=== PATIENT | male | born 1940 | race Caucasian/White ===

== ENCOUNTER → 2017-10-25 09:36 | Outpatient (CLI) | payer MEDICARE, OTHER, SELFPAY ==
[2017-10-25 11:04] LABS: Absolute Lymphocyte Count 0.93 X10^3/ul (0.83-4.51); Absolute Neutrophil Count 0.7 X10^3/uL (2.0-7.7); Basophil# 0.03 X10^3/uL; Basophil% 1.4 % (0-1); Eosinophil# 0.06 X10^3/uL; Eosinophils% 2.9 % (0-5); Hematocrit 35.5 % (40-54); Hemoglobin 11.2 g/dl (13.0-16.5); Lymphocyte # 0.93 X10^3/ul (4.0); Lymphocyte % 44.7 % (19-41); Mean Corp Hgb Conc 31.5 g/gl (32-36); Mean Corpuscular Hgb 24.4 pg (27.0-32.0); Mean Corpuscular Volume 77.3 fL (80-94); Monocyte# 0.32 X10^3/uL; Monocyte% 15.4 % (0-10); Neutrophil # 0.73 X10^3/uL (2.7-7.7); Neutrophil % 35.1 % (47-70); Platelet Count 175 K/mm3 (150-450); RBC Distribution Width CV 15.2 % (11.6-14.6); RBC Distribution Width SD 41.9 fl (35.1-43.9); Red Blood Count 4.59 M/mm3 (4.6-6.2); White Blood Count 2.1 K/mm3 (4.4-11.0)
[2017-10-25 11:05] LABS: Differential Indicated SCAN CRITERIA MET; POSITIVE COUNT NO; POSITIVE DIFFERENTIAL YES; POSITIVE MORPHOLOGY NO
[2017-10-25 11:21] LABS: ALB/GLOB Ratio 0.5 RATIO (0.9-2.4); AST(SGOT) 14 U/L (15-37); Alanine Aminotransfer ALT/SGPT 9 U/L (16-61); Albumin, Serum 2.5 g/dL (3.2-5.0); Alkaline Phosphatase 81 U/L (45-117); Anion Gap 8 (5-15); BUN 28 mg/dL (7-18); BUN/Creat Ratio 17.9 RATIO (10-20); Calcium,Total 8.6 mg/dL (8.5-10.1); Chloride 103 mmol/L (98-107); Cholesterol 111 mg/dL (200); Creatinine, Serum 1.56 mg/dL (0.70-1.30); EST Glomerular Filtration Rate 46 mL/min (>60); Est Glom Filt Rate - Afr Amer 56 mL/min (>60); Glucose 105 mg/dL (74-106); High Density Lipoprotein 25 mg/dL; Potassium 4.1 mmol/L (3.5-5.1); Protein, Total 7.5 g/dL (6.4-8.2); Sodium Level 138 mmol/L (136-145); Triglycerides 99 mg/dL; Very Low Density Lipoprotein 20 mg/dL (5-40)
== END ==
PROVIDERS: Family Provider Family Medicine; PCP Family Medicine; Visit Provider Family Medicine
DX: Z00.00 Encounter for general adult medical examination without abnormal findings (principal); D64.9 Anemia, unspecified
CPT/HCPCS: 36415; 80053; 80061; 85025

== ENCOUNTER → 2017-11-15 09:17 | Outpatient (CLI) | payer MEDICARE, OTHER, SELFPAY ==
[2017-11-15 09:42] LABS: Absolute Lymphocyte Count 1.02 X10^3/ul (0.83-4.51); Absolute Neutrophil Count 0.9 X10^3/uL (2.0-7.7); Basophil# 0.07 X10^3/uL; Basophil% 3.1 % (0-1); Eosinophil# 0.06 X10^3/uL; Eosinophils% 2.7 % (0-5); Hematocrit 36.7 % (40-54); Hemoglobin 11.3 g/dl (13.0-16.5); Lymphocyte # 1.02 X10^3/ul (4.0); Lymphocyte % 45.1 % (19-41); Mean Corp Hgb Conc 30.8 g/gl (32-36); Mean Corpuscular Hgb 23.3 pg (27.0-32.0); Mean Corpuscular Volume 75.8 fL (80-94); Mean Platelet Vol. 10.2 fl (6.2-12.0); Monocyte# 0.25 X10^3/uL; Monocyte% 11.1 % (0-10); Neutrophil # 0.86 X10^3/uL (2.7-7.7); Platelet Count 228 K/mm3 (150-450); RBC Distribution Width CV 16.5 % (11.6-14.6); RBC Distribution Width SD 44.1 fl (35.1-43.9); Red Blood Count 4.84 M/mm3 (4.6-6.2); White Blood Count 2.3 K/mm3 (4.4-11.0)
[2017-11-15 09:46] LABS: Prothrombin Time (Protime)PT. 45.3 SECONDS (11.7-14.9)
[2017-11-15 09:48] LABS: International Normalized Ratio 4.8
[2017-11-15 10:05] LABS: Differential Indicated SCAN CRITERIA MET; POSITIVE COUNT NO; POSITIVE DIFFERENTIAL YES; POSITIVE MORPHOLOGY NO
[2017-11-15 10:06] LABS: Platelet Estimate ADEQUATE (ADEQ)
[2017-11-15 10:07] LABS: Hypochromasia 1+; Microcytosis 1+; Ovalocyte RARE
[2017-11-15 10:12] LABS: BUN 29 mg/dL (7-18); Creatinine, Serum 1.71 mg/dL (0.70-1.30); Glucose 118 mg/dL (74-106)
[2017-11-15 10:13] LABS: ALB/GLOB Ratio 0.5 RATIO (0.9-2.4); AST(SGOT) 17 U/L (15-37); Alanine Aminotransfer ALT/SGPT 8 U/L (16-61); Albumin, Serum 2.5 g/dL (3.2-5.0); Alkaline Phosphatase 77 U/L (45-117); Anion Gap 9 (5-15); Calcium,Total 8.5 mg/dL (8.5-10.1); Chloride 106 mmol/L (98-107); EST Glomerular Filtration Rate 42 mL/min (>60); Est Glom Filt Rate - Afr Amer 50 mL/min (>60); Globulin 5.5 g/dL (2.2-4.2); Potassium 4.4 mmol/L (3.5-5.1); Sodium Level 138 mmol/L (136-145)
[2017-11-15 11:31] LABS: Anion Gap 7 (5-15); BUN 29 mg/dL (7-18); BUN/Creat Ratio 16.7 RATIO (10-20); Calcium,Total 8.7 mg/dL (8.5-10.1); Chloride 106 mmol/L (98-107); Creatinine, Serum 1.74 mg/dL (0.70-1.30); EST Glomerular Filtration Rate 41 mL/min (>60); Est Glom Filt Rate - Afr Amer 49 mL/min (>60); Glucose 122 mg/dL (74-106); Potassium 4.5 mmol/L (3.5-5.1); Sodium Level 138 mmol/L (136-145)
== END ==
PROVIDERS: Urology; Family Provider Family Medicine; PCP Family Medicine; Visit Provider Physician Assistant Medical
DX: I48.91 Unspecified atrial fibrillation (principal); I11.0 Hypertensive heart disease with heart failure; I50.9 Heart failure, unspecified; N20.0 Calculus of kidney; M06.00 Rheumatoid arthritis without rheumatoid factor, unspecified site; M17.0 Bilateral primary osteoarthritis of knee; E11.9 Type 2 diabetes mellitus without complications; R31.0 Gross hematuria; Z79.899 Other long term (current) drug therapy
CPT/HCPCS: 36415; 80048; 80053; 84153; 85025; 85610

== ENCOUNTER 2017-11-22 09:22 | Outpatient (RCR) | payer MEDICARE, OTHER, SELFPAY ==
[2017-11-22 10:03] LABS: International Normalized Ratio 2.5; Prothrombin Time (Protime)PT. 27.1 SECONDS (11.7-14.9)
== END 2017-11-22 10:00 | disposition home or self-care (01) ==
LOC: LAB 09:22
PROVIDERS: Family Provider Family Medicine; PCP Family Medicine; Visit Provider Internal Medicine Cardiovascular Disease
DX: I48.0 Paroxysmal atrial fibrillation (principal); Z79.899 Other long term (current) drug therapy; N18.3 Chronic kidney disease, stage 3 (moderate); E55.9 Vitamin D deficiency, unspecified
CPT/HCPCS: 36415; 85610

== ENCOUNTER 2017-11-22 23:41 | Emergency (ER) | payer MEDICARE, OTHER, SELFPAY ==
[2017-11-22 23:42] VITALS: BP 138/75; PULSE 75; RESP 18; TEMP 36.2; O2SAT 100; BMI 21.7
--- NOTE | 2017-11-22 23:58 | ED.VISSUMM ---
- ER Visit Summary Date of Service: 11/22/17 Chief Complaint: [] Bilateral knee pain History of Present Illness: The patient is a 77 M bilateral knee pain for years. He has rheumatoid arthritis and seems rheumatology with an appointment tomorrow. His knees gave out tonight when he was walking. He had a pretty good day today was able to walk around with pain. He has chronic pain every day. He is on meloxicam. No narcotics. Needed assistance getting out of bed and brought in. Physical Examination: Vital signs reviewed General: Well-nourished well-developed Head: Normocephalic atraumatic Eyes: Pupils equal round and reactive to light extraocular movements intact ENT: TMs clear no hemotympanum no trauma Neck: Nontender full range of motion Cardiovascular: Regular rate rhythm no murmurs normal S1-S2 Respiratory: No distress clear to auscultation bilaterally chest nontender Abdomen: Soft nontender nondistended normal bowel sounds no masses Back: Nontender no CVA tenderness Extremities: Significant tenderness to his knees. Moving them quite well. Bilateral arthritic changes. Normal color and pulses. Skin: Normal color no trauma Neuro alert oriented cranial nerves II through XII intact normal strength sensation reflexes Test Results: [] Emergency Department Course and Treatment: [] Given David wrap says needs for support as well as a shot of morphine. 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 I do not feel he needs acute steroids. There is no warmth or redness. I think this is just chronic pain. Treatment Plan: [] Disposition: [] Impression: [] Bilateral knee arthritis with chronic pain This note was generated with [employer] dictation software. It may contain incorrect words, spelling, and punctuation that were not noted in review of the chart prior to signing ED Disposition - Plan for ED Patient: Chief Complaint: Lower Extremity Injury Referrals: Dwayne Valente DO [Primary Care Provider] -
--- NOTE | 2017-11-23 | ED.DEP ---
ED Disposition - Plan for ED Patient: Disposition: Home or Assisted Living Chief Complaint: Lower Extremity Injury Instructions: ED Arthritis Rheumatoid Referrals: Dwayne Valente DO [Primary Care Provider] - Nelly Gomez MD [STAFF PHYSICIAN] -
[2017-11-23] MEDS: Morphine 4 MG/ML Syringe IM (00:07)
[2017-11-23 00:36] VITALS: PULSE 76; RESP 18; O2SAT 96
== END 2017-11-23 00:37 | disposition home or self-care (01) ==
LOC: ED 11-23 00:05
PROVIDERS: Emergency Provider Emergency Medicine; Family Provider Family Medicine; PCP Family Medicine
DX: M06.862 Other specified rheumatoid arthritis, left knee (principal); M06.861 Other specified rheumatoid arthritis, right knee; G89.29 Other chronic pain; I50.9 Heart failure, unspecified; E78.00 Pure hypercholesterolemia, unspecified; I48.0 Paroxysmal atrial fibrillation; Z79.01 Long term (current) use of anticoagulants; N18.3 Chronic kidney disease, stage 3 (moderate); E55.9 Vitamin D deficiency, unspecified; Z79.899 Other long term (current) drug therapy
CPT/HCPCS: 36415; 85610; 99283

== ENCOUNTER → 2017-11-23 12:09 | Outpatient (CLI) | payer MEDICARE, OTHER, SELFPAY ==
[2017-11-23 12:12] LABS: Pathologist Comment May follow
[2017-11-23 13:11] LABS: RBC /Synovial Fluid 0.018 10^6/uL (0); Synovial Fld Mononuclear WBC % 77.6 %; Synovial Fld Polynuclear WBC # 1.074 10^3/ul; Synovial Fld Polynuclear WBC % 22.4 %
[2017-11-23 13:15] LABS: AUTO B FLUID DILUENT BKGD CT WBC <0.1 RBC <0.01 (W<.1,R<.01); Source / Synovial Fluid L.KNEE
[2017-11-23 13:16] LABS: Appearance /Synovial Fluid Sl Cl (CLEAR); Color / Synovial Fluid Pink (Pale Yellow); Source- Body Fluid SYNOVIAL
[2017-11-23 13:54] LABS: Body Fluid QC Type(s) BF1Q,BF2Q; Lymph 22 %; Monocyte /Synovial Fluid 60 %; Neutrophil 18 % (0-25)
[2017-11-24 12:07] LABS: Pathologist Review Reviewed
== END ==
PROVIDERS: Family Provider Family Medicine; PCP Family Medicine; Visit Provider Internal Medicine Rheumatology
DX: M06.00 Rheumatoid arthritis without rheumatoid factor, unspecified site (principal); M17.0 Bilateral primary osteoarthritis of knee; E11.9 Type 2 diabetes mellitus without complications; N20.0 Calculus of kidney; I48.91 Unspecified atrial fibrillation; I11.0 Hypertensive heart disease with heart failure; I50.9 Heart failure, unspecified; Z79.899 Other long term (current) drug therapy
CPT/HCPCS: 87070; 87075; 87205; 89050; 89051; 89060

== ENCOUNTER 2017-12-09 23:55 | Emergency (ER) | payer MEDICARE, OTHER, SELFPAY ==
[2017-12-09 23:57] VITALS: BP 128/78; PULSE 80; RESP 18; TEMP 37.3; O2SAT 99; BMI 20.9
--- NOTE | 2017-12-10 00:53 | ED.VISSUMM ---
- ER Visit Summary Date of Service: 12/10/17 Chief Complaint: Rash History of Present Illness: The patient is a 77 M rest left-sided chest going to his back. Noticed today. No fevers. Denies pain. He is on low-dose prednisone daily for rheumatoid arthritis. Denies weakness or similar symptoms in the past. Did have chickenpox as a child. No history of any shingles. Patient warfarin history of atrial fibrillation. Physical Examination: General: Alert and oriented ?3, no acute distress HEENT: Normocephalic, atraumatic. Moist mucosa membranes Neck: supple, nontender. Cardiovascular: Regular rate and rhythm, no murmurs Respiratory: Normal breath sounds, symmetric, no distress Abdomen: Soft, nontender, nondistended Extremities: Nontender, no edema, pulses intact ?4 Neuro: no focal neurological deficits. Skin: Red vesicular rash T4 dermatome on the left chest wrapping around to the back. Nontender to palpation. No active drainage. Test Results: [] Emergency Department Course and Treatment: Patient exam notes shingles lesions. It is nontender. He is currently on a low-dose prednisone. Afebrile, nontoxic. He was given valacyclovir 1 g twice of it day for first occurrence for 7 days. None in the Pyxis for treatment this evening, therefore was given 1 dose of acyclovir with a prescription for valacyclovir. He will follow-up with PCP for reevaluation. Return if any worsening symptoms. Treatment Plan: [] Disposition: Discharge Impression: Herpes zoster left T4 dermatome This note was generated with [employer] dictation software. It may contain incorrect words, spelling, and punctuation that were not noted in review of the chart prior to signing ED Disposition - Plan for ED Patient: Disposition: Home or Assisted Living Chief Complaint: Rash Diagnosis: Herpes zoster Instructions: ED Shingles Prescriptions: Valacyclovir HCl [Valacyclovir] 1,000 mg PO BID #14 tablet Referrals: Dwayne Valente DO [Primary Care Provider] - 5-7 Days
[2017-12-10] MEDS: Acyclovir 800 MG Tablet PO (01:13)
[2017-12-10 01:28] VITALS: RESP 18
== END 2017-12-10 01:29 | disposition home or self-care (01) ==
LOC: ED 12-10 01:01
PROVIDERS: Emergency Provider Emergency Medicine; Family Provider Family Medicine; PCP Family Medicine
DX: B02.9 Zoster without complications (principal); M06.9 Rheumatoid arthritis, unspecified; I48.91 Unspecified atrial fibrillation; Z79.01 Long term (current) use of anticoagulants; I13.0 Hypertensive heart and chronic kidney disease with heart failure and stage 1 through stage 4 chronic kidney disease, or unspecified chronic kidney disease; N18.9 Chronic kidney disease, unspecified; I50.9 Heart failure, unspecified; E11.22 Type 2 diabetes mellitus with diabetic chronic kidney disease; N40.0 Benign prostatic hyperplasia without lower urinary tract symptoms; Z79.84 Long term (current) use of oral hypoglycemic drugs; Z79.899 Other long term (current) drug therapy
CPT/HCPCS: 99283

== ENCOUNTER 2017-12-24 14:26 | Emergency (ER) | payer MEDICARE, OTHER, SELFPAY ==
[2017-12-24 14:28] VITALS: BP 132/75; PULSE 70; RESP 16; TEMP 36.4; O2SAT 99; BMI 19.8
[2017-12-24 15:52] LABS: Absolute Lymphocyte Count 0.92 X10^3/ul (0.83-4.51); Absolute Neutrophil Count 1.8 X10^3/uL (2.0-7.7); Basophil# 0.06 X10^3/uL; Basophil% 1.9 % (0-1); Eosinophil# 0.07 X10^3/uL; Eosinophils% 2.2 % (0-5); Hematocrit 40.5 % (40-54); Hemoglobin 12.5 g/dl (13.0-16.5); Lymphocyte # 0.92 X10^3/ul (4.0); Lymphocyte % 28.9 % (19-41); Mean Corp Hgb Conc 30.9 g/gl (32-36); Mean Corpuscular Hgb 23.7 pg (27.0-32.0); Mean Corpuscular Volume 76.7 fL (80-94); Mean Platelet Vol. 10.7 fl (6.2-12.0); Monocyte# 0.31 X10^3/uL; Monocyte% 9.7 % (0-10); Neutrophil # 1.82 X10^3/uL (2.7-7.7); Neutrophil % 57.3 % (47-70); Platelet Count 165 K/mm3 (150-450); RBC Distribution Width CV 19.6 % (11.6-14.6); RBC Distribution Width SD 53.6 fl (35.1-43.9); Red Blood Count 5.28 M/mm3 (4.6-6.2); White Blood Count 3.2 K/mm3 (4.4-11.0)
[2017-12-24 15:56] LABS: POSITIVE COUNT NO; POSITIVE DIFFERENTIAL NO; POSITIVE MORPHOLOGY NO
[2017-12-24 16:00] LABS: Anion Gap 6 (5-15); BUN 22 mg/dL (7-18); BUN/Creat Ratio 15.1 RATIO (10-20); Chloride 103 mmol/L (98-107); Creatinine, Serum 1.46 mg/dL (0.70-1.30); EST Glomerular Filtration Rate 50 mL/min (>60); Est Glom Filt Rate - Afr Amer 61 mL/min (>60); Estimated Creatinine Clearance 41.06 ml/min; Glucose 152 mg/dL (74-106); Sodium Level 139 mmol/L (136-145)
[2017-12-24 16:29] LABS: International Normalized Ratio 2.2; Prothrombin Time (Protime)PT. 24.8 SECONDS (11.7-14.9)
[2017-12-24 16:42] VITALS: BP 129/76; PULSE 83; RESP 14; O2SAT 99
--- NOTE | 2017-12-24 16:55 | ED.VISSUMM ---
- ER Visit Summary Date of Service: 12/24/17 Chief Complaint: Right leg swelling History of Present Illness: The patient is a 77 M who presents with right leg redness and swelling. He states on November 20 over 1 month ago he fell and hit his right leg. He is on warfarin due to a history of atrial fibrillation. He has had some swelling over the anterior right lower leg ever since that time with some mild redness. He saw the partner for his primary care physician earlier this week was concern for cellulitis demarcated the area of this and started him on Keflex. They noticed that at the top edge where the redness was marked has expanded outside of the line however it is otherwise improving. He has no systemic symptoms such as fevers nausea or vomiting. He denies any pain. Physical Examination: Afebrile vitals are unremarkable Heart regular rate Lungs are clear There is a hematoma over the anterior right lower leg there is very minimal surrounding erythema extending above the line superiorly I do not appreciate lymphangitic streaking this area is warm to the touch the erythema inferiorly laterally and medially appears to be smaller than the line demarcates Test Results: Laboratory studies are notable for white blood cell count of 3.2 INR 2.2 creatinine of 1.46 which appears to be near baseline. Emergency Department Course and Treatment: Patient's cellulitis appears to extended very slightly superiorly how ever is otherwise improving. I do not appreciate lymphangitic streaking. He does not appear systemically ill. He does have some minimal fluctuance but is anticoagulated. He states that this is been like this for 1 month. Therefore I do not believe he needs emergently incised and drained and we will refer the patient to plastic surgery. We will have him discontinue Keflex and switch him to clindamycin. He does already have a scheduled follow-up on December 28 with the primary care physician. He was instructed on specific signs and symptoms to monitor for and conditions under which to return to the emergency department. Treatment Plan: [] Disposition: Discharge Impression: Cellulitis right leg Hematoma right leg This note was generated with [employer] dictation software. It may contain incorrect words, spelling, and punctuation that were not noted in review of the chart prior to signing ED Disposition - Plan for ED Patient: Chief Complaint: Cellulitis Referrals: Dwayne Valente DO [Primary Care Provider] -
--- NOTE | 2017-12-24 16:59 | ED.DEP ---
ED Disposition - Plan for ED Patient: Chief Complaint: Cellulitis Instructions: ED Infec Skin Cellulitis, ED Hematoma Prescriptions: Clindamycin HCl [Cleocin] 300 mg PO TID #30 cap Referrals: Dwayne Valente DO [Primary Care Provider] - Additional Instructions: STOP CEPHALEXIN.
--- NOTE | 2017-12-24 17:02 | ED.DEP ---
ED Disposition - Plan for ED Patient: Chief Complaint: Cellulitis Instructions: ED Infec Skin Cellulitis, ED Hematoma Prescriptions: Clindamycin HCl [Cleocin] 300 mg PO TID #30 cap Referrals: Dwayne Valente DO [Primary Care Provider] - Mor Bales MD [STAFF PHYSICIAN] - Additional Instructions: STOP CEPHALEXIN.
[2017-12-24 17:08] VITALS: BP 131/76; PULSE 83; RESP 14; O2SAT 99
== END 2017-12-24 17:09 | disposition home or self-care (01) ==
PROVIDERS: Emergency Provider Emergency Medicine; Family Provider Family Medicine; PCP Family Medicine
DX: L03.115 Cellulitis of right lower limb (principal); S80.11XA Contusion of right lower leg, initial encounter; W19.XXXA Unspecified fall, initial encounter; Y93.9 Activity, unspecified; Y92.9 Unspecified place or not applicable; I48.91 Unspecified atrial fibrillation; Z79.01 Long term (current) use of anticoagulants; E11.9 Type 2 diabetes mellitus without complications; Z87.891 Personal history of nicotine dependence
CPT/HCPCS: 80048; 85025; 85610; 99284; A4216

== ENCOUNTER 2017-12-27 10:24 | Outpatient (RCR) | payer MEDICARE, OTHER, SELFPAY ==
[2017-12-08 11:09] LABS: Absolute Lymphocyte Count 0.79 X10^3/ul (0.83-4.51); Absolute Neutrophil Count 2.2 X10^3/uL (2.0-7.7); Basophil# 0.01 X10^3/uL; Basophil% 0.3 % (0-1); Eosinophils% 2.9 % (0-5); Hematocrit 40.4 % (40-54); Hemoglobin 12.1 g/dl (13.0-16.5); Lymphocyte # 0.79 X10^3/ul (4.0); Lymphocyte % 22.6 % (19-41); Mean Corpuscular Hgb 23.1 pg (27.0-32.0); Mean Corpuscular Volume 77.2 fL (80-94); Monocyte# 0.36 X10^3/uL; Monocyte% 10.3 % (0-10); Neutrophil # 2.24 X10^3/uL (2.7-7.7); Neutrophil % 63.9 % (47-70); Platelet Count 139 K/mm3 (150-450); RBC Distribution Width CV 18.9 % (11.6-14.6); RBC Distribution Width SD 53.4 fl (35.1-43.9); Red Blood Count 5.23 M/mm3 (4.6-6.2); White Blood Count 3.5 K/mm3 (4.4-11.0)
[2017-12-08 11:10] LABS: Differential Indicated SCAN CRITERIA MET; International Normalized Ratio 2.4; POSITIVE COUNT NO; POSITIVE DIFFERENTIAL NO; POSITIVE MORPHOLOGY YES; Prothrombin Time (Protime)PT. 25.9 SECONDS (11.7-14.9)
[2017-12-08 11:30] LABS: Anisocytosis 1+; Hypochromasia 1+; Microcytosis 1+; Ovalocyte 1+; Platelet Estimate SLT DEC (ADEQ); Schistocytes RARE
[2017-12-08 11:32] LABS: ALB/GLOB Ratio 0.6 RATIO (0.9-2.4); AST(SGOT) 15 U/L (15-37); Alanine Aminotransfer ALT/SGPT 11 U/L (16-61); Alkaline Phosphatase 81 U/L (45-117); Anion Gap 6 (5-15); BUN 27 mg/dL (7-18); BUN/Creat Ratio 18.8 RATIO (10-20); Calcium,Total 9.1 mg/dL (8.5-10.1); Chloride 106 mmol/L (98-107); Creatinine, Serum 1.44 mg/dL (0.70-1.30); EST Glomerular Filtration Rate 51 mL/min (>60); Est Glom Filt Rate - Afr Amer 62 mL/min (>60); Globulin 4.8 g/dL (2.2-4.2); Glucose 131 mg/dL (74-106); Potassium 4.3 mmol/L (3.5-5.1); Protein, Total 7.8 g/dL (6.4-8.2); Sodium Level 140 mmol/L (136-145)
[2017-12-15 11:03] LABS: International Normalized Ratio 2.4; Prothrombin Time (Protime)PT. 26.5 SECONDS (11.7-14.9)
[2017-12-27 12:38] LABS: International Normalized Ratio 2.3; Prothrombin Time (Protime)PT. 25.5 SECONDS (11.7-14.9)
== END 2017-12-27 11:00 | disposition home or self-care (01) ==
LOC: LAB 10:24
PROVIDERS: Family Provider Family Medicine; PCP Family Medicine; Visit Provider Internal Medicine Cardiovascular Disease
DX: I48.0 Paroxysmal atrial fibrillation (principal); M06.00 Rheumatoid arthritis without rheumatoid factor, unspecified site; M17.0 Bilateral primary osteoarthritis of knee; E11.9 Type 2 diabetes mellitus without complications; N20.0 Calculus of kidney; I10 Essential (primary) hypertension; I48.91 Unspecified atrial fibrillation; I50.9 Heart failure, unspecified; Z79.899 Other long term (current) drug therapy
CPT/HCPCS: 36415; 80053; 85025; 85610

== ENCOUNTER → 2018-01-18 07:37 | Outpatient (CLI) | payer MEDICARE, OTHER, SELFPAY ==
[2017-12-17 10:25] VITALS: BP 107/58; PULSE 81; RESP 15; TEMP 36.8; BMI 20.8
== END ==
PROVIDERS: Family Provider Family Medicine; PCP Family Medicine; Visit Provider Urology
DX: Z01.818 Encounter for other preprocedural examination (principal)

== ENCOUNTER 2018-02-04 10:12 | Outpatient (RCR) | payer MEDICARE, OTHER, SELFPAY ==
--- NOTE | 2018-02-04 10:12 | DT_ITS ---
This patient was seen during an EMR downtime January 31, 2018 - February 07, 2018. This patient may have a combination of paper and electronic documentation or all paper documentation. All documentation is viewable within the e-chart portion of [facility] for each patient visit.
[2018-02-04 12:09] LABS: International Normalized Ratio 1.6; Prothrombin Time (Protime)PT. 18.9 SECONDS (11.7-14.9)
[2018-02-04 14:31] LABS: BUN 24 mg/dL (7-18); BUN/Creat Ratio 16.7 RATIO (10-20); Calcium,Total 8.8 mg/dL (8.5-10.1); Creatinine, Serum 1.44 mg/dL (0.70-1.30); EST Glomerular Filtration Rate 51 mL/min (>60); Est Glom Filt Rate - Afr Amer 62 mL/min (>60); Glucose 161 mg/dL (74-106)
[2018-02-04 14:32] LABS: Chloride 106 mmol/L (98-107); Phosphorus 3.4 mg/dL (2.5-4.9); Sodium Level 140 mmol/L (136-145)
[2018-02-04 14:45] LABS: PTHIN 73.2 pg/mL (18.4-80.1)
[2018-02-04 15:03] LABS: Protein, Urine (Random) 11.7 mg/dL (<11.9); Protein:Creat Ratio 450 mg/g CRE (0-200)
[2018-02-04 16:38] LABS: Hemoglobin A1c 7.4 % (4.2-6.3)
== END 2018-02-04 11:00 | disposition home or self-care (01) ==
LOC: LAB 10:12
PROVIDERS: Family Provider Family Medicine; PCP Family Medicine; Visit Provider Internal Medicine Cardiovascular Disease
DX: I48.0 Paroxysmal atrial fibrillation (principal); M06.00 Rheumatoid arthritis without rheumatoid factor, unspecified site; M17.0 Bilateral primary osteoarthritis of knee; N20.0 Calculus of kidney; I13.0 Hypertensive heart and chronic kidney disease with heart failure and stage 1 through stage 4 chronic kidney disease, or unspecified chronic kidney disease; E11.22 Type 2 diabetes mellitus with diabetic chronic kidney disease; N18.3 Chronic kidney disease, stage 3 (moderate); I50.9 Heart failure, unspecified; E55.9 Vitamin D deficiency, unspecified; Z79.899 Other long term (current) drug therapy
CPT/HCPCS: 36415; 80069; 82306; 82570; 83036; 83970; 84156; 85610

== ENCOUNTER 2018-03-28 09:06 | Outpatient (RCR) | payer MEDICARE, OTHER, SELFPAY ==
[2018-03-28 10:25] LABS: Absolute Lymphocyte Count 1.15 X10^3/ul (0.83-4.51); Absolute Neutrophil Count 1.4 X10^3/uL (2.0-7.7); Basophil# 0.05 X10^3/uL; Basophil% 1.7 % (0-1); Eosinophil# 0.12 X10^3/uL; Hematocrit 38.8 % (40-54); Hemoglobin 12.2 g/dl (13.0-16.5); Lymphocyte # 1.15 X10^3/ul (4.0); Lymphocyte % 38.1 % (19-41); Mean Corp Hgb Conc 31.4 g/gl (32-36); Mean Corpuscular Hgb 24.6 pg (27.0-32.0); Mean Corpuscular Volume 78.4 fL (80-94); Mean Platelet Vol. 10.6 fl (6.2-12.0); Monocyte# 0.32 X10^3/uL; Monocyte% 10.6 % (0-10); Neutrophil # 1.37 X10^3/uL (2.7-7.7); Neutrophil % 45.3 % (47-70); Platelet Count 159 K/mm3 (150-450); RBC Distribution Width CV 15.9 % (11.6-14.6); RBC Distribution Width SD 44.9 fl (35.1-43.9); Red Blood Count 4.95 M/mm3 (4.6-6.2)
[2018-03-28 10:29] LABS: International Normalized Ratio 1.6; Prothrombin Time (Protime)PT. 19.1 SECONDS (11.7-14.9)
[2018-03-28 10:30] LABS: POSITIVE COUNT NO; POSITIVE DIFFERENTIAL NO; POSITIVE MORPHOLOGY NO
[2018-03-28 10:50] LABS: ALB/GLOB Ratio 0.6 RATIO (0.9-2.4); AST(SGOT) 13 U/L (15-37); Alanine Aminotransfer ALT/SGPT 9 U/L (16-61); Albumin, Serum 2.8 g/dL (3.2-5.0); Alkaline Phosphatase 71 U/L (45-117); Anion Gap 8 (5-15); BUN 25 mg/dL (7-18); BUN/Creat Ratio 15.9 RATIO (10-20); Calcium,Total 8.8 mg/dL (8.5-10.1); Chloride 103 mmol/L (98-107); Creatinine, Serum 1.57 mg/dL (0.70-1.30); EST Glomerular Filtration Rate 46 mL/min (>60); Est Glom Filt Rate - Afr Amer 56 mL/min (>60); Globulin 4.6 g/dL (2.2-4.2); Glucose 138 mg/dL (74-106); Potassium 4.3 mmol/L (3.5-5.1); Protein, Total 7.4 g/dL (6.4-8.2); Sodium Level 140 mmol/L (136-145)
== END 2018-03-28 10:00 | disposition home or self-care (01) ==
LOC: LAB 09:06
PROVIDERS: Family Provider Family Medicine; PCP Family Medicine; Visit Provider Internal Medicine Cardiovascular Disease
DX: I48.91 Unspecified atrial fibrillation (principal); M06.00 Rheumatoid arthritis without rheumatoid factor, unspecified site; M25.562 Pain in left knee; M17.0 Bilateral primary osteoarthritis of knee; E11.9 Type 2 diabetes mellitus without complications; N20.0 Calculus of kidney; I11.0 Hypertensive heart disease with heart failure; I50.9 Heart failure, unspecified; Z79.01 Long term (current) use of anticoagulants; Z79.899 Other long term (current) drug therapy
CPT/HCPCS: 36415; 80053; 85025; 85610

== ENCOUNTER 2018-04-29 09:45 | Outpatient (RCR) | payer MEDICARE, OTHER, SELFPAY ==
[2018-04-29 11:29] LABS: International Normalized Ratio 2.7; Prothrombin Time (Protime)PT. 28.8 SECONDS (11.7-14.9)
== END 2018-04-29 11:00 | disposition home or self-care (01) ==
LOC: LAB 09:45
PROVIDERS: Family Provider Family Medicine; PCP Family Medicine; Visit Provider Internal Medicine Cardiovascular Disease
DX: I48.91 Unspecified atrial fibrillation (principal); M06.00 Rheumatoid arthritis without rheumatoid factor, unspecified site; M25.562 Pain in left knee; M17.0 Bilateral primary osteoarthritis of knee; E11.9 Type 2 diabetes mellitus without complications; N20.0 Calculus of kidney; I11.0 Hypertensive heart disease with heart failure; I50.9 Heart failure, unspecified; Z79.01 Long term (current) use of anticoagulants; Z79.899 Other long term (current) drug therapy
CPT/HCPCS: 36415; 85610

== ENCOUNTER 2018-05-24 10:12 | Outpatient (RCR) | payer MEDICARE, OTHER, SELFPAY ==
[2018-05-24 11:07] LABS: International Normalized Ratio 2.5; Prothrombin Time (Protime)PT. 26.9 SECONDS (11.7-14.9)
== END 2018-05-24 11:00 | disposition home or self-care (01) ==
LOC: LAB 10:12
PROVIDERS: Family Provider Family Medicine; PCP Family Medicine; Visit Provider Internal Medicine Cardiovascular Disease
DX: I48.91 Unspecified atrial fibrillation (principal); Z79.01 Long term (current) use of anticoagulants
CPT/HCPCS: 36415; 85610

== ENCOUNTER 2018-06-27 09:49 | Outpatient (RCR) | payer MEDICARE, OTHER, SELFPAY ==
[2018-06-27 10:29] LABS: International Normalized Ratio 2.7
== END 2018-06-27 11:00 | disposition home or self-care (01) ==
LOC: LAB 09:49
PROVIDERS: Family Provider Family Medicine; PCP Family Medicine; Referring Provider Internal Medicine Cardiovascular Disease; Visit Provider Internal Medicine Cardiovascular Disease
DX: I48.91 Unspecified atrial fibrillation (principal); Z79.01 Long term (current) use of anticoagulants
CPT/HCPCS: 36415; 85610

== ENCOUNTER 2018-07-25 10:14 | Outpatient (RCR) | payer MEDICARE, OTHER, SELFPAY ==
[2018-07-25 11:26] LABS: Absolute Lymphocyte Count 1.35 X10^3/ul (0.83-4.51); Absolute Neutrophil Count 1.9 X10^3/uL (2.0-7.7); Basophil# 0.03 X10^3/uL; Basophil% 0.8 % (0-1); Eosinophils% 2.6 % (0-5); Hematocrit 45.8 % (40-54); Hemoglobin 14.3 g/dl (13.0-16.5); Lymphocyte # 1.35 X10^3/ul (4.0); Lymphocyte % 35.5 % (19-41); Mean Corp Hgb Conc 31.2 g/gl (32-36); Mean Corpuscular Hgb 24.3 pg (27.0-32.0); Mean Corpuscular Volume 77.8 fL (80-94); Monocyte# 0.41 X10^3/uL; Monocyte% 10.8 % (0-10); Neutrophil # 1.91 X10^3/uL (2.7-7.7); Neutrophil % 50.3 % (47-70); Platelet Count 133 K/mm3 (150-450); Protein, Urine (Random) 63.6 mg/dL (<11.9); Protein:Creat Ratio 513 mg/g CRE (0-200); RBC Distribution Width SD 48.3 fl (35.1-43.9); Red Blood Count 5.89 M/mm3 (4.6-6.2); White Blood Count 3.8 K/mm3 (4.4-11.0)
[2018-07-25 11:27] LABS: International Normalized Ratio 2.7; Prothrombin Time (Protime)PT. 28.5 SECONDS (11.7-14.9)
[2018-07-25 11:32] LABS: POSITIVE COUNT NO; POSITIVE DIFFERENTIAL NO; POSITIVE MORPHOLOGY NO
[2018-07-25 11:46] LABS: PTHIN 91.7 pg/mL (18.4-80.1)
[2018-07-25 11:51] LABS: ALB/GLOB Ratio 0.7 RATIO (0.9-2.4); AST(SGOT) 15 U/L (15-37); Alanine Aminotransfer ALT/SGPT 14 U/L (16-61); Alkaline Phosphatase 96 U/L (45-117); Anion Gap 13 (5-15); BUN 21 mg/dL (7-18); BUN/Creat Ratio 13.6 RATIO (10-20); Bilirubin, Direct 0.24 mg/dL (0.00-0.30); Calcium,Total 8.9 mg/dL (8.5-10.1); Chloride 103 mmol/L (98-107); Creatinine, Serum 1.54 mg/dL (0.70-1.30); EST Glomerular Filtration Rate 47 mL/min (>60); Est Glom Filt Rate - Afr Amer 57 mL/min (>60); Globulin 4.6 g/dL (2.2-4.2); Glucose 182 mg/dL (74-106); Potassium 4.1 mmol/L (3.5-5.1); Protein, Total 7.6 g/dL (6.4-8.2); Sodium Level 138 mmol/L (136-145)
== END 2018-07-29 10:58 | disposition home or self-care (01) ==
LOC: LAB 10:14
PROVIDERS: Family Provider Family Medicine; PCP Family Medicine; Referring Provider Internal Medicine Cardiovascular Disease; Visit Provider Internal Medicine Cardiovascular Disease
DX: I48.91 Unspecified atrial fibrillation (principal); Z79.01 Long term (current) use of anticoagulants; M06.00 Rheumatoid arthritis without rheumatoid factor, unspecified site; M25.562 Pain in left knee; M17.0 Bilateral primary osteoarthritis of knee; E11.9 Type 2 diabetes mellitus without complications; N20.0 Calculus of kidney; I11.0 Hypertensive heart disease with heart failure; I50.9 Heart failure, unspecified; Z79.899 Other long term (current) drug therapy
CPT/HCPCS: 36415; 80053; 82248; 82570; 83970; 84156; 85025; 85610

== ENCOUNTER → 2018-08-15 08:55 | Outpatient (CLI) | payer MEDICARE, OTHER, SELFPAY ==
[2018-08-10 08:43] VITALS: BMI 22.1
[2018-08-15 09:48] LABS: Hemoglobin A1c 9.1 % (4.2-6.3)
--- OUTSIDE RECORDS SUMMARY | 2018-11-16 20:18 | XMS RPT_ITS ---
:1940 Author Organization [place] Support Name Relationship Address Phone TRISTIAN KIM Unavailable [address] [place] [address] BANUELOS, DAWSON Unavailable [address] [place] [address] R Unavailable Unavailable Unavailable TRISTIAN KIM Unavailable [address] [place] [address] BANUELOS, DAWSON Unavailable [address] [place] [address] R Unavailable Unavailable Unavailable TRISTIAN KIM Unavailable [address] [place] [address] BANUELOS, DAWSON Unavailable [address] [place] [address] R Unavailable Unavailable Unavailable TRISTIAN KIM Unavailable [address] [place] [address] BANUELOS, DAWSON Unavailable [address] [place] [address] R Unavailable Unavailable Unavailable TRISTIAN KIM Unavailable [address] [place] [address] BANUELOS, DAWSON Unavailable [address] [place] [address] R Unavailable Unavailable Unavailable TRISTIAN KIM Unavailable [address] [place] [address] BANUELOS, DAWSON Unavailable [address] [place] [address] R Unavailable Unavailable Unavailable TRISTIAN KIM Unavailable [address] [place] [address] BANUELOS, DAWSON Unavailable [address] [place] [address] R Unavailable Unavailable Unavailable GOVWalt, TRISTIAN Unavailable [address] [place] [address] BANUELOS, DAWSON Unavailable [address] [place] [address] R Unavailable Unavailable Unavailable GOVWalt, TRISTIAN Unavailable [address] [place] [address] BANUELOS, DAWSON Unavailable [address] [place] [address] R Unavailable Unavailable Unavailable GOVWalt, TRISTIAN Unavailable [address] [place] [address] BANUELOS, DAWSON Unavailable [address] [place] [address] R Unavailable Unavailable Unavailable JULIO, TRISTIAN Unavailable [address] [place] [address] BANUELOS, DAWSON Unavailable [address] [place] [address] R Unavailable Unavailable Unavailable JULIO, TRISTIAN Unavailable [address] [place] [address] BANUELOS, DAWSON Unavailable [address] [place] [address] R Unavailable Unavailable Unavailable JULIO, TRISTIAN Unavailable [address] [place] [address] BANUELOS, DAWSON Unavailable [address] [place] [address] R Unavailable Unavailable Unavailable GOVWalt, TRISTIAN Unavailable [address] [place] [address] BANUELOS, DAWSON Unavailable [address] [place] [address] R Unavailable Unavailable Unavailable GOVE, TRISTIAN Unavailable [address] [place] [address] BANUELOS, DAWSON Unavailable [address] [place] [address] R Unavailable Unavailable Unavailable GOVE, TRISTIAN Unavailable [address] [place] [address] BANUELOS, DAWSON Unavailable [address] [place] [address] R Unavailable Unavailable Unavailable GOVE, TRISTIAN Unavailable [address] [place] [address] BANUELOS, DAWSON Unavailable [address] [place] [address] R Unavailable Unavailable Unavailable GOVE, TRISTIAN Unavailable [address] [place] [address] BANUELOS, DAWSON Unavailable [address] [place] [address] R Unavailable Unavailable Unavailable GOVE, TRISTIAN Unavailable [address] [place] [address] BANUELOS, DAWSON Unavailable [address] [place] [address] R Unavailable Unavailable Unavailable GOVE, TRISTIAN Unavailable [address] [place] [address] BANUELOS, DAWSON Unavailable [address] [place] [address] R Unavailable Unavailable Unavailable GOVE, TRISTIAN Unavailable [address] [place] [address] BANUELOS, DAWSON Unavailable [address] [place] [address] R Unavailable Unavailable Unavailable GOVE, TRISTIAN Unavailable [address] [place] [address] BANUELOS, DAWSON Unavailable [address] [place] [address] R Unavailable Unavailable Unavailable GOVE, TRISTIAN Unavailable [address] [place] [address] BANUELOS, DAWSON Unavailable [address] [place] [address] R Unavailable Unavailable Unavailable GOVE, TRISTIAN Unavailable . + [place] [address] BANUELOS, DAWSON Unavailable [address] [place] [address] R Unavailable Unavailable Unavailable GOVE, TRISTIAN Unavailable Unavailable + [place] [address] BANUELOS, DAWSON Unavailable [address] [place] [address] R Unavailable Unavailable Unavailable GOVE, TRISTIAN Unavailable Unavailable + [place] [address] BANUELOS, DAWSON Unavailable [address] [place] [address] R Unavailable Unavailable Unavailable GOVE, TRISTIAN Unavailable Unavailable + BANUELOS, DAWSON Unavailable [address] [place] [address] R Unavailable Unavailable Unavailable GOVE, TRISTIAN Unavailable Unavailable + BANUELOS, DAWSON Unavailable [address] [place] [address] R Unavailable Unavailable Unavailable GOVE, TRISTIAN Unavailable Unavailable + BANUELOS, DAWSON Unavailable [address] [place] [address] R Unavailable Unavailable Unavailable GOVE, TRISTIAN Unavailable NA + [place], [place] BANUELOS, DAWSON Unavailable [address] [place] [address] R Unavailable Unavailable Unavailable GOVE, TRISTIAN Unavailable NA + [place], [place] BANUELOS, DAWSON Unavailable [address] [place] [address] R Unavailable Unavailable Unavailable GOVE, TRISTIAN Unavailable NA + NA, [place] BANUELOS, DAWSON Unavailable [address] [place] [address] R Unavailable Unavailable Unavailable Care Team Providers Name Role Phone Brown, Dwayne Attending Unavailable Brown, Dwayne Referring Unavailable Brown, Dwayne Attending Unavailable Brown, Dwayne Referring Unavailable Brown, Dwayne Primary Care Unavailable Antonio, Chris Attending Unavailable Brown, Dwayne Primary Care Unavailable Ronen, Margot Consulting Unavailable Antonio, Chris Referring Unavailable Brina Romero Attending Unavailable Brown, Dwayne Referring Unavailable Brown, Dwayne Primary Care Unavailable Brown, Dwayne Attending Unavailable Brown, Dwayne Referring Unavailable Brown, Dwayne Primary Care Unavailable Antonio, [place] Consulting Unavailable Brina Romero Attending Unavailable Brown, Dwayne Referring Unavailable Shelbi Abdalla Attending Unavailable Brown, Dwayne Referring Unavailable Brown, Dwayne Primary Care Unavailable Shelbi Abdalla Attending Unavailable Shelbi Abdalla Referring Unavailable Brown, Dwayne Primary Care Unavailable Vellanki, Nelly Consulting Unavailable Bethany, Pablo Consulting Unavailable Brown, Dwayne Primary Care Unavailable Jesus Cardoza Attending Unavailable Vellanki, Nelly Attending Unavailable Brown, Dwayne Primary Care Unavailable Vellanki, Enlly Referring Unavailable Antonio, [place] Attending Unavailable Antonio, Chris Referring Unavailable Brown, Dwayne Primary Care Unavailable Vellanki, Nelly Consulting Unavailable Bethany, Pablo Attending Unavailable Bethany, Pablo Referring Unavailable Brown, Dwayne Primary Care Unavailable Brown, Dwayne Primary Care Unavailable De Ravi Attending Unavailable Leon Davis INDUSTRIAL RELATIONS COUNSELOR-C Attending Unavailable Brown, Dwayne Referring Unavailable Brown, Dwayne Primary Care Unavailable Brown, Dwayne Primary Care Unavailable Obey Fonseca Attending Unavailable Leon Davis INDUSTRIAL RELATIONS COUNSELOR-C Attending Unavailable Brown, Dwayne Referring Unavailable Brown, Dwayne Primary Care Unavailable Antonio, Chris Attending Unavailable Antonio, Chris Referring Unavailable Brown, Dwayne Primary Care Unavailable Brown, Dwayne Consulting Unavailable Ronen, Margot Consulting Unavailable Leon Davis INDUSTRIAL RELATIONS COUNSELOR-C Attending Unavailable Brown, Dwayne Referring Unavailable Brown, Dwayne Primary Care Unavailable Brina Romero Attending Unavailable Brown, Dwayne Referring Unavailable Brown, Dwayne Primary Care Unavailable Brown, Dwayne Attending Unavailable Brown, Dwayne Referring Unavailable Brown, Dwayne Primary Care Unavailable Margot Aguilar Attending Unavailable Vesna Pennington Attending Unavailable Antonio, Chris Attending Unavailable Antonio, [place] Referring Unavailable Brown, Dwayne Primary Care Unavailable Brown, Dwayne Consulting Unavailable Ronen, Margot Consulting Unavailable Vellanki, Nelly Consulting Unavailable Antonio, Chris Attending Unavailable Antonio, [place] Referring Unavailable Brown, Dwayne Primary Care Unavailable Brown, Dwayne Consulting Unavailable Ronen, Margot Consulting Unavailable Vellanki, Nelly Consulting Unavailable Antonio, Chris Attending Unavailable Antonio, [place] Referring Unavailable Brown, Dwayne Primary Care Unavailable Brown, Dwayne Consulting Unavailable Ronen, Margot Consulting Unavailable Vellanki, Nelly Consulting Unavailable Brina Romero Attending Unavailable Brown, Dwayne Referring Unavailable Brown, Dwayne Primary Care Unavailable Antonio, Chris Attending Unavailable Antonio, [place] Referring Unavailable Brown, Dwayne Primary Care Unavailable Brown, Dwayne Consulting Unavailable Ronen, Margot Consulting Unavailable Vellanki, Nelly Consulting Unavailable Brina Romero Attending Unavailable Brown, Dwayne Referring Unavailable Antonio, Chris Attending Unavailable Brown, Dwayne Referring Unavailable Brown, Dwayne Attending Unavailable Brown, Dwayne Referring Unavailable Antonio, [place] Attending Unavailable Antonio, Chris Referring Unavailable Brown, Dwayne Primary Care Unavailable Brown, Dwayne Consulting Unavailable Ronen, Margot Consulting Unavailable Vellanki, Nelly Consulting Unavailable Antonio, [place] Attending Unavailable Antonio, Chris Referring Unavailable Brown, Dwayne Primary Care Unavailable Brown, Dwayne Consulting Unavailable Ronen, Margot Consulting Unavailable Vellanki, Nelly Consulting Unavailable PROBLEMS PROBLEMS DATE TYPE CONDITION / CODE ATTENDING STATUS SOURCE 08/15/2018 Unknown Z79.899 - Other long Dwayne Valente Active [facility] term (current) drug Community therapy / Hospital Z79.899(ICD-10) Repository 08/01/2018 Unknown I48.91 - Unspecified Antonio, [place] Active [facility] atrial fibrillation Community / I48.91(ICD-10) Hospital Repository 08/01/2018 Unknown M06.00 - Rheumatoid Antonio, [place] Active [place] arthritis without Community rheumatoid factor, Hospital unspecified site / Repository M06.00(ICD-10) 08/01/2018 Unknown 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, [place] Active [facility] Polyosteoarthritis, Community unspecified / Hospital M15.9(ICD-10) Repository 08/01/2018 Unknown M17.0 - Bilateral Antonio, [place] Active [facility] primary Community osteoarthritis of Hospital knee / M17.0(ICD-10) Repository 08/01/2018 Unknown E11.9 - Type 2 Antonio, Chris Active [facility] diabetes mellitus Community without Hospital complications / Repository E11.9(ICD-10) 08/01/2018 Unknown N20.0 - Calculus of Antonio, Chris Active [facility] [place] kidney / Community N20.0(ICD-10) Hospital Repository 08/01/2018 Unknown I10 - Essential Antonio, [place] Active [facility] (primary) Community hypertension / Hospital I10(ICD-10) Repository 08/01/2018 Unknown I50.9 - Heart Antonio, Chris Active [facility] [place] failure, unspecified Community / I50.9(ICD-10) Hospital Repository 08/01/2018 Unknown E11.22 - Type 2 Antonio, Chris Active [facility] diabetes mellitus [facility] with diabetic Hospital chronic kidney Repository disease / E11.22(ICD-10) 08/01/2018 Unknown N18.3 - Chronic Antonio, [place] Active [facility] kidney disease, Community stage 3 (moderate) / Hospital N18.3(ICD-10) Repository 07/25/2018 Unknown 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, [place]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 [facility] anticoagulants / Hospital Z79.01(ICD-10) Repository 06/21/2018 Unknown C44.91 - Basal cell Brown, Dwayne Active [facility] carcinoma of skin, Community unspecified / Hospital C44.91(ICD-10) Repository 06/03/2018 Unknown I48.0 - Paroxysmal HeatherBrina magana Active [facility] atrial fibrillation [facility] / I48.0(ICD-10) Hospital Repository 06/15/2018 Unknown Z95.810 - Presence Brina Romero Active [facility] of automatic [facility] (implantable) Hospital cardiac Repository defibrillator / Z95.810(ICD-10) 06/15/2018 Unknown I42.0 - Dilated Heather, Brina Active [facility] cardiomyopathy / Community I42.0(ICD-10) Hospital Repository 06/15/2018 Unknown I50.22 - Chronic Heather, Brina Active [facility] systolic Community (congestive) heart Hospital failure / Repository I50.22(ICD-10) 06/15/2018 Unknown I25.5 - Ischemic Heather, Brina Active [facility] cardiomyopathy / Community I25.5(ICD-10) Hospital Repository 02/16/2018 Unknown E55.9 - Vitamin D Margot Aguilar Active [place] deficiency, Community unspecified / Hospital E55.9(ICD-10) Repository 12/28/2017 Unknown S80.11XA - Contusion Leon Davis Active [facility] of right lower leg, INDUSTRIAL RELATIONS COUNSELOR-C Community initial encounter / Hospital S80.11XA(ICD-10) Repository 12/28/2017 Unknown L03.115 - Cellulitis Leon Davis Active [facility] of right lower limb INDUSTRIAL RELATIONS COUNSELOR-C Community / L03.115(ICD-10) Hospital Repository 10/25/2017 Unknown D64.9 - Anemia, Dwayne Valente Active [facility] unspecified / Community D64.9(ICD-10) Hospital Repository PROCEDURES PROCEDURES No Procedure Records FoundRESULTS RESULTS PACEMAKER CHECK Observed: 09/13/2018 Status: F Source: [place] 10:08 AM [facility] REPOSIT[facility]. [address] [place] [address] Pacemaker Check Date of Service: 09/07/181805 MR#: [id number] Acct: [id number] Name: CHACORTA BANUELOS Rep #: [id number] : 1940 From: Brina Romero Age/Sex: 77/M [place] [facility] [place]: Signed Billing Codes ICD Device Billing: ICD Dev Interrogate (Rmt) 09/07/181807 <Electronically signed by Brina Romero > Date Brina Romero 09/13/18 1008<Electronically signed by Chris Alvarez MD> Sapnaignchino Signature: Date (if applicable) Chris Alvarez MD CC: HEMOGLOBIN A1C Collected: 08/15/2018 Status: F Source: [place] 9:00 AM [facility] REPOSITORY TYPE CODE TESTS RESULT OUT OF RANGE REFERENCE UNITS LAB L501.9985 4.2-6.3 % High HGB A1C 9.1 Performed By: #### L501.9985 #### [facility] [address] [place], [address] INTERNAL MEDICINE Observed: 08/10/2018 Status: F Source: [place] OFFICE VISIT 9:34 AM [facility] REPOSIT[facility] [address] [place] [address] OFFICE VISIT Date of Service: 08/10/18 MR#: [id number] Acct: [id number] Name: CHACORTA BANUELOS Rep #: [id number] : 1940 Provider: Dwayne Valente DO Age/Sex: 77/M Location: [facility] Status: Signed Intake Vital Signs08/10/18 Height 6 ft 08/10/18 Weight: 163 lb 08/10/18 Body Mass Index (BMI) 22.1 08/10/18 Blood Pressure 149/82 H 08/10/18 Blood Pressure Location Lt brachial Intake Visit Reasons: 6 mo fu Chief Complaint: follow-up Accompanied by: Is patient in pain?: No Allergies amoxicillin [Amoxicillin] Allergy (Verified 06/21/18 10:14) Rash ciprofloxacin [From Cipro] Allergy (Verified 06/21/18 10:14) Rash ciprofloxacin HCl [From Cipro] Allergy (Verified 06/21/18 10:14) Rash Sulfa (Sulfonamide Antibiotics) Allergy (Verified 06/21/18 10:14) Other Medications Finasteride [Proscar] 5 mg PO DAILY 01/22/16 [History Confirmed 08/10/18] lisinopril 2.5 mg tablet 2.5 mg PO DAILY #90 tab 11/08/17 [Rx Confirmed 08/10/18] Dutasteride [Avodart] 0.5 mg PO DAILY 12/17/17 [History Confirmed 08/10/18] Furosemide [Lasix] 40 mg PO QODAY 12/17/17 [History Confirmed 08/10/18] Prednisone 5 mg PO DAILY 12/17/17 [History Confirmed 08/10/18] Warfarin [Coumadin] 4 mg PO DAILY 12/17/17 [History Confirmed 08/10/18] Warfarin [Coumadin ([facility])] 1 mg PO DAILY 12/24/17 [History Confirmed 08/10/18] dofetilide 250 mcg capsule 250 mcg PO Q12 #180 cap 05/09/18 [Rx Confirmed 08/10/18] famciclovir 250 mg tablet 250 mg PO BID #14 tab 06/21/18 [Rx Confirmed 08/10/18] carvedilol 3.125 mg tablet 3.125 mg PO BID #180 tab 07/11/18 [Rx Confirmed 08/10/18] PFSH Medical History Hearing loss (Chronic) COPD (chronic obstructive pulmonary disease) (Chronic) Fistula (Acute) group home (current) use of anticoagulants (Chronic) Atrial fibrillation (Chronic) Other alf (current) drug therapy (Chronic) Dilated cardiomyopathy (Chronic) Congestive heart failure (CHF) (Chronic) Dyspnea (Chronic) Frequent PVCs (Chronic) Renal insufficiency (Chronic) Dizziness and giddiness (Chronic) Hyperlipidemia (Chronic) Ischemic cardiomyopathy (Chronic) Atrial fibrillation (Chronic) DM2 (diabetes mellitus, type 2) (Chronic) HTN (hypertension) (Chronic) Rheumatoid arthritis (Chronic) Arthritis (Acute) History of pneumonia (Acute) Surgical History 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 ROS Const Constitutional: No body ache, chills, headache(s), weakness or fever(s) Eyes Eyes: No blurry vision, change in vision, eye pain or discharge ENT ENT: No headache(s), abnormal hearing, ear pain, ear pressure, tinnitus, dizziness/vertigo or balance problems Resp Respiratory: No cough, shortness of breath or wheezing Cardio Cardiology: No chest pain at rest, shortness of breath, dyspnea on exertion or palpitations Gastro GI: No abdominal pain or bloating Musc Musculoskeletal: No muscle weakness Neuro Neurology: No headache(s), weakness or abnormal hearing Aller/Imm Allergy/Immunologic: No wheezing Exam Const General: cooperative, disheveled, no acute distress Nutritional Appearance: average body habitus Orientation: alert HENMT Head: normal to inspection Ears: hearing grossly normal bilaterally Chest Chest palpation AND inspection: rash (scarring from recent shingles), normal palpation of entire chest wall Breast inspection: normal inspection of the breasts Resp Effort AND Inspection: normal respiratory effort, symmetric chest movement Auscultation: Bilateral: Clear to Auscultation Cardio Palpation: normal PMI Rate: regular rate Rhythm: regular rhythm Musc Musculoskeletal: No muscle weakness Neuro General: normal sensation to monofilament Extrem General: no clubbing, cyanosis or edema Psych Affect: indifferent Speech and Movement: delayed speech Attitude: guarded Judgment: limited Assessment AND Plan Problems 1. COPD (chronic obstructive pulmonary disease) J44.9 2. Atrial fibrillation I48.0 3. Dilated cardiomyopathy I42.0 4. Renal insufficiency N28.9 5. Biventricular ICD (implantable cardioverter-defibrillator) in place Z95.810 ICD implant 12/26/09 6. Pure hypercholesterolemia E78.00 7. Type 2 diabetes mellitus E11.9 Plan This patient was seen for coordination of care between multiple physicians and myself. His physical examination was unchanged he is not acutely or chronically short of breath and voices no complaints. All of his necessary blood work is been done with the exception of a hemoglobin A1c. I think that is necessary because his last fasting blood sugar was 177 and he does have a history of type 2 diabetes. All his medications were up-to-date I did not change them I will notify him of the results of the A1c and if there is further issues that need to be addressed. Orders Orders: Plan Detail Follow Up 6 Months Coding Level of Care Code Off vis,est,level 3 Diagnoses COPD (chronic obstructive pulmonary disease) J44.9 Atrial fibrillation I48.0 Atrial fibrillation type: paroxysmal Dilated cardiomyopathy I42.0 Renal insufficiency N28.9 Biventricular ICD (implantable cardioverter-defibrillator) in place Z95.810 Pure hypercholesterolemia E78.00 Hyperlipidemia type: pure hypercholesterolemia Type 2 diabetes mellitus E11.9 Diabetes mellitus complication status: with unspecified complications 08/10/18 0934 <Electronically signed by Dwayne Valente DO> Date Dwayne Valente DO Cosigner Signature: Date (if applicable) CC: PROTEIN+CREATININE Collected: Status: F Source: [place] RATIO,URINE 07/25/2018 10:22 AM [facility] REPOSITORY Order Comment: DR. GOMEZ WANTS THE CBCD CMP WANTS THE BID CMP PTH CBC PROCRE DR. ALVAREZ WANTS THE PT TYPE CODE TESTS RESULT OUT OF RANGE REFERENCE UNITS LAB L501.1200 NO RANGE EST. mg/dL Normal UR CREAT 124.00 LAB L501.1930 <11.9 mg/dL High 63.6 PROTEIN,UR.R AN. LAB L501.1940 0-200 mg/g CRE High PROT:CRE 513 RATIO Performed By: #### L501.0900 #### [facility] [address] [place], [place], [address] PROTHROMBIN TIME W/INR Collected: 07/25/2018 Status: F Source: [place] 10:22 AM [facility] REPOSITORY Order Comment: DR. GOMEZ WANTS THE CBCD CMP WANTS THE BID CMP PTH CBC PROCRE DR. ALVAREZ WANTS THE PT TYPE CODE TESTS RESULT OUT OF RANGE REFERENCE UNITS LAB L300.4150 11.7-14.9 SECONDS High PROTIME 28.5 LAB L300.4200 Normal INR 2.7 Performed By: #### L300.3900 #### [facility] [address] [place], [place], [address] CBC W/DIFF, AUTOMATED Collected: 07/25/2018 Status: F Source: [place] 10:22 AM [facility] REPOSITORY Order Comment: DR. GOMEZ WANTS THE CBCD CMP WANTS THE BID CMP PTH CBC PROCRE DR. ALVAREZ WANTS THE PT TYPE CODE TESTS RESULT OUT OF RANGE REFERENCE UNITS LAB L100.1000 4.4-11.0 K/mm3 Low WBC 3.8 LAB L100.1200 4.6-6.2 M/mm3 Normal RBC 5.89 LAB L100.1300 13.0-16.5 g/dl Normal HGB 14.3 LAB L100.1400 40-54 % Normal HCT 45.8 LAB L100.1500 80-94 fL Low MCV 77.8 LAB L100.1600 27.0-32.0 pg Low MCH 24.3 LAB L100.1700 32-36 g/gl Low MCHC 31.2 LAB L100.1810 11.6-14.6 % High RDW CV 17.0 LAB L100.1820 35.1-43.9 fl High RDW SD 48.3 LAB L100.1900 150-450 K/mm3 Low PLT 133 LAB L100.2000 6.2-12.0 fl Normal MPV 10.0 LAB L100.2100 47-70 % Normal NEUT% 50.3 LAB L100.2200 19-41 % Normal LY% 35.5 LAB L100.2300 0-10 % High MONO% 10.8 LAB L100.2400 0-5 % Normal EO% 2.6 LAB L100.2500 0-1 % Normal BASO% 0.8 LAB L100.2550 0.0-0.9 % Normal IM GRAN % 0.000 Result Comment: IG% - Immature Granulocytes (promyelocytes, myelocytes and metamyelocytes) > 1% indicates that a LEFT SHIFT is Present. LAB L100.2620 2.0-7.7 X10 3/uL Low Absolute Neut 1.9 LAB L100.2720 0.83-4.51 X10 3/ul Normal Absolute Lymph 1.35 Performed By: #### L100.0100 #### [facility] [address] [place], [place], [address] PTHIN Collected: 07/25/2018 Status: F Source: [place] 10:22 AM [facility] REPOSITORY Order Comment: DR. GOMEZ WANTS THE CBCD CMP WANTS THE BID CMP PTH CBC PROCRE DR. ALVAREZ WANTS THE PT TYPE CODE TESTS RESULT OUT OF RANGE REFERENCE UNITS LAB L509.1000 18.4-80.1 pg/mL High PTHIN 91.7 Performed By: #### L509.1000 #### [facility] [address] [place], [address] COMPREHENSIVE METABOLIC Collected: 07/25/2018 Status: F Source: JOSE ALEJANDRO PROFIL 10:22 AM [facility] REPOSITORY Order Comment: DR. GOMEZ WANTS THE CBCD CMP WANTS THE BID CMP PTH CBC PROCRE DR. ALVAREZ WANTS THE PT TYPE CODE TESTS RESULT OUT OF RANGE REFERENCE UNITS LAB L501.0100 74-106 mg/dL High GLU 182 Result Comment: Fasting Glucose result greater than or equal to 126 mg/dL suggests DIABETES MELLITUS per A.D.A. criteria. Please note revised GLUCOSE reference range effective 2017. LAB L501.1000 7-18 mg/dL High BUN 21 LAB L501.1100 0.70-1.30 mg/dL High CREAT,SERUM 1.54 Result Comment: The validity of the calculated GFR AND GFRAA in patients over 70 years has not been determined. Clinical correlation is essential. LAB L501.1110 >60 mL/min Low EST GFR 47 Result Comment: Non- GFR Calc LAB L501.1115 >60 mL/min Low EST GFR - AA 57 Result Comment: GFR Calc LAB L501.1300 10-20 RATIO Normal BUN/CRE 13.6 LAB L501.1500 6.4-8.2 g/dL T Normal PROT 7.6 LAB L501.1800 3.2-5.0 g/dL Low ALB 3.0 LAB L501.1950 2.2-4.2 g/dL High GLOB 4.6 LAB L501.2000 0.9-2.4 RATIO Low A/G 0.7 LAB L501.2200 8.5-10.1 mg/dL CA Normal 8.9 LAB L501.4100 15-37 U/L Normal AST 15 LAB L501.4305 45-117 U/L Normal ALK P 96 LAB L501.4405 16-61 U/L Low ALT 14 LAB L501.4600 0.20-1.00 mg/dL T Normal BILI 1.00 LAB L501.5300 136-145 mmol/L NA Normal 138 LAB L501.5600 3.5-5.1 mmol/L K Normal 4.1 LAB L501.5900 98-107 mmol/L CL Normal 103 LAB L501.6100 21.0-32.0 mmol/L Normal CO2 22.0 LAB L501.6200 5-15 Normal GAP 13 Performed By: #### L500.4050, L501.4700 #### [facility] [address] [place], [address] BILIRUBIN, DIRECT Collected: 07/25/2018 Status: F Source: JOSE ALEJANDRO 10:22 AM [facility] REPOSITORY Order Comment: DR. GOMEZ WANTS THE CBCD CMP WANTS THE BID CMP PTH CBC PROCRE DR. ALVAREZ WANTS THE PT TYPE CODE TESTS RESULT OUT OF RANGE REFERENCE UNITS LAB L501.4700 0.00-0.30 mg/dL Normal D BILI 0.24 Performed By: #### L500.4050, L501.4700 #### [facility] [address] [place], [address] PROTHROMBIN TIME W/INR Collected: 06/27/2018 Status: F Source: JOSE ALEJANDRO 9:55 AM [facility] REPOSITORY TYPE CODE TESTS RESULT OUT OF RANGE REFERENCE UNITS LAB L300.4150 11.7-14.9 SECONDS High PROTIME 29.0 LAB L300.4200 Normal INR 2.7 Performed By: #### L300.3900 #### [facility] [address] [place], [address] INTERNAL MEDICINE Observed: 06/21/2018 Status: F Source: JOSE ALEJANDRO OFFICE VISIT 12:16 PM [facility] REPOSITORY [facility] [address] [place] [address] [place] [address] OFFICE VISIT Date of Service: 06/21/18 MR#: [id number] Acct: [id number] Name: CHACORTA BANUELOS Rep #: [id number] : 1940 Provider: Dwayne Valente DO Age/Sex: 77/M Location: [facility] Status: Signed with Addenda ADDENDUM by Earline Travis on 06/21/18 at 1216 OFFICE PROCEDURES Office Procedure Documentation entered by Earline Travis 06/21/18 12:16: Immunizations Fluad 2017- 65yr up(PF)45 mcg(15 mcgx3)/0.5 mL intramuscular syringe Performing Provider: Dwayne Valente DO Administered by: Earline Travis on 06/21/18 12:16 Dose Route Admin Location Lot Number Expiration Date NDC [employer] 45 mcg IM Right Deltoid [id number] 02/26/19 87984-967-13 SEQIRUS VIS Given Date VIS Publication Date 06/21/18 06/21/18 Eligibility Eligibility Date 06/21/18 1216 <Electronically signed by Earline Travis > Date Earline Travis cc: * Signed Intake Intake Visit Reasons: SIDE PAIN, RADIATES TO BACK Chief Complaint: Chest pain radiates to back Accompanied by: Daughter Is patient in pain?: Yes (Left side pain chest area AND radiates to back) Allergies amoxicillin [Amoxicillin] Allergy (Verified 06/21/18 10:14) Rash ciprofloxacin [From Cipro] Allergy (Verified 06/21/18 10:14) Rash ciprofloxacin HCl [From Cipro] Allergy (Verified 06/21/18 10:14) Rash Sulfa (Sulfonamide Antibiotics) Allergy (Verified 06/21/18 10:14) Other Medications Finasteride [Proscar] 5 mg PO DAILY 01/22/16 [History Confirmed 06/21/18] carvedilol 3.125 mg tablet 3.125 mg PO BID #180 tab 11/08/17 [Rx Confirmed 06/21/18] lisinopril 2.5 mg tablet 2.5 mg PO DAILY #90 tab 11/08/17 [Rx Confirmed 06/21/18] Dutasteride [Avodart] 0.5 mg PO DAILY 12/17/17 [History Confirmed 06/21/18] Furosemide [Lasix] 40 mg PO QODAY 12/17/17 [History Confirmed 06/21/18] Prednisone 5 mg PO DAILY 12/17/17 [History Confirmed 06/21/18] Warfarin [Coumadin] 4 mg PO DAILY 12/17/17 [History Confirmed 06/21/18] Warfarin [Coumadin (PBKC)] 1 mg PO DAILY 12/24/17 [History Confirmed 06/21/18] dofetilide 250 mcg capsule 250 mcg PO Q12 #180 cap 05/09/18 [Rx Confirmed 06/21/18] famciclovir 250 mg tablet 250 mg PO BID #14 tab 06/21/18 [Rx Confirmed 06/21/18] [facility] Medical History Hearing loss (Chronic) COPD (chronic obstructive pulmonary disease) (Chronic) Fistula (Acute) group home (current) use of anticoagulants (Chronic) Atrial fibrillation (Chronic) Other alf (current) drug therapy (Chronic) Dilated cardiomyopathy (Chronic) Congestive heart failure (CHF) (Chronic) Dyspnea (Chronic) Frequent PVCs (Chronic) Renal insufficiency (Chronic) Dizziness and giddiness (Chronic) Hyperlipidemia (Chronic) Ischemic cardiomyopathy (Chronic) Atrial fibrillation (Chronic) DM2 (diabetes mellitus, type 2) (Chronic) HTN (hypertension) (Chronic) Rheumatoid arthritis (Chronic) Arthritis (Acute) History of pneumonia (Acute) Surgical History 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) Hx of lithotripsy (Acute) Normal colonoscopy (Acute) Family History Father Sudden cardiac Brother Myocardial infarction CHF (congestive heart failure) Other Family history of coronary artery disease Social History Smoking Status: Former smoker how long ago did patient quit smokin alcohol intake: never substance use type: does not use caffeine: No what type of physical activity do you participate in: none seatbelt use: always do you feel safe at home: Yes HPI HPI Chief Complaint: Chest pain radiates to back Details: CHACORTA BANUELOS, is a 77 M who presents to the office today for left chest pain. He calls it sharp and burning gets below his left nipple and is intermittent unrelated to any activity or pressure. ROS Const Constitutional: No chills, fatigue, fever(s), frequent falls, malaise, weakness, sleep problems or change in appetite Eyes Eyes: No blurry vision, change in vision, double vision, discharge or visual disturbances ENT ENT: No abnormal hearing, ear pain, ear pressure, tinnitus or dizziness/vertigo Resp Respiratory: Positive for cough (Occassional) Cough: Yes non-productive and shortness of breath; no wheezing Cardio Cardiology: Positive for chest pain at rest (Left side radiates to back) and shortness of breath; no chest pain with exertion, dyspnea on exertion, generalized swelling, irregular heart rhythm, lightheadedness, orthopnea, fast heart rate or palpitations Gastro GI: No abdominal pain, change in bowel habits, constipation, diarrhea, nausea/dyspepsia or vomiting Genitourinary Male: No difficulty urinating, burning urination, painful urination, urinary incontinence, urinary frequency, urinary urgency, urinary hesitancy, urinary retention, blood in urine, Frequent nighttime urination/ nocturia, sexual problems, testicle lump or testicle pain Musc Musculoskeletal: No joint pain, back pain, joint swelling, limited range of motion, muscle weakness, numbness or tingling Skin Skin: Positive for lesions (Near left ear); no change in skin color, itching, rash or wounds Breast Breast: No breast lump or breast pain Neuro Neurology: No frequent falls, weakness, abnormal hearing, numbness, tingling, unsteady gait/balance, dizziness, loss of vision, memory loss or visual disturbances Psych Psychiatric: No memory loss, No anxiety, No change in appetite, No depression, No Thoughts of harming yourself/Others Endo Endocrine: No fatigue, heat intolerance, increased thirst/drinking, increased hunger or increased urination Aller/Imm Allergy/Immunologic: No wheezing, itchy eyes or seasonal allergy symptoms Terrence/Lymp Hematologic/Lymphatic: No easy bleeding, easy bruising or enlarged lymph nodes Exam Const General: cooperative, disheveled, no acute distress Nutritional Appearance: average body habitus Orientation: alert [facility] Head: normal to inspection Ears: hearing grossly normal bilaterally Chest Chest palpation AND inspection: rash (scarring from recent shingles), normal palpation of entire chest wall Breast inspection: normal inspection of the breasts Resp Effort AND Inspection: normal respiratory effort, symmetric chest movement Auscultation: Bilateral: Clear to Auscultation Cardio Palpation: normal PMI Rate: regular rate Rhythm: regular rhythm Musc Musculoskeletal: No muscle weakness Extrem General: no clubbing, cyanosis or edema Assessment AND Plan Problems 1. Post herpetic neuralgia B02.29 Plan This patient was seen with a complaint of chest pain. Pacifically it was a sharp stabbing intermittent pain unrelated to activity or exercise. Was also unrelated to positioning. Upon examination the pain directly overlying the old scars from his relatively recent herpes zoster infection. There was no suspicion of this being pulmonary or cardiac it seemed to be a simple postherpetic neuralgia although I was concerned that may be it was going to flareup again and therefore placed him on famciclovir to try and get that resolved. If the pain continued I would probably add Neurontin and he was to let me know if this did not control his discomfort. Orders Orders: Referrals: Medications New: Fluad 65yr up(PF)45 mcg(15 mcgx3)/0.5 mL intr45 mcg (0.5 mL) IM ONCE #1 0RF NS Z23 amuscular syringe (flu vac 2017 [id number](PF)) Coding Level of Care Code Off vis,est,level 3 Diagnoses Post herpetic neuralgia B02.29 06/21/18 1103 <Electronically signed by Dwayne Valente DO> Date Dwayne Valente DO Cosigner Signature: Date (if applicable) CC: PACEMAKER CHECK Observed: 06/14/2018 Status: F Source: JOSE ALEJANDRO 11:30 AM [facility] REPOSITORY [facility] [address] [place] [address]. [address] [place] [address] Pacemaker Check Date of Service: 06/14/18 0910 MR#: [id number] Acct: [id number] Name: CHACORTA BANUELOS Rep #: [id number] : 1940 From: Brina Romero Age/Sex: 77/M Location: [facility] Status: Signed Billing Codes ICD Device Billing: ICD Dev Interrogate (Rmt) 06/14/18 0916 <Electronically signed by Brina Romero > Date Brina Romero 06/14/18 1130<Electronically signed by Chris Alvarez MD> Cosignchino Signature: Date (if applicable) Chris Alvarez MD CC: PACEMAKER CHECK Observed: 06/02/2018 Status: F Source: MULGA 3:21 PM [facility] [address] [place] [address] Pacemaker Check Date of Service: 06/02/18 1201 MR#: [id number] Acct: [id number] Name: LAKISHAWHATLEY G Rep #: [id number] : 1940 From: Brina Romero Age/Sex: 77/M [place] [facility] [place] Signed Billing Codes ICD Device Billing: ICD Dev Prog Evammon, Multi 06/02/18 1203 <Electronically signed by Brina Romero > Date Brina Romero 06/02/18 1521<Electronically signed by Chris Alvarez MD> Cossnow Signature: Date (if applicable) Chris Alvarez MD CC: CARDIOLOGY VISIT Observed: 06/02/2018 Status: F Source: MULGA REPORT 11:26 AM [facility] REPOSITORY [facility] [address] [place] [address] OFFICE VISIT Date of Service: 06/02/18 MR#: [id number] Acct: [id number] Name: CHACORTA BANUELOS Rep #: [id number] : 1940 Provider: Chris Alvarez MD Age/Sex: 77/M [place] [facility] [place]: Signed HPI HPI Chief Complaint: Follow-up visit Details: CHACORTA BANUELOS, is a 77 M who presents to the office today for a follow-up visit. He is a gentleman with a history of ischemic cardia myopathy, atrial fibrillation, status post ICD placement with upgrade to a biventricular ICD in October 2013. He returns for routine follow-up visit. He denies any chest pain or shortness breath or paroxysmal nocturnal dyspnea or pedal edema he has had no neck arm or jaw discomfort to suggest angina and has not had any defibrillator discharges. His defibrillator was interrogated today. His physical exam today demonstrates clear lung perera regular rate and rhythm and no pedal edema. Intake Vital Signs06/02/18 Height 6 ft 06/02/18 Weight: 169 lb 06/02/18 Body Mass Index (BMI) 22.9 06/02/18 Blood Pressure 128/82 H 06/02/18 Blood Pressure Location Lt brachial Intake Visit Reasons: PACER @11/6 M FU Is patient in pain?: No Allergies amoxicillin [Amoxicillin] Allergy (Verified 06/02/18 11:06) Rash ciprofloxacin [From Cipro] Allergy (Verified 06/02/18 11:06) Rash ciprofloxacin HCl [From Cipro] Allergy (Verified 06/02/18 11:06) Rash Sulfa (Sulfonamide Antibiotics) Allergy (Verified 06/02/18 11:06) Other Medications Finasteride [Proscar] 5 mg PO DAILY 01/22/16 [History Confirmed 01/12/18] carvedilol 3.125 mg tablet 3.125 mg PO BID #180 tab 11/08/17 [Rx Confirmed 01/12/18] lisinopril 2.5 mg tablet 2.5 mg PO DAILY #90 tab 11/08/17 [Rx Confirmed 01/12/18] Dutasteride [Avodart] 0.5 mg PO DAILY 12/17/17 [History Confirmed 01/12/18] Furosemide [Lasix] 40 mg PO QODAY 12/17/17 [History Confirmed 01/12/18] Prednisone 5 mg PO DAILY 12/17/17 [History Confirmed 01/12/18] Warfarin [Coumadin] 4 mg PO DAILY 12/17/17 [History Confirmed 05/24/18] Clindamycin HCl [Cleocin] 300 mg PO TID #30 cap 12/24/17 [Rx Confirmed 01/12/18] Warfarin [Coumadin (PBKC)] 1 mg PO DAILY 12/24/17 [History Confirmed 05/24/18] dofetilide 250 mcg capsule 250 mcg PO Q12 #180 cap 05/09/18 [Rx] PFSH Medical History Hearing loss (Chronic) COPD (chronic obstructive pulmonary disease) (Chronic) Fistula (Acute) 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 (Chronic) Atrial fibrillation (Chronic) 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) Dilated cardiomyopathy (Chronic) Congestive heart failure (CHF) (Chronic) Dyspnea (Chronic) Frequent PVCs (Chronic) Renal insufficiency (Chronic) Dizziness and giddiness (Chronic) Hyperlipidemia (Chronic) Ischemic cardiomyopathy (Chronic) Atrial fibrillation (Chronic) DM2 (diabetes mellitus, type 2) (Chronic) HTN (hypertension) (Chronic) Rheumatoid arthritis (Chronic) Arthritis (Acute) History of pneumonia (Acute) Surgical History 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) Hx of lithotripsy (Acute) Normal colonoscopy (Acute) Family History Father Sudden cardiac Brother Myocardial infarction CHF (congestive heart failure) Other Family history of coronary artery disease Social History Smoking Status: Former smoker how long ago did patient quit smokin alcohol intake: never substance use type: does not use caffeine: No what type of physical activity do you participate in: none seatbelt use: always do you feel safe at home: Yes ROS Const Const: Negative for fatigue, weakness, night sweats, excessive sweating, frequent falls, headache(s) or daytime sleepiness Eyes Eyes: Negative for loss of peripheral vision, transient loss of vision, blind spots, double vision or blurry vision ENT ENT: Negative for headache(s), dizziness, balance problems, Nosebleed/epistaxis, tongue swelling or lip swelling Cardio Chest Pain: No Palpitations: No Edema: None Muscle aches with walking: None Resp Respiratory: Negative for SOB at rest, SOB orthopnea\SOB lying down, Cough, paroxysmal nocturnal dyspnea or SOB with activity GI GI: Negative nausea, vomiting, heartburn, black,tarry stools or bright, red blood in stools : Negative for hematuria Musc Musc: Negative for balance problems, muscle aches/ myalgia, muscle weakness or joint pain Skin Skin: Negative non-healing lesions, unusual bruising or rash Neuro Neuro: Negative for weakness, frequent falls, headache(s), double vision, dizziness, lightheadedness, orthostatic symptoms, blurry vision or lack of coordination Terrence Hematologic/Lymphatic: Negative for easy bruising or easy bleeding Endo Endo: Negative for fatigue, excessive sweating, cold intolerance, heat intolerance, increased thirst/drinking or hair loss Psych Psych: Negative for anxiety or depression Allergy Allergy/Immunology: Negative for throat swelling, Negative for tongue swelling, Negative for hives, Negative for rash, Negative for lip swelling Cardiology Exam Const Appearance: cooperative, healthy appearing, well developed, well groomed and no acute distress Nutritional Appearance: well nourished and average body habitus Orientation: alert, awake and oriented x3 Head Head: normal to inspection, normocephalic and atraumatic Ears: hearing grossly normal bilaterally and external ears normal Nose: external nose normal, nasal mucous membranes and turbinates normal, nares normal, septum normal, no nasal discharge Face and Sinus: face symmetric Mouth: oral mucosae normal, tongue normal, oropharynx normal and moist mucous membranes Teeth and gingiva: dentition normal Throat: posterior oropharynx normal, tonsils normal and uvula midline Eyes General: appearance normal, both eyes and all related structures Eyelids: eyelids normal Conjunctivae: conjunctivae normal Pupils: PERRL, normal by confrontation and accommodation normal EOM: EOM intact bilaterally Neck Neck: normal visual inspection, trachea midline and no JVD JVD: +5 Carotids: normal carotid upstroke and bounding pulses Chest Chest inspection: normal inspection of the chest, symmetric chest movement and normal respiratory effort Auscultation: Bilateral: Clear to Auscultation Cardio Palpation: normal PMI Rate: regular rate Rhythm: regular rhythm Heart sounds: S1 normal, S2 normal and normal, physiologic split S2; negative rub, gallop or murmur GI GI: normal to inspection, soft, no hepatosplenomegaly and bowel sounds present Neuro General: alert, awake, oriented x3, no focal sensory deficit, gait normal and moves all extremities Skin Skin: no rashes or lesions noted Extremities Pulses: Normal: Right Femoral Pulse, Left Femoral Pulse, Right Dorsalis Pedis Pulse, Left Dorsalis Pedis Pulse, Right Posterior Tibial Pulse, Left Posterior Tibial Pulse, Right Radial Pulse, Left Radial Pulse Lower Extremity Edema: None: Bilateral Musculoskel Musculoskeletal: No joint tenderness Psych Psychological: normal affect Assessment AND Plan 1. Dilated cardiomyopathy I42.0 Plan He does have a history of a dilated cardiomyopathy. He has not had any obvious heart failure symptoms the plan will be for him to continue the current medical therapy without making any changes. He will remain on the carvedilol as well as the lisinopril and the furosemide. 2. Congestive heart failure (CHF) I50.9 Plan He had has a history of congestive heart failure [place] [employer] class II-III. My recommendation is for him to remain on the same medications with no changes. 3. Atrial fibrillation I48.91 Plan He does have a history of chronic persistent atrial fibrillation for which she has been anticoagulated. He has had intermittent hematuria which has improved. He continues to see the urologist for the above. 4. HTN (hypertension) I10 Plan His blood pressure appears to be under good control on the current medical therapy and no changes will be recommended. 5. Biventricular ICD (implantable cardioverter-defibrillator) in place Z95.810 ICD implant 12/26/09 Plan He does have a history of biventricular ICD placement. It was interrogated today. He is a sensed and by V paced 96% of the time. The battery longevity is 3.2 years with a charge time of 9.4 seconds. Atrial lead and ventricular lead impedances appeared to be normal. He will continue with regular device follow-up. Plan Detail Follow Up 6 Months (mmm) Coding Level of Care Code Off vis,est,level 3 Diagnoses Dilated cardiomyopathy I42.0 Congestive heart failure (CHF) I50.9 Atrial fibrillation I48.91 HTN (hypertension) I10 Biventricular ICD (implantable cardioverter-defibrillator) in place Z95.810 Coding Level of Care Code Off vis,est,level 3 Diagnoses Dilated cardiomyopathy I42.0 Congestive heart failure (CHF) I50.9 Atrial fibrillation I48.91 HTN (hypertension) I10 Biventricular ICD (implantable cardioverter-defibrillator) in place Z95.810 06/02/18 1126 <Electronically signed by Chris Alvarez MD> Date Chris Alvarez MD Cosigner Signature: Date (if applicable) CC: Dwayne Valente DO PROTHROMBIN TIME W/INR Collected: 05/24/2018 Status: F Source: JOSE ALEJANDRO 10:37 AM [facility] REPOSITORY TYPE CODE TESTS RESULT OUT OF RANGE REFERENCE UNITS LAB L300.4150 11.7-14.9 SECONDS High PROTIME 26.9 LAB L300.4200 Normal INR 2.5 Performed By: #### L300.3900 #### [facility] [address] [facility] [place], [place], [id number] PROTHROMBIN TIME W/INR Collected: 04/29/2018 Status: F Source: JOSE ALEJANDRO 9:52 AM [facility] REPOSITORY Order Comment: Comments: Standing order Comments: Standing order TYPE CODE TESTS RESULT OUT OF RANGE REFERENCE UNITS LAB L300.4150 11.7-14.9 SECONDS High PROTIME 28.8 LAB L300.4200 Normal INR 2.7 Performed By: #### L300.3900 #### [facility] [address] [facility] [place], [place], [address] PROTHROMBIN TIME W/INR Collected: 03/28/2018 Status: F Source: JOSE ALEJANDRO 9:12 AM [facility] REPOSITORY Order Comment: DR. ALVAREZ WANTS THE PT DR. GOMEZ WANTS THE CBCD CMP TYPE CODE TESTS RESULT OUT OF RANGE REFERENCE UNITS LAB L300.4150 11.7-14.9 SECONDS High PROTIME 19.1 LAB L300.4200 Normal INR 1.6 Performed By: #### L300.3900 #### [facility] [place], [address] CBC W/DIFF, AUTOMATED Collected: 03/28/2018 Status: F Source: MULGA 9:12 AM [facility] REPOSITORY Order Comment: DR. ALVAREZ WANTS THE PT DR. GOMEZ WANTS THE CBCD CMP TYPE CODE TESTS RESULT OUT OF RANGE REFERENCE UNITS LAB L100.1000 4.4-11.0 K/mm3 Low WBC 3.0 LAB L100.1200 4.6-6.2 M/mm3 Normal RBC 4.95 LAB L100.1300 13.0-16.5 g/dl Low HGB 12.2 LAB L100.1400 40-54 % Low HCT 38.8 LAB L100.1500 80-94 fL Low MCV 78.4 LAB L100.1600 27.0-32.0 pg Low MCH 24.6 LAB L100.1700 32-36 g/gl Low MCHC 31.4 LAB L100.1810 11.6-14.6 % High RDW CV 15.9 LAB L100.1820 35.1-43.9 fl High RDW SD 44.9 LAB L100.1900 150-450 K/mm3 Normal PLT 159 LAB L100.2000 6.2-12.0 fl Normal MPV 10.6 LAB L100.2100 47-70 % Low NEUT% 45.3 LAB L100.2200 19-41 % Normal LY% 38.1 LAB L100.2300 0-10 % High MONO% 10.6 LAB L100.2400 0-5 % Normal EO% 4.0 LAB L100.2500 0-1 % High BASO% 1.7 LAB L100.2550 0.0-0.9 % Normal IM GRAN % 0.300 Result Comment: IG% - Immature Granulocytes (promyelocytes, myelocytes and metamyelocytes) > 1% indicates that a LEFT SHIFT is Present. LAB L100.2620 2.0-7.7 X10 3/uL Low Absolute Neut 1.4 LAB L100.2720 0.83-4.51 X10 3/ul Normal Absolute Lymph 1.15 Performed By: #### L100.0100 #### [facility] [address] [place], [address] COMPREHENSIVE METABOLIC Collected: 03/28/2018 Status: F Source: JOSE ALEJANDRO [facility] 9:12 AM [facility] REPOSIT[facility] Order Comment: DR. ALVAREZ WANTS THE PT DR. GOMEZ WANTS THE CBCD CMP TYPE CODE TESTS RESULT OUT OF RANGE REFERENCE UNITS LAB L501.0100 74-106 mg/dL High GLU 138 Result Comment: Fasting Glucose result greater than or equal to 126 mg/dL suggests DIABETES MELLITUS per A.D.A. criteria. Please note revised GLUCOSE reference range effective 2017. LAB L501.1000 7-18 mg/dL High BUN 25 LAB L501.1100 0.70-1.30 mg/dL High CREAT,SERUM 1.57 Result Comment: The validity of the calculated GFR AND GFRAA in patients over 70 years has not been determined. Clinical correlation is essential. LAB L501.1110 >60 mL/min Low EST GFR 46 Result Comment: Non- GFR Calc LAB L501.1115 >60 mL/min Low EST GFR - AA 56 Result Comment: GFR Calc LAB L501.1300 10-20 RATIO Normal BUN/CRE 15.9 LAB L501.1500 6.4-8.2 g/dL T Normal PROT 7.4 LAB L501.1800 3.2-5.0 g/dL Low ALB 2.8 LAB L501.1950 2.2-4.2 g/dL High GLOB 4.6 LAB L501.2000 0.9-2.4 RATIO Low A/G 0.6 LAB L501.2200 8.5-10.1 mg/dL CA Normal 8.8 LAB L501.4100 15-37 U/L Low AST 13 LAB L501.4305 45-117 U/L Normal ALK P 71 LAB L501.4405 16-61 U/L Low ALT 9 LAB L501.4600 0.20-1.00 mg/dL T Normal BILI 0.60 LAB L501.5300 136-145 mmol/L NA Normal 140 LAB L501.5600 3.5-5.1 mmol/L K Normal 4.3 LAB L501.5900 98-107 mmol/L CL Normal 103 LAB L501.6100 21.0-32.0 mmol/L Normal CO2 29.0 LAB L501.6200 5-15 Normal GAP 8 Performed By: #### L500.4050 #### [facility] [address] [place], [address] DOWNTIME REPORT Observed: 02/17/2018 Status: F Source: MULGA 12:28 PM [facility] RE[facility] Medical Records Department [address] [place] [address] Downtime Report MR#: [id number] Acct: [id number] Name: CHACORTA BANUELOS Rep #: [id number] : 1940 77 From: Fabricio Banuelos PCP: Dwayne Valente, Status: REG RCR This patient was seen during an EMR downtime January 31, 2018 - February 07, 2018. This patient may have a combination of paper and electronic documentation or all paper documentation. All documentation is viewable within the e-chart portion of [employer] for each patient visit. PACEMAKER CHECK Observed: 02/11/2018 Status: F Source: MULGA 1:05 PM [facility] REPOSIT[facility] [address] [place] [address] Pacemaker Check Date of Service: 02/09/181929 MR#: [id number] Acct: [id number] Name: CHACORTA BANUELOS Rep #: [id number] : 1940 From: Brina Romero Age/Sex: 77/M [place] [facility] [place] Signed Comments Summary Comments: Remote Bi-VICD Evaluation: See attached scanned remote Laurens report. Remote interrogation shows no VT/VF episodes and 3 MS episodes, <1% total time since 10/08/17. Stored e-grams for MS episodes show atrial tachycardia with appropriate MS. Presenting rhythm shows P synchronous Bi-V paced @ 84 ppm with occasional PVC's. Bi- Vpaced=87%. Battery longevity approx 3.5 yrs. Lead impedances and sensing remain stable. Normal remote Bi-VICD function. Pt notified remote transmission received and next f/u appt scheduled for in 3 mos. 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 Name: Anette Becker [employer] Model: 3365-40C Serial #: [id number] Implant Date: 12/20/13 Year(s): 4 Implant Physician: Dr. 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 Model Lead 2: 7121/60 Serial# Lead 2: [id number] Date Implanted Lead 2: 12/26/09 Position Lead 2: RV Lead #3 [employer] Store Manager Lead 3: [employer] Model Lead 3: 1458Q/75 Serial# Lead 3: [id number] Date Implanted Lead 3: 12/20/13 Position Lead 3: LV Diagnostics Pacing % RA Pacin.7 % RV Pacin % LV Pacin Mode Switching Total # Episodes: 3 % Mode switched: 1 Arrhythmias VF Episodes: 0 Fast VT Episodes: 0 Slow VT Episodes: 0 Non-Sust Episodes: 0 Tachy Settings Tachyarrhythmia Detection Ventricular Fibrillation Detect Rate: 214 bpm Faster VT Detect Rate: 176 bpm Tachyarrhythmia Therapies Ventricular Fibrillation Therapy: Shock therapy Initial shock: 25 Joules Final shock: 36 Joules. Fast Ventricular Tachycardia Therapies: Antitachycardia pacing and shock therapy Initial shock: 36 Joules Final shock: 36 Joules. Rogelio Settings Bradycardia Mode and Timing Settings Pacemaker Mode: DDDR Base Rate: 60 bpm Max Track Rate: 120 bpm Max Sensor Rate: 130 bpm Maximum AV Delay: 150 msec Bradycardia Output and Sensitivity Settings Right Atrium: 0.4 msec, 2.0 volts, 0.5 mV sensitivity. Right Ventricle: 0.4 msec, 2.0 volts, Automatic mV sensitivity. Left Ventricle: 0.4 msec, 2.0 volts. Billing Codes ICD Device Billing: ICD Dev Interrogate (Rmt) Assessment AND Plan Problems 1. Biventricular ICD (implantable cardioverter-defibrillator) in place Z95.810 ICD implant 12/26/09 2. Ischemic cardiomyopathy I25.5 EF 25% 3. Dizziness and giddiness R42 02/11/18 0846 <Electronically signed by Brina Romero > Date Brina Romero 02/11/18 1305<Electronically signed by Chris Alvarez MD> Cosigner Signature: Date (if applicable) Chris Alvarez MD CC: HEMOGLOBIN A1C Collected: 02/04/2018 Status: F Source: JOSE ALEJANDRO 10:18 AM [facility] REPOSITORY Order Comment: A1C FOR DR CHEMO [place]OR[place] FOR DR AGUILAR AND INR FOR [facility] 42 TYPE CODE TESTS RESULT OUT OF RANGE REFERENCE UNITS LAB L501.9985 4.2-6.3 % High HGB A1C 7.4 Performed By: #### L501.9985 #### [facility] [address] [place] [address]. [place], [address] RENAL PROFILE Collected: 02/04/2018 Status: F Source: JOSE ALE[place]O 10:18 AM [facility] REPOS[facility] Order Comment: A1C FOR DR CHEMO [place] FOR DR AGUILAR AND INR FOR [facility] 42 TYPE CODE TESTS RESULT OUT OF RANGE REFERENCE UNITS LAB L501.0100 74-106 mg/dL High GLU 161 Result Comment: Fasting Glucose result greater than or equal to 126 mg/dL suggests DIABETES MELLITUS per A.D.A. criteria. Please note revised GLUCOSE reference range effective 2017. LAB L501.1000 7-18 mg/dL High BUN 24 LAB L501.1100 0.70-1.30 mg/dL High CREAT,SERUM 1.44 Result Comment: The validity of the calculated GFR AND GFRAA in patients over 70 years has not been determined. Clinical correlation is essential. LAB L501.1110 >60 mL/min Low EST GFR 51 LAB L501.1115 >60 mL/min Normal EST GFR - AA 62 LAB L501.1300 10-20 RATIO Normal BUN/CRE 16.7 LAB L501.1800 3.2-5.0 g/dL Low ALB 3.0 LAB L501.2200 8.5-10.1 mg/dL Normal CA 8.8 LAB L501.2300 2.5-4.9 mg/dL Normal PHOS 3.4 LAB L501.5300 136-145 mmol/L Normal NA 140 LAB L501.5600 3.5-5.1 mmol/L Normal K 4.0 LAB L501.5900 98-107 mmol/L Normal CL 106 LAB L501.6100 21.0-32.0 mmol/L Normal CO2 27.0 Performed By: #### L500.3600 #### [facility] [address] [facility] [place], [address] PTHIN Collected: 02/04/2018 Status: F Source: [place]SE ALEJ[place]O 10:18 AM [facility] REPOSIT[facility] Order Comment: A1C FOR DR CHEMO HO[place] FOR DR AGUILAR AND INR FOR [facility] TYPE CODE TESTS RESULT OUT OF RANGE REFERENCE UNITS LAB L509.1000 18.4-80.1 pg/mL Normal PTHIN 73.2 Performed By: #### L509.1000 #### [facility] [address] [facility] [place], [address] PROTEIN+CREATININE Collected: Status: F Source: JOSE ALEJANDRO RATIO,URINE 02/04/2018 10:18 AM [facility] REPOS[facility] Order Comment: A1C FOR DR CHEMO AGUILAR AND INR FOR [place] 42 TYPE CODE TESTS RESULT OUT OF RANGE REFERENCE UNITS LAB L501.1200 NO RANGE EST. mg/dL Normal UR CREAT 25.60 LAB L501.1930 <11.9 mg/dL Normal 11.7 PROTEIN,UR.R AN. LAB L501.1940 0-200 mg/g CRE High PROT:CRE 450 RATIO Performed By: #### L501.0900 #### [facility] [address] [place], [address] PROTHROMBIN TIME W/INR Collected: 02/04/2018 Status: F Source: JOSE ALEJAN[place]O 10:18 AM [facility] Order Comment: A1C FOR DR VALENTE REST FOR DR AGUILAR AND INR FOR [place] TYPE CODE TESTS RESULT OUT OF RANGE REFERENCE UNITS LAB L300.4150 11.7-14.9 SECONDS High PROTIME 18.9 LAB L300.4200 Normal INR 1.6 Performed By: #### L300.3900 #### [facility] [address] [place], [address] INTERNAL MEDICINE Observed: 01/12/2018 Status: F Source: JOSE ALEJANDRO OFFICE VISIT 10:54 AM [facility]IT[facility] [address] [place] [address] [place] [address] OFFICE VISIT Date of Service: 01/12/18 MR#: [id number] Acct: [id number] Name: CHACORTA BANUELOS Rep #: [id number] : 1940 Provider: Leon Davis NP Age/Sex: 77/M Location: [facility] [place] Status: Signed Intake Vital Signs01/12/18 Height 6 ft 01/12/18 Weight: 155 lb 01/12/18 Body Mass Index (BMI) 20.9 01/12/18 Blood Pressure 153/84 Intake Visit Reasons: FU HEMATOMA Chief Complaint: f/u hematoma and [facility] ER Is patient in pain?: No Allergies amoxicillin [Amoxicillin] Allergy (Verified 01/12/18 08:52) Rash ciprofloxacin [From Cipro] Allergy (Verified 01/12/18 08:52) Rash ciprofloxacin HCl [From Cipro] Allergy (Verified 01/12/18 08:52) Rash Sulfa (Sulfonamide Antibiotics) Allergy (Verified 01/12/18 08:52) Other Medications Finasteride [Proscar] 5 mg PO DAILY 01/22/16 [History Confirmed 01/12/18] carvedilol 3.125 mg tablet 3.125 mg PO BID #180 tab 11/08/17 [Rx Confirmed 01/12/18] lisinopril 2.5 mg tablet 2.5 mg PO DAILY #90 tab 11/08/17 [Rx Confirmed 01/12/18] Dofetilide [Tikosyn] 250 mcg PO Q12 12/17/17 [History Confirmed 01/12/18] Dutasteride [Avodart] 0.5 mg PO DAILY 12/17/17 [History Confirmed 01/12/18] Furosemide [Lasix] 40 mg PO QODAY 12/17/17 [History Confirmed 01/12/18] Prednisone 5 mg PO DAILY 12/17/17 [History Confirmed 01/12/18] Warfarin [Coumadin] 4 mg PO DAILY 12/17/17 [History Confirmed 01/12/18] Clindamycin HCl [Cleocin] 300 mg PO TID #30 cap 12/24/17 [Rx Confirmed 01/12/18] Warfarin [Coumadin ([facility])] 1 mg PO DAILY 12/24/17 [History Confirmed 01/12/18] PFSH Medical History Hearing loss (Chronic) COPD (chronic obstructive pulmonary disease) (Chronic) Fistula (Acute) Atrial fibrillation (Chronic) Congestive heart failure (CHF) (Chronic) Renal insufficiency (Chronic) Dizziness and giddiness (Chronic) Hyperlipidemia (Chronic) Ischemic cardiomyopathy (Chronic) Atrial fibrillation (Chronic) DM2 (diabetes mellitus, type 2) (Chronic) HTN (hypertension) (Chronic) Rheumatoid arthritis (Chronic) Arthritis (Acute) History of pneumonia (Acute) Surgical History 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) Hx of lithotripsy (Acute) Normal colonoscopy (Acute) Family History Father Sudden cardiac Brother Myocardial infarction CHF (congestive heart failure) Other Family history of coronary artery disease Social History Smoking Status: Former smoker how long ago did patient quit smokin alcohol intake: never substance use type: does not use caffeine: No what type of physical activity do you participate in: none seatbelt use: always do you feel safe at home: Yes HPI HPI Chief Complaint: f/u hematoma and [facility] Details: CHACORTA BANUELOS, is a 77 M who presents to the office today for a follow-up hematoma and cellulitis on his right lower extremity which, initially occurred on 11/22/2017. He has a past medical history as listed above and is anticoagulated on Coumadin therapy. The patient was previously seen in the office and treated for cellulitis and hematoma management with Keflex, clindamycin and compression. The cellulitis resolved and the hematoma has been improving. The patient denies any systemic signs of infection and patient and family states that the redness resolved. The patient however has not been using his David wrap for compression on the site. He denies any acute complaints at this time. The patient otherwise denies any fever, chills, nausea, vomiting, shortness of breath, chest pain or pressure, palpitations, orthopnea, lower extremity edema, syncope or presyncopal episodes. ROS Const Constitutional: No chills, fatigue, fever(s), frequent falls, malaise, weakness, sleep problems or change in appetite Eyes Eyes: No blurry vision, change in vision, double vision, discharge or visual disturbances ENT ENT: No abnormal hearing, ear pain, ear pressure, tinnitus or dizziness/vertigo Resp Respiratory: No cough, shortness of breath or wheezing Cardio Cardiology: No chest pain at rest, chest pain with exertion, shortness of breath, dyspnea on exertion, generalized swelling, irregular heart rhythm, lightheadedness, orthopnea, fast heart rate or palpitations Gastro GI: No abdominal pain, change in bowel habits, constipation, diarrhea, nausea/dyspepsia or vomiting Genitourinary Male: No difficulty urinating, burning urination, painful urination, urinary incontinence, urinary frequency, urinary urgency, urinary hesitancy, urinary retention, blood in urine, Frequent nighttime urination/ nocturia, sexual problems, testicle lump or testicle pain Musc Musculoskeletal: No joint pain, back pain, joint swelling, limited range of motion, muscle weakness, numbness or tingling Skin Skin: Positive for rash (Shingles doing better) and sores (Area on [address] Garcia is doing better); no change in skin color, itching or wounds Breast Breast: No breast lump or breast pain Neuro Neurology: No frequent falls, weakness, abnormal hearing, numbness, tingling, unsteady gait/balance, dizziness, loss of vision, memory loss or visual disturbances Psych Psychiatric: No memory loss, No anxiety, No change in appetite, No depression, No Thoughts of harming yourself/Others Endo Endocrine: No fatigue, heat intolerance, increased thirst/drinking, increased hunger or increased urination Aller/Imm Allergy/Immunologic: No wheezing, itchy eyes or seasonal allergy symptoms Terrence/Lymp Hematologic/Lymphatic: No easy bleeding, easy bruising or enlarged lymph nodes Exam Const General: cooperative, comfortable, no acute distress Nutritional Appearance: average body habitus, well nourished Orientation: alert, oriented x3 Limitations: mental status not altered Resp Effort AND Inspection: normal respiratory effort, able to speak in complete sentences, normal respiratory pattern, symmetric chest movement, no audible wheezes, no cough Auscultation: Bilateral: Clear to Auscultation Cardio Palpation: normal PMI Rate: other (Irregular) Rhythm: other (Irregular) Heart Sounds: S1 normal, S2 normal, normal S1 and S2, no click, no gallops, no murmurs, no rubs Musc Musculoskeletal: No muscle weakness Skin General: other (Resolving shingles rash left chest and left back) Extrem General: edema Laterality: right (Generalized) Other: Generalized edema right lower extremity, cellulitis resolved right lower extremity with hematoma approx 3cm x 2 cm on anterior right lower extremity beneath the knee. Compared to previous visit, the amount of fluctuance has improved. No lymphangitic streaking. No warmth or increased redness. Psych Appearance: grossly normal Mental Status: mental status grossly normal Affect: normal affect Attitude: cooperative Thought Process: normal Assessment AND Plan Problems 1. Hematoma of right lower extremity S80.11XA 2. Cellulitis of right lower extremity without foot L03.115 Plan The cellulitis has resolved of the right lower extremity. The hematoma has greatly improved as well. Patient will continue with compression and warm compresses. Educated on the importance of adhering to this regimen. Patient does admit to not utilizing the David wrap for compression much. Discussed red flag symptoms of worsening cellulitis of require urgent medical attention. Patient and family verbalized understanding. No indication for surgical debridement at this time. Patient to follow-up as previously scheduled or sooner if needed. Delroy disclaimer Coding Level of Care Code Off vis,est,level 3 Diagnoses Hematoma of right lower extremity S80.11XA Cellulitis of right lower extremity without foot L03.115 01/12/18 1054 <Electronically signed by Leon MIRELESC> Date Leon Bullock Signature: Date (if applicable) CC: INTERNAL MEDICINE Observed: 12/28/2017 Status: F Source: JOSE ALEJANDRO OFFICE VISIT 9:48 AM [facility] [address] [place] [address] OFFICE VISIT Date of Service: 12/28/17 MR#: [id number] Acct: [id number] Name: CHACORTA BANUELOS Rep #: [id number] : 1940 Provider: Leon Davis NP Age/Sex: 77/M Location: [facility] [place] Status: Signed Intake Vital Signs12/28/17 Height 6 ft 12/28/17 Weight: 151 lb 12/28/17 Body Mass Index (BMI) 20.5 12/28/17 Blood Pressure 118/73 Intake Visit Reasons: DR. VALENTE/F/U HOSP SHINGLES Chief Complaint: f/u hematoma and [facility] ER Is patient in pain?: No Allergies amoxicillin [Amoxicillin] Allergy (Verified 12/28/17 08:58) Rash ciprofloxacin [From Cipro] Allergy (Verified 12/28/17 08:58) Rash ciprofloxacin HCl [From Cipro] Allergy (Verified 12/28/17 08:58) Rash Sulfa (Sulfonamide Antibiotics) Allergy (Verified 12/28/17 08:58) Other Medications Finasteride [Proscar] 5 mg PO DAILY 01/22/16 [History Confirmed 12/28/17] carvedilol 3.125 mg tablet 3.125 mg PO BID #180 tab 11/08/17 [Rx Confirmed 12/28/17] lisinopril 2.5 mg tablet 2.5 mg PO DAILY #90 tab 11/08/17 [Rx Confirmed 12/28/17] Dofetilide [Tikosyn] 250 mcg PO Q12 12/17/17 [History Confirmed 12/28/17] Dutasteride [Avodart] 0.5 mg PO DAILY 12/17/17 [History Confirmed 12/28/17] Furosemide [Lasix] 40 mg PO QODAY 12/17/17 [History Confirmed 12/28/17] Prednisone 5 mg PO DAILY 12/17/17 [History Confirmed 12/28/17] Warfarin [Coumadin] 4 mg PO DAILY 12/17/17 [History Confirmed 12/28/17] Clindamycin HCl [Cleocin] 300 mg PO TID #30 cap 12/24/17 [Rx Confirmed 12/28/17] Warfarin [Coumadin ([facility])] 1 mg PO DAILY 12/24/17 [History Confirmed 12/28/17] cephalexin 500 mg capsule 500 mg PO TID #30 cap 12/28/17 [Rx Confirmed 12/28/17] PFSH Medical History Hearing loss (Chronic) COPD (chronic obstructive pulmonary disease) (Chronic) Fistula (Acute) Atrial fibrillation (Chronic) Congestive heart failure (CHF) (Chronic) Renal insufficiency (Chronic) Dizziness and giddiness (Chronic) Hyperlipidemia (Chronic) Ischemic cardiomyopathy (Chronic) Atrial fibrillation (Chronic) DM2 (diabetes mellitus, type 2) (Chronic) HTN (hypertension) (Chronic) Rheumatoid arthritis (Chronic) Arthritis (Acute) History of pneumonia (Acute) Surgical History 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) Hx of lithotripsy (Acute) Normal colonoscopy (Acute) Family History Father Sudden cardiac Brother Myocardial infarction CHF (congestive heart failure) Other Family history of coronary artery disease Social History Smoking Status: Former smoker how long ago did patient quit smokin alcohol intake: never substance use type: does not use caffeine: No what type of physical activity do you participate in: none seatbelt use: always do you feel safe at home: Yes HPI HPI Chief Complaint: f/u hematoma and [facility] Details: CHACORTA BANUELOS, is a 77 M who presents to the office today for a follow-up hematoma and cellulitis on his right lower extremity which, initially occurred on 11/22/2017. He has a past medical history as listed above and is anticoagulated on Coumadin therapy. The patient was previously seen in the office and treated for cellulitis and hematoma management with Keflex and compression. He bumped the hematoma on 12/24/2017 was seen at [facility] emergency department. The cellulitis has been improving, however the Keflex was switched to clindamycin and the patient was referred to plastic surgery. An appointment has not been made with plastic surgery at this time. The patient denies any systemic signs of infection and patient and family states that the redness is improving. The patient however has not been using his David wrap for compression on the site. He denies any acute complaints at this time. The patient otherwise denies any fever, chills, nausea, vomiting, shortness of breath, chest pain or pressure, palpitations, orthopnea, lower extremity edema, syncope or presyncopal episodes. ROS Const Constitutional: No chills, fatigue, fever(s), frequent falls, malaise, weakness, sleep problems or change in appetite Eyes Eyes: No blurry vision, change in vision, double vision, discharge or visual disturbances ENT ENT: No abnormal hearing, ear pain, ear pressure, tinnitus or dizziness/vertigo Resp Respiratory: No cough, shortness of breath or wheezing Cardio Cardiology: No chest pain at rest, chest pain with exertion, shortness of breath, dyspnea on exertion, generalized swelling, irregular heart rhythm, lightheadedness, orthopnea, fast heart rate or palpitations Gastro GI: No abdominal pain, change in bowel habits, constipation, diarrhea, nausea/dyspepsia or vomiting Genitourinary Male: No difficulty urinating, burning urination, painful urination, urinary incontinence, urinary frequency, urinary urgency, urinary hesitancy, urinary retention, blood in urine, Frequent nighttime urination/ nocturia, sexual problems, testicle lump or testicle pain Musc Musculoskeletal: No joint pain, back pain, joint swelling, limited range of motion, muscle weakness, numbness or tingling Skin Skin: Positive for sores (Rt garcia); no change in skin color, itching, rash or wounds Breast Breast: No breast lump or breast pain Neuro Neurology: No frequent falls, weakness, abnormal hearing, numbness, tingling, unsteady gait/balance, dizziness, loss of vision, memory loss or visual disturbances Psych Psychiatric: No memory loss, No anxiety, No change in appetite, No depression, No Thoughts of harming yourself/Others Endo Endocrine: No fatigue, heat intolerance, increased thirst/drinking, increased hunger or increased urination Aller/Imm Allergy/Immunologic: No wheezing, itchy eyes or seasonal allergy symptoms Terrence/Lymp Hematologic/Lymphatic: No easy bleeding, easy bruising or enlarged lymph nodes Exam Const General: cooperative, comfortable, no acute distress Nutritional Appearance: thin Orientation: alert, oriented x3 Limitations: mental status not altered Resp Effort AND Inspection: normal respiratory effort, able to speak in complete sentences, normal respiratory pattern, symmetric chest movement, no audible wheezes, no cough Auscultation: Bilateral: Clear to Auscultation Cardio Palpation: normal PMI Rate: regular rate Heart Sounds: S1 normal, S2 normal Musc Musculoskeletal: No muscle weakness Neuro General: alert, awake, oriented x3, CN's II-XI intact bilaterally Speech: speech normal Gait: normal gait Motor: muscle tone normal throughout Extrem Other: Generalized edema right lower extremity, resolving cellulitis noted right lower extremity with hematoma approx 5cm x 3 cm on anterior right lower extremity beneath the knee. Compared to previous visit, the amount of fluctuance has improved and the area of cellulitis is improving as well. No lymphangitic streaking. No warmth or increased redness. Psych Appearance: grossly normal Mental Status: mental status grossly normal Affect: normal affect Attitude: cooperative Thought Process: normal Assessment AND Plan 1. Hematoma of right lower extremity S80.11XA Plan Hematoma is improving, however patient is not consistent with his all of the garcia or compression for hematoma management. Stressed the importance of this. No indication for surgical drainage at this time, will continue the monitor closely and outpatient follow-up in 2 weeks. Discussed warning signs that require urgent medical attention. Patient verbalized understanding. A surgeon referral will be warranted if hematoma becomes complicated or worsens. Will follow in the future. Orders Referrals: 2. Cellulitis of right lower extremity without foot L03.115 Plan His cellulitis is improving, he was recently switched from Keflex to clindamycin and is tolerating this well. The redness and warmth have improved and a new area was outlined with black marker to demonstrate the demarcated edges. Stressed the importance of continuing with the antibiotic. Did state that after the cellulitis is resolved, he may use warm compresses on the hematoma. Patient and family verbalized understanding. Patient to follow-up in 2 weeks or sooner if needed. This note was generated with [employer] dictation software. It may contain incorrect words, spelling, and punctuation that were not noted in checking the note before signing. Plan Detail Other Medications Refilled: Follow Up 2 weeks or sooner if needed Coding Level of Care Code Off vis,est,level 3 Diagnoses Hematoma of right lower extremity S80.11XA Cellulitis of right lower extremity without foot L03.115 12/28/17 0948 <Electronically signed by Leon NGUYEN> Date Leon NGUYEN Cosigner Signature: Date (if applicable) CC: PROTHROMBIN TIME W/INR Collected: 12/27/2017 Status: F Source: MULGA 10:28 AM [facility] REPOSITORY TYPE CODE TESTS RESULT OUT OF RANGE REFERENCE UNITS LAB L300.4150 11.7-14.9 SECONDS High PROTIME 25.5 LAB L300.4200 Normal INR 2.3 Performed By: #### L300.3900 #### [facility] [address] [facility] [place], [address] DISCHARGE INSTRUCTION Observed: 12/24/2017 Status: F Source: MULGA 5:02 PM [facility] REPOSITORY [facility] Medical Records Department [address] [place] [address] Discharge Instruction 12/24/17 1702 MR#: [id number] Acct: [id number] Name: CHACORTA BANUELOS Rep #: [id number] : 1940 77 From: Obey Fonseca MD PCP: Dwayne Valente DO Status: REG ER ED Disposition - Plan for ED Patient: Chief Complaint: Cellulitis Instructions: ED Infec Skin Cellulitis, ED Hematoma Prescriptions: Clindamycin HCl [Cleocin] 300 mg PO TID #30 cap Referrals: Dwayne Valente DO [Primary Care Provider] - Mor Bales MD [STAFF PHYSICIAN] - Additional Instructions: STOP CEPHALEXIN. What to do if you have Problems For any increased pain, shortness of breath, bleeding, nausea or vomiting, chest pain, or any unexpected problems, contact your Primary Care Provider. Call [employer] Registry ([phone]) or report to the closest Emergency Room. Call 911 if necessary. 12/24/17 170 <Electronically signed by Obey Fonseca MD> Date Obey Fonseca MD Cosigner Signature (If Indicated): Date CC: Dwayne Valente DO DISCHARGE INSTRUCTION Observed: 12/24/2017 Status: F Source: MULGA 5:00 PM [facility] REPOSITORY [facility] Medical Records Department [address] [place] [address] Discharge Instruction 12/24/17 1659 MR#: [id number] Acct: [id number] Name: CHACORTA BANUELOS Rep #: [id number] : 1940 77 From: Obey Fonseca MD PCP: Dwayne Valente DO Status: REG ER ED Disposition - Plan for ED Patient: Chief Complaint: Cellulitis Instructions: ED Infec Skin Cellulitis, ED Hematoma Prescriptions: Clindamycin HCl [Cleocin] 300 mg PO TID #30 cap Referrals: Dwayne Valente DO [Primary Care Provider] - Additional Instructions: STOP CEPHALEXIN. What to do if you have Problems For any increased pain, shortness of breath, bleeding, nausea or vomiting, chest pain, or any unexpected problems, contact your Primary Care Provider. Call [employer] Registry ([phone]) or report to the closest Emergency Room. Call 911 if necessary. 12/24/17 1700 <Electronically signed by Obey Fonseca MD> Date Obey Fonseca MD Cosign Signature (If Indicated): Date CC: Dwayne Valente DO EMERGENCY DEPARTMENT Observed: 12/24/2017 Status: F Source: MULGA SUMMARY 4:59 PM [facility] REPOSITORY [facility] Medical Records Department [address] [place] [address] Emergency Department Summary 12/24/17 1655 MR#: [id number] Acct: [id number] Name: CHACORTA BANUELOS Rep #: [id number] : 1940 77 From: Obey Fonseca MD PCP: Dwayne Valente DO Status: REG ER - ER Visit Summary Date of Service: 12/24/17 Chief Complaint: Right leg swelling History of Present Illness: The patient is a 77 M who presents with right leg redness and swelling. He states on November 20 over 1 month ago he fell and hit his right leg. He is on warfarin due to a history of atrial fibrillation. He has had some swelling over the anterior right lower leg ever since that time with some mild redness. He saw the partner for his primary care physician earlier this week was concern for cellulitis demarcated the area of this and started him on Keflex. They noticed that at the top edge where the redness was marked has expanded outside of the line however it is otherwise improving. He has no systemic symptoms such as fevers nausea or vomiting. He denies any pain. Physical Examination: Afebrile vitals are unremarkable Heart regular rate Lungs are clear There is a hematoma over the anterior right lower leg there is very minimal surrounding erythema extending above the line superiorly I do not appreciate lymphangitic streaking this area is warm to the touch the erythema inferiorly laterally and medially appears to be smaller than the line demarcates Test Results: Laboratory studies are notable for white blood cell count of 3.2 INR 2.2 creatinine of 1.46 which appears to be near baseline. Emergency Department Course and Treatment: Patient's cellulitis appears to extended very slightly superiorly how ever is otherwise improving. I do not appreciate lymphangitic streaking. He does not appear systemically ill. He does have some minimal fluctuance but is anticoagulated. He states that this is been like this for 1 month. Therefore I do not believe he needs emergently incised and drained and we will refer the patient to plastic surgery. We will have him discontinue Keflex and switch him to clindamycin. He does already have a scheduled follow-up on December 28 with the primary care physician. He was instructed on specific signs and symptoms to monitor for and conditions under which to return to the emergency department. Treatment Plan: [] Disposition: Discharge Impression: Cellulitis right leg Hematoma right leg This note was generated with [employer] dictation software. It may contain incorrect words, spelling, and punctuation that were not noted in review of the chart prior to signing ED Disposition - Plan for ED Patient: Chief Complaint: Cellulitis Referrals: Dwayne Valente, DO [Primary Care Provider] - What to do if you have Problems For any increased pain, shortness of breath, bleeding, nausea or vomiting, chest pain, or any unexpected problems, contact your Primary Care Provider. Call [employer] Registry ([phone]) or report to the closest Emergency Room. Call 911 if necessary. 12/24/17 3523 <Electronically signed by Obey Fonseca MD> Date Obey Fonseca MD Cosigner Signature (If Indicated): Date CC: Dwayne Valente DO CBC W/DIFF, AUTOMATED Collected: 12/24/2017 Status: F Source: JOSE ALEJANDRO 3:30 PM [facility] REPOSITORY TYPE CODE TESTS RESULT OUT OF RANGE REFERENCE UNITS LAB L100.1000 4.4-11.0 K/mm3 Low WBC 3.2 LAB L100.1200 4.6-6.2 M/mm3 Normal RBC 5.28 LAB L100.1300 13.0-16.5 g/dl Low HGB 12.5 LAB L100.1400 40-54 % Normal HCT 40.5 LAB L100.1500 80-94 fL Low MCV 76.7 LAB L100.1600 27.0-32.0 pg Low MCH 23.7 LAB L100.1700 32-36 g/gl Low MCHC 30.9 LAB L100.1810 11.6-14.6 % High RDW CV 19.6 LAB L100.1820 35.1-43.9 fl High RDW SD 53.6 LAB L100.1900 150-450 K/mm3 Normal PLT 165 LAB L100.2000 6.2-12.0 fl Normal MPV 10.7 LAB L100.2100 47-70 % Normal NEUT% 57.3 LAB L100.2200 19-41 % Normal LY% 28.9 LAB L100.2300 0-10 % Normal MONO% 9.7 LAB L100.2400 0-5 % Normal EO% 2.2 LAB L100.2500 0-1 % High BASO% 1.9 LAB L100.2550 0.0-0.9 % Normal IM GRAN % 0.000 Result Comment: IG% - Immature Granulocytes (promyelocytes, myelocytes and metamyelocytes) > 1% indicates that a LEFT SHIFT is Present. LAB L100.2620 2.0-7.7 X10 3/uL Low Absolute Neut 1.8 LAB L100.2720 0.83-4.51 X10 3/ul Normal Absolute Lymph 0.92 Performed By: #### L100.0100 #### [facility] [address] [place] [address]. [place], [place], [id number] BASIC METABOLIC Collected: 12/24/2017 Status: F Source: MULGA PROFILE (BMP) 3:30 PM [facility] REPOSITORY TYPE CODE TESTS RESULT OUT OF RANGE REFERENCE UNITS LAB L501.0100 74-106 mg/dL High GLU 152 Result Comment: Fasting Glucose result greater than or equal to 126 mg/dL suggests DIABETES MELLITUS per A.D.A. criteria. Please note revised GLUCOSE reference range effective 2017. LAB L501.1000 7-18 mg/dL High BUN 22 LAB L501.1100 0.70-1.30 mg/dL High CREAT,SERUM 1.46 Result Comment: The validity of the calculated GFR AND GFRAA in patients over 70 years has not been determined. Clinical correlation is essential. LAB L501.1110 >60 mL/min Low EST GFR 50 Result Comment: Non- GFR Calc LAB L501.1115 >60 mL/min Normal EST GFR - AA 61 Result Comment: GFR Calc LAB L501.1255 ml/min Normal Estimated CRCL 41.06 LAB L501.1300 10-20 RATIO Normal BUN/CRE 15.1 LAB L501.2200 8.5-10 mg/dL Normal .1 CA 9.0 LAB L501.5300 136-14 mmol/L Normal 5 NA 139 LAB L501.5600 3.5-5. mmol/L Normal 1 K 4.0 LAB L501.5900 98-107 mmol/L Normal CL 103 LAB L501.6100 21.0-3 mmol/L Normal 2.0 CO2 30.0 LAB L501.6200 5-15 Normal GAP 6 Performed By: #### L500.2500 #### [facility] [address] [place], [address] PROTHROMBIN TIME W/INR Collected: 12/24/2017 Status: F Source: MULGA 3:30 PM [facility] REPOSITORY TYPE CODE TESTS RESULT OUT OF RANGE REFERENCE UNITS LAB L300.4150 11.7-14.9 SECONDS High PROTIME 24.8 LAB L300.4200 Normal INR 2.2 Performed By: #### L300.3900 #### [facility] [address] [facility] [place], [address] INTERNAL MEDICINE Observed: 12/21/2017 Status: F Source: MULGA OFFICE VISIT 10:35 AM [facility] REPOSITORY [facility] [address] [place] [address] [place] [address] OFFICE VISIT Date of Service: 12/21/17 MR#: [id number] Acct: [id number] Name: CHACORTA BANUELOS Rep #: [id number] : 1940 Provider: Leon Davis NP Age/Sex: 77/M Location: [facility] Status: Signed Intake Vital Signs12/21/17 Height 5 ft 11 in 12/21/17 Weight: 147 lb 12/21/17 Body Mass Index (BMI) 20.5 12/21/17 Blood Pressure 128/62 12/21/17 Blood Pressure Location Lt brachial Intake Visit Reasons: surgical clearance Chief Complaint: shingles Allergies amoxicillin [Amoxicillin] Allergy (Verified 12/17/17 10:09) Rash ciprofloxacin [From Cipro] Allergy (Verified 12/17/17 10:09) Rash ciprofloxacin HCl [From Cipro] Allergy (Verified 12/17/17 10:09) Rash Sulfa (Sulfonamide Antibiotics) Allergy (Verified 12/17/17 10:09) Other Medications Finasteride [Proscar] 5 mg PO DAILY 01/22/16 [History Confirmed 12/21/17] carvedilol 3.125 mg tablet 3.125 mg PO BID #180 tab 11/08/17 [Rx Confirmed 12/21/17] lisinopril 2.5 mg tablet 2.5 mg PO DAILY #90 tab 11/08/17 [Rx Confirmed 12/21/17] Dofetilide [Tikosyn] 250 mcg PO Q12 12/17/17 [History Confirmed 12/21/17] Dutasteride [Avodart] 0.5 mg PO DAILY 12/17/17 [History Confirmed 12/21/17] Furosemide [Lasix] 40 mg PO QODAY 12/17/17 [History Confirmed 12/21/17] Prednisone 5 mg PO DAILY 12/17/17 [History Confirmed 12/21/17] Warfarin [Coumadin] 4 mg PO DAILY 12/17/17 [History Confirmed 12/21/17] cephalexin 500 mg capsule 500 mg PO TID #30 cap 12/21/17 [Rx Confirmed 12/21/17] PFSH Medical History Hearing loss (Chronic) COPD (chronic obstructive pulmonary disease) (Chronic) Fistula (Acute) Atrial fibrillation (Chronic) Congestive heart failure (CHF) (Chronic) Renal insufficiency (Chronic) Dizziness and giddiness (Chronic) Hyperlipidemia (Chronic) Ischemic cardiomyopathy (Chronic) Atrial fibrillation (Chronic) DM2 (diabetes mellitus, type 2) (Chronic) HTN (hypertension) (Chronic) Rheumatoid arthritis (Chronic) Arthritis (Acute) History of pneumonia (Acute) Surgical History 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) Hx of lithotripsy (Acute) Normal colonoscopy (Acute) Family History Father Sudden cardiac Brother Myocardial infarction CHF (congestive heart failure) Other Family history of coronary artery disease Social History Smoking Status: Former smoker how long ago did patient quit smokin alcohol intake: never substance use type: does not use caffeine: No what type of physical activity do you participate in: none seatbelt use: always do you feel safe at home: Yes HPI HPI Chief Complaint: shingles Details: CHACORTA BANUELOS, is a 77 M who presents to the office today for an acute visit of shingles and swollen area of his right lower extremity. He is a past medical history which is significant for that of diabetes mellitus, hypertension, rheumatoid arthritis, CKD, atrial fibrillation on Coumadin therapy, and BPH. The patient is a poor historian and states that he was initially seen at the emergency department at [facility] with complaints of shingles on 12/09/2017 and was treated with a course of valacyclovir. The patient completed this course and states that the pain is minimal and that most of his lesions are crusted over and that he has not noted any new lesions. His main complaint is that his right anterior lower extremity is swollen and red. Patient is unsure how long this is been going on and this was found incidentally during his preanesthesia testing for his upcoming prostate surgery with Dr. Sims. When asked if he had trauma to that extremity, the patient does recall that on 11/22/2017, he was getting out of bed and stumbled and fell and hit his right lower extremity on the hard surface of the floor. He does state that it was more swollen and bruised at that time. He denies any treatment for this and specifically denies any systemic signs of infection such as fever, chills, nausea, vomiting, increase in redness or warmth. ROS Const Constitutional: Positive for weight change (rapid weight loss in recent months), fatigue and weakness; no body ache, chills, sleep problems, fever(s), change in appetite, snoring, frequent falls, headache(s) or excessive sweating Eyes Eyes: No change in vision, eye pain, light sensitivity or blurry vision ENT ENT: No headache(s), abnormal hearing, ear pain, tinnitus, nasal congestion, sore throat or neck pain Resp Respiratory: No snoring, cough, shortness of breath or wheezing Cardio Cardiology: Positive for palpitations; no excessive sweating, chest pain at rest, chest pain with exertion, shortness of breath, dyspnea on exertion, orthopnea or lightheadedness Gastro GI: No abdominal pain, change in bowel habits, constipation, diarrhea, vomiting, nausea/dyspepsia or cramping Genitourinary Male: No painful urination, urinary incontinence, urinary frequency, urinary urgency, blood in urine, testicle pain or other Musc Musculoskeletal: Positive for joint pain and back pain; no neck pain, abnormal walking, limited range of motion, numbness or tingling Skin Skin: Positive for redness (right leg, swelling and red spot), itching and rash (shingles); no dry skin, lesions or wounds Neuro Neurology: Positive for weakness; no frequent falls, headache(s), abnormal hearing, abnormal walking, numbness, tingling, abnormal speech, dizziness or memory loss Psych Psychiatric: No change in appetite, No memory loss, No anxiety, Positive for depression, No Thoughts of harming yourself/Others Endo Endocrine: Positive for fatigue; no excessive sweating, cold intolerance, increased thirst/drinking, heat intolerance, flushing or increased hunger Aller/Imm Allergy/Immunologic: Positive for itchy eyes; no wheezing, hives or seasonal allergy symptoms Terrence/Lymp Hematologic/Lymphatic: No easy bleeding, easy bruising or enlarged lymph nodes Exam Const General: cooperative, comfortable, no acute distress Nutritional Appearance: average body habitus, well nourished Orientation: alert, oriented x3 Limitations: mental status not altered Resp Effort AND Inspection: normal respiratory effort, able to speak in complete sentences, normal respiratory pattern, symmetric chest movement, no audible wheezes, no cough Auscultation: Bilateral: Clear to Auscultation Cardio Palpation: normal PMI Rate: regular rate Rhythm: abnormal rhythm (Consistent with controlled atrial fibrillation) irregularly irregular Skin Lesions: lesion noted (Vesicular crusted lesions noted on left back extending to left upper chest ) Other: With herpes zosterVesicular crusted lesions noted on left back extending to left upper chest consistent with herpes zoster Neuro General: alert, awake, oriented x3, CN's II-XI intact bilaterally Speech: speech normal Gait: normal gait Motor: muscle tone normal throughout Extrem General: full ROM Other: Right lower extremity anterior surface below the knee hematoma noted with fluctuance present, area surrounding hematoma is consistent with cellulitis as there is warmth and redness present. Area redness outlined with permanent black marker, dorsal pedis pulses 2+ bilaterally Psych Appearance: grossly normal Mental Status: mental status grossly normal Affect: normal affect Attitude: cooperative Thought Process: normal Assessment AND Plan 1. Cellulitis of right lower extremity without foot L03.115 Plan The patient does have a hematoma with surrounding cellulitis of the right lower extremity. This is status post trauma that occurred 11/22/2017. He has not tried any treatments for this and the pain is minimum. Given the cellulitis, will treat with Keflex 500 3 times daily for 10 days. Instructed on the use of taking [id number] probiotic with this. The patient does have an intolerance to amoxicillin which he states he developed a slight rash as a kid, however he has had amoxicillin afterwards and tolerated without problems. Given this not being a true allergy, Keflex was ordered. Discussed signs and symptoms that require urgent medical attention. Outlined the cellulitis with black permanent marker. For hematoma management light compression with David wraps as arterial status is unknown. Recent blood work demonstrated no elevated WBCs. 2. Hematoma of right lower extremity S80.11XA Plan Plan as above 3. Herpes zoster B02.9 Plan Patient's symptoms have improved with valacyclovir treatment that was given in the emergency department which he completed the entire course of. Discussed getting the shingles vaccine in 6 months. Discuss with him that if pain increases or worsens then may want to consider the use of gabapentin. Also discussed the use of capsaicin cream after the lesions have entirely healed. He states that he will follow-up with his urologist to reschedule his prostate resection after the shingles is completely resolved. 4. Atrial fibrillation I48.0 Plan Heart rate is controlled and he is anticoagulated on Coumadin therapy, deferred to cardiology. This note was generated with [employer] dictation software. It may contain incorrect words, spelling, and punctuation that were not noted in checking the note before signing. Plan Detail Other Medications New: Coding Level of Care Code Off vis,est,level 4 Diagnoses Cellulitis of right lower extremity without foot L03.115 Hematoma of right lower extremity S80.11XA Herpes zoster B02.9 Atrial fibrillation I48.0 Atrial fibrillation type: paroxysmal 12/21/17 1035 <Electronically signed by Leon MIRELESC> Date Leon Davis [employer] Cosigner Signature: Date (if applicable) CC: PROTHROMBIN TIME W/INR Collected: 12/15/2017 Status: F Source: MULGA 10:21 AM [facility] REPOSITORY TYPE CODE TESTS RESULT OUT OF RANGE REFERENCE UNITS LAB L300.4150 11.7-14.9 SECONDS High PROTIME 26.5 LAB L300.4200 Normal INR 2.4 Performed By: #### L300.3900 #### [facility] [address] [facility] [place], [address] EMERGENCY DEPARTMENT Observed: 12/10/2017 Status: F Source: MULGA SUMMARY 12:58 AM [facility] REPOSITORY [facility] Medical Records Department [address] [place] [address] Emergency Department Summary 12/10/17 0053 MR#: [id number] Acct: [id number] Name: CHACORTA BANUELOS Rep #: [id number] : 1940 77 From: De Mike PCP: Dwayne Valente DO Status: PRE ER - ER Visit Summary Date of Service: 12/10/17 Chief Complaint: Rash History of Present Illness: The patient is a 77 M rest left- sided chest going to his back. Noticed today. No fevers. Denies pain. He is on low-dose prednisone daily for rheumatoid arthritis. Denies weakness or similar symptoms in the past. Did have chickenpox as a child. No history of any shingles. Patient warfarin history of atrial fibrillation. Physical Examination: General: Alert and oriented 3, no acute distress HEENT: Normocephalic, atraumatic. Moist mucosa membranes Neck: supple, nontender. Cardiovascular: Regular rate and rhythm, no murmurs Respiratory: Normal breath sounds, symmetric, no distress Abdomen: Soft, nontender, nondistended Extremities: Nontender, no edema, pulses intact 4 Neuro: no focal neurological deficits. Skin: Red vesicular rash T4 dermatome on the left chest wrapping around to the back. Nontender to palpation. No active drainage. Test Results: [] Emergency Department Course and Treatment: Patient exam notes shingles lesions. It is nontender. He is currently on a low-dose prednisone. Afebrile, nontoxic. He was given valacyclovir 1 g twice of it day for first occurrence for 7 days. None in the Pyxis for treatment this evening, therefore was given 1 dose of acyclovir with a prescription for valacyclovir. He will follow-up with PCP for reevaluation. Return if any worsening symptoms. Treatment Plan: [] Disposition: Discharge Impression: Herpes zoster left T4 dermatome This note was generated with [employer] dictation software. It may contain incorrect words, spelling, and punctuation that were not noted in review of the chart prior to signing ED Disposition - Plan for ED Patient: Disposition: Home or Assisted Living Chief Complaint: Rash Diagnosis: Herpes zoster Instructions: ED Shingles Prescriptions: Valacyclovir HCl [Valacyclovir] 1,000 mg PO BID #14 tablet Referrals: Dwayne Valente DO [Primary Care Provider] - 5-7 Days What to do if you have Problems For any increased pain, shortness of breath, bleeding, nausea or vomiting, chest pain, or any unexpected problems, contact your Primary Care Provider. Call [facility] ([phone]) or report to the closest Emergency Room. Call 911 if necessary. 12/10/17 0058 <Electronically signed by De Mike> Date De Mike Cosigner Signature (If Indicated): Date CC: DO IFEOMA Balderas W/DIFF, AUTOMATED Collected: 12/08/2017 Status: F Source: JOSE ALEJANDRO 10:41 AM [facility] REPOSITORY Order Comment: CBCD,CMP FOR DR GOMEZ PT FOR DR ALVAREZ TYPE CODE TESTS RESULT OUT OF RANGE REFERENCE UNITS LAB L100.1000 4.4-11.0 K/mm3 Low WBC 3.5 LAB L100.1200 4.6-6.2 M/mm3 Normal RBC 5.23 LAB L100.1300 13.0-16.5 g/dl Low HGB 12.1 LAB L100.1400 40-54 % Normal HCT 40.4 LAB L100.1500 80-94 fL Low MCV 77.2 LAB L100.1600 27.0-32.0 pg Low MCH 23.1 LAB L100.1700 32-36 g/gl Low MCHC 30.0 LAB L100.1810 11.6-14.6 % High RDW CV 18.9 LAB L100.1820 35.1-43.9 fl High RDW SD 53.4 LAB L100.1900 150-450 K/mm3 Low PLT 139 LAB L100.2000 6.2-12.0 fl Normal MPV 10.0 LAB L100.2100 47-70 % Normal NEUT% 63.9 LAB L100.2200 19-41 % Normal LY% 22.6 LAB L100.2300 0-10 % High MONO% 10.3 LAB L100.2400 0-5 % Normal EO% 2.9 LAB L100.2500 0-1 % Normal BASO% 0.3 LAB L100.2550 0.0-0.9 % Normal IM GRAN % 0.000 Result Comment: IG% - Immature Granulocytes (promyelocytes, myelocytes and metamyelocytes) > 1% indicates that a LEFT SHIFT is Present. LAB L100.2620 2.0-7.7 X10 3/uL Absolute Neut Normal 2.2 LAB L100.2720 0.83-4.51 X10 3/ul Low Absolute Lymph 0.79 LAB L100.5500 ADEQ PLT EST Normal SLT DEC LAB L100.7300 ANISO Normal 1+ LAB L100.7600 HYPOCHROMASIA Normal 1+ LAB L100.7700 MICROCYTES Normal 1+ LAB L100.8200 OVALOCYTE Normal 1+ LAB L100.8400 SCHISTOCYTES Normal RARE Performed By: #### L100.0100 #### [facility] [place], [address] PROTHROMBIN TIME W/INR Collected: 12/08/2017 Status: F Source: MULGA 10:41 AM [facility] REPOSITORY Order Comment: CBCD,CMP FOR DR GOMEZ PT FOR DR ALVAREZ TYPE CODE TESTS RESULT OUT OF RANGE REFERENCE UNITS LAB L300.4150 11.7-14.9 SECONDS High PROTIME 25.9 LAB L300.4200 Normal INR 2.4 Performed By: #### L300.3900 #### [facility] [address] [place], [address] COMPREHENSIVE METABOLIC Collected: 12/08/2017 Status: F Source: JOSE ALEJANDRO PROFIL 10:41 AM [facility] RE[place] Order Comment: CBCD,CMP FOR DR GOMEZ PT FOR DR ALVAREZ TYPE CODE TESTS RESULT OUT OF RANGE REFERENCE UNITS LAB L501.0100 74-106 mg/dL High GLU 131 Result Comment: Fasting Glucose result greater than or equal to 126 mg/dL suggests DIABETES MELLITUS per A.D.A. criteria. Please note revised GLUCOSE reference range effective 2017. LAB L501.1000 7-18 mg/dL High BUN 27 LAB L501.1100 0.70-1.30 mg/dL High CREAT,SERUM 1.44 Result Comment: The validity of the calculated GFR AND GFRAA in patients over 70 years has not been determined. Clinical correlation is essential. LAB L501.1110 >60 mL/min Low EST GFR 51 Result Comment: Non- GFR Calc LAB L501.1115 >60 mL/min Normal EST GFR - AA 62 Result Comment: GFR Calc LAB L501.1300 10-20 RATIO Normal BUN/CRE 18.8 LAB L501.1500 6.4-8.2 g/dL T Normal PROT 7.8 LAB L501.1800 3.2-5.0 g/dL Low ALB 3.0 LAB L501.1950 2.2-4.2 g/dL High GLOB 4.8 LAB L501.2000 0.9-2.4 RATIO Low A/G 0.6 LAB L501.2200 8.5-10.1 mg/dL CA Normal 9.1 LAB L501.4100 15-37 U/L Normal AST 15 LAB L501.4305 45-117 U/L Normal ALK P 81 LAB L501.4405 16-61 U/L Low ALT 11 Result Comment: Please note revised ALT reference range effective 2017. LAB L501.4600 0.20-1.00 mg/dL Normal T BILI 0.80 LAB L501.5300 136-145 mmol/L Normal NA 140 LAB L501.5600 3.5-5.1 mmol/L Normal K 4.3 LAB L501.5900 98-107 mmol/L Normal CL 106 LAB L501.6100 21.0-32.0 mmol/L Normal CO2 28.0 LAB L501.6200 5-15 Normal GAP 6 Performed By: #### L500.4050 #### [facility] [address] [place], [place], [id number] SYNOVIAL FLUID RBC, Collected: 11/23/2017 Status: F Source: MULGA WBC AND DIFF 10:37 AM [facility] REPOS[facility] TYPE CODE TESTS RESULT OUT OF RANGE REFERENCE UNITS LAB L200.4600 Normal SYNOVIAL L.KNEE SOURCE LAB L200.5050 0.000-0.000 10 3 uL High SYN Tot Cell 4.8250 Ct Result Comment: This is the Total Number of Nucleated Cell Types in the Body Fluid. LAB L200.5100 0 10 6/uL High SYNOVIAL RBC 0.018 LAB L200.5200 0.000-0.002 10 3uL High SYNOVIAL WBC 4.7950 LAB L200.5260 % SYBF PMN Normal WBC% 22.4 LAB L200.5270 10 3/ul SYBF PMN Normal WBC# 1.074 LAB L200.5280 % SYBF MN Normal WBC% 77.6 LAB L200.5800 PATH Normal COM/SYFL May follow LAB L200.4900 Pale Yellow SYNOVIAL Normal COLOR [place] LAB L200.5000 CLEAR SYNOVIAL Normal JENNIFER. Sl Cl LAB L200.5300 0-25 % Normal NEUTROPHIL 18 LAB L200.5400 % LYMPH Normal 22 LAB L200.5500 % MONO Normal 60 Performed By: #### L200.0400, L200.4175 #### [facility] [address] [place], [place], [id number] CRYSTALS, BODY FLUID Collected: 11/23/2017 Status: C Source: JOSE ALEJANDRO 10:37 AM [facility] TYPE CODE TESTS RESULT OUT OF RANGE REFERENCE UNITS LAB L200.4200 Normal SEE PATH REV CRYSTALS/BF LAB L200.4225 Normal SYNOVIAL SOURCE/BF LAB L200.6020 Normal PATH Reviewed REV Result Comment: Negative for malignant cells. Nondiagnostic crystals identified. Taz Lund D.O. 11/24/17 AMENDED REPORT 11/24/17 1206 PATH REV previously reported as: Will follow Performed By: #### L200.0400, L200.4175 #### [facility] [address] [facility] [address] Observed: 11/23/2017 Status: F Source: MULGA CULTURE, BODY FLUID 10:37 AM [facility] REPOS[facility] List Antibiotics Last 48 Hours? . List Antibiotics to be Started? . Comments: SYNOVIAL FLUID LEFT KNEE Gram Stain Centrifuged Specimen? Culture performed on centrifuged specimen Gram Stain 2+ White Blood Cells No organisms seen Body Fluid Cult NO GROWTH IN 14 DAYS Cult, Anaerobic No growth in 5 days. Performed By: #### M100.1300 #### [facility] [address] [facility] [place], [address] EMERGENCY DEPARTMENT Observed: 11/23/2017 Status: F Source: MULGA SUMMARY 2:19 AM [facility] REPOSITORY [facility] Medical Records Department [address] [place] [id number] Emergency Department Summary 11/22/17 2358 MR#: [id number] Acct: [id number] Name: CHACORTA BANUELOS Rep #: [id number] : 1940 77 From: Jesus Cardoza MD PCP: Dwayne Valente DO Status: DEP ER - ER Visit Summary Date of Service: 11/22/17 Chief Complaint: [] Bilateral knee pain History of Present Illness: The patient is a 77 M bilateral knee pain for years. He has rheumatoid arthritis and seems rheumatology with an appointment tomorrow. His knees gave out tonight when he was walking. He had a pretty good day today was able to walk around with pain. He has chronic pain every day. He is on meloxicam. No narcotics. Needed assistance getting out of bed and brought in. Physical Examination: Vital signs reviewed General: Well-nourished well-developed Head: Normocephalic atraumatic Eyes: Pupils equal round and reactive to light extraocular movements intact ENT: TMs clear no hemotympanum no trauma Neck: Nontender full range of motion Cardiovascular: Regular rate rhythm no murmurs normal S1-S2 Respiratory: No distress clear to auscultation bilaterally chest nontender Abdomen: Soft nontender nondistended normal bowel sounds no masses Back: Nontender no CVA tenderness Extremities: Significant tenderness to his knees. Moving them quite well. Bilateral arthritic changes. Normal color and pulses. Skin: Normal color no trauma Neuro alert oriented cranial nerves II through XII intact normal strength sensation reflexes Test Results: [] Emergency Department Course and Treatment: [] Given David wrap says needs for support as well as a shot of morphine. 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 I do not feel he needs acute steroids. There is no warmth or redness. I think this is just chronic pain. Treatment Plan: [] Disposition: [] Impression: [] Bilateral knee arthritis with chronic pain This note was generated with [employer] dictation software. It may contain incorrect words, spelling, and punctuation that were not noted in review of the chart prior to signing ED Disposition - Plan for ED Patient: Chief Complaint: Lower Extremity Injury Referrals: Dwayne Valente, [Primary Care Provider] - What to do if you have Problems For any increased pain, shortness of breath, bleeding, nausea or vomiting, chest pain, or any unexpected problems, contact your Primary Care Provider. Call [facility] ([phone]) or report to the closest Emergency Room. Call 911 if necessary. 11/23/17 0219 <Electronically signed by Jesus Cardoza MD> Date Jesus Cardoza MD Cosigner Signature (If Indicated): Date CC: Dwayne Valente DO DISCHARGE INSTRUCTION Observed: 11/23/2017 Status: F Source: JOSE ALEJANDRO 2:19 AM [facility] REPOSIT[facility] Medical Records Department [address] [place] [address] Discharge Instruction 11/23/17 0000 MR#: [id number] Acct: [id number] Name: CHACORTA BANUELOS Rep #: [id number] : 1940 77 From: Jesus Cardoza MD PCP: Dwayne Valente DO Status: DEP ER ED Disposition - Plan for ED Patient: Disposition: Home or Assisted Living Chief Complaint: Lower Extremity Injury Instructions: ED Arthritis Rheumatoid Referrals: Dwayne Valente DO [Primary Care Provider] - Nelly Gomez MD [STAFF PHYSICIAN] - What to do if you have Problems For any increased pain, shortness of breath, bleeding, nausea or vomiting, chest pain, or any unexpected problems, contact your Primary Care Provider. Call [facility] ([phone]) or report to the closest Emergency Room. Call 911 if necessary. 11/23/17 0219 <Electronically signed by Jesus Cardoza MD> Date Jesus Cardoza MD Cosigner Signature (If Indicated): Date CC: Dwayne Valente DO PROTHROMBIN TIME W/INR Collected: 11/22/2017 Status: F Source: JOSE ALEJANDRO 9:27 AM [facility] TYPE CODE TESTS RESULT OUT OF RANGE REFERENCE UNITS LAB L300.4150 11.7-14.9 SECONDS High PROTIME 27.1 LAB L300.4200 Normal INR 2.5 Performed By: #### L300.3900 #### [facility] [place], [address] BASIC METABOLIC Collected: 11/15/2017 Status: F Source: JOSE ALEJANDRO PROFILE (BMP) 10:15 AM [facility]POS[facility] TYPE CODE TESTS RESULT OUT OF RANGE REFERENCE UNITS LAB L501.0100 74-106 mg/dL High GLU 122 Result Comment: Fasting Glucose result from 100 to 125 mg/dL suggests IMPAIRED HOMEOSTASIS per A.D.A. criteria. Please note revised GLUCOSE reference range effective 2017. LAB L501.1000 7-18 mg/dL High BUN 29 LAB L501.1100 0.70-1.30 mg/dL High CREAT,SERUM 1.74 Result Comment: The validity of the calculated GFR AND GFRAA in patients over 70 years has not been determined. Clinical correlation is essential. LAB L501.1110 >60 mL/min Low EST GFR 41 Result Comment: Non- GFR Calc LAB L501.1115 >60 mL/min Low EST GFR - AA 49 Result Comment: GFR Calc LAB L501.1300 10-20 RATIO Normal BUN/CRE 16.7 LAB L501.2200 8.5-10.1 mg/dL CA Normal 8.7 LAB L501.5300 136-145 mmol/L NA Normal 138 LAB L501.5600 3.5-5.1 mmol/L K Normal 4.5 LAB L501.5900 98-107 mmol/L CL Normal 106 LAB L501.6100 21.0-32.0 mmol/L Normal CO2 25.0 LAB L501.6200 5-15 Normal GAP 7 Performed By: #### L500.2500, L501.9940 #### [facility] [address] [facility] [place], [place], [address] PSA,TOTAL- DIAGNOSTIC Collected: 11/15/2017 Status: F Source: MULGA 10:15 AM [facility] TYPE CODE TESTS RESULT OUT OF RANGE REFERENCE UNITS LAB L501.9940 0.0-4.0 ng/mL PSA, Normal DIAGNOSTIC 2.20 Result Comment: This test was performed using the TPSA assay method for the [employer] chemistry system. Values obtained with different assay methods cannot be used interchangably. When changing PSA assays in the course of monitoring a patient, additional sequential testing should be carried out to confirm baseline values. Performed By: #### L500.2500, L501.9940 #### [facility] [address] [place], [place], [address] COMPREHENSIVE METABOLIC Collected: 11/15/2017 Status: F Source: JOSE ALEJANDRO DIAZ 9:24 AM [facility] Order Comment: DR. GOMEZ WANTS THE CBCD CMP NP. ABDALLA WANTS THE PT CBCD TYPE CODE TESTS RESULT OUT OF RANGE REFERENCE UNITS LAB L501.0100 74-106 mg/dL High GLU 118 Result Comment: Fasting Glucose result from 100 to 125 mg/dL suggests IMPAIRED HOMEOSTASIS per A.D.A. criteria. Please note revised GLUCOSE reference range effective 2017. LAB L501.1000 7-18 mg/dL High BUN 29 LAB L501.1100 0.70-1.30 mg/dL High CREAT,SERUM 1.71 Result Comment: The validity of the calculated GFR AND GFRAA in patients over 70 years has not been determined. Clinical correlation is essential. LAB L501.1110 >60 mL/min Low EST GFR 42 Result Comment: Non- GFR Calc LAB L501.1115 >60 mL/min Low EST GFR - AA 50 Result Comment: GFR Calc LAB L501.1300 10-20 RATIO Normal BUN/CRE 17.0 LAB L501.1500 6.4-8.2 g/dL T Normal PROT 8.0 LAB L501.1800 3.2-5.0 g/dL Low ALB 2.5 LAB L501.1950 2.2-4.2 g/dL High GLOB 5.5 LAB L501.2000 0.9-2.4 RATIO Low A/G 0.5 LAB L501.2200 8.5-10.1 mg/dL CA Normal 8.5 LAB L501.4100 15-37 U/L Normal AST 17 LAB L501.4305 45-117 U/L Normal ALK P 77 LAB L501.4405 16-61 U/L Low ALT 8 Result Comment: Please note revised ALT reference range effective 2017. LAB L501.4600 0.20-1.00 mg/dL Normal T BILI 0.80 LAB L501.5300 136-145 mmol/L Normal NA 138 LAB L501.5600 3.5-5.1 mmol/L Normal K 4.4 LAB L501.5900 98-107 mmol/L Normal CL 106 LAB L501.6100 21.0-32.0 mmol/L Normal CO2 23.0 LAB L501.6200 5-15 Normal GAP 9 Performed By: #### L500.4050 #### [facility] [address] [place], [address] PROTHROMBIN TIME W/INR Collected: 11/15/2017 Status: F Source: MULGA 9:23 AM [facility] Order Comment: Comments: Standing DR. GOMEZ WANTS THE CBCD CMP NP. ABDALLA WANTS THE PT CBCD Comments: Standing TYPE CODE TESTS RESULT OUT OF REFERENCE UNITS RANGE LAB L300.4150 11.7-14.9 SECONDS High PROTIME 45.3 LAB L300.4200 High alert INR 4.8 Result Comment: CRITICAL VALUE VERIFIED. CALLED TO [facility] AT 'S OFFICE. 11/15/17 0948 Can Cleaning. RESULTS READ BACK BY SAME. Performed By: #### L300.3900, L100.0100 #### [facility] [address] [facility] [place], [address] CBC W/DIFF, AUTOMATED Collected: 11/15/2017 Status: F Source: MULGA 9:23 AM [facility] REPOS[facility] Order Comment: DR. GOMEZ WANTS THE CBCD CMP INDUSTRIAL RELATIONS COUNSELOR. LIANNE WANTS THE PT CBCD TYPE CODE TESTS RESULT OUT OF RANGE REFERENCE UNITS LAB L100.1000 4.4-11.0 K/mm3 Low WBC 2.3 LAB L100.1200 4.6-6.2 M/mm3 Normal RBC 4.84 LAB L100.1300 13.0-16.5 g/dl Low HGB 11.3 LAB L100.1400 40-54 % Low HCT 36.7 LAB L100.1500 80-94 fL Low MCV 75.8 LAB L100.1600 27.0-32.0 pg Low MCH 23.3 LAB L100.1700 32-36 g/gl Low MCHC 30.8 LAB L100.1810 11.6-14.6 % High RDW CV 16.5 LAB L100.1820 35.1-43.9 fl High RDW SD 44.1 LAB L100.1900 150-450 K/mm3 Normal PLT 228 LAB L100.2000 6.2-12.0 fl Normal MPV 10.2 LAB L100.2100 47-70 % Low NEUT% 38.0 LAB L100.2200 19-41 % High LY% 45.1 LAB L100.2300 0-10 % High MONO% 11.1 LAB L100.2400 0-5 % Normal EO% 2.7 LAB L100.2500 0-1 % High BASO% 3.1 LAB L100.2550 0.0-0.9 % Normal IM GRAN % 0.000 Result Comment: IG% - Immature Granulocytes (promyelocytes, myelocytes and metamyelocytes) > 1% indicates that a LEFT SHIFT is Present. LAB L100.2620 2.0-7.7 X10 3/uL Low Absolute Neut 0.9 LAB L100.2720 0.83-4.51 X10 3/ul Absolute Lymph Normal 1.02 LAB L100.5500 ADEQ PLT EST Normal ADEQUATE LAB L100.7600 HYPOCHROMASIA Normal 1+ LAB L100.7700 MICROCYTES Normal 1+ LAB L100.8200 OVALOCYTE Normal RARE Performed By: #### L300.3900, L100.0100 #### [facility] [address] [place], [address] PACEMAKER CHECK Observed: 11/10/2017 Status: F Source: MULGA 2:17 PM [facility] RE[facility]IT[facility] [address] [place] [address] Pacemaker Check Date of Service: 10/08/17 1127 MR#: [id number] Acct: [id number] Name: CHACORTA BANUELOS Rep #: [id number] : 1940 From: Brina Romero Age/Sex: 76/M [place] [facility] [place] Signed Comments Summary Comments: Remote Bi-VICD Evaluation: Remote interrogation shows no VT/VF episodes, and 9 MS episodes, <1% total time since 07/06/17. Stored e-grams available for review show atrial tachycardia with appropriate MS. Pt on Coumadin. Presenting rhythm shows P synchronous Bi-Vpaced @ 76 ppm. Bi-Vpaced=89%. Suboptimal Bi-Vpacing. Battery longevity approx 3.7 yrs. Lead impedances and sensing remain stable. Normal remote Bi- VICD function. Pt notified remote transmission received. Next f/u appt scheduled for in 3 mos. 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 Name: Leoncioa Carolynura [employer]-D Model: 3365-40C Serial #: [id number] Implant Date: 12/20/13 Year(s): 3 Implant Physician: Dr. 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 Model Lead 1: Serial# Lead 1: [id number] Date Implanted Lead 1: 12/26/09 Position Lead 1: RA Lead #2 [employer] Store Manager Lead 2: [employer] Model Lead 2: 7121/60 Serial# Lead 2: [id number] Date Implanted Lead 2: 12/26/09 Position Lead 2: RV Lead #3 [employer] Store Manager Lead 3: [employer] Model Lead 3: 1458Q/75 Serial# Lead 3: [id number] Date Implanted Lead 3: 12/20/13 Position Lead 3: LV Diagnostics Pacing % RA Pacin.8 % RV Pacin % LV Pacin Mode Switching Total # Episodes: 9 % Mode switched: 1 Arrhythmias VF Episodes: 0 Fast VT Episodes: 0 Slow VT Episodes: 0 Non-Sust Episodes: 0 Measurements Battery Charge Time (Sec): 9.5 Battery %: 52 Predicted Remaining Longevity (months or years): 3.7 years RA Measurements Signal Amplitude (mV): 4.7 Impedance (Ohms): 300 RV Measurements Signal Amplitude (mV): 11.7 Impedance (Ohms): 390 Shock Impedance (Ohms): 42 LV Measurements Impedance (Ohms): 380 Tachy Settings Tachyarrhythmia Detection Ventricular Fibrillation Detect Rate: 214 bpm Faster VT Detect Rate: 176 bpm Tachyarrhythmia Therapies Ventricular Fibrillation Therapy: Shock therapy Initial shock: 25 Joules Final shock: 36 Joules. Fast Ventricular Tachycardia Therapies: Antitachycardia pacing and shock therapy Initial shock: 36 Joules Final shock: 36 Joules. Rogelio Settings Bradycardia Mode and Timing Settings Pacemaker Mode: DDDR Base Rate: 60 bpm Max Track Rate: 120 bpm Max Sensor Rate: 130 bpm Maximum AV Delay: 150 msec Bradycardia Output and Sensitivity Settings Right Atrium: 0.4 msec, 2.0 volts, 0.5 mV sensitivity. Right Ventricle: 0.4 msec, 2.0 volts, Automatic mV sensitivity. Left Ventricle: 0.4 msec, 2.0 volts. Billing Codes ICD Device Billing: ICD Dev Interrogate (Rmt) Assessment AND Plan Problems 1. Biventricular ICD (implantable cardioverter-defibrillator) in place Z95.810 ICD implant 12/26/09 2. Ischemic cardiomyopathy I25.5 EF 25% 3. Dizziness and giddiness R42 4. Frequent PVCs I49.3 5. Chronic systolic congestive heart failure I50.22 11/10/17 1005 <Electronically signed by Brina Romero > Date Brina Romero 11/10/17 1417<Electronically signed by Chris Alvarez MD> Cosign Signature: Date (if applicable) Chris Alvarez MD CC: CARDIOLOGY VISIT Observed: 11/09/2017 Status: F Source: MULGA REPORT 2:57 PM [facility] [address] [place] [address] OFFICE VISIT Date of Service: 11/08/17 MR#: [id number] Acct: [id number] Name: CHACORTA BANUELOS Rep #: [id number] : 1940 Provider: Shelbi Abdalla Age/Sex: 77/M [place] [facility] [place]: Signed HPI HPI Details: CHACORTA BANUELOS, is a 77 M who presents to the office today for a cardiovascular follow-up. He has a history of ischemic cardiomyopathy, atrial fibrillation, ICD placement, PVCs with PVC ablation with an upgrade to to a by V ICD in October 2013. He continues to loose weight. His PCP is aware of this. He did have some blood in his urine last week. He does see Dr. Sims for this. He has had it in the past, it did recurr, he has not had any this week. He does see Dr. Sims next month. He does not have any chest pain/heaviness. He does not have any worsening SOB. He does not have any orthopnea. He does not have any near syncope/syncope. He does use his CPAP. He does have some swelling in his ankles. Intake Vital Signs11/08/17 Height 6 ft 11/08/17 Weight: 163 lb 11/08/17 Body Mass Index (BMI) 22.1 11/08/17 Blood Pressure 134/64 11/08/17 Blood Pressure Location Lt brachial Intake Visit Reasons: 8 M Windows Architect Required: No Accompanied by: Is patient in pain?: No Allergies amoxicillin [Amoxicillin] Allergy (Verified 11/08/17 10:50) Rash ciprofloxacin [From Cipro] Allergy (Verified 11/08/17 10:50) Rash ciprofloxacin HCl [From Cipro] Allergy (Verified 11/08/17 10:50) Rash Sulfa (Sulfonamide Antibiotics) Allergy (Verified 11/08/17 10:50) Other Medications Cholecalciferol (Vitamin D3) [Vitamin D3] 5,000 unit PO BID 01/22/16 [History Confirmed 11/08/17] Finasteride [Proscar] 5 mg PO DAILY 01/22/16 [History Confirmed 11/08/17] Warfarin [Coumadin] 5 mg PO SUMOFRSA 01/22/16 [History Confirmed 11/08/17] dofetilide 250 mcg capsule 250 mcg PO Q12H 08/09/17 [History Confirmed 11/08/17] furosemide 40 mg tablet 40 mg PO .qod #90 tab 08/10/17 [Rx Confirmed 11/08/17] linagliptin 5 mg tablet 5 mg PO QDAY 11/04/17 [History Confirmed 11/08/17] carvedilol 3.125 mg tablet 3.125 mg PO BID #180 tab 11/08/17 [Rx Confirmed 11/08/17] lisinopril 2.5 mg tablet 2.5 mg PO DAILY #90 tab 11/08/17 [Rx Confirmed 11/08/17] meloxicam 15 mg tablet 15 mg PO QDAY 11/08/17 [History Confirmed 11/08/17] warfarin 1 mg tablet 1 mg PO QDAY #90 tab 11/08/17 [Rx Confirmed 11/08/17] warfarin 4 mg tablet 4 mg PO TUWETH #90 tab 11/08/17 [Rx Confirmed 11/08/17] Ejection fraction %: 25 to 29 PFSH Medical History Atrial fibrillation (Chronic) Congestive heart failure (CHF) (Chronic) Renal insufficiency (Chronic) Dizziness and giddiness (Chronic) Hyperlipidemia (Chronic) Ischemic cardiomyopathy (Chronic) Atrial fibrillation (Chronic) DM2 (diabetes mellitus, type 2) (Chronic) HTN (hypertension) (Chronic) Rheumatoid arthritis (Chronic) Surgical History 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) Family History Father Sudden cardiac Brother Myocardial infarction CHF (congestive heart failure) Other Family history of coronary artery disease Social History Smoking Status: Former smoker alcohol intake: never substance use type: does not use caffeine: No what type of physical activity do you participate in: none seatbelt use: always do you feel safe at home: Yes ROS Const Const: Positive for weight loss; negative for weakness, fatigue, fever(s) or headache(s) Eyes Eyes: Negative for blind spots, loss of peripheral vision or transient loss of vision ENT ENT: Negative for headache(s), dizziness, tinnitus or Nosebleed/epistaxis Cardio Chest Pain: No Palpitations: No Edema: None Muscle aches with walking: None Resp Respiratory: Negative for SOB with activity, SOB at rest, SOB orthopnea\SOB lying down or Cough GI GI: Negative nausea, vomiting, heartburn or vomiting blood/hematemesis : Negative for hematuria Musc Musc: Positive for muscle aches/ myalgia, muscle weakness and joint pain Neuro Neuro: Negative for weakness, headache(s), dizziness, near syncope, syncope, lightheadedness or orthostatic symptoms Terrence Hematologic/Lymphatic: Negative for easy bleeding Endo Endo: Negative for fatigue Cardiology Exam Const Appearance: cooperative, no acute distress and well developed Orientation: alert, awake and oriented x3 Head Head: normocephalic and atraumatic Mouth: moist mucous membranes Eyes General: appearance normal, both eyes and all related structures Conjunctivae: conjunctivae normal Pupils: PERRL EOM: EOM intact bilaterally Neck Neck: normal visual inspection, no lymphadenopathy and no JVD Carotids: Negative bruit Neck Mass: Negative Neck mass Chest Chest inspection: normal inspection of the chest, symmetric chest movement and Pacemaker/ICD Yes left pectoral incision Auscultation: Bilateral: Clear to Auscultation Cardio Palpation: normal PMI Rate: regular rate Rhythm: regular rhythm Heart sounds: S1 normal, S2 normal and murmur; negative rub or gallop Murmur: Grade 1/6, soft and mid systolic GI GI: normal to inspection, soft, no hepatosplenomegaly and bowel sounds present; negative tender Neuro General: alert, awake, oriented x3, CN's II-XI intact bilaterally and moves all extremities Extremities Pulses: Normal: Right Posterior Tibial Pulse, Left Posterior Tibial Pulse, Right Radial Pulse, Left Radial Pulse Lower Extremity Edema: +1: Bilateral Musculoskel Arthritic changes noted and wrists and ankles Psych Psychological: normal affect Supplemental Info Echocardiogram in 2016 demonstrates severely dilated left ventricle with an estimated ejection fraction of 25%. RVSP 39 mmHg. Pharmacologic nuclear stress test in 2016 demonstrated previous myocardial infarction/injury involving portions of the basal anteroseptal, basal inferoseptal, basal inferior segments extending through the mid inferior segments with post stress myocardial changes compatible with kamron-infarct related ischemia in the mid to distal inferior and inferior apical segments. Medical management was recommended based on previous heart caths. Assessment AND Plan 1. Atrial fibrillation I48.0 Plan - GENTRY Medina Patient's heart rate is controlled. He is anticoagulated with a therapeutic INR goal of 2-3. He is due to have his INR checked. He did note that he had hematuria. This is since stopped. Will check a CBC. He does follow with Dr. Milton. Encouraged him to discuss this with him. 2. Cardiomyopathy, ischemic I25.5 EF 25% Plan - GENTRY Medina Patient does not have any symptoms of congestive heart failure. We will continue with current medical management. 3. Pure hypercholesterolemia E78.00; E78.0 Plan - GENTRY Medina Recent lipid profile demonstrates total cholesterol 111, HDL 25, LDL 66. Will continue with current medical management. Will not make any adjustments. 4. HTN (hypertension) I10 Plan - GENTRY Medina Blood pressure is well controlled on current medications, we do not recommend any changes at this time. 5. Biventricular ICD (implantable cardioverter-defibrillator) in place Z95.810 ICD implant 12/26/09 Plan - GENTRY Medina ICD is functioning appropriately. We will continue to monitor with routine scheduled ICD interrogations. Patient has not had any discharges from their device. Plan Detail Other Orders Orders: Other Medications New: warfarin (Coumadin) current does is 4 mg 3 days a week, 5 mg 4 days a 1 mg PO QDAY weel Changed: Discontinued: Additional Comments - GENTRY Medina The above patient was discussed with Dr. Alvarez, he agrees with plan of care. Thank you for allowing us to participate in patient's plan of care, if you have any questions please do not hesitate to call. This note was generated using a voice recognition system and there may be incorrect words, spelling or punctuation errors that were not noted when reviewing the office note prior to saving. Follow Up 6 Months (CHIEF II DISPATCHER) Coding Level of Care Code Off vis,est,level 4 Diagnoses Atrial fibrillation I48.0 Atrial fibrillation type: paroxysmal Cardiomyopathy, ischemic I25.5 Pure hypercholesterolemia E78.00; E78.0 Hyperlipidemia type: pure hypercholesterolemia HTN (hypertension) I10 Hypertension type: essential hypertension Biventricular ICD (implantable cardioverter-defibrillator) in place Z95.810 Coding Level of Care Code Off vis,est,level 4 Diagnoses Atrial fibrillation I48.0 Atrial fibrillation type: paroxysmal Cardiomyopathy, ischemic I25.5 Pure hypercholesterolemia E78.00; E78.0 Hyperlipidemia type: pure hypercholesterolemia HTN (hypertension) I10 Hypertension type: essential hypertension Biventricular ICD (implantable cardioverter-defibrillator) in place Z95.810 11/08/17 1145 <Electronically signed by Shelbi RINALDI> Date Shelbi RINALDI 11/09/17 1457<Electronically signed by Chris Alvarez MD> Cosigner Signature: Date (if applicable) Chris Alvarez MD CC: Dwayne Valente, CBC W/DIFF, AUTOMATED Collected: 10/25/2017 Status: F Source: JOSE ALEJANDRO 9:41 AM [facility] REPOSITORY TYPE CODE TESTS RESULT OUT OF RANGE REFERENCE UNITS LAB L100.1000 4.4-11.0 K/mm3 Low WBC 2.1 LAB L100.1200 4.6-6.2 M/mm3 Low RBC 4.59 LAB L100.1300 13.0-16.5 g/dl Low HGB 11.2 LAB L100.1400 40-54 % Low HCT 35.5 LAB L100.1500 80-94 fL Low MCV 77.3 LAB L100.1600 27.0-32.0 pg Low MCH 24.4 LAB L100.1700 32-36 g/gl Low MCHC 31.5 LAB L100.1810 11.6-14.6 % High RDW CV 15.2 LAB L100.1820 35.1-43.9 fl Normal RDW SD 41.9 LAB L100.1900 150-450 K/mm3 Normal PLT 175 LAB L100.2000 6.2-12.0 fl Normal MPV 11.0 LAB L100.2100 47-70 % Low NEUT% 35.1 LAB L100.2200 19-41 % High LY% 44.7 LAB L100.2300 0-10 % High MONO% 15.4 LAB L100.2400 0-5 % Normal EO% 2.9 LAB L100.2500 0-1 % High BASO% 1.4 LAB L100.2550 0.0-0.9 % Normal IM GRAN % 0.500 Result Comment: IG% - Immature Granulocytes (promyelocytes, myelocytes and metamyelocytes) > 1% indicates that a LEFT SHIFT is Present. LAB L100.2620 2.0-7.7 X10 3/uL Low Absolute Neut 0.7 LAB L100.2720 0.83-4.51 X10 3/ul Normal Absolute Lymph 0.93 Performed By: #### L100.0100 #### [facility] [address] [place], [place], [address] COMPREHENSIVE METABOLIC Collected: 10/25/2017 Status: F Source: JOSE ALEJANDRO DIAZ 9:41 AM [facility] REPOSITORY TYPE CODE TESTS RESULT OUT OF RANGE REFERENCE UNITS LAB L501.0100 74-106 mg/dL Normal GLU 105 Result Comment: Fasting Glucose result from 100 to 125 mg/dL suggests IMPAIRED HOMEOSTASIS per A.D.A. criteria. Please note revised GLUCOSE reference range effective 2017. LAB L501.1000 7-18 mg/dL High BUN 28 LAB L501.1100 0.70-1.30 mg/dL High CREAT,SERUM 1.56 Result Comment: The validity of the calculated GFR AND GFRAA in patients over 70 years has not been determined. Clinical correlation is essential. LAB L501.1110 >60 mL/min Low EST GFR 46 Result Comment: Non- GFR Calc LAB L501.1115 >60 mL/min Low EST GFR - AA 56 Result Comment: GFR Calc LAB L501.1300 10-20 RATIO Normal BUN/CRE 17.9 LAB L501.1500 6.4-8.2 g/dL T Normal PROT 7.5 LAB L501.1800 3.2-5.0 g/dL Low ALB 2.5 LAB L501.1950 2.2-4.2 g/dL High GLOB 5.0 LAB L501.2000 0.9-2.4 RATIO Low A/G 0.5 LAB L501.2200 8.5-10.1 mg/dL CA Normal 8.6 LAB L501.4100 15-37 U/L Low AST 14 LAB L501.4305 45-117 U/L Normal ALK P 81 LAB L501.4405 16-61 U/L Low ALT 9 Result Comment: Please note revised ALT reference range effective 2017. LAB L501.4600 0.20-1.00 mg/dL Normal T BILI 0.60 LAB L501.5300 136-145 mmol/L Normal NA 138 LAB L501.5600 3.5-5.1 mmol/L Normal K 4.1 LAB L501.5900 98-107 mmol/L Normal CL 103 LAB L501.6100 21.0-32.0 mmol/L Normal CO2 27.0 LAB L501.6200 5-15 Normal GAP 8 Performed By: #### L500.4050, L500.4100 #### [facility] [address] [place], [address] LIPID PROFILE Collected: 10/25/2017 Status: F Source: JOSE ALEJANDRO 9:41 AM [facility] REPOSITORY TYPE CODE TESTS RESULT OUT OF RANGE REFERENCE UNITS LAB L501.4900 200 mg/dL Normal CHOL 111 Result Comment: <200 mg/dL Desirable 200-240 mg/dL Borderline >240 mg/dL High Risk LAB L501.5000 mg/dL Normal TRIG 99 Result Comment: The drugs N-Acetylcysteine and Metamizole may falsely depress this assay. Serum Triglycerides Reference Interval Normal <150 mg/dL Borderline high 150 - 199 mg/dL High 200 - 499 mg/dL Very High > or = 500 mg/dL LAB L501.6400 mg/dL Low HDL 25 Result Comment: The drugs N-Acetylcysteine and Metamizole may falsely depress this assay. Reference Range HDL <40 mg/dL Low HDL Cholesterol HDL >or= 60 mg/dL High HDL Cholesterol LAB L501.6500 0-130 mg/dL Normal LDL 66 LAB L501.6600 5-40 mg/dL Normal VLDL 20 Performed By: #### L500.4050, L500.4100 #### [facility] [address] [place], [address] ALLERGIES ALLERGIES DATE TYPE / CODE NAME / CODE REACTION SEVERITY SOURCE 06/21/2018 Drug ciprofloxacin Rash Unknown [place] Allergy/416 HCl/[id number](RXNO [facility] 015551([facility] ED [facility]) Repository 06/21/2018 Drug Sulfa (Sulfonamide Other Unknown [place] Allergy/416 Antibiotics)/B76783 Community 101228([place] [address]2621([facility] ED CT) Repository 06/21/2018 Drug ciprofloxacin/F0060 Rash Unknown [place] Allergy/416 12511(RXNORM) [facility] 868370([facility] ED CT) Repository 06/21/2018 Drug amoxicillin/Q988855 Rash Unknown Jose [place] Allergy/416 675(RXNORM) [facility] 377520([facility]) Repository ENCOUNTERS ENCOUNTERS ADMIT/DISCHARGE ACCOUNT ADMITTING ENCOUNTER LOCATION SOURCE NUMBER [facility] 09/07/2018/ [id number] Ambulatory BMSBuilding:B Jose Alejandro 9 4 [facility] Repository 08/15/2018 [id number] Ambulatory [place] 5 [facility] ing:LAB Repository 08/11/2018 [id number] Ambulatory Jose Alejandro [place] 0 [facility] ing:LAB Repository 08/10/2018/ [id number] Ambulatory BMSBuilding:B [facility] 2 [facility] 07/25/2018/ [id number] Ambulatory [place] 8 2 [facility] ing:LAB Repository 06/27/2018/ [id number] Ambulatory [place] 8 5 [facility] ing:LAB Repository 06/21/2018/ [id number] Ambulatory BMSBuilding:B [place] 8 0 [facility] 06/02/2018/ [id number] Ambulatory BMSBuilding:B [place] 8 1 [facility] Repository 06/02/2018/ [id number] Ambulatory BMSBuilding:B Jose Alejandro 8 6 [facility] Repository 05/24/2018/ [id number] Ambulatory [place] Jose Alejandro 8 5 [facility] ing:LAB Repository 05/16/2018/ [id number] Ambulatory BMSBuilding:B [place] 8 1 [facility] Repository 04/29/2018/ [id number] Ambulatory Jose Alejandro [place] 8 8 [facility] ing:LAB Repository 03/28/2018/ [id number] Ambulatory Jose Alejandro [place] 8 7 [facility] ing:LAB Repository 02/25/2018 [id number] Ambulatory BMSBuilding:B [place] 8 [facility] 02/16/2018 [id number] Ambulatory [place] 8 [facility] ing:LAB.FUTUR Repository E 02/04/2018/ [id number] Ambulatory [place] 8 5 [facility] Hospital ing:LAB Repository 02/01/2018/ [id number] Ambulatory BMSBuilding:B [place] 8 2 [facility] Repository 01/18/2018 [id number] Ambulatory Jose Alejandro [place] 3 [facility] Hospital ing:SDC Repository 01/13/2018/ [id number] Ambulatory BMSBuilding:B Jose Alejandro 8 0 [facility] Repository 01/12/2018/ [id number] Ambulatory BMSBuilding:B [facility] 8 7 [facility] 12/28/2017/ [id number] Ambulatory BMSBuilding:B [place] 8 6 [facility] 12/27/2017/ [id number] Ambulatory Jose Alejandro [place] 8 6 [facility] Hospital ing:LAB Repository 12/24/2017/ [id number] Emergency [place] 8 2 [facility] ing:ED Repository 12/21/2017/ [id number] Ambulatory BMSBuilding:B [place] [facility] 8 8 [facility] 12/09/2017/ [id number] Emergency [place] 8 2 [facility] ing:ED Repository 11/23/2017 [id number] Ambulatory Jose Alejandro Jose Ale[place]andro 6 [facility] Hospital ing:LABSPEC Repository 11/22/2017/ [id number] Emergency Jose Alejandro [place] 8 3 [facility] Hospital ing:ED Repository 11/22/2017/ [id number] Ambulatory Jose Alejandro [place] 8 3 [facility] Hospital ing:LAB Repository 11/15/2017 [id number] Ambulatory Jose Alejandro [place] 4 [facility] Hospital ing:LAB Repository 11/08/2017/ [id number] Ambulatory BMSBuilding:B [place] 8 2 [facility] Repository 10/25/2017 [id number] Ambulatory [place] Jose Alejandro 7 [facility] ing:LAB Repository 10/08/2017/ [id number] Ambulatory BMSBuilding:Michelle Blount 8 9 [facility] Repository PAYERS PAYERS ENCOUNTER GUARANTOR PAYER SUBSCRIBER SOURCE 09/07/2018 WHATLEY G Primary WHATLEY G [place] [id number] Insurance:MEDICARE MILLERDOB: [facility] [id number] Number: Repository [address]Nfg: 330 [id number] [phone] () Date:2018-05-23 09/07/2018 Secondary WHATLEY G [place] Insurance:BANKERS MILLERDOB: [facility] [id number] Hospital Number: Repository [id number] Date:2018-05-23[address], [place] [address]QI: 09/07/2018 Tertiary NOT GIVENUNK [place] Insurance:SELF PAY [facility] Number: Effective Repository Date:2018-09-07 08/15/2018 WHATLEY G Primary WHATLEY G [place] [id number] Insurance:MEDICARE MILLERDOB: [facility] [id number] Number: Repository [address]Hgs: 330 [id number] [phone] () Date:2018-08-15 08/15/2018 Secondary WHATLEY G [place] Insurance:BANKERS MILLERDOB: [facility] [id number] Hospital Number: Repository [id number] Date:2018-08-15[address], [place] [address]YK: 08/15/2018 Tertiary NOT GIVENUNK [place] Insurance:SELF PAY [facility] Number: Effective Repository Date:2018-08-15 08/11/2018 WHATLEY G Primary WHATLEY G Jose Alejandro [id number] Insurance:MEDICARE MILLERDOB: [facility] [id number] Number: Repository [address]Eyj: 330 [id number] [phone] (HP) Date:2017-07-10 08/11/2018 Secondary WHATLEY G [place] Insurance:BANKERS MILLERDOB: [facility] LIFE CASUALTYPolicy [id number] Hospital Number: Repository [id number] Date:2017-06-30[address], [place] [address]UR: 08/11/2018 Tertiary NOT GIVENUNK [place] Insurance:SELF PAY [facility] Number: Effective Repository Date:2018-08-01 08/10/2018 WHATLEY G Primary WHATLEY G [place] [id number] Insurance:MEDICARE MILLERDOB: [facility] [id number] Number: Repository [address]Xyo: 330 [id number] [phone] (HP) Date:2018-02-10 08/10/2018 Secondary WHATLEY G Jose Alejandro [facility] M[facility]: [facility] LIFE CASUALTYPolicy [id number] Hospital Number: Repository [id number] Date:2018-02-10[address], [place] [address]WM: 08/10/2018 Tertiary NOT GIVENUNK [place] Insurance:SELF PAY [facility] Number: Effective Repository Date:2018-08-10 07/25/2018 WHATLEY G Primary WHATLEY G [place] [id number] Insurance:MEDICARE MILLERDOB: [facility] [id number] Number: Repository [address]Okf: 330 [id number] [phone] (HP) Date:2017-07-10 07/25/2018 Secondary WHATLEY G [place] [facility] MILLERDOB: [facility] [id number] Hospital Number: Repository [id number] Date:2017-06-30[address], [place] [address]LE: 07/25/2018 Tertiary NOT GIVENUNK Jose [place] Insurance:SELF PAY [facility] Number: Effective Repository Date:2018-06-30 06/27/2018 WHATLEY G Primary WHATLEY G Jose Alejandro [id number] Insurance:MEDICARE MILLERDOB: [facility] [id number] Number: Repository [address]Zfn: 330 [id number] [phone] (HP) Date:2017-07-10 06/27/2018 Secondary WHATLEY G Jose Alejandro Insurance:BANKERS MILLERDOB: [facility] [id number] Hospital Number: Repository [id number] Date:2017-06-30[address] [address]DY: 06/27/2018 Tertiary NOT GIVENUNK [place] Insurance:SELF PAY [facility] Number: Effective Repository Date:2018-06-01 06/21/2018 WHATLEY G Primary WHATLEY G [place] [id number] Insurance:MEDICARE MILLERDOB: [facility] [id number] [place] Number: Repository [address]Zyd: 330 [id number] [phone] (HP) Date:2018-06-20 06/21/2018 Secondary WHATLEY G [place] Insurance:BANKERS MILLERDOB: [facility] [id number] Hospital Number: Repository [id number] Date:2018-06-20[address], [place] [address]EE: 06/21/2018 Tertiary NOT GIVENUNK Jose Alejandro Insurance:SELF PAY [facility] Number: Effective Repository Date:2018-06-21 06/02/2018 WHATLEY G Primary WHATLEY G [place] [id number] Insurance:MEDICARE MILLERDOB: [facility] [id number] Number: Repository [address]Dps: 330 [id number] [phone] (HP) Date:2017-11-08 06/02/2018 Secondary WHATLEY G [place] Insurance:BANKERS MILLERDOB: [facility] [id number] Hospital Number: Repository [id number] Date:2017-11-[address], [place] [address]KF: 06/02/2018 Tertiary NOT GIVENUNK Jose Alej[place] Insurance:SELF PAY [facility] Number: Effective Repository Date:2018-06-01 06/02/2018 WHATLEY G Primary WHATLEY G Jose Alejandro [id number] Insurance:MEDICARE MILLERDOB: [facility] [id number] [place] Number: Repository [address]Bkw: 330 [id number] [phone] (HP) Date:2017-11-10 06/02/2018 Secondary WHATLEY G [place] Insurance:BANKERS MILLERDOB: [facility] [id number] Hospital Number: Repository [id number] Date:2017-11-10[address], [place] [address]DM: 06/02/2018 Tertiary NOT GIVENUNK Jose Alej[place] Insurance:SELF PAY [facility] Number: Effective Repository Date:2018-06-02 05/24/2018 WHATLEY G Primary WHATLEY G Jose Alejandro [id number] Insurance:MEDICARE MILLERDOB: [facility] [id number] [place] Number: Repository [address]Ack: 330 [id number] [phone] (HP) Date:2017-07-10 05/24/2018 Secondary WHATLEY G Jose Alejandro Insurance:BANKERS MILLERDOB: [facility] [id number] Hospital Number: Repository [id number] Date:2017-06-30[address], [place] [address]PW: 05/24/2018 Tertiary NOT GIVENUNK [place] Insurance:SELF PAY [facility] Number: Effective Repository Date:2018-05-03 05/16/2018 WHATLEY G Primary WHATLEY G [place] [id number] Insurance:MEDICARE MILLERDOB: [facility] [id number] [place] [address] [place] Number: Repository [address]Kxm: 330 [id number] [phone] (HP) Date:2018-05-23 05/16/2018 Secondary WHATLEY G [place] Insurance:BANKERS MILLERDOB: [facility] [id number] Hospital Number: Repository [id number] Date:2018-05-23[address], [place] [address]OP: 05/16/2018 Tertiary NOT GIVENUNK [place] Insurance:SELF PAY [facility] Number: Effective Repository Date:2018-05-23 04/29/2018 WHATLEY G Primary WHATLEY G Jose Alejandro [id number] Insurance:MEDICARE MILLERDOB: [facility] [id number] [place] Number: Repository [address]Ktx: 330 [id number] [phone] () Date:2017-07-10 04/29/2018 Secondary WHATLEY G [place] Insurance:BANKERS MILLERDOB: [facility] [id number] Hospital Number: Repository [id number] Date:2017-06-[address], [place] [address]TR: 04/29/2018 Tertiary NOT GIVENUNK [place] Insurance:SELF PAY [facility] Number: Effective Repository Date:2018-03-31 03/28/2018 WHATLEY G Primary WHATLEY G Jose Alejandro [id number] Insurance:MEDICARE MILLERDOB: [facility] [id number] [place] Number: Repository [address]Lxf: 330 [id number] [phone] (HP) Date:2017-07-10 03/28/2018 Secondary WHATLEY G [place] Insurance:BANKERS MILLERDOB: [facility] [id number] Hospital Number: Repository [id number] Date:2017-06-30[address], [place] [address]GP: 03/28/2018 Tertiary NOT GIVENUNK Jose Alejandro Insurance:SELF PAY [facility] Number: Effective Repository Date:2018-02-25 02/25/2018 WHATLEY G Primary WHATLEY G [place] [id number] Insurance:MEDICARE MILLERDOB: [facility] [id number] Number: Repository [address]Amp: 330 [id number] [phone] (HP) Date:2018-02-25 02/25/2018 Secondary WHATLEY G Jose Alejandro Insurance:BANKERS MILLERDOB: [facility] LIFE CASUALTYPolicy [id number] Hospital Number: Repository [id number] Date:2018-02-25[address], [place] [address]YE: 02/25/2018 Tertiary NOT GIVENUNK Jose Alejandro Insurance:SELF PAY [facility] Number: Effective Repository Date:2018-02-25 02/16/2018 WHATLEY G Primary WHATLEY G [place] [id number] Insurance:MEDICARE MILLERDOB: [facility] [id number] [place] Number: Repository [address]Uvv: 330 [id number] [phone] () Date:2018-02-16 02/16/2018 Secondary WHATLEY G [place] Insurance:BANKERS MILLERDOB: [facility] [id number] Hospital Number: Repository [id number] Date:2018-02-16[address], [place] [address]MC: 02/16/2018 Tertiary NOT GIVENUNK Jose Alejandro Insurance:SELF PAY [facility] Number: Effective Repository Date:2018-02-16 02/04/2018 WHATLEY G Primary WHATLEY G [place] [id number] Insurance:MEDICARE MILLERDOB: [facility] [id number] [place] Number: Repository [address]Uof: 330 [id number] [phone] (HP) Date:2017-07-10 02/04/2018 Secondary WHATLEY G Jose Alejandro Insurance:BANKERS MILLERDOB: [facility] LIFE CASUALTYPolicy [id number] Hospital Number: Repository [id number] Date:2017-07-[address], [place] [address]QZ: 02/04/2018 Tertiary NOT GIVENUNK Jose Alejandro Insurance:SELF PAY [facility] Number: Effective Repository Date:2017-12-28 02/01/2018 WHATLEY G Primary WHATLEY G [place] [id number] Insurance:MEDICARE MILLERDOB: [facility] [id number] Number: Repository [address]Ceg: 330 [id number] [phone] () Date:2017-11-12 02/01/2018 Secondary WHATLEY G [place] Insurance:BANKERS MILLERDOB: [facility] CASUALTYPolicy [id number] Hospital Number: Repository [id number] Date:2017-11-12[address], [place] [address]RI: 02/01/2018 Tertiary NOT GIVENUNK Jose Alejandro Insurance:SELF PAY [facility] Number: Effective Repository Date:2018-02-10 01/18/2018 WHATLEY G Primary WHATLEY G Jose Alejandro [id number] Insurance:MEDICARE MILLERDOB: [facility] [id number] Number: Repository [address]Wpl: 330 [id number] [phone] () Date:2017-11-18 01/18/2018 Secondary WHATLEY G Jose Alejandro Insurance:BANKERS MILLERDOB: [facility] LIFE CASUALTYPolicy [id number] Hospital Number: Repository [id number] Date:2017-11-18[address], [place] [address]SJ: 01/18/2018 Tertiary NOT GIVENUNK [place] Insurance:SELF PAY [facility] Number: Effective Repository Date:2017-11-18 01/13/2018 WHATLEY G Primary WHATLEY G Jose Alejandro [id number] Insurance:MEDICARE MILLERDOB: [facility] [id number] [place] Number: Repository [address]Uwp: 330 [id number] [phone] (HP) Date:2017-10-08 01/13/2018 Secondary WHATLEY G [place] Insurance:BANKERS MILLERDOB: [facility] [id number] Hospital Number: Repository [id number] Date:2017-10-08[address], [place] [address]UI: 01/13/2018 Tertiary NOT GIVENUNK Jose Alejandro Insurance:SELF PAY [facility] Number: Effective Repository Date:2018-01-13 01/12/2018 WHATLEY G Primary WHATLEY G Jose Alejandro [id number] Insurance:MEDICARE MILLERDOB: [facility] [id number], [place] Number: Repository [address]Ord: 330 [id number] [phone] () Date:2017-12-28 01/12/2018 Secondary WHATLEY G [place] Insurance:BANKERS MILLERDOB: [facility] LIFE CASUALTYPolicy [id number] Hospital Number: Repository [id number] Date:2017-12-28[address], [place] [address]CJ: 01/12/2018 Tertiary NOT GIVENUNK [place] Insurance:SELF PAY [facility]: Effective Repository Date:2018-01-12 12/28/2017 WHATLEY G Primary WHATLEY G [place] [id number] Insurance:MEDICARE MILLERDOB: [facility] [id number], [place] Number: Repository [id number]: 330 [id number] [phone] (HP) Date:2017-12-10 12/28/2017 Secondary WHATLEY G [place] Insurance:BANKERS MILLERDOB: [facility] LIFE CASUALTYPolicy [id number] Hospital Number: Repository [id number] Date:2017-12-10[address], [place] [address]NN: 12/28/2017 Tertiary NOT GIVENUNK [place] Insurance:SELF PAY [facility] Number: Effective Repository Date:2017-12-27 12/27/2017 WHATLEY G Primary WHATLEY G [place] [id number] Insurance:MEDICARE MILLERDOB: [facility] [id number], [place] Number: Repository [id number]: 330 [id number] [phone] (HP) Date:2017-07-10 12/27/2017 Secondary WHATLEY G [place] Insurance:BANKERS MILLERDOB: [facility] [id number] Hospital Number: Repository [id number] Date:2017-07-10[address], [place] [address]ZC: 12/27/2017 Tertiary NOT GIVENUNK [place] Insurance:SELF PAY [facility] Number: Effective Repository Date:2017-11-29 12/24/2017 WHATLEY G Primary WHATLEY G [place] [id number] Insurance:MEDICARE MILLERDOB: [facility] [id number] [place] Number: Repository [id number]: 330 [id number] [phone] () Date:2017-12-24 12/24/2017 Secondary WHATLEY G [place] Insurance:BANKERS MILLERDOB: [facility] LIFE CASUALTYPolicy [id number] Hospital Number: Repository [id number] Date:2017-12-24[address], [place] [address]WI: 12/24/2017 Tertiary NOT GIVENUNK [place] Insurance:SELF PAY [facility] Number: Effective Repository Date:2017-12-24 12/21/2017 WHATLEY G Primary WHATLEY G [place] [id number] Insurance:MEDICARE MILLERDOB: [facility] [id number], [place] Number: Repository [id number]: 330 [id number] [phone] (HP) Date:2017-12-17 12/21/2017 Secondary WHATLEY G [place] Insurance:BANKERS MILLERDOB: [facility] LIFE CASUALTYPolicy [id number] Hospital Number: Repository [id number] Date:2017-12-[address], [place] [address]TD: 12/21/2017 Tertiary NOT GIVENUNK Jose Alejandro Insurance:SELF PAY [facility] Number: Effective Repository Date:2017-12-20 12/09/2017 WHATLEY G Primary WHATLEY G [place] [id number] Insurance:MEDICARE MILLERDOB: [facility] [id number] Number: Repository [id number]: 330 [id number] [phone] () Date:2017-12-09 12/09/2017 Secondary WHATLEY G Jose Alejandro Insurance:BANKERS MILLERDOB: [facility] LIFE CASUALTYPolicy [id number] Hospital Number: Repository [id number] Date:2017-12-[address], [place] [address]PO: 12/09/2017 Tertiary NOT GIVENUNK [place] Insurance:SELF PAY [facility] Number: Effective Repository Date:2017-12-09 11/23/2017 WHATLEY G Primary WHATLEY G Jose Alejandro [id number] Insurance:MEDICARE MILLERDOB: [facility] [id number] Number: Repository [id number]: 330 [id number] [phone] () Date:2017-11-23 11/23/2017 Secondary WHATLEY G [place] Insurance:BANKERS MILLERDOB: [facility] LIFE CASUALTYPolicy [id number] Hospital Number: Repository [id number] Date:2017-11-23[address], [place] [address]WA: 11/23/2017 Tertiary NOT GIVENUNK Jose Alejandro Insurance:SELF PAY [facility] Number: Effective Repository Date:2017-11-23 11/22/2017 WHATLEY G Primary WHATLEY G [place] [id number] Insurance:MEDICARE MILLERDOB: [facility] [id number] Number: Repository [id number]: 330 [id number] [phone] () Date:2017-11-22 11/22/2017 Secondary WHATLEY G [place] Insurance:BANKERS MILLERDOB: [facility] LIFE CASUALTYPolicy [id number] Hospital Number: Repository [id number] Date:2017-11-22[address] [address]SZ: 11/22/2017 Tertiary NOT GIVENUNK Jose Alejandro Insurance:SELF PAY [facility] Number: Effective Repository Date:2017-11-22 11/22/2017 WHATLEY G Primary WHATLEY G Jose Alejandro [id number] Insurance:MEDICARE MILLERDOB: [facility] [id number] Number: Repository [id number]: 330 [id number] [phone] () Date:2017-07-10 11/22/2017 Secondary WHATLEY G [place] Insurance:BANKERS MILLERDOB: [facility] LIFE CASUALTYPolicy [id number] Hospital Number: Repository [id number] Date:2017-07-10[address], [place] [address]LC: 11/22/2017 Tertiary NOT GIVENUNK Jose Alejandro Insurance:SELF PAY [facility] Number: Effective Repository Date:2017-08-30 11/15/2017 WHATLEY G Primary WHATLEY G [place] [id number] Insurance:MEDICARE MILLERDOB: [facility] [id number] Number: Repository [id number]: 330 [id number] [phone] () Date:2017-11-15 11/15/2017 Secondary WHATLEY G Jose Alej[place] Insurance:BANKERS MILLERDOB: [facility] LIFE CASUALTYPolicy [id number] Hospital Number: Repository [id number] Date:2017-11-15[address], [place] [address]TI: 11/15/2017 Tertiary NOT GIVENUNK [place] Alej[place] Insurance:SELF PAY [facility] Number: Effective Repository Date:2017-11-15 11/08/2017 WHATLEY G Primary WHATLEY G [place] [id number] Insurance:MEDICARE MILLERDOB: [facility] [id number] [place] Number: Repository [id number]: 330 [id number] [phone] (HP) Date:2017-08-09 11/08/2017 Secondary WHATLEY G [place] Insurance:BANKERS MILLERDOB: [facility] [id number] Hospital Number: Repository [id number] Date:2017-08-09[address], [place] [address]MM: 11/08/2017 Tertiary NOT GIVENUNK Jose Alejandro Insurance:SELF PAY [facility] Number: Effective Repository Date:2017-08-09 10/25/2017 WHATLEY G Primary WHATLEY G [place] [id number] Insurance:MEDICARE MILLERDOB: [facility] [id number] Number: Repository [id number]: 330 [id number] [phone] () Date:2017-10-25 10/25/2017 Secondary WHATLEY G [place] Alej[place] Insurance:BANKERS MILLERDOB: [facility] [id number] Hospital Number: Repository [id number] Date:2017-10-25[address], [place] [address]IJ: 10/25/2017 Tertiary NOT GIVENUNK Jose Alejandro Insurance:SELF PAY [facility] Number: Effective Repository Date:2017-10-25 10/08/2017 WHATLEY G Primary WHATLEY G [place] [id number] Insurance:MEDICARE MILLERDOB: [facility] [id number] Number: Repository [id number]: [phone] [id number] [phone] () Date:2017-08-07 10/08/2017 Secondary [place]AC[place]A [place] [facility] LIFE CASUALTYPolicy [id number] Hospital Number: Repository [id number] Date:2017-08-07[address], [place] [address]SN: 10/08/2017 Tertiary NOT GIVENUNK Jose Alejandro Insurance:[facility]Y [facility] Number: Effective Repository Date:2017-08-07
== END ==
PROVIDERS: Family Provider Family Medicine; PCP Family Medicine; Referring Provider Family Medicine; Visit Provider Family Medicine
DX: Z79.899 Other long term (current) drug therapy (principal)
CPT/HCPCS: 36415; 83036

== ENCOUNTER → 2018-10-18 15:07 | Outpatient (CLI) | payer MEDICARE, OTHER, SELFPAY ==
[2018-08-10 08:43] VITALS: BMI 22.1
[2018-10-18 15:55] LABS: Albumin, Serum 3.2 g/dL (3.2-5.0); BUN 26 mg/dL (7-18); Calcium,Total 8.9 mg/dL (8.5-10.1); Chloride 105 mmol/L (98-107); Creatinine, Serum 1.73 mg/dL (0.70-1.30); EST Glomerular Filtration Rate 41 mL/min (>60); Est Glom Filt Rate - Afr Amer 50 mL/min (>60); Glucose 166 mg/dL (74-106); Phosphorus 3.6 mg/dL (2.5-4.9); Potassium 4.5 mmol/L (3.5-5.1); Sodium Level 137 mmol/L (136-145)
[2018-10-18 16:00] LABS: PTHIN 172.3 pg/mL (18.4-80.1)
[2018-10-18 16:55] LABS: Hematocrit 50.2 % (40-54); Hemoglobin 14.9 g/dl (13.0-16.5); Mean Corp Hgb Conc 29.7 g/gl (32-36); Mean Corpuscular Hgb 23.8 pg (27.0-32.0); Mean Corpuscular Volume 80.2 fL (80-94); Platelet Count 115 K/mm3 (150-450); RBC Distribution Width CV 17.7 % (11.6-14.6); RBC Distribution Width SD 51.7 fl (35.1-43.9); Red Blood Count 6.26 M/mm3 (4.6-6.2); White Blood Count 3.6 K/mm3 (4.4-11.0)
[2018-10-18 16:56] LABS: Scan Indicated on CBC? Y/N YES- FLAGS NOTED
== END ==
PROVIDERS: Family Provider Family Medicine; PCP Family Medicine; Visit Provider Internal Medicine Nephrology
DX: E11.22 Type 2 diabetes mellitus with diabetic chronic kidney disease (principal); N18.3 Chronic kidney disease, stage 3 (moderate)
CPT/HCPCS: 36415; 80069; 82570; 83970; 84156; 85027

== ENCOUNTER 2018-11-22 09:53 | Outpatient (RCR) | payer MEDICARE, OTHER, SELFPAY ==
[2018-06-02 11:05] VITALS: BMI 22.9
[2018-11-22 09:07] VITALS: BMI 22.1
[2018-11-22 10:34] LABS: International Normalized Ratio 3.3; Prothrombin Time (Protime)PT. 33.5 SECONDS (11.7-14.9)
[2018-11-22 10:39] LABS: Absolute Lymphocyte Count 1.62 X10^3/ul (0.83-4.51); Absolute Neutrophil Count 1.7 X10^3/uL (2.0-7.7); Basophil# 0.04 X10^3/uL; Eosinophil# 0.14 X10^3/uL; Eosinophils% 3.7 % (0-5); Hematocrit 50.1 % (40-54); Hemoglobin 15.8 g/dl (13.0-16.5); Lymphocyte # 1.62 X10^3/ul (4.0); Lymphocyte % 42.5 % (19-41); Mean Corp Hgb Conc 31.5 g/gl (32-36); Mean Corpuscular Hgb 24.5 pg (27.0-32.0); Mean Corpuscular Volume 77.8 fL (80-94); Monocyte# 0.35 X10^3/uL; Monocyte% 9.2 % (0-10); Neutrophil # 1.66 X10^3/uL (2.7-7.7); Neutrophil % 43.6 % (47-70); Platelet Count 123 K/mm3 (150-450); RBC Distribution Width CV 17.5 % (11.6-14.6); RBC Distribution Width SD 49.2 fl (35.1-43.9); Red Blood Count 6.44 M/mm3 (4.6-6.2); White Blood Count 3.8 K/mm3 (4.4-11.0)
[2018-11-22 10:40] LABS: Differential Indicated SCAN CRITERIA MET; POSITIVE COUNT NO; POSITIVE DIFFERENTIAL NO; POSITIVE MORPHOLOGY YES
[2018-11-22 11:05] LABS: ALB/GLOB Ratio 0.8 RATIO (0.9-2.4); AST(SGOT) 16 U/L (15-37); Alanine Aminotransfer ALT/SGPT 12 U/L (16-61); Albumin, Serum 3.4 g/dL (3.2-5.0); Alkaline Phosphatase 92 U/L (45-117); Anion Gap 5 (5-15); BUN 28 mg/dL (7-18); BUN/Creat Ratio 16.5 RATIO (10-20); Chloride 108 mmol/L (98-107); EST Glomerular Filtration Rate 42 mL/min (>60); Est Glom Filt Rate - Afr Amer 51 mL/min (>60); Globulin 4.3 g/dL (2.2-4.2); Glucose 114 mg/dL (74-106); Potassium 4.2 mmol/L (3.5-5.1); Protein, Total 7.7 g/dL (6.4-8.2); Sodium Level 139 mmol/L (136-145)
== END 2018-11-22 10:00 | disposition home or self-care (01) ==
LOC: LAB 09:53
PROVIDERS: Family Provider Family Medicine; PCP Family Medicine; Referring Provider Internal Medicine Cardiovascular Disease; Visit Provider Internal Medicine Cardiovascular Disease
DX: I48.91 Unspecified atrial fibrillation (principal); Z79.01 Long term (current) use of anticoagulants
CPT/HCPCS: 36415; 80053; 85025; 85610

== ENCOUNTER 2019-01-25 09:39 | Outpatient (RCR) | payer MEDICARE, OTHER, SELFPAY ==
[2018-12-06 13:36] VITALS: BMI 21.5
[2019-01-25 10:50] LABS: International Normalized Ratio 2.8; Prothrombin Time (Protime)PT. 29.6 SECONDS (11.7-14.9)
== END 2019-01-25 11:00 | disposition home or self-care (01) ==
LOC: LAB 09:39
PROVIDERS: Family Provider Family Medicine; PCP Family Medicine; Referring Provider Internal Medicine Cardiovascular Disease; Visit Provider Internal Medicine Cardiovascular Disease
DX: I48.91 Unspecified atrial fibrillation (principal); Z79.01 Long term (current) use of anticoagulants
CPT/HCPCS: 36415; 85610

== ENCOUNTER 2019-02-16 11:38 | Emergency (ER) | payer MEDICARE, OTHER, SELFPAY ==
[2018-12-06 13:36] VITALS: BMI 21.5
[2019-02-16 11:39] VITALS: BP 138/81; PULSE 89; RESP 24; TEMP 36.6; O2SAT 93; BMI 20.3
[2019-02-16 12:11] VITALS: BP 142/99; PULSE 74; RESP 16; O2SAT 91
--- NOTE | 2019-02-16 12:12 | EKG12_ITS ---
Test Reason : CP Blood Pressure : / mmHG Vent. Rate : 076 BPM Atrial Rate : 076 BPM P-R Int : 000 ms QRS Dur : 154 ms QT Int : 496 ms P-R-T Axes : 018 -75 088 degrees QTc Int : 558 ms Ventricular-paced rhythm Biventricular pacemaker detected Abnormal ECG Confirmed by RAUL ESCOBEDO, IVAN ([id number]), videotape editor ROWDY NOLASCO ([id number]) on 02/20/2019 11:20:10 AM Referred By: REJI Confirmed By:DORIS CARTER MD
--- NOTE | 2019-02-16 12:12 | RAD_ITS ---
STUDY: X-RAY CHEST REASON FOR EXAM: Male, 78 years old. Intermittent chest pain and shortness of breath. TECHNIQUE: Single AP portable view of the chest. COMPARISON: Comparison is made with prior study dated July 19, 2017. FINDINGS: EKG electrodes are seen. Stable diffuse increased interstitial markings in both lungs worse in the right infrahilar region suggestive of chronic interstitial scarring and endstage lung. Blunting of the corresponding angles bilaterally. Normal size heart. A left-sided ICD is seen. Normal mediastinum and angel. Normal visualized pulmonary arteries. Normal visualized aortic arch and descending thoracic aorta. There are diffuse degenerative changes of the visualized thoracic spine. Normal visualized ribs, clavicles, and shoulders. There is no demonstrated abnormality of the visualized soft tissue structures of the upper abdomen. RAD/Chest 1 View (Portable) IMPRESSION: Diffuse increased interstitial markings suggestive of chronic interstitial lung disease. There has been essentially no change. Electronically Signed: Alexsander Gr, at 13:13 EDT , Service support ,
[2019-02-16 12:14] VITALS: O2SAT 98
[2019-02-16] MEDS: Aspirin 81 MG TAB.CHEW 324 MG PO (12:18)
[2019-02-16 12:40] LABS: D-Dimer Quantitative (DVT/PE) < 0.27 FEU/ug/m (0.27-0.49)
[2019-02-16 12:43] LABS: Anion Gap 8 (5-15); BUN 35 mg/dL (7-18); BUN/Creat Ratio 17.8 RATIO (10-20); Calcium,Total 8.8 mg/dL (8.5-10.1); Chloride 111 mmol/L (98-107); Creatinine, Serum 1.97 mg/dL (0.70-1.30); EST Glomerular Filtration Rate 35 mL/min (>60); Est Glom Filt Rate - Afr Amer 43 mL/min (>60); Glucose 173 mg/dL (74-106); Potassium 4.2 mmol/L (3.5-5.1); Sodium Level 140 mmol/L (136-145)
[2019-02-16 13:08] VITALS: BP 128/93; PULSE 72; RESP 26; O2SAT 98
[2019-02-16 13:08] LABS: Absolute Lymphocyte Count 0.99 X10^3/ul (0.83-4.51); Absolute Neutrophil Count 0.6 X10^3/uL (2.0-7.7); Basophil# 0.04 X10^3/uL; Eosinophil# 0.07 X10^3/uL; Eosinophils% 3.5 % (0-5); Hematocrit 44.9 % (40-54); Hemoglobin 14.2 g/dl (13.0-16.5); Lymphocyte # 0.99 X10^3/ul (4.0); Lymphocyte % 49.7 % (19-41); Mean Corp Hgb Conc 31.6 g/gl (32-36); Mean Corpuscular Hgb 24.1 pg (27.0-32.0); Mean Corpuscular Volume 76.2 fL (80-94); Monocyte# 0.28 X10^3/uL; Monocyte% 14.1 % (0-10); Neutrophil # 0.61 X10^3/uL (2.7-7.7); Neutrophil % 30.7 % (47-70); Platelet Count 87 K/mm3 (150-450); RBC Distribution Width CV 18.5 % (11.6-14.6); RBC Distribution Width SD 51.2 fl (35.1-43.9); Red Blood Count 5.89 M/mm3 (4.6-6.2)
--- NOTE | 2019-02-16 13:09 | ED.RN ---
FAMILY MEMBER TO BRING MED LIST
[2019-02-16 13:10] LABS: Differential Indicated SCAN CRITERIA MET; POSITIVE COUNT NO; POSITIVE DIFFERENTIAL YES; POSITIVE MORPHOLOGY YES
--- NOTE | 2019-02-16 13:59 | ED.DCSUM_ITS ---
- ER Visit Summary Date of Service: 02/16/19 Chief Complaint: Chest pain History of Present Illness: The patient is a 78 M who presents with chest pain. It started earlier today. Is intermittent and sharp in the left chest. Nothing makes it better or worse. He has some nausea and admits to some shortness of breath with it. He does not wear home oxygen. He does have a history of CHF and chronic kidney disease. Physical Examination: Vital signs reviewed. HEENT exam unremarkable. Heart is regular rate and rhythm without murmurs. Lungs are clear to auscultation. Abdomen is soft and nontender. Extremities reveal no edema. Peripheral pulses are equal. Skin exam normal. Neurologic exam normal. Test Results: EKG is paced with no ST changes. Chest x-ray reveals chronic changes with no evidence of CHF. White blood cell count 2, creatinine 1.97, g lucose 173. Troponin 0 0.021. D-dimer normal Emergency Department Course and Treatment: The patient was given aspirin. He feels much better. I feel this is likely musculoskeletal pain. His troponin is normal and d-dimer is also normal. I do not feel he needs to be admitted at this time. He will follow-up with his PCP. Treatment Plan: [] Disposition: Discharge Impression: Chest pain This note was generated with [employer] dictation software. It may contain incorrect words, spelling, and punctuation that were not noted in review of the chart prior to signing ED Disposition - Plan for ED Patient: Disposition: Home or Assisted Living Instructions: CHEST PAIN, NonCardiac Referrals: Dwayne Valente DO [Primary Care Provider] -
[2019-02-16 14:09] VITALS: BP 134/90; PULSE 70; RESP 21; O2SAT 97
== END 2019-02-16 14:10 | disposition home or self-care (01) ==
PROVIDERS: Emergency Provider Emergency Medicine; Family Provider Family Medicine; PCP Family Medicine
DX: R07.9 Chest pain, unspecified (principal); R11.0 Nausea; R06.00 Dyspnea, unspecified; I49.3 Ventricular premature depolarization; E11.22 Type 2 diabetes mellitus with diabetic chronic kidney disease; I13.0 Hypertensive heart and chronic kidney disease with heart failure and stage 1 through stage 4 chronic kidney disease, or unspecified chronic kidney disease; N18.9 Chronic kidney disease, unspecified; I50.9 Heart failure, unspecified; Z79.84 Long term (current) use of oral hypoglycemic drugs; Z79.01 Long term (current) use of anticoagulants; Z79.899 Other long term (current) drug therapy
CPT/HCPCS: 71045; 80048; 84484; 85025; 85379; 93005; 99284; A4216

== ENCOUNTER 2019-02-19 13:09 | Emergency (ER) | payer MEDICARE, OTHER, SELFPAY ==
[2019-02-19 13:10] VITALS: BP 125/90; PULSE 78; RESP 20; TEMP 36.8; O2SAT 95; BMI 20.3
--- NOTE | 2019-02-19 13:35 | ED.VIS.GEN ---
History of Present Illness Chief Complaint: Complaint Informant: Patient, Family Current Severity: Mild Narrative: The patient and family indicates that for some reason he has swelling at the foreskin of his penis they believe it started yesterday possibly the day before the patient complained more about it today, he also complained he could not void urine. There is been no trauma no injury he has history of prostate surgery in the past, he normally has no trouble voiding urine. He was in the emergency part recent for shortness of breath that is all stable he does see [facility] [place] [facility] Past Medical History - Allergies and Home Meds Allergies/Adverse Reactions: Allergies amoxicillin [Amoxicillin] Allergy (Verified 02/19/19 13:09) Rash ciprofloxacin [From Cipro] Allergy (Verified 02/19/19 13:09) Rash ciprofloxacin HCl [From Cipro] Allergy (Verified 02/19/19 13:09) Rash Sulfa (Sulfonamide Antibiotics) Allergy (Verified 02/19/19 13:09) Other Primary Care Physician: Dwayne Valente DO [Primary Care Provider] - Past Medical History: - - See above Surgical History: TURP, - - Colectomy w/ fistula s/p diverticulitis, L arm surgery. Smoking Status: Former smoker - Family History Maternal Family History: Family History (Last Reviewed 12/06/18 @ 13:39 by Humera Woodward) Father Sudden cardiac Brother Myocardial infarction CHF (congestive heart failure) Other Family history of coronary artery disease Family History: Reports: Heart Disease Paternal Family History: Family History (Last Reviewed 12/06/18 @ 13:39 by Humera Woodward) Father Sudden cardiac Brother Myocardial infarction CHF (congestive heart failure) Other Family history of coronary artery disease Family History: Reports: Heart Disease Review of Systems General: Denies: Chills, Fever, Sweats Eyes: Denies: Visual changes - bilaterally, Diplopia ENT: Denies: Rhinorrhea, Sore throat Cardiovascular: Denies: Chest pain, Palpitations Respiratory: Reports: - - He has chronic shortness of breath that is stable it is not an issue today per the family. Denies: Dyspnea, Cough, Dyspnea on exertion Gastrointestinal: Denies: Abdominal pain, Nausea, Vomiting, Diarrhea, Melena, Hematochezia Genitourinary: Denies: Dysuria, Hematuria, Frequency Musculoskeletal: Denies: Back pain, Extremity Pain Skin: Denies: Rash, Wounds Neurological: Denies: Headache, Weakness, Numbness Physical Exam Vital Signs/Narrative: Vital Signs Temp Pulse Resp BP Pulse Ox 02/19/19 13:10 98.3 F 78 20 H 125/90 H 95 General: Well nourished, Well developed, No Acute Distress Head: Normocephalic, Atraumatic Eyes: Perrl, EOMI ENT: Moist mucous membranes, No rhinorrhea Neck: Supple, Nontender Cardiovascular: Regular rate, Regular rhythm, No murmurs Respiratory: No distress, CTA bilaterally, Chest nontender, Decreased Air Movement Abdomen: Soft, Nontender, Nondistended, Normal bowel sounds : - - The shaft of the penis from the 8 to 11 o'clock position there is minimal swelling of the foreskin, there is no pain redness warmth drainage the penile meatus is easily visible, there is no signs of phimosis he has no pain here just irritation from the bulkiness of this area of swelling it is easily compressible and it looks like a big hive Back: Nontender, Normal Inspection Extremities: Nontender, No edema Skin: Normal color, No rash Neurological: Alert, Oriented x3, Cranial nerves II-XII grossly intact, Normal Strength, Normal Sensation Psychological: Normal affect, Normal Mood Diagnostic/Tx/Re-eval - Medical Decision Making The differential is rather extensive his abdomen is soft nontender his physical exam is unremarkable why he is unable to void through his penile meatus remains unclear there is no signs of obstruction from the swollen foreskin, there is no signs of phimosis or paraphimosis, as above given the above he is screening labs UA urine culture Gomez catheter Gomez leg bag he will follow-up with Dr. Martinez his urologist in the next few days and return for change in symptoms We did apply local wound care and skin care to the penile shaft and a bike ointment dressings screening labs showed values that are generally consistent with prior patient values see those reports his white count is 1.7 his creatinine is about 1.9 his UA shows nothing acute Home stable Final impression Swelling to the penile shaft urinary retention ED Disposition - Plan for ED Patient: Diagnosis: Balanitis, Urinary retention Instructions: URINARY RETENTION, Male Referrals: Dwayne Valente DO [Primary Care Provider] - Additional Instructions: Use Gomez bag and Gomez leg bag as instructed and as used in the past please follow-up with your urologist Wednesday or Wednesday
[2019-02-19 13:43] LABS: Absolute Lymphocyte Count 0.83 X10^3/ul (0.83-4.51); Absolute Neutrophil Count 0.6 X10^3/uL (2.0-7.7); Basophil# 0.04 X10^3/uL; Basophil% 2.2 % (0-1); Eosinophil# 0.06 X10^3/uL; Eosinophils% 3.3 % (0-5); Hematocrit 47.8 % (40-54); Lymphocyte # 0.83 X10^3/ul (4.0); Lymphocyte % 45.7 % (19-41); Mean Corp Hgb Conc 31.7 g/gl (32-36); Mean Corpuscular Hgb 24.3 pg (27.0-32.0); Mean Corpuscular Volume 76.5 fL (80-94); Monocyte# 0.28 X10^3/uL; Monocyte% 12.1 % (0-10); Neutrophil # 0.62 X10^3/uL (2.7-7.7); Neutrophil % 33.6 % (47-70); Platelet Count 110 K/mm3 (150-450); RBC Distribution Width CV 18.9 % (11.6-14.6); RBC Distribution Width SD 52.2 fl (35.1-43.9); Red Blood Count 6.12 M/mm3 (4.6-6.2); White Blood Count 1.7 K/mm3 (4.4-11.0)
[2019-02-19 13:46] LABS: Differential Indicated SCAN CRITERIA MET; POSITIVE COUNT NO; POSITIVE DIFFERENTIAL YES; POSITIVE MORPHOLOGY YES
[2019-02-19 13:54] LABS: Anion Gap 6 (5-15); BUN 30 mg/dL (7-18); BUN/Creat Ratio 15.2 RATIO (10-20); Calcium,Total 8.7 mg/dL (8.5-10.1); Chloride 110 mmol/L (98-107); Creatinine, Serum 1.98 mg/dL (0.70-1.30); EST Glomerular Filtration Rate 35 mL/min (>60); Est Glom Filt Rate - Afr Amer 42 mL/min (>60); Estimated Creatinine Clearance 30.55 ml/min; Glucose 188 mg/dL (74-106); Potassium 4.6 mmol/L (3.5-5.1); Sodium Level 138 mmol/L (136-145)
[2019-02-19 14:16] LABS: White Blood Cells 0 SEEN /hpf (0-5)
[2019-02-19 14:17] LABS: Color, Urine Yellow (Yellow); Glucose, Dipstick Normal (Normal); Ketone-Dipstick 5 mg/dl (Negative); Leukocyte Esterase-Dipstick Negative /ul (Negative); Nitrite-Dipstick Negative (Negative); Occult Blood-Urine 10 /ul (Negative); Protein-Dipstick 100 mg/dl (Negative); Urine Bilirubin Dipstick 1 mg/dL (Negative); Urine Clarity Sl. Cloudy (Clear); Urine Urobilinogen 8 mg/dl (Normal)
[2019-02-19 14:23] LABS: Bacteria 1+ /hpf (None Seen); Hyaline Cast 0-5 SEEN /lpf (0-5); Mucous, Urine 1+ /hpf (<or=2+); Red Blood Cells-Urine 0-5 SEEN /hpf (0-5); Squamous Epithelial Cells - UA 0-5 SEEN /hpf (0-5)
[2019-02-19 14:33] VITALS: BP 131/95; PULSE 76; RESP 11; O2SAT 97
== END 2019-02-19 14:41 | disposition home or self-care (01) ==
LOC: ED 13:50
PROVIDERS: Emergency Provider Emergency Medicine; Family Provider Family Medicine; PCP Family Medicine
DX: N48.1 Balanitis (principal); R33.9 Retention of urine, unspecified; Z79.01 Long term (current) use of anticoagulants; Z79.899 Other long term (current) drug therapy; Z87.891 Personal history of nicotine dependence
CPT/HCPCS: 51702; 80048; 81001; 85025; 87077; 87086; 87088; 99283; A4216

== ENCOUNTER → 2019-03-07 15:51 | Outpatient (CLI) | payer MEDICARE, OTHER, SELFPAY ==
[2019-03-01 13:40] VITALS: BMI 20.3
== END ==
PROVIDERS: Family Provider Family Medicine; PCP Family Medicine; Referring Provider Nurse Practitioner Adult Health; Visit Provider Nurse Practitioner Adult Health
DX: R82.998 Other abnormal findings in urine (principal)
CPT/HCPCS: 87086; 87088; 87186

== ENCOUNTER → 2019-03-23 09:39 | Outpatient (CLI) | payer MEDICARE, OTHER, SELFPAY ==
[2019-03-09 15:04] VITALS: BMI 23.0
[2019-03-23 10:55] LABS: Protein, Urine (Random) 78.3 mg/dL (<11.9); Protein:Creat Ratio 939 mg/g CRE (0-200)
== END ==
PROVIDERS: Family Provider Family Medicine; PCP Family Medicine; Visit Provider Internal Medicine Nephrology
DX: E11.22 Type 2 diabetes mellitus with diabetic chronic kidney disease (principal)
CPT/HCPCS: 82570; 84156

== ENCOUNTER → 2019-03-23 10:18 | Outpatient (CLI) | payer MEDICARE, OTHER, SELFPAY ==
[2019-03-09 15:04] VITALS: BMI 23.0
--- NOTE | 2019-03-23 10:21 | CT_ITS ---
STUDY: CT ABDOMEN AND PELVIS WITH AND WITHOUT CONTRAST REASON FOR EXAM: Male, 78 years old. Long-term hematuria RADIATION DOSAGE (If Supplied By Facility): CTDIvol = ( 29.11 ) mGy, DLP = ( 2176.14 ) mGycm TECHNIQUE: Transaxial images were obtained from the dome of the diaphragm to the symphysis pubis without oral contrast. 75 IV Isovue 300 was administered. Sagittal and coronal images were reconstructed. Individualized dose optimization techniques were used for this CT. COMPARISON: 2014 FINDINGS: Lung bases show chronic interstitial changes with free-flowing pleural effusions and atelectasis. Right effusion larger than left. Pacer leads seen along the base of the heart. There is decreased attenuation of the liver consistent with steatosis. There is a 5 cm cyst in the inferior right lobe. There is gallbladder wall thickening with pericholecystic fluid. No demonstrated gallstone or biliary dilatation, however cholecystitis cannot be excluded, recommend correlation with lab and physical findings. There are multiple benign calcified granulomata of the spleen. Normal pancreas. Normal bilateral adrenal glands. No obstructive uropathy, scattered simple cysts noted in both kidneys. Normal visualized stomach. Normal small intestine. Retained stool noted in the colon. There is non-visualization of the appendix. There is diffuse atherosclerotic calcification of the abdominal aorta, without a demonstrated aneurysm. Normal inferior vena cava. Normal retroperitoneum. Normal urinary bladder. Enlargement of the prostate noted which is impinging upon the inferior bladder. Diffuse induration of the subcutaneous fat suggests anasarca. There are diffuse degenerative changes of the visualized lumbar spine, and pelvis. Minimal ascites CT/CT Abd/Pelvis W/WO Contrast IMPRESSION: Gallbladder wall thickening with pericholecystic fluid. Cholecystitis cannot be excluded though there is no sonographic evidence of biliary dilatation or gallstones Fatty liver with stable 5 cm cyst Stable renal cysts Chronic interstitial changes in both lung bases with bilateral pleural effusions and dependent atelectasis, worse on the right than the left Retained stool Enlarged prostate impinging upon the bladder Diffuse induration of the subcutaneous fat suggests anasarca Electronically Signed: Umesh Fisher MD at 12:47 EDT , Service support ,
[2019-03-23] MEDS: 0.9% Normal Saline 1,000 ML 999 ML IV (11:10)
[2019-03-23 11:11] VITALS: BP 132/83; PULSE 76; RESP 16; O2SAT 98; BMI 21.7
[2019-03-23 12:15] VITALS: BP 150/98; PULSE 56; RESP 18; O2SAT 92
== END ==
PROVIDERS: Family Provider Family Medicine; PCP Family Medicine; Visit Provider Nurse Practitioner Adult Health
DX: R31.9 Hematuria, unspecified (principal); E11.22 Type 2 diabetes mellitus with diabetic chronic kidney disease
CPT/HCPCS: 74178; 82570; 84156; J7030; Q9967; A4216

== ENCOUNTER 2019-03-24 09:03 | Outpatient (RCR) | payer MEDICARE, OTHER, SELFPAY ==
[2018-12-06 13:36] VITALS: BMI 21.5
[2019-03-09 15:04] VITALS: BMI 23.0
[2019-03-20 09:19] LABS: Prothrombin Time (Protime)PT. 68.7 SECONDS (11.7-14.9)
[2019-03-20 09:35] LABS: Albumin, Serum 2.8 g/dL (3.2-5.0); BUN 27 mg/dL (7-18); Calcium,Total 8.5 mg/dL (8.5-10.1); Chloride 106 mmol/L (98-107); Creatinine, Serum 1.93 mg/dL (0.70-1.30); EST Glomerular Filtration Rate 36 mL/min (>60); Est Glom Filt Rate - Afr Amer 44 mL/min (>60); Glucose 121 mg/dL (74-106); Phosphorus 2.8 mg/dL (2.5-4.9); Potassium 4.5 mmol/L (3.5-5.1); Sodium Level 139 mmol/L (136-145)
[2019-03-20 09:46] LABS: Vitamin D,25 Hydroxy 26.5 ng/mL (29.95-100.01)
[2019-03-24 10:37] LABS: International Normalized Ratio 4.2; Prothrombin Time (Protime)PT. 40.8 SECONDS (11.7-14.9)
== END 2019-03-29 16:00 | disposition home or self-care (01) ==
LOC: LAB 09:03
PROVIDERS: Physician Assistant Medical; Family Provider Family Medicine; PCP Family Medicine; Referring Provider Internal Medicine Cardiovascular Disease; Visit Provider Internal Medicine Cardiovascular Disease
DX: E11.22 Type 2 diabetes mellitus with diabetic chronic kidney disease (principal); N18.3 Chronic kidney disease, stage 3 (moderate); E55.9 Vitamin D deficiency, unspecified
CPT/HCPCS: 36415; 80069; 82306; 85610

== ENCOUNTER → 2019-04-03 16:45 | Outpatient (CLI) | payer MEDICARE, OTHER, SELFPAY ==
[2019-03-29 13:43] VITALS: BMI 21.7
== END ==
PROVIDERS: Family Provider Family Medicine; PCP Family Medicine; Referring Provider Urology; Visit Provider Urology
DX: N39.0 Urinary tract infection, site not specified (principal)
CPT/HCPCS: 87086; 87088; 87186

== ENCOUNTER → 2019-04-06 08:21 | Outpatient (CLI) | payer MEDICARE, OTHER, SELFPAY ==
[2019-03-29 13:43] VITALS: BMI 21.7
[2019-04-06 09:27] LABS: Anion Gap 11 (5-15); BUN 26 mg/dL (7-18); BUN/Creat Ratio 14.4 RATIO (10-20); Calcium,Total 8.6 mg/dL (8.5-10.1); Chloride 104 mmol/L (98-107); Creatinine, Serum 1.81 mg/dL (0.70-1.30); EST Glomerular Filtration Rate 39 mL/min (>60); Est Glom Filt Rate - Afr Amer 47 mL/min (>60); Glucose 100 mg/dL (74-106); Potassium 3.6 mmol/L (3.5-5.1); Sodium Level 140 mmol/L (136-145)
== END ==
PROVIDERS: Family Provider Family Medicine; PCP Family Medicine; Referring Provider Nurse Practitioner Family; Visit Provider Nurse Practitioner Family
DX: I10 Essential (primary) hypertension (principal)
CPT/HCPCS: 36415; 80048

== ENCOUNTER 2019-04-09 23:29 | Emergency (ER) | payer MEDICARE, OTHER, SELFPAY ==
[2019-03-29 13:43] VITALS: BMI 21.7
[2019-04-09 23:30] VITALS: BP 116/74; PULSE 83; RESP 22; TEMP 36.3; O2SAT 97; BMI 20.7
--- NOTE | 2019-04-10 00:02 | RAD_ITS ---
HISTORY: Chest pain EXAMINATION/TECHNIQUE: XR Ribs Unilateral W/ PA Chest Min 3 Views: PA chest and 4 views of the left ribs COMPARISON: Chest x-ray from February 16, 2019 FINDINGS: LINES/DEVICES: Triple lead left subclavian cardiac pacer/defibrillator is unchanged in its table and positioned LUNGS: Pulmonary fibrosis. Pulmonary hyperexpansion No pneumothorax. MEDIASTINUM AND CARDIOVASCULAR STRUCTURES: Heart is borderline enlarged atherosclerotic plaque within the aortic arch with tortuosity to the thoracic aorta likely small bilateral pleural effusions are chronic RIBS AND OSSEOUS STRUCTURES: Unremarkable. No evidence of displaced rib fractures. RAD/Ribs Uni Min 3V w/PA Chest IMPRESSION: No rib fracture perceived. Pulmonary fibrosis. Possible small bilateral pleural effusions at 0041 Reported and signed by: Ambrose Pelaez MD Electronically Signed: Ambrose Pelaez MD at 0:40 EDT Tel , Service support ,
[2019-04-10] MEDS: HYDROcodone Bitartrate/Apap 5/325 Tablet PO (00:08)
--- NOTE | 2019-04-10 01:05 | ED.VISSUMM ---
- ER Visit Summary Date of Service: 04/10/19 Chief Complaint: Back pain History of Present Illness: The patient is a 78 M who presents with back pain. He complains of left posterior thoracic pain for about 2 months. He states this is his fourth time here for this. However review of records show only 1 prior emergency visit with a similar presentation. He describes his pain is stabbing. It is worse with certain movements or palpation. It is one very specific spot. He denies any shortness of breath fevers nausea vomiting. He states that on previous ER visit he underwent a negative cardiac work-up and was discharged. He has also seen his primary care physician. He did take Tylenol yesterday for the pain. He is anticoagulated so cannot take nonsteroidal anti-inflammatories. Physical Examination: Afebrile respiratory rate 22 vitals otherwise normal Heart regular rate and rhythm Lungs are clear without rales rhonchi wheezes Abdomen soft nontender Patient has point tenderness below the scapula on the left posterior thorax there is no rash Alert Test Results: Rib series shows possible small pleural effusions but no rib fracture, there is pulmonary fibrosis Emergency Department Course and Treatment: Since pain seems to be musculoskeletal nature. His presentation is not suggestive of cardiac pathology. He was given [place] here for pain in his pain is resolved on reevaluation. He was given a prescription for short course of the same. He was advised to follow-up with his primary care physician and does understand return for new or worsening symptoms. He was discharged. Treatment Plan: [] Disposition: Discharge Impression: Chest wall pain This note was generated with [employer] dictation software. It may contain incorrect words, spelling, and punctuation that were not noted in review of the chart prior to signing ED Disposition - Plan for ED Patient: Referrals: Dwayne Valente DO [Primary Care Provider] -
--- NOTE | 2019-04-10 01:08 | ED.DEP ---
ED Disposition - Plan for ED Patient: Instructions: Chest Wall Strain Prescriptions: Hydrocodone Bitart/Apap 5-325 [[place] 5MG-325MG] 1 tab PO Q6H PRN PRN 3 Days #10 tab PRN Reason: Pain Prescription Printed Referrals: Dwayne Valente DO [Primary Care Provider] -
[2019-04-10 01:15] VITALS: PULSE 75; RESP 18; O2SAT 97
--- NOTE | 2019-04-10 01:16 | EKG12_ITS ---
Test Reason : PAIN Blood Pressure : / mmHG Vent. Rate : 087 BPM Atrial Rate : 087 BPM P-R Int : 138 ms QRS Dur : 166 ms QT Int : 518 ms P-R-T Axes : 069 -63 104 degrees QTc Int : 623 ms Atrial-sensed ventricular-paced rhythm Biventricular pacemaker detected Abnormal ECG Confirmed by RAUL ESCOBEDO, IVAN ([id number]), international editorial producer ROWDY NOLASCO ([id number]) on 04/17/2019 1:28:58 PM Referred By: STEPHANIE Confirmed By:DORIS CARTER MD
== END 2019-04-10 01:15 | disposition home or self-care (01) ==
LOC: ED 04-10 00:06
PROVIDERS: Emergency Provider Emergency Medicine; Family Provider Family Medicine; PCP Family Medicine
DX: R07.89 Other chest pain (principal); J84.10 Pulmonary fibrosis, unspecified; I48.91 Unspecified atrial fibrillation; I10 Essential (primary) hypertension; E11.9 Type 2 diabetes mellitus without complications; Z95.0 Presence of cardiac pacemaker; Z79.84 Long term (current) use of oral hypoglycemic drugs; Z79.01 Long term (current) use of anticoagulants
CPT/HCPCS: 71101; 93005; 99283

== ENCOUNTER 2019-04-11 09:16 | Outpatient (RCR) | payer MEDICARE, OTHER, SELFPAY ==
[2019-03-29 13:43] VITALS: BMI 21.7
[2019-04-04 13:59] LABS: International Normalized Ratio 2.1; Prothrombin Time (Protime)PT. 23.6 SECONDS (11.7-14.9)
[2019-04-11 09:40] LABS: International Normalized Ratio 2.6; Prothrombin Time (Protime)PT. 27.5 SECONDS (11.7-14.9)
== END 2019-04-11 10:00 | disposition home or self-care (01) ==
LOC: LAB 09:16
PROVIDERS: Family Provider Family Medicine; PCP Family Medicine; Referring Provider Internal Medicine Cardiovascular Disease; Visit Provider Internal Medicine Cardiovascular Disease
DX: E11.22 Type 2 diabetes mellitus with diabetic chronic kidney disease (principal); N18.3 Chronic kidney disease, stage 3 (moderate); E55.9 Vitamin D deficiency, unspecified
CPT/HCPCS: 36415; 85610

== ENCOUNTER → 2019-05-10 10:20 | Outpatient (CLI) | payer MEDICARE, OTHER, SELFPAY ==
[2019-04-12 08:14] VITALS: BMI 21.1
[2019-05-10 12:50] LABS: Albumin, Serum 2.7 g/dL (3.2-5.0); BUN 28 mg/dL (7-18); BUN/Creat Ratio 15.9 RATIO (10-20); Calcium,Total 8.7 mg/dL (8.5-10.1); Chloride 104 mmol/L (98-107); Creatinine, Serum 1.76 mg/dL (0.70-1.30); EST Glomerular Filtration Rate 40 mL/min (>60); Est Glom Filt Rate - Afr Amer 49 mL/min (>60); Glucose 92 mg/dL (74-106); Phosphorus 3.1 mg/dL (2.5-4.9); Potassium 4.4 mmol/L (3.5-5.1); Sodium Level 136 mmol/L (136-145)
[2019-05-10 12:54] LABS: Protein, Urine (Random) 73.2 mg/dL (<11.9); Protein:Creat Ratio 842 mg/g CRE (0-200)
== END ==
PROVIDERS: Family Provider Family Medicine; PCP Family Medicine; Visit Provider Internal Medicine Nephrology
DX: N17.9 Acute kidney failure, unspecified (principal)
CPT/HCPCS: 36415; 80069; 82570; 84156

== ENCOUNTER 2019-06-27 10:41 | Outpatient (RCR) | payer MEDICARE, OTHER, SELFPAY ==
[2019-04-12 08:14] VITALS: BMI 21.1
[2019-05-30 11:38] LABS: Absolute Lymphocyte Count 0.87 X10^3/uL (0.83-4.51); Absolute Neutrophil Count 2.2 X10^3/uL (2.0-7.7); Basophil# 0.03 X10^3/uL; Basophil% 0.8 % (0-1); Eosinophil# 0.09 X10^3/uL; Eosinophils% 2.5 % (0-5); Hematocrit 42.4 % (40-54); Hemoglobin 12.9 g/dL (13.0-16.5); Lymphocyte # 0.87 X10^3/ul (4.0); Lymphocyte % 24.4 % (19-41); Mean Corp Hgb Conc 30.4 g/dL (32-36); Mean Corpuscular Volume 85.5 fL (80-94); Mean Platelet Vol. 10.3 fl (6.2-12.0); Monocyte# 0.38 X10^3/uL; Monocyte% 10.7 % (0-10); NRBC Flagged by Analyzer 0 % (0-5); Neutrophil # 2.17 X10^3/uL (2.7-7.7); Platelet Count 96 K/mm3 (150-450); RBC Distribution Width SD 55.4 fl (35.1-43.9); Red Blood Count 4.96 M/mm3 (4.6-6.2); White Blood Count 3.6 K/mm3 (4.4-11.0)
[2019-05-30 11:53] LABS: International Normalized Ratio 2.1; Prothrombin Time (Protime)PT. 23.4 SECONDS (11.7-14.9)
[2019-05-30 12:03] LABS: ALB/GLOB Ratio 0.7 RATIO (0.9-2.4); AST(SGOT) 17 U/L (15-37); Alanine Aminotransfer ALT/SGPT 14 U/L (16-61); Albumin, Serum 2.8 g/dL (3.2-5.0); Alkaline Phosphatase 132 U/L (45-117); Anion Gap 9 (5-15); BUN 30 mg/dL (7-18); BUN/Creat Ratio 21.1 RATIO (10-20); Calcium,Total 8.4 mg/dL (8.5-10.1); Chloride 103 mmol/L (98-107); Creatinine, Serum 1.42 mg/dL (0.70-1.30); EST Glomerular Filtration Rate 51 mL/min (>60); Est Glom Filt Rate - Afr Amer 62 mL/min (>60); Globulin 3.9 g/dL (2.2-4.2); Glucose 154 mg/dL (74-106); Protein, Total 6.7 g/dL (6.4-8.2); Sodium Level 140 mmol/L (136-145)
[2019-06-27 11:42] LABS: Prothrombin Time (Protime)PT. 22.4 SECONDS (11.7-14.9)
== END 2019-06-27 18:00 | disposition home or self-care (01) ==
LOC: LAB 10:41
PROVIDERS: Family Provider Family Medicine; PCP Family Medicine; Referring Provider Internal Medicine Cardiovascular Disease; Visit Provider Internal Medicine Cardiovascular Disease
DX: E11.22 Type 2 diabetes mellitus with diabetic chronic kidney disease (principal); N18.3 Chronic kidney disease, stage 3 (moderate); E55.9 Vitamin D deficiency, unspecified
CPT/HCPCS: 36415; 80048; 80053; 85025; 85610

== ENCOUNTER 2019-07-10 09:35 | Outpatient (RCR) | payer MEDICARE, OTHER, SELFPAY ==
[2019-06-27 09:53] VITALS: BMI 21.4
[2019-07-10 09:57] LABS: Absolute Lymphocyte Count 1.45 X10^3/uL (0.83-4.51); Absolute Neutrophil Count 2.8 X10^3/uL (2.0-7.7); Basophil# 0.12 X10^3/uL; Basophil% 2.4 % (0-1); Eosinophil# 0.09 X10^3/uL; Eosinophils% 1.8 % (0-5); Hematocrit 50.1 % (40-54); Hemoglobin 15.3 g/dL (13.0-16.5); Lymphocyte # 1.45 X10^3/ul (4.0); Mean Corp Hgb Conc 30.5 g/dL (32-36); Mean Corpuscular Hgb 27.2 pg (27.0-32.0); Mean Platelet Vol. 12.3 fl (6.2-12.0); Monocyte# 0.48 X10^3/uL; Monocyte% 9.6 % (0-10); NRBC Flagged by Analyzer 0 % (0-5); Neutrophil # 2.84 X10^3/uL (2.7-7.7); Neutrophil % 56.8 % (47-70); Platelet Count 116 K/mm3 (150-450); RBC Distribution Width SD 54.2 fl (35.1-43.9); Red Blood Count 5.63 M/mm3 (4.6-6.2)
[2019-07-10 10:21] LABS: International Normalized Ratio 2.4; Prothrombin Time (Protime)PT. 26.4 SECONDS (11.7-14.9)
[2019-07-10 10:28] LABS: ALB/GLOB Ratio 0.8 RATIO (0.9-2.4); AST(SGOT) 19 U/L (15-37); Alanine Aminotransfer ALT/SGPT 20 U/L (16-61); Albumin, Serum 3.3 g/dL (3.2-5.0); Alkaline Phosphatase 132 U/L (45-117); Anion Gap 9 (5-15); BUN 29 mg/dL (7-18); BUN/Creat Ratio 15.3 RATIO (10-20); Calcium,Total 9.2 mg/dL (8.5-10.1); Chloride 108 mmol/L (98-107); EST Glomerular Filtration Rate 37 mL/min (>60); Est Glom Filt Rate - Afr Amer 45 mL/min (>60); Glucose 155 mg/dL (74-106); Potassium 4.3 mmol/L (3.5-5.1); Protein, Total 7.3 g/dL (6.4-8.2); Sodium Level 138 mmol/L (136-145)
== END 2019-07-10 18:00 | disposition home or self-care (01) ==
LOC: LAB 09:35
PROVIDERS: Family Provider Family Medicine; PCP Family Medicine; Referring Provider Internal Medicine Cardiovascular Disease; Visit Provider Internal Medicine Cardiovascular Disease
DX: E11.22 Type 2 diabetes mellitus with diabetic chronic kidney disease (principal); N18.3 Chronic kidney disease, stage 3 (moderate); E55.9 Vitamin D deficiency, unspecified; Z79.01 Long term (current) use of anticoagulants
CPT/HCPCS: 36415; 80053; 85025; 85610

== ENCOUNTER 2019-07-10 14:11 | Inpatient (IN) | payer MEDICARE, OTHER, SELFPAY ==
[2019-06-27 09:53] VITALS: BMI 21.4
[2019-07-10] VITALS (11 sets, daily range): BP systolic 119–133; BP diastolic 81–87; PULSE 72–91; RESP 18–85; TEMP 36.4–36.9; O2SAT 80–100; BMI 22.5
--- NOTE | 2019-07-10 14:39 | EKG12_ITS ---
Test Reason : SOB Blood Pressure : / mmHG Vent. Rate : 072 BPM Atrial Rate : 072 BPM P-R Int : 000 ms QRS Dur : 164 ms QT Int : 538 ms P-R-T Axes : 043 -74 110 degrees QTc Int : 589 ms Ventricular-paced rhythm Biventricular pacemaker detected Abnormal ECG Confirmed by GREER ESCOBEDO, MILI ([id number]), publishing editor DEREK BANUELOS ([id number]) on 07/12/2019 9:34:44 AM Referred By: Vira Mao Confirmed By:MILI BUTTERFIELD MD
--- NOTE | 2019-07-10 14:40 | CT_ITS ---
STUDY: CTA CHEST REASON FOR EXAM: Male, 78 years old. Several month history of shortness of breath and chest pain. RADIATION DOSAGE (If Supplied By Facility): CTDIvol = ( 20.16 ) mGy, DLP = ( 517.77 ) mGycm TECHNIQUE: The examination was performed with the intravenous administration of IV Isovue 370 100. Post-processing of the angiographic images was performed, with multiplanar reformation and 3D reconstruction. Individualized dose optimization techniques were used for this CT. COMPARISON: None. FINDINGS: A pacemaker device is seen in the left side. Normal enhancement of the main pulmonary artery and right and left pulmonary arteries. Normal enhancement of the bilateral peripheral pulmonary arteries. There is no demonstrated pulmonary embolism. There is atherosclerotic calcification of the aortic arch with tortuosity. There is no demonstrated aortic dissection. There are calcifications of the coronary arteries. There are calcified mediastinal lymph nodes. There are calcified right hilar lymph nodes. Normal visualized trachea and bronchi. The lungs are well expanded. Bilateral pleural effusions right greater than left with bibasilar atelectasis and/or infiltration. This is superimposed on increased interstitial markings. This may represent CHF. Increased markings are also seen in the upper lobe suggestive of scarring. Normal pleura. Normal chest wall structures. There are degenerative changes of thoracic spine. Normal visualized upper abdomen. CT/CTA Chest W/WO Contrast IMPRESSION: Bilateral pleural effusions right greater than left with increased interstitial markings bilaterally. Findings may represent mild degree of CHF with bibasilar atelectasis. Electronically Signed: Alexsander Gr, at 15:49 EST , Service support ,
--- NOTE | 2019-07-10 14:53 | ED.VISSUMM ---
- ER Visit Summary Date of Service: 07/10/19 Chief Complaint: Chest pain History of Present Illness: The patient is a 78 M who complains of chest pain. He has had this pain for 6 months. He describes stabbing all across his chest. Nothing really makes it better or worse. He denies shortness of breath. No cough. He is not on home oxygen. He tried ibuprofen but it has not helped with his symptoms at home. He has been seen here previously for chest pain and had a negative work-up. However, at this visit he was 80% in triage. Supplement oxygen was administered and he is now 98% on 3 L. Physical Examination: Vital signs reviewed. His respiratory rate is 35 as I evaluate him. HEENT exam shows no acute on normalities. His heart is regular rate and rhythm without murmurs. Lungs are clear bilaterally. He has left lower chest tenderness to palpation. Abdomen soft and nontender. Extremities have no edema. Peripheral pulses are equal. His neurologic exam is normal. Test Results: EKG is paced with rate of 72. Couple of PVCs noted. He has some slight nonspecific ST and T wave changes. White blood count 3.9. His creatinine is 1.91 which is near his baseline. Troponin 0 0.016. BNP greater than 5000. Glucose 264. CT of the chest shows bilateral effusions with CHF. No PE or dissection Emergency Department Course and Treatment: I elected for CTA of the chest because of his fairly normal breath sounds and shortness of breath. Shows no PE but he does have pleural effusions with CHF. I did give him some small hydration prior to the CT but then gave some Lasix due to the CHF. Patient is to be admitted for further cardiac care. He likely needs a new echocardiogram because his last was 3 years ago and his EF was 25% at that time. Patient was discussed with hospitalist and he will be admitted to the hospital Treatment Plan: [] Disposition: Admit Impression: CHF exacerbation, hypoxia This note was generated with [employer] dictation software. It may contain incorrect words, spelling, and punctuation that were not noted in review of the chart prior to signing ED Disposition - Plan for ED Patient: Referrals: Dwayne Valente, [Primary Care Provider] -
[2019-07-10 14:55] LABS: Absolute Lymphocyte Count 0.77 X10^3/uL (0.83-4.51); Absolute Neutrophil Count 2.8 X10^3/uL (2.0-7.7); Basophil# 0.08 X10^3/uL; Eosinophil# 0.02 X10^3/uL; Eosinophils% 0.5 % (0-5); Hematocrit 47.7 % (40-54); Hemoglobin 14.8 g/dL (13.0-16.5); Lymphocyte # 0.77 X10^3/ul (4.0); Lymphocyte % 19.6 % (19-41); Mean Corpuscular Hgb 27.4 pg (27.0-32.0); Mean Corpuscular Volume 88.2 fL (80-94); Monocyte# 0.25 X10^3/uL; Monocyte% 6.4 % (0-10); NRBC Flagged by Analyzer 0 % (0-5); Neutrophil # 2.79 X10^3/uL (2.7-7.7); Platelet Count 106 K/mm3 (150-450); RBC Distribution Width CV 16.7 % (11.6-14.6); RBC Distribution Width SD 53.3 fl (35.1-43.9); Red Blood Count 5.41 M/mm3 (4.6-6.2); White Blood Count 3.9 K/mm3 (4.4-11.0)
[2019-07-10] MEDS: Albuterol 2.5 MG/3 ML VIAL.NEB. INHALATION (14:57)
[2019-07-10 15:06] LABS: Anion Gap 9 (5-15); BUN 32 mg/dL (7-18); BUN/Creat Ratio 16.8 RATIO (10-20); Calcium,Total 9.1 mg/dL (8.5-10.1); Chloride 107 mmol/L (98-107); Creatinine, Serum 1.91 mg/dL (0.70-1.30); EST Glomerular Filtration Rate 37 mL/min (>60); Est Glom Filt Rate - Afr Amer 44 mL/min (>60); Estimated Creatinine Clearance 35.04 ml/min; Glucose 264 mg/dL (74-106); Potassium 4.5 mmol/L (3.5-5.1); Sodium Level 138 mmol/L (136-145)
[2019-07-10 15:35] LABS: BNP,B-Type NATRIURETIC PEPTIDE > 5000.0 pg/mL (0-100)
[2019-07-10] MEDS: 0.9% Normal Saline 1,000 ML 999 ML IV (15:44)
--- NOTE | 2019-07-10 16:06 | HP.PCM_ITS ---
History of Present Illness Date of Admission: 07/10/19 Chief Complaint: Chest pain, shortness of breath The patient is a 78 year old M with past medical history of chronic atrial fibrillation, chronic systolic CHF/nonischemic cardiomyopathy, EF 25%(2016), status post biventricular ICD, hypertension, type II DM comes in with complaints of chest pain ongoing for 6 months and progressive shortness of breath. Patient is a poor historian. Describes his chest pain is left-sided, radiates to the right side of the chest. Seems to okay at rest. Moving around makes it worse, had no relieving factors. He denied any associated radiation of this chest pain or dizziness or diaphoresis or palpitation. He denied orthopnea (even though he says he sleeps on 3 pillows for which he is not sure why) nor PND or leg swelling. He denied any recent changes to his medications. He recently had a pacemaker check done in March that showed no evidence of VT or VF. Vitals in the ED was temperature of 97.5F, heart rate 85, blood [id number]/81, RR 19, SPO2 was 80% on room air. WBC count was 3.9, hemoglobin 14.8, platelet count 106, INR 2.6, sodium 138, potassium 4.5, chloride 107, bicarbonate 22, BUN 32, creatinine 1.91( this appears to be his baseline), Magnesium 2.3, troponin 0.016, BNPep more than 5000. 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) CKD (chronic kidney disease), stage III (Chronic) Diabetes type 2, controlled (Chronic) Medical History: Medical History (Last Reviewed 06/27/19 @ 10:15 by Chris Alvarez MD) Nonischemic cardiomyopathy (Chronic) I42.8 Chronic systolic (congestive) heart failure (Chronic) I50.22 Chronic atrial fibrillation (Chronic) I48.2 Paroxysmal atrial flutter (Chronic) I48.92 Essential (primary) hypertension (Chronic) I10 Hyperlipidemia (Chronic) E78.5 CKD (chronic kidney disease), stage III (Chronic) N18.3 Diabetes type 2, controlled (Chronic) E11.9 Arthritis M19.90 BPH (benign prostatic hyperplasia) COPD (chronic obstructive pulmonary disease) J44.9 DM2 (diabetes mellitus, type 2) E11.9 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 Hearing loss H91.90 Rheumatoid arthritis M06.9 History of pneumonia Z87.01 Dizziness and giddiness (Inactive) R42 Dyspnea (Inactive) R06.00 Allergies amoxicillin [Amoxicillin] Allergy (Verified 07/10/19 14:13) Rash ciprofloxacin [From Cipro] Allergy (Verified 07/10/19 14:13) Rash ciprofloxacin HCl [From Cipro] Allergy (Verified 07/10/19 14:13) Rash Sulfa (Sulfonamide Antibiotics) Allergy (Verified 07/10/19 14:13) Other Home Medications: Ambulatory Orders Medication Instructions Recorded Warfarin [Coumadin] 4 mg PO DAILY 04/09/19 dutasteride 0.5 mg capsule 0.5 mg PO DAILY cap 06/27/19 furosemide 40 mg tablet 20 mg PO DAILY tab 06/27/19 Carvedilol [Coreg] 3.125 mg PO BID 07/10/19 Dofetilide [Tikosyn] 250 mcg PO Q12H 07/10/19 Hydroxychloroquine [Plaquenil] 200 mg PO DAILY 07/10/19 Prednisone 5 mg PO DAILY 07/10/19 Surgical History: Surgical History (Last Reviewed 06/27/19 @ 10:15 by Chris Alvarez MD) 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) Z95.810 ICD implant 12/26/09 History of left heart catheterization Onset Date: 11/25/09 Z98.890 Hx of lithotripsy Z98.890 Normal colonoscopy Surgical History: TURP, - - Colectomy w/ fistula s/p diverticulitis, L arm surgery. Psychiatric History: Anxiety Lives: Spouse/ Significant Other, With Family Smoking Status: Former smoker Tobacco Use: Non-smoker Alcohol: None Drugs: None - *Family History Maternal Family History: Family History (Last Reviewed 06/27/19 @ 10:15 by Chris Alvarez MD) Father Sudden cardiac Brother Myocardial infarction CHF (congestive heart failure) Other Family history of coronary artery disease History Items: Heart Disease Paternal Family History: Family History (Last Reviewed 06/27/19 @ 10:15 by Chris Alvarez MD) Father Sudden cardiac Brother Myocardial infarction CHF (congestive heart failure) Other Family history of coronary artery disease History Items: Heart Disease Review of Systems Constitutional: Reports: Weakness, Fatigue. Denies: Anorexia, Chills, Fever, Night Sweats, Malaise, Weight Change Eyes: Denies: Blurred vision, Cataracts, Conjunctivae Inflammation, Pain, Redness, Vision Change HEENT: Denies: Difficulty Hearing, Difficulty Swallowing, Head Aches, Hearing Changes, Sinus Congestion, Sinus Drainage Cardiovascular: Reports: Chest Pain. Denies: Claudication, Light Headedness, Orthopnea, Palpitations, Syncope Respiratory: Denies: Cough, Hemoptysis, Shortness of breath at rest, Shortness of breath upon exertion, Sputum production Gastrointestinal: Denies: Abdominal Pain, Constipation, Hematemesis, Hematochezia, Nausea, Vomiting Genitourinary: Denies: Dysuria, Frequency, Incontinence Musculoskeletal: Denies: Joint Pain, Joint stiffness, Joint swelling, Joint Tenderness Skin: Denies: Rash, Wounds Neurological: Denies: Difficulty swallowing, Focal weakness, Numbness, Tingling Psychiatric: Denies: Anxiety, Depression, Homicidal Ideations, Suicidal Ideations Hematologic/ Lymphatic: Denies: Easy Bruising, Easy Bleeding VTE Information - Inpt Only VTE Present on Admission: No VTE Pharm Prophylaxis ordered?: Yes - Physical Exam Vitals/I&O's: Vital Signs Temp Pulse Resp BP Pulse Ox 97.5 F L 79 27 H 119/81 H 99 07/10/19 14:13 07/10/19 15:00 07/10/19 15:00 07/10/19 14:13 07/10/19 15:00 Oxygen Flow Rate (L/min) 2 Oxygen Delivery Method Nasal Cannula Weight: 75.3 kg Body Mass Index (BMI) 22.5 General: Alert, Oriented x3, Cooperative, No apparent distress, - - looks chroni olya unwell, not pale, n HEENT: Atraumatic, PERRLA, EOMI, Normocephalic Oral: Moist Mucosa Neck: Supple Lungs: Diminished - at the lung bases Cardiovascular: Regular rate, Regular Rhythm, Normal S1, Normal S2, No murmurs Abdomen: Bowel Sounds Present, Soft, Non Tender, Non-Distended Extremities: No edema Skin: No rashes Musculoskeletal: No Tenderness to Palpation of Joints or Extremities Lymphatic: No Cervical, Supraclavicular, or Inguinal Adenopathy Neurological: Cranial nerves II-XII grossly intact, Neuro grossly intact Psych/Mental Status: Normal Affect, Appropriate Laboratory Results 07/10/19 14:25: WBC 3.9 L, RBC 5.41, Hgb 14.8, Hct 47.7, MCV 88.2, MCH 27.4, MCHC 31.0 L, RDW Std Deviation 53.3 H, RDW Coeff of Cecilia 16.7 H, Plt Count 106 L, MPV 12.0, Immature Gran % (Auto) 0.500, Neut % (Auto) 71.0 H, Lymph % (Auto) 19.6, [place] % (Auto) 6.4, Eos % (Auto) 0.5, Baso % (Auto) 2.0 H, Absolute Neuts (auto) 2.8, Absolute Lymphs (auto) 0.77 L, Nucleated RBC % 0 07/10/19 14:25: Sodium 138, Potassium 4.5, Chloride 107, Carbon Dioxide 22.0, Anion Gap 9, BUN 32 H, Creatinine 1.91 H, Estim Creat Clear Calc 35.04, Est GFR (MDRD) Af Amer 44 L, Est GFR (MDRD) Non-Af 37 L, BUN/Creatinine Ratio 16.8, Glucose 264 H, Calcium 9.1, Troponin I 0.016 07/10/19 14:25: B-Natriuretic Peptide > 5000.0 H Current Medications Sodium Chloride () 1,000 mls @ 999 mls/hr IV .Q1H1M ONE Stop: 07/10/19 16:13 Last Admin: 07/10/19 15:44 Dose: 999 mls/hr Documented by: Assessment/Plan All Active Problems (Last Reviewed 06/27/19 @ 10:15 by Chris Alvarez MD) Chest pain (Acute) SOB (shortness of breath) (Acute) 78 year old M with past medical history of chronic atrial fibrillation, chronic systolic CHF/nonischemic cardiomyopathy, EF 25%(2016), status post biventricular ICD, hypertension, type II DM comes in with complaints of chest pain ongoing for 6 months and progressive shortness of breath. 1. Acute on chronic systolic CHF/nonischemic cardiomyopathy, EF 25%, status post biventricular ICD Admitting BNPep> 5000 Plan: Will admit, monitor on telemetry, obtain cardiac enzyme series, IV lasix 40mg q8h, Continue with I/Os, fluid restriction, 2d-echo 2. Chest pain, atypical, no acute ST-T changes, will continue to monitor 3. Hypertension, continue on carvedilol, continue to monitor vitals 4. Type II DM, not on medications, probably diet controlled, Will check HbA1c, blood glucose checks with insulin sliding scale 5. Chronic atrial fibrillation, controlled, continue on Tikosyn and Coumadin- INR is therapeutic 6. DVT prophylaxis - on coumadin; INR is therapeutic Code Visit Inpatient E&M: 55964 Init Hosp L3
[2019-07-10] MEDS: Furosemide 40 MG/4 ML Vial IV ×2 (16:10→22:13)
[2019-07-10 16:28] LABS: International Normalized Ratio 2.6; Prothrombin Time (Protime)PT. 27.8 SECONDS (11.7-14.9)
--- NOTE | 2019-07-10 16:44 | ECHOD_ITS ---
Reason For Study: SOB Procedure This was a 2D Doppler, Color Flow transthoracic echocardiogram. Exam performed portable in patient room. Left Ventricle Severely dilated left ventricle. The estimated ejection fraction is 10 %. Severe global left ventricular systolic dysfunction. Compared to previous study, the left ventricular systolic function has worsened.. There is severe global hypokinesis of the left ventricle. Right Ventricle Normal RV size. ICD or pacer leads identified within the right ventricle. Mild global right ventricular systolic dysfunction. Atria The left atrium is severely enlarged. The right atrium is moderately enlarged. Mitral Valve Normal mitral valve. Mild (1+) eccentric mitral valve insufficiency. Tricuspid Valve Normal tricuspid valve. Mild to moderate (1-2+) tricuspid valve insufficiency. Pulmonary artery systolic pressure is 42 mmHg. Pulmonic Valve Normal pulmonic valve. Great Vessels Normal aortic root. The pulmonary artery is normal size. No collapse of the inferior vena cava. Pericardium/Pleural No pericardial effusion. MMode/2D Measurements & Calculations LVIDd: 6.4 cm IVSd: 1.0 cm LVOT diam: 2.0 cm LVIDs: 6.0 cm LVPWd: 0.83 cm LVOT area: 3.2 cm2 RVDd: 4.1 cm FS: 6.1 % Ao root diam: 4.0 cm LAV(MOD-bp): 107.8 ml EDV(MOD-sp4): 194.5 ml LAV(MOD-bp) Indexed: 54.6 ml/m2 ESV(MOD-sp4): 169.5 ml LAV(MOD-sp2): 94.5 ml EF(MOD-sp4): 12.9 % LAV(MOD-sp4): 120.9 ml SV(MOD-sp4): 25.0 ml LA A4 area: 30.9 cm2 LA dimension(2D): 4.9 cm RA A4 area: 25.7 cm2 Doppler Measurements & Calculations MV E max tay: 76.1 cm/sec Ao V2 max: 93.7 cm/sec LV V1 max: 64.8 cm/sec Ao max P.5 mmHg LV V1 max P.7 mmHg Ao V2 mean: 66.7 cm/sec LV V1 mean P.65 mmHg Ao mean P.9 mmHg LV V1 mean: 36.8 cm/sec Ao V2 VTI: 15.8 cm LV V1 VTI: 8.4 cm PRISCILLA(I,D): 1.7 cm2 PRISCILLA(V,D): 2.2 cm2 SV(LVOT): 26.9 ml PA V2 max: 38.7 cm/sec TR max tay: 303.2 cm/sec TR max P.9 mmHg Interpretation Summary Severely dilated left ventricle. The estimated ejection fraction is 10 %. Severe global left ventricular systolic dysfunction. Compared to previous study, the left ventricular systolic function has worsened.. The left atrium is severely enlarged. Mild (1+) eccentric mitral valve insufficiency. Pulmonary artery systolic pressure is 42 mmHg. Ordering Physician: Vira Mao Referring Physician: Shaun Valente M.D. Performed By: Cherri Carson RDCS
[2019-07-10 17:08] LABS: Magnesium 2.3 mg/dL (1.6-2.6)
[2019-07-10 22:00] LABS: Hemoglobin A1c 7.5 % (4.2-6.3)
[2019-07-10] MEDS: Carvedilol 3.125 MG TABLET PO (22:13)
[2019-07-10] MEDS: Dofetilide 250 MCG Capsule PO (22:13)
--- NOTE | 2019-07-10 22:56 | EKG12_ITS ---
Test Reason : CP Blood Pressure : / mmHG Vent. Rate : 088 BPM Atrial Rate : 088 BPM P-R Int : 160 ms QRS Dur : 166 ms QT Int : 472 ms P-R-T Axes : 062 -63 111 degrees QTc Int : 571 ms Atrial-sensed ventricular-paced rhythm with occasional Premature ventricular complexes Biventricular pacemaker detected Abnormal ECG When compared with ECG of 10-JUL-2019 14:56, MANUAL COMPARISON REQUIRED, DATA IS UNCONFIRMED Confirmed by KARTHIK JI ([id number]), non linear editor ROWDY NOLASCO ([id number]) on 07/14/2019 11:35:20 AM Referred By: Vira Mao Confirmed By:KARTHIK JI
[2019-07-11] VITALS (13 sets, daily range): BP systolic 116–130; BP diastolic 79–88; PULSE 68–88; RESP 16–18; TEMP 36.4–37; O2SAT 86–99
[2019-07-11] MEDS: Furosemide 40 MG/4 ML Vial IV ×3 (05:04→22:06)
[2019-07-11 06:58] LABS: Absolute Lymphocyte Count 1.24 X10^3/uL (0.83-4.51); Absolute Neutrophil Count 2.6 X10^3/uL (2.0-7.7); Basophil# 0.08 X10^3/uL; Basophil% 1.8 % (0-1); Eosinophil# 0.04 X10^3/uL; Eosinophils% 0.9 % (0-5); Hematocrit 46.8 % (40-54); Hemoglobin 14.2 g/dL (13.0-16.5); Lymphocyte # 1.24 X10^3/ul (4.0); Lymphocyte % 28.4 % (19-41); Mean Corp Hgb Conc 30.3 g/dL (32-36); Mean Corpuscular Hgb 26.7 pg (27.0-32.0); Mean Platelet Vol. 11.6 fl (6.2-12.0); Monocyte# 0.41 X10^3/uL; Monocyte% 9.4 % (0-10); NRBC Flagged by Analyzer 0 % (0-5); Neutrophil # 2.56 X10^3/uL (2.7-7.7); Neutrophil % 58.8 % (47-70); Platelet Count 106 K/mm3 (150-450); RBC Distribution Width CV 16.6 % (11.6-14.6); RBC Distribution Width SD 53.2 fl (35.1-43.9); Red Blood Count 5.32 M/mm3 (4.6-6.2); White Blood Count 4.4 K/mm3 (4.4-11.0)
[2019-07-11 07:11] LABS: Bedside Glucose 197 mg/dL (70-110)
[2019-07-11 07:15] LABS: ALB/GLOB Ratio 0.8 RATIO (0.9-2.4); AST(SGOT) 15 U/L (15-37); Alanine Aminotransfer ALT/SGPT 18 U/L (16-61); Alkaline Phosphatase 120 U/L (45-117); Anion Gap 7 (5-15); BUN 34 mg/dL (7-18); BUN/Creat Ratio 17.9 RATIO (10-20); Calcium,Total 8.7 mg/dL (8.5-10.1); Chloride 107 mmol/L (98-107); Cholesterol 115 mg/dL (200); EST Glomerular Filtration Rate 37 mL/min (>60); Est Glom Filt Rate - Afr Amer 45 mL/min (>60); Estimated Creatinine Clearance 35.51 ml/min; Globulin 3.8 g/dL (2.2-4.2); Glucose 201 mg/dL (74-106); High Density Lipoprotein 28 mg/dL; Potassium 3.7 mmol/L (3.5-5.1); Protein, Total 6.8 g/dL (6.4-8.2); Sodium Level 138 mmol/L (136-145); Triglycerides 94 mg/dL; Very Low Density Lipoprotein 19 mg/dL (5-40)
[2019-07-11] MEDS: predniSONE 5 MG Tablet PO (07:59)
[2019-07-11] MEDS: Carvedilol 3.125 MG TABLET PO (10:37)
[2019-07-11] MEDS: Hydroxychloroquine 200 MG Tablet PO (10:38)
[2019-07-11] MEDS: Dofetilide 250 MCG Capsule PO ×2 (10:38→22:06)
[2019-07-11] MEDS: Finasteride 5 MG Tablet PO (10:38)
--- NOTE | 2019-07-11 10:53 | CASEMGMT ---
Social Work Palliative Care Screening Tool completed with pt score of 3. No referral at this time but will monitor and reconsider if pt condition declines. MERCED Mi
--- NOTE | 2019-07-11 13:00 | CASEMGMT ---
RN CM Assessment Presentation: CHF, Cardiomyopathy, EF 25% Intro role of CM and purpose of RN CM assessment to patient in room. Pt is awake, alert, able to participate in assessment. Answers slowly, some questions needed to be repeated.. Demographics, PCP and Pharmacy verified. Discussed possible need for oxygen on dc. List of DME providers given to pt and reviewed. Pt asked for CM to note the local [place] Providers. [facility] and [employer] marked. Pt would like to discuss with his . PCP: Dr. Dwayne Valente Specialists: Dr. Alvarez [facility] Insurance: [facility] Prescription Benefit: yes LNOK: Living Arrangements: One story home with 4 steps into home Transportation: pt states family drives, he does not. DME: cane- used for ambulation. Walker, Shower chair, Cpap HHC: none Patient DC goals: Home DC PLAN: Anticipate Home. PT/OT evals pending. Paul PATEL RN ACM
[2019-07-11] MEDS: 0.9% Saline Lock 10 ML Syringe IV ×2 (13:36→22:16)
[2019-07-11 14:36] LABS: International Normalized Ratio 2.5; Prothrombin Time (Protime)PT. 26.7 SECONDS (11.7-14.9)
--- NOTE | 2019-07-11 17:48 | PCM.PN.HOSP ---
Subjective: Patient was seen and examined. He feels much improved. Off oxygen. Denies any dizziness or palpitations or leg swelling Objective: Physical exam: General: Alert, Oriented x3, Cooperative, No apparent distress HEENT: Atraumatic, PERRLA, EOMI, Normocephalic Oral: Moist Mucosa Neck: Supple Lungs: Diminished Air entry at the lung bases. Cardiovascular: Normal S1, Normal S2, No murmurs, Irregular Rate, Tachycardic Abdomen: Bowel Sounds Present, Soft, Non Tender, Non-Distended, No Hepato-splenomegaly Extremities: No edema Skin: No rashes Musculoskeletal: No Tenderness to Palpation of Joints or Extremities Lymphatic: No Cervical, Supraclavicular, or Inguinal Adenopathy Neurological: Cranial nerves II-XII grossly intact, Neuro grossly intact Psych/Mental Status: Normal Affect, Appropriate Vitals/I&O's: Vital Signs Temp Pulse Resp BP Pulse Ox 97.6 F L 71 18 116/80 93 07/11/19 16:00 07/11/19 16:00 07/11/19 16:00 07/11/19 16:00 07/11/19 16:00 Oxygen Flow Rate (L/min) 2 Oxygen Delivery Method Room Air Weight: 75.9 kg Body Mass Index (BMI) 22.5 Intake and Output for Last 24 Hours 07/09/19 07/10/19 07/11/19 23:59 23:59 23:59 Intake Total 1240 / 1480 860 / 860 Output Total 500 / 1175 2625 / 2625 Balance 740 / 305 -1765 / -1765 Laboratory Results 07/10/19 17:52: Troponin I 0.017 07/10/19 20:55: Troponin I 0.021 07/10/19 20:55: Hemoglobin A1c 7.5 H 07/11/19 06:32: WBC 4.4, RBC 5.32, Hgb 14.2, Hct 46.8, MCV 88.0, MCH 26.7 L, MCHC 30.3 L, RDW Std Deviation 53.2 H, RDW Coeff of Cecilia 16.6 H, Plt Count 106 L, MPV 11.6, Immature Gran % (Auto) 0.700, Neut % (Auto) 58.8, Lymph % (Auto) 28.4, [place] % (Auto) 9.4, Eos % (Auto) 0.9, Baso % (Auto) 1.8 H, Absolute Neuts (auto) 2.6, Absolute Lymphs (auto) 1.24, Nucleated RBC % 0 07/11/19 06:32: PT 26.7 H, INR 2.5 07/11/19 06:32: Sodium 138, Potassium 3.7, Chloride 107, Carbon Dioxide 24.0, Anion Gap 7, BUN 34 H, Creatinine 1.90 H, Estim Creat Clear Calc 35.51, Est GFR (MDRD) Af Amer 45 L, Est GFR (MDRD) Non-Af 37 L, BUN/Creatinine Ratio 17.9, Glucose 201 H, Calcium 8.7, Total Bilirubin 2.50 H, AST 15, ALT 18, Alkaline Phosphatase 120 H, Total Protein 6.8, Albumin 3.0 L, Globulin 3.8, Albumin/Globulin Ratio 0.8 L, Triglycerides 94, Cholesterol 115, LDL Cholesterol 68, VLDL Cholesterol 19, HDL Cholesterol 28 L 07/11/19 06:50: POC Glucose 197 H Current Medications Acetaminophen (Tylenol) 650 mg PO Q6H PRN PRN PRN Reason: Pain Score 1-3/Temp > 100.7 F Hydrocodone Bitart/Acetaminophen ([place] 5mg-325mg) 1 tablet PO Q6H PRN PRN PRN Reason: Pain Score 1-10/10 Al Hydroxide/Mg Hydroxide (Mylanta Ii) 30 ml PO Q6H PRN PRN PRN Reason: Gastric Burning Albuterol Sulfate (Ventolin Aerosols) 2.5 mg INHALATION Q2H PRN PRN PRN Reason: SOB/Wheezing Carvedilol (Coreg) 6.25 mg PO BID [facility] Dofetilide (Tikosyn) 250 mcg PO Q12H [facility] Last Admin: 07/11/19 10:38 Dose: 250 mcg Documented by: Finasteride (Proscar) 5 mg PO DAILY [facility] Last Admin: 07/11/19 10:38 Dose: 5 mg Documented by: Furosemide (Lasix) 40 mg IV Q8 [facility] Last Admin: 07/11/19 13:36 Dose: 40 mg Documented by: Hydroxychloroquine Sulfate (Plaquenil) 200 mg PO DAILY [facility] Last Admin: 07/11/19 10:38 Dose: 200 mg Documented by: Sodium Chloride () 250 mls @ 15 mls/hr IV .[id number] PRN PRN Reason: Saline Flush Nutritional Formula (Lactose Free) (Ensure Enlive) 120 ml PO 4X/DAY [facility] Last Admin: 07/11/19 16:58 Dose: 120 ml Documented by: Ondansetron HCl (Zofran) 4 mg IV Q8H PRN PRN PRN Reason: NAUSEA/VOMITING Prednisone () 5 mg PO DAILY@0800 [facility] Last Admin: 07/11/19 07:59 Dose: 5 mg Documented by: Sacubitril/Valsartan (Entresto 24 Mg-26 Mg Tablet) 1 each PO BID [facility] Senna/Docusate Sodium (Senokot-S, Amparo-Colace) 2 tablet PO BID PRN PRN PRN Reason: Constipation Sodium Chloride () 10 - 40 ml IV UD PRN PRN Reason: SALINE FLUSH Last Admin: 07/11/19 13:36 Dose: 10 ml Documented by: Warfarin Sodium (Coumadin (Pbkc)) 4 mg PO DAILY@1700 [facility] Last Admin: 07/11/19 16:58 Dose: 4 mg Documented by: STROKE Vital Signs/Narrative: Vital Signs Temp Pulse Resp BP Pulse Ox 07/11/19 16:00 97.6 F L 71 18 116/80 93 07/11/19 15:23 70 07/11/19 14:00 18 93 Medical Necessity - Tobacco Use Smoking Status: Former smoker Tobacco Use: Non-smoker Assessment/Plan All Active Problems (Last Reviewed 06/27/19 @ 10:15 by Chris Alvarez MD) Chest pain (Acute) SOB (shortness of breath) (Acute) 78 year old M with past medical history of chronic atrial fibrillation, chronic systolic CHF/nonischemic cardiomyopathy, EF 25%(2016), status post biventricular ICD, hypertension, type II DM comes in with complaints of chest pain ongoing for 6 months and progressive shortness of breath. 1. Acute on chronic systolic CHF/nonischemic cardiomyopathy, Repeat EF 10%, status post biventricular ICD Admitting BNPep> 5000, proving, patient is diuresing We will continue on IV lasix 40mg q8h, strict I/Os, fluid restriction, repeat blood cultures Will consult cardiology because of drop in EF 2. Chest pain, atypical, no acute ST-T changes, troponins are negative. 3. Hypertension, continue on carvedilol, continue to monitor vitals 4. Type II DM, not on medications, probably diet controlled, HbA1c is 7.5, continue with blood glucose checks with insulin sliding scale 5. Chronic atrial fibrillation, controlled, continue on Tikosyn and Coumadin- INR is therapeutic 6. DVT prophylaxis - on coumadin; INR is therapeutic Code Visit Inpatient E&M: 77945 Subs Hosp L2
--- NOTE | 2019-07-11 20:26 | CON.PCM_ITS ---
Problem List (1) Nonischemic cardiomyopathy Status: Chronic (2) Chronic systolic (congestive) heart failure Status: Chronic (3) Biventricular ICD (implantable cardioverter-defibrillator) in place Status: Chronic Comment: ICD implant 12/26/09 (4) Chronic atrial fibrillation Status: Chronic (5) Hyperlipidemia Status: Chronic Qualifiers: Hyperlipidemia type: pure hypercholesterolemia Qualified Code(s): E78.00 - Pure hypercholesterolemia, unspecified; E78.0 - Pure hypercholesterolemia (6) Essential (primary) hypertension Status: Chronic (7) Diabetes type 2, controlled Status: Chronic Qualifiers: Diabetes mellitus fdc insulin use: without fdc use Diabetes mellitus complication status: with kidney complications (8) CKD (chronic kidney disease), stage III Status: Chronic Reason for Consult Date of Consultation: 07/11/19 History of Present Illness: The patient is a 78 year old white male with a past medical history of a non-CAD related cardiomyopathy, chronic systolic CHF, biventricular ICD, permanent atrial fibrillation, hyperlipidemia, hypertension, diabetes mellitus, chronic renal insufficiency who is referred for concerns of his non-CAD related cardiomyopathy. The patient states that his main concern was abdominal discomfort. He states that is what brought him to the hospital for further evaluation. He points to his epigastric area and lower abdominal area. He states his discomfort appears to be absent at this time. He denies any worsening shortness of breath or dyspnea, orthopnea/PND, or ongoing peripheral pitting edema. He denies any near syncope or syncope and states his ICD has not discharged. During his hospitalization he has had troponin I levels which have been negative. He had a BNP level reported at greater than 5000. He had an ECG performed which demonstrated the appearance of underlying biventricular paced rhythm with occasional PVCs. A chest CTA was performed which suggested findings compatible with CHF and bilateral pleural effusions. There was no report of great vessel disease. He subsequently underwent further evaluation with a transthoracic echocardiogram. This appeared to demonstrate a severely dilated left ventricle with severe global hypokinesis with an estimated LVEF of 10% with severe left atrial enlargement with mild MR and mild to moderate TR and an estimated RV systolic pressure 42 mmHg. Based upon the report there appeared to be a decline in his overall LV systolic function/LVEF. Thus cardiology was requested to evaluate the patient. [] Past Medical History Allergies/Adverse Reactions: Allergies amoxicillin [Amoxicillin] Allergy (Verified 07/10/19 14:13) Rash ciprofloxacin [From Cipro] Allergy (Verified 07/10/19 14:13) Rash ciprofloxacin HCl [From Cipro] Allergy (Verified 07/10/19 14:13) Rash Sulfa (Sulfonamide Antibiotics) Allergy (Verified 07/10/19 14:13) Other Home Medications: Ambulatory Orders Medication Instructions Recorded Warfarin [Coumadin] 4 mg PO DAILY 04/09/19 dutasteride 0.5 mg capsule 0.5 mg PO DAILY cap 06/27/19 furosemide 40 mg tablet 20 mg PO DAILY tab 06/27/19 Carvedilol [Coreg] 3.125 mg PO BID 07/10/19 Dofetilide [Tikosyn] 250 mcg PO Q12H 07/10/19 Hydroxychloroquine [Plaquenil] 200 mg PO DAILY 07/10/19 Prednisone 5 mg PO DAILY 07/10/19 Past Medical History (Chronic Problems): Chronic Problems (Last Reviewed 06/27/19 @ 10:15 by Chris Alvarez MD) 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) ICD implant 12/26/09 Nonischemic cardiomyopathy (Chronic) Chronic systolic (congestive) heart failure (Chronic) Chronic atrial fibrillation (Chronic) Paroxysmal atrial flutter (Chronic) Essential (primary) hypertension (Chronic) Hyperlipidemia (Chronic) 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 Psychiatric History: Anxiety - *Family History Maternal Family History: Family History (Last Reviewed 06/27/19 @ 10:15 by Chris Alvarez MD) Father Sudden cardiac Brother Myocardial infarction CHF (congestive heart failure) Other Family history of coronary artery disease History Items: Heart Disease Paternal Family History: Family History (Last Reviewed 06/27/19 @ 10:15 by Chris Alvarez MD) Father Sudden cardiac Brother Myocardial infarction CHF (congestive heart failure) Other Family history of coronary artery disease History Items: Heart Disease Lives: Spouse/ Significant Other, With Family Smoking Status: Former smoker Tobacco Use: Non-smoker Alcohol: None Drugs: None Review of Systems - Review of Systems General: Denies: Fever, Night Sweats, Fatigue Cardiovascular: Denies: Chest Discomfort, Shortness of Breath, Orthopnea, PND, Peripheral Edema, Palpitations, Lightheadedness, Dizziness, Near Syncope, Syncope Respiratory: Denies: Cough, Sputum Production, Hemoptysis Gastrointestinal: Reports: Abdominal Discomfort. Denies: Hematemesis, Hematochezia, Melena Genitourinary: Denies: Dysuria, Hematuria Skin: Denies: Rash Subjectve: This is a 78-year-old white male who appears to be resting comfortably in the supine position in no acute distress. Objective: Vital Signs Temp Pulse Resp BP Pulse Ox 97.6 F L 88 18 116/80 93 07/11/19 16:00 07/11/19 19:00 07/11/19 16:00 07/11/19 16:00 07/11/19 18:48 Oxygen Flow Rate (L/min) [ 2 AMBULATION with Oxygen] Oxygen Flow Rate (L/min) 2 Oxygen Delivery Method Room Air Weight: 167 lb 5.294 oz Body Mass Index (BMI) 22.5 Intake and Output for Last 24 Hours 07/09/19 07/10/19 07/11/19 23:59 23:59 23:59 Intake Total 1240 / 1480 1220 / 1220 Output Total 500 / 1175 3375 / 3375 Balance 740 / 305 -2155 / -2155 General: Awake, Alert, Oriented x 3, Cooperative, No Acute Distress HEENT: Atraumatic, Normocephalic, PERRL, EOMI, Sclera Non Icteric Oral: Moist Mucosa Neck: Supple, Good ROM, No JVD Lungs: Diminished Axel Bases Cardiovascular: Regular Rhythm, Normal S1, Normal S2 Vascular: No Carotid Bruits Abdomen: Bowel Sounds Present, Soft, Non Tender Extremities: No edema Neurological: No Focal Motor or Sensory Deficit Psych/Mental Status: Appropriate 07/10/19 20:55: Troponin I 0.021 07/10/19 20:55: Hemoglobin A1c 7.5 H 07/11/19 06:32: WBC 4.4, RBC 5.32, Hgb 14.2, Hct 46.8, MCV 88.0, MCH 26.7 L, MCHC 30.3 L, Plt Count 106 L, MPV 11.6, Immature Gran % (Auto) 0.700, Neut % (Auto) 58.8, Lymph % (Auto) 28.4, [place] % (Auto) 9.4, Eos % (Auto) 0.9, Baso % (Auto) 1.8 H, Absolute Neuts (auto) 2.6, Nucleated RBC % 0 07/11/19 06:32: PT 26.7 H, INR 2.5 07/11/19 06:32: Sodium 138, Potassium 3.7, Chloride 107, Carbon Dioxide 24.0, Anion Gap 7, BUN 34 H, Creatinine 1.90 H, Est GFR (MDRD) Af Amer 45 L, Est GFR (MDRD) Non-Af 37 L, BUN/Creatinine Ratio 17.9, Glucose 201 H, Calcium 8.7, Total Bilirubin 2.50 H, Triglycerides 94, Cholesterol 115, LDL Cholesterol 68, VLDL Cholesterol 19, HDL Cholesterol 28 L Rhythm: As noted above EKG: As noted above ECHO: As noted above Stress Test: DATE OF SERVICE: 01/23/2016 EXERCISE TOLERANCE TEST: The patient underwent pharmacologic (regadenoson) evaluation with a peak heart rate of 96 beats per minute (65% predicted maximum heart rate) and a peak blood pressure of 150/84 mmHg. The baseline ECG demonstrated an underlying electronic ventricular paced rhythm. The peak pharmacologic ECG was considered indeterminate secondary to underlying electronic ventricular paced rhythm. There was an occasional PVC pretest, during infusion, and recovery. There was no report of chest discomfort during pharmacologic infusion or recovery. The examination was discontinued secondary to completion of protocol. IMPRESSION: 1. Pharmacologic (regadenoson) evaluation. 2. Peak pharmacologic ECG considered indeterminate secondary to underlying electronic ventricular pacemaker. 3. Occasional premature ventricular contraction pretest, during infusion, and recovery. 4. Nuclear images pending. MYOCARDIAL PERFUSION IMAGING STUDY: TECHNIQUE: The patient was injected with 13.5 mCi of Tc99m Cardiolite and subsequently rest SPECT Cardiolite nuclear imaging was obtained in the horizontal long, vertical long and short axes views. The patient underwent pharmacologic (regadenoson) evaluation with a peak heart rate of 96 beats per minute (65% predicted maximum heart rate) and a peak blood pressure of 150/84 mmHg. The patient was injected with 41.8 mCi of Tc99m Cardiolite and subsequently stress SPECT Cardiolite nuclear imaging was obtained in the horizontal long, vertical long and short axes views. A gated Cardiolite study at peak stress was obtained. INTERPRETATION: Rest and stress SPECT Cardiolite nuclear imaging, status post realignment and normalization, demonstrate areas of extracardiac/hepatic and gastrointestinal tracer uptake near the inferior segments, which appears to be somewhat more prominent following stress as opposed to rest. There is notation of diminished to absence of tracer uptake in portions of the basal anteroseptal, basal inferoseptal, basal inferior segments extending through the mid inferior segments and status post rest appears to be more prominent in the [id number] inferior and inferior apical segments. There are similar type findings on the resting and stress polar map images. There is diminished end systolic thickening and brightening in the aforementioned areas. The gated Cardiolite study demonstrates diminished myocardial thickening and inward wall motion, especially in the aforementioned areas. The reported LVEF was 25%. The aforementioned findings appear compat ible with an area of previous myocardial injury/infarction with post-stress myocardial perfusion changes compatible with mild periinfarct-related myocardial ischemia. IMPRESSION: 1. Rest and stress SPECT Cardiolite nuclear imaging demonstrate myocardial perfusion changes appearing compatible with the effects of previous myocardial injury/infarction appearing to involve portions of the basal anteroseptal, basal inferoseptal, basal inferior segments extending through the mid inferior segments with post-stress myocardial perfusion changes appearing compatible with periinfarct-related myocardial ischemia involving portions of the [id number] inferior and inferoapical segments. 2. The gated Cardiolite study reports an LVEF of 25%. Cardiac Cath: Unavailable for review Chest CTA: As noted above Assessment/Plan 1. Non-CAD related cardiomyopathy The patient presents with concerns of a non-CAD related cardiomyopathy. Based upon his recent noninvasive studies there is concern that his overall LV systolic function/LVEF has decreased. At the present time he is being monitored. He is undergone laboratory follow-up which is demonstrated negative troponin I levels. His BNP level was greater than 5000. His ECG demonstrates a biventricular paced rhythm. His echocardiographic studies are as noted above. At the present time he will continue medical therapy. An attempt will be made to increase his beta-andrew therapy. He is receiving diuretic therapy. An attempt will be made to introduce afterload reducing agents such as Entresto. He will need future follow-up of his left ventricle with follow-up echocardiographic studies. 2. Chronic systolic mediated CHF The patient has chronic systolic mediated CHF. He does not describe any acute symptoms at this time. He will continue medical management. 3. Biventricular ICD He does have a biventricular ICD. He can be reassessed as deemed appropriate. 4. Permanent atrial fibrillation The patient remains in atrial fibrillation. He has been on rate control therapy and anticoagulant therapy. 5. Hyperlipidemia The patient will continue medical management as deemed appropriate. 6. Hypertension The patient's medications can be adjusted for his other cardiovascular condition as long as his blood pressure tolerates. 7. Diabetes mellitus The patient will continue under the care of internal medicine. 8. Chronic renal insufficiency The patient's renal function will need to be followed as his medications are adjusted. Comment: Of note, the patient states that his main concern was abdominal discomfort as described above. The H&P states the patient complained of chest discomfort. At the present time the patient does not complain of ongoing chest discomfort. He is also undergone noninvasive cardiac evaluation with negative troponin I levels. He has a history of a non-CAD related cardiomyopathy. He will continue evaluation and care from a cardiac standpoint as noted above with reassessment of his discomforts, including any abdominal discomfort, by internal medicine as deemed appropriate. This note was generated using a voice recognition system and there may be incorrect words, spelling or punctuation that were not noted when reviewing the office note prior to saving.
[2019-07-11] MEDS: SACUBITRIL/VALSARTAN 24/26 MG TABLET 1 EACH PO (22:06)
[2019-07-11] MEDS: Carvedilol 6.25 MG Tablet PO (22:06)
[2019-07-12] VITALS (7 sets, daily range): BP systolic 106–115; BP diastolic 57–71; PULSE 62–73; RESP 18; TEMP 36.4–36.6; O2SAT 84–100
[2019-07-12] MEDS: Furosemide 40 MG/4 ML Vial IV (05:14)
[2019-07-12] MEDS: 0.9% Saline Lock 10 ML Syringe IV (05:19)
[2019-07-12 06:37] LABS: International Normalized Ratio 1.5; Prothrombin Time (Protime)PT. 17.8 SECONDS (11.7-14.9)
[2019-07-12 06:48] LABS: ALB/GLOB Ratio 0.7 RATIO (0.9-2.4); AST(SGOT) 19 U/L (15-37); Alanine Aminotransfer ALT/SGPT 20 U/L (16-61); Albumin, Serum 2.7 g/dL (3.2-5.0); Alkaline Phosphatase 124 U/L (45-117); Anion Gap 11 (5-15); BUN 37 mg/dL (7-18); BUN/Creat Ratio 19.5 RATIO (10-20); Calcium,Total 8.3 mg/dL (8.5-10.1); Chloride 107 mmol/L (98-107); EST Glomerular Filtration Rate 37 mL/min (>60); Est Glom Filt Rate - Afr Amer 45 mL/min (>60); Estimated Creatinine Clearance 33.26 ml/min; Glucose 199 mg/dL (74-106); Potassium 3.5 mmol/L (3.5-5.1); Protein, Total 6.7 g/dL (6.4-8.2); Sodium Level 139 mmol/L (136-145)
--- NOTE | 2019-07-12 07:29 | PCM.PN.CARD ---
Subjectve: Patient seen and evaluated. Noted to be lying flat in bed on no oxygen Objective: Vital Signs Temp Pulse Resp BP Pulse Ox 97.9 F 64 18 115/71 100 07/12/19 03:50 07/12/19 03:50 07/12/19 03:50 07/12/19 03:50 07/12/19 03:50 Oxygen Flow Rate (L/min) [ 2 AMBULATION with Oxygen] Oxygen Flow Rate (L/min) 2 Oxygen Delivery Method Room Air Weight: 156 lb 11.979 oz Body Mass Index (BMI) 22.5 Intake and Output for Last 24 Hours 07/10/19 07/11/19 07/12/19 23:59 23:59 23:59 Intake Total 1240 / 1480 1460 / 1460 Output Total 500 / 1175 4675 / 4675 1450 / 1450 Balance 740 / 305 -3215 / -3215 -1450 / -1450 General: Awake, Alert, Oriented x 3 HEENT: PERRL, EOMI, Sclera Non Icteric Neck: Supple, Good ROM, No Lymph Node Enlargement Lungs: Clear to auscultation Cardiovascular: Regular Rhythm, Normal S1, Normal S2, No Murmurs, No Rubs, No Gallops Vascular: No Carotid Bruits, Normal Femoral Pulses, Normal Radial Pulses, Normal Dorsalis Pedal Pulse, Normal Posterior Tibial Pulses Abdomen: Bowel Sounds Present, Soft, Non Tender, No HSM, No Organomegaly Extremities: No Cyanosis, No Clubbing, No edema Musculoskeletal: No Erythema Skin: No Rashes Lymphatic: No Lymph Node Enlargement Neurological: No Focal Motor or Sensory Deficit Psych/Mental Status: Appropriate 07/11/19 06:32: PT 26.7 H, INR 2.5 07/12/19 06:00: Sodium 139, Potassium 3.5, Chloride 107, Carbon Dioxide 21.0, Anion Gap 11, BUN 37 H, Creatinine 1.90 H, Est GFR (MDRD) Af Amer 45 L, Est GFR (MDRD) Non-Af 37 L, BUN/Creatinine Ratio 19.5, Glucose 199 H, Calcium 8.3 L, Total Bilirubin 2.10 H 07/12/19 06:00: PT 17.8 H, INR 1.5 Rhythm: EKG: ECHO: Stress Test: Cardiac Cath: PCI: CT Surgery: Holter monitor: EPS: PPM: CXR: Chest CT Scan: Medical Necessity - Tobacco Use Smoking Status: Former smoker Tobacco Use: Non-smoker Assessment/Plan 1. The patient presents with a non-CAD related cardiomyopathy. Based upon his recent noninvasive studies there is concern that his overall LV systolic function/LVEF has decreased. His last estimated ejection fraction was noted to be approximately 10%. He does have a biventricular ICD placed. The plan would be to continue him on the Entresto and beta-andrew and diuretics. He remains on the Tikosyn due to previous ventricular tachyarrhythmia. 2. Chronic systolic mediated CHF The patient has chronic systolic mediated CHF. He does not describe any acute symptoms at this time. He will continue medical management. 3. Biventricular ICD He does have a biventricular ICD. He can be reassessed as deemed appropriate. He will remain on the Tikosyn due to previous ventricular tachyarrhythmia 4. Permanent atrial fibrillation The patient remains in atrial fibrillation. He has been on rate control therapy and anticoagulant therapy. 5. Hyperlipidemia The patient will continue medical management as deemed appropriate. 6. Hypertension The patient's medications can be adjusted for his other cardiovascular condition as long as his blood pressure tolerates. Thank you for allowing me to participate in the care of your patient. Please don't hesitate to call if any issues arise
[2019-07-12] MEDS: Carvedilol 6.25 MG Tablet PO (10:28)
[2019-07-12] MEDS: SACUBITRIL/VALSARTAN 24/26 MG TABLET 1 EACH PO (10:28)
[2019-07-12] MEDS: predniSONE 5 MG Tablet PO (10:28)
[2019-07-12] MEDS: Hydroxychloroquine 200 MG Tablet PO (10:28)
[2019-07-12] MEDS: Finasteride 5 MG Tablet PO (10:29)
[2019-07-12] MEDS: Dofetilide 250 MCG Capsule PO (10:29)
[2019-07-12] MEDS: Furosemide 40 MG Tablet PO (10:32)
--- NOTE | 2019-07-12 10:45 | DCINST_ITS ---
- Discharge Diagnoses Reason(s) for Visit for Discharge Instructions: Shortness of breath, chest pain You will use the following diet at home:: Cardiac Your food should be the consistency of: Regular Your liquids should be the consistency of: Regular/Thin Discharge Activity: Return to Normal Activity Additional Instructions: You are being discharged on oxygen. Be careful around open flames. Continue to wear your oxygen all the time especially when walking. You need repeat kidney function test to be done within 1 week of discharge. Follow-up with your doctors as scheduled. You have been referred to the lung doctors also with 2-4 weeks. Allergies/Adverse Reactions: Allergies amoxicillin [Amoxicillin] Allergy (Verified 07/10/19 14:13) Rash ciprofloxacin [From Cipro] Allergy (Verified 07/10/19 14:13) Rash ciprofloxacin HCl [From Cipro] Allergy (Verified 07/10/19 14:13) Rash Sulfa (Sulfonamide Antibiotics) Allergy (Verified 07/10/19 14:13) Other Medications to take at Discharge Warfarin [Coumadin] 4 mg PO DAILY 04/09/19 dutasteride 0.5 mg capsule 0.5 mg PO DAILY cap 06/27/19 Dofetilide [Tikosyn] 250 mcg PO Q12H 07/10/19 Hydroxychloroquine [Plaquenil] 200 mg PO DAILY 07/10/19 Prednisone 5 mg PO DAILY 07/10/19 Carvedilol [Coreg (Beta Shelley)] 6.25 mg PO BID #60 tab 07/12/19 Ensure Enlive 120 ml PO 4X/DAY #120 liquid 07/12/19 Furosemide [Lasix] 40 mg PO BID@1000,1800 #60 tab 07/12/19 Sacubitril/Valsartan 24/26 mg [Entresto 24 mg-26 mg Tablet] 1 ea PO BID #30 tab 07/12/19 The following prescriptions were given: Carvedilol [Coreg (Beta Shelley)] 6.25 mg PO BID #60 tab [facility] Ensure Enlive 120 ml PO 4X/DAY #120 liquid Transmission Status: [facility] Sacubitril/Valsartan 24/26 mg [Entresto 24 mg-26 mg Tablet] 1 ea PO BID #30 tab Transmission [facility]: [facility] Furosemide [Lasix] 40 mg PO BID@1000,1800 #60 tab Transmission Status: Pending to [facility] Primary Care Physician: Dwayne Valente DO [Primary Care Provider] - Please follow up with your Primary Care Physician in: within 1-2 weeks Test Results: Test results from this visit will be discussed in further detail at your follow- up appointment, if applicable. Please Follow Up With: Dwayne Valente DO Please Follow Up With: Chris Alvarez MD When: within 2-4 weeks Please Follow Up With: James Whitaker MD When: within 2-4 weeks Proposed Discharge Date: 07/12/19
--- NOTE | 2019-07-12 10:58 | DS.PCM_ITS ---
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) ICD implant 12/26/09 Nonischemic cardiomyopathy (Chronic) Chronic systolic (congestive) heart failure (Chronic) Chronic atrial fibrillation (Chronic) Paroxysmal atrial flutter (Chronic) Essential (primary) hypertension (Chronic) Hyperlipidemia (Chronic) long-term (current) use of anticoagulants (Chronic) CKD (chronic kidney disease), stage III (Chronic) Diabetes type 2, controlled (Chronic) Hospital Course and Treatment Imaging Results: Clinical Impression(s) from Imaging Studies Chest CTA 07/10/19 14:40 IMPRESSION: Bilateral pleural effusions right greater than left with increased interstitial markings bilaterally. Findings may represent mild degree of CHF with bibasilar atelectasis. Electronically Signed: Alexsander Gr, at 15:49 EST , Service support , Cardiology Operations: None Procedures: 2-D Echocardiogram Summary of Care Provided: The patient is a 78 year old M with past medical history of chronic atrial fibrillation, chronic systolic CHF, EF percent in 2016, nonischemic cardiomyopathy, status post biventricular ICD, hypertension, type II DM who c omes in with complaints of progressive shortness of breath and chest pain ongoing for 6 months. Patient was found to be in acute on chronic systolic CHF with his admitting BNP of more than 5000. He was admitted to the telemetry bed and started on IV Lasix. Cardiology was consulted. Changes were made to his medications including start of Entresto. Initially, he was on 2 L of oxygen. He was weaned off oxygen during his stay. He however, qualified for oxygen on ambulation with SPO2 of 86% on ambulation. Improved 3 L of oxygen. Patient was discharged home with home health care as well as a community care network. He was educated on CHF with emphasis on low- salt diet, daily weights, taking all his medications. He will follow-up with the manager med surg in 2 to 4 weeks. He will also follow-up with a meat stringer in 4 weeks. He would see his primary care doctor within a week for repeat blood work to check on his kidneys. Subjective: On the day of discharge, patient was seen and examined. He denied any new complaints. Objective: Physical exam: General: Alert, Oriented x3, Cooperative, No apparent distress HEENT: Atraumatic, PERRLA, EOMI, Normocephalic Oral: Moist Mucosa Neck: Supple Lungs: Diminished Air entry at the lung bases. Cardiovascular: Normal S1, Normal S2, No murmurs, Irregular Rate, Tachycardic Abdomen: Bowel Sounds Present, Soft, Non Tender, Non-Distended, No Hepato- splenomegaly Extremities: No edema Skin: No rashes Musculoskeletal: No Tenderness to Palpation of Joints or Extremities Lymphatic: No Cervical, Supraclavicular, or Inguinal Adenopathy Neurological: Cranial nerves II-XII grossly intact, Neuro grossly intact Psych/Mental Status: Normal Affect, Appropriate - Physical Exam Vitals/I&O's: Vital Signs Temp Pulse Resp BP Pulse Ox 97.5 F L 73 18 106/57 L 96 07/12/19 07:43 07/12/19 07:43 07/12/19 07:43 07/12/19 07:43 07/12/19 10:39 Oxygen Flow Rate (L/min) [ 3 AMBULATION with Oxygen] Oxygen Flow Rate (L/min) 2 Oxygen Delivery Method Room Air Weight: 71.1 kg Body Mass Index (BMI) 22.5 Intake and Output for Last 24 Hours 07/10/19 07/11/19 07/12/19 23:59 23:59 23:59 Intake Total 1240 / 1480 1460 / 1460 Output Total 500 / 1175 4675 / 4675 1450 / 1450 Balance 740 / 305 -3215 / -3215 -1450 / -1450 Laboratory Results 07/11/19 06:32: PT 26.7 H, INR 2.5 07/12/19 06:00: Sodium 139, Potassium 3.5, Chloride 107, Carbon Dioxide 21.0, Anion Gap 11, BUN 37 H, Creatinine 1.90 H, Estim Creat Clear Calc 33.26, Est GFR (MDRD) Af Amer 45 L, Est GFR (MDRD) Non-Af 37 L, BUN/Creatinine Ratio 19.5, Glucose 199 H, Calcium 8.3 L, Total Bilirubin 2.10 H, AST 19, ALT 20, Alkaline Phosphatase 124 H, Total Protein 6.7, Albumin 2.7 L, Globulin 4.0, Albumin/Globulin Ratio 0.7 L 07/12/19 06:00: PT 17.8 H, INR 1.5 Current Medications Acetaminophen (Tylenol) 650 mg PO Q6H PRN PRN PRN Reason: Pain Score 1-3/Temp > 100.7 F Hydrocodone Bitart/Acetaminophen (Melrose 5mg-325mg) 1 tablet PO Q6H PRN PRN PRN Reason: Pain Score 1-10/10 Al Hydroxide/Mg Hydroxide (Mylanta Ii) 30 ml PO Q6H PRN PRN PRN Reason: Gastric Burning Albuterol Sulfate (Ventolin Aerosols) 2.5 mg INHALATION Q2H PRN PRN PRN Reason: SOB/Wheezing Carvedilol (Coreg) 6.25 mg PO BID [facility] Last Admin: 07/12/19 10:28 Dose: 6.25 mg Documented by: Dofetilide (Tikosyn) 250 mcg PO Q12H [facility] Last Admin: 07/12/19 10:29 Dose: 250 mcg Documented by: Finasteride (Proscar) 5 mg PO DAILY [facility] Last Admin: 07/12/19 10:29 Dose: 5 mg Documented by: Furosemide (Lasix) 40 mg PO BID@1000,1800 [facility] Last Admin: 07/12/19 10:32 Dose: 40 mg Documented by: Hydroxychloroquine Sulfate (Plaquenil) 200 mg PO DAILY [facility] Last Admin: 07/12/19 10:28 Dose: 200 mg Documented by: Sodium Chloride () 250 mls @ 15 mls/hr IV .[id number] PRN PRN Reason: Saline Flush Nutritional Formula (Lactose Free) (Ensure Enlive) 120 ml PO 4X/DAY [facility] Last Admin: 07/12/19 10:28 Dose: 120 ml Documented by: Ondansetron HCl (Zofran) 4 mg IV Q8H PRN PRN PRN Reason: NAUSEA/VOMITING Prednisone () 5 mg PO DAILY@0800 [facility] Last Admin: 07/12/19 10:28 Dose: 5 mg Documented by: Sacubitril/Valsartan (Entresto 24 Mg-26 Mg Tablet) 1 each PO BID [facility] Last Admin: 07/12/19 10:28 Dose: 1 each Documented by: Senna/Docusate Sodium (Senokot-S, Amparo-Colace) 2 tablet PO BID PRN PRN PRN Reason: Constipation Sodium Chloride () 10 - 40 ml IV UD PRN PRN Reason: SALINE FLUSH Last Admin: 07/12/19 05:19 Dose: 10 ml Documented by: Warfarin Sodium (Coumadin (Pbkc)) 4 mg PO DAILY@1700 [facility] Last Admin: 07/11/19 16:58 Dose: 4 mg Documented by: Discharge Diet: Low fat/ Low Cholesterol, 6 Cup Fluid Restriction, 2000 mg Sodium Diet Discharge Activity: Return to Normal Activity Home Medications: Medications to take at Discharge Warfarin [Coumadin] 4 mg PO DAILY 04/09/19 dutasteride 0.5 mg capsule 0.5 mg PO DAILY cap 06/27/19 Dofetilide [Tikosyn] 250 mcg PO Q12H 07/10/19 Hydroxychloroquine [Plaquenil] 200 mg PO DAILY 07/10/19 Prednisone 5 mg PO DAILY 07/10/19 Carvedilol [Coreg (Beta Shelley)] 6.25 mg PO BID #60 tab 07/12/19 Ensure Enlive 120 ml PO 4X/DAY #120 liquid 07/12/19 Furosemide [Lasix] 40 mg PO BID@1000,1800 #60 tab 07/12/19 Sacubitril/Valsartan 24/26 mg [Entresto 24 mg-26 mg Tablet] 1 ea PO BID #30 tab 07/12/19 Following Prescrptions Were Given to Patient: Carvedilol [Coreg (Beta Shelley)] 6.25 mg PO BID #60 tab Transmission Status: Received by [id number] Ensure Enlive 120 ml PO 4X/DAY #120 liquid Transmission Status: Received by [id number] Sacubitril/Valsartan 24/26 mg [Entresto 24 mg-26 mg Tablet] 1 ea PO BID #30 tab Transmission Status: Received by [facility] Furosemide [Lasix] 40 mg PO BID@1000,1800 #60 tab Transmission Status: Received by [id number] Primary Care Physician: Dwayne Valente DO [Primary Care Provider] - Please follow up with your Primary Care Physician in: within 1-2 weeks Please Follow Up With: Dwayne Valente R, DO Please Follow Up With: Chris Alvarez MD When: within 2-4 weeks Please Follow Up With: James Whitaker MD When: within 2-4 weeks Disposition: Home with Home Health Minutes spent on discharge:: 45 Patient Condition:: Stable Medical Necessity - Tobacco Use Smoking Status: Former smoker Tobacco Use: Non-smoker Meaningful Use Info Meaningful Use Diagnoses (Choose all that apply): CHF - CHF MARIAMA/ARB ordered at discharge?: Yes Documented LVEF (%): 10 Code Visit Inpatient E&M: 44246 Disch Hosp
--- NOTE | 2019-07-12 11:21 | CASEMGMT ---
Per Martina RN, pt qualifies for home oxygen at this time. Pt/family were already provided with local DME list by Paul JOHNSON CM yesterday. This RN CM to room with therapy recommendation for HHC at this time. Pt/family is aware of need for oxygen and pick [employer] off the provided list at this time. Pt/family are agreeable to HHC and per daughter, pt has had [facility] in the past and would like to use them again. Pt/family educated on CCN and are agreeable to referral at this time and are aware that CCN would not come out until [facility] complete, voice understanding. Referral faxed to Jenn at this time and call to [facility] to notify of referral and Nadeem voices understanding. Call to Shelbi at [facility] and she states that they can accept pt for RN, PT/OT, aide, and SW at this time. Order for HHC placed at this time as well as order for CCN. Message left with Sea at [facility] in regards to referral at this time. Pt/family voice gratitude for all assistance and voice no further questions/concerns/needs at this time. Jm JOHNSON CM
--- NOTE | 2019-07-12 12:21 | PHA.DC.MC ---
Pharmacy Service has performed discharge medication reconciliation and counseling for this patient. 1. SACUBITRIL/VALSARTAN 24/26MG 1 TABLET PO BID The patient's discharge medication list was reviewed for discrepancies and discrepancies were resolved. Home Medications Warfarin [Coumadin] 4 mg PO DAILY 04/09/19 dutasteride 0.5 mg capsule 0.5 mg PO DAILY cap 06/27/19 Dofetilide [Tikosyn] 250 mcg PO Q12H 07/10/19 Hydroxychloroquine [Plaquenil] 200 mg PO DAILY 07/10/19 Prednisone 5 mg PO DAILY 07/10/19 Carvedilol [Coreg (Beta Shelley)] 6.25 mg PO BID #60 tab 07/12/19 Ensure Enlive 120 ml PO 4X/DAY #120 liquid 07/12/19 Furosemide [Lasix] 40 mg PO BID@1000,1800 #60 tab 07/12/19 Sacubitril/Valsartan 24/26 mg [Entresto 24 mg-26 mg Tablet] 1 ea PO BID #30 tab 07/12/19 The patient was counseled on the following discharge medications and changes in medications for homegoing were reviewed. The Reason for Use, instructions for use, and potential side effects were reviewed for all new medications. The patient's questions regarding all of their medications were answered. The patient demonstrated some understanding but would benefit from further education and reinforcement. .
--- NOTE | 2019-07-13 15:19 | CASEMGMT ---
ELIZABETH SINGH Discharge Follow-Up Phone Call. Charisma: Esperanza Strata: 4 Discharge Date: 07/12/19 Adm Dx: Acute CHF Call to pt to inquire about how he has been doing since being discharged from the hospital. Pt stated, I'm doing alright. He states they were able to belt picker all the new prescriptions and inquired about the Entresto ordered twice a day but only for 30 tabs. ELIZABETH SINGH advised him to discuss this at the follow-up appt with Leon Davis so refills can be ordered as needed. He voiced understanding. He denies having any other questions about the discharge instructions or medications. He states he has not made a follow-up appt with Dr Alvarez yet but plans to do so and states, I have his number in my phone. Pt states [facility] today and that the oxygen was delivered to his home. He denies concerns/needs. ELIZABETH SINGH thanked pt for choosing [facility]. Deanna PATEL RN, CM
--- NOTE | 2019-07-21 15:09 | CCN.REFER ---
Patient/Patient's agree to CCN.
== END 2019-07-12 13:24 | disposition home or self-care (01) | DRG 291 ==
LOC: ED 15:22 → PCU 16:08
PROVIDERS: Admitting Provider Internal Medicine; Emergency Provider Emergency Medicine; Family Provider Family Medicine; PCP Family Medicine; Referring Provider Internal Medicine; Visit Provider Internal Medicine
DX: I13.0 Hypertensive heart and chronic kidney disease with heart failure and stage 1 through stage 4 chronic kidney disease, or unspecified chronic kidney disease (principal); I50.23 Acute on chronic systolic (congestive) heart failure; I48.20 Chronic atrial fibrillation, unspecified; I48.92 Unspecified atrial flutter; E11.22 Type 2 diabetes mellitus with diabetic chronic kidney disease; N18.3 Chronic kidney disease, stage 3 (moderate); E78.5 Hyperlipidemia, unspecified; I42.8 Other cardiomyopathies; R06.89 Other abnormalities of breathing; R42 Dizziness and giddiness; Z79.01 Long term (current) use of anticoagulants; Z95.810 Presence of automatic (implantable) cardiac defibrillator; Z87.891 Personal history of nicotine dependence
CPT/HCPCS: 36415; 71275; 80048; 80053; 80061; 82962; 83036; 83735; 83880; 84484; 85025; 85610; 93005; 93306; 94640; 97161; 97166; 97802; 99251; 99285; J7030; Q9967; A4216; G0463; J1940

== ENCOUNTER → 2019-07-18 08:51 | Outpatient (CLI) | payer MEDICARE, OTHER, SELFPAY ==
[2019-07-18 08:09] VITALS: BMI 19.9
[2019-07-18 12:39] LABS: Anion Gap 6 (5-15); BUN 29 mg/dL (7-18); BUN/Creat Ratio 19.1 RATIO (10-20); Chloride 101 mmol/L (98-107); Creatinine, Serum 1.52 mg/dL (0.70-1.30); EST Glomerular Filtration Rate 48 mL/min (>60); Est Glom Filt Rate - Afr Amer 58 mL/min (>60); Glucose 266 mg/dL (74-106); Potassium 4.1 mmol/L (3.5-5.1); Sodium Level 136 mmol/L (136-145)
== END ==
PROVIDERS: Family Provider Family Medicine; PCP Family Medicine; Visit Provider Nurse Practitioner Family
DX: N18.3 Chronic kidney disease, stage 3 (moderate) (principal)
CPT/HCPCS: 36415; 80048

== ENCOUNTER 2019-07-26 15:41 | Outpatient (RCR) | payer MEDICARE, OTHER, SELFPAY ==
[2019-07-18 08:09] VITALS: BMI 19.9
[2019-07-26 17:09] LABS: Creatinine, Serum 1.51 mg/dL (0.70-1.30); EST Glomerular Filtration Rate 48 mL/min (>60); Est Glom Filt Rate - Afr Amer 58 mL/min (>60)
== END 2019-07-26 18:00 | disposition home or self-care (01) ==
LOC: HHLAB 15:41
PROVIDERS: Family Provider Family Medicine; PCP Family Medicine; Referring Provider Family Medicine; Visit Provider Family Medicine
DX: I13.0 Hypertensive heart and chronic kidney disease with heart failure and stage 1 through stage 4 chronic kidney disease, or unspecified chronic kidney disease (principal); I50.23 Acute on chronic systolic (congestive) heart failure; E11.22 Type 2 diabetes mellitus with diabetic chronic kidney disease
CPT/HCPCS: 82565

== ENCOUNTER 2019-08-16 11:27 | Outpatient (RCR) | payer MEDICARE, OTHER, SELFPAY ==
[2019-07-18 08:09] VITALS: BMI 19.9
[2019-08-16 10:29] VITALS: BMI 20.6
[2019-08-16 13:06] LABS: International Normalized Ratio 1.9
== END 2019-08-16 18:00 | disposition home or self-care (01) ==
LOC: LAB 11:27
PROVIDERS: Physician Assistant Medical; Family Provider Family Medicine; PCP Family Medicine; Referring Provider Internal Medicine Cardiovascular Disease; Visit Provider Internal Medicine Cardiovascular Disease
DX: Z79.01 Long term (current) use of anticoagulants (principal)
CPT/HCPCS: 36415; 85610

== ENCOUNTER 2019-09-01 09:08 | Outpatient (RCR) | payer MEDICARE, OTHER, SELFPAY ==
[2019-09-01 12:14] LABS: International Normalized Ratio 2.2; Prothrombin Time (Protime)PT. 24.4 SECONDS (11.7-14.9)
== END 2019-09-01 18:00 | disposition home or self-care (01) ==
LOC: LAB 09:08
PROVIDERS: Family Provider Family Medicine; PCP Family Medicine; Referring Provider Internal Medicine Cardiovascular Disease; Visit Provider Internal Medicine Cardiovascular Disease
DX: Z79.01 Long term (current) use of anticoagulants (principal)
CPT/HCPCS: 36415; 85610

== ENCOUNTER → 2019-09-05 07:40 | Outpatient (CLI) | payer MEDICARE, OTHER, SELFPAY ==
[2019-08-16 10:29] VITALS: BMI 20.6
--- NOTE | 2019-09-05 17:05 | PFTCOMP_ITS ---
COMPLETE PULMONARY FUNCTION TEST INTERPRETATION Brief HPI: Patient is a 78 year old male, currently under the care of Dr. Valente, who presents to [facility] for complete pulmonary function tests secondary to diagnosis of dyspnea. Respiratory therapist reports good effort, but had difficulty producing results. Interpretation: Forced expiration spirometry shows no large airways obstructive ventilatory defect with an FEV1 of 95% predicted. There is no significant bronchodilator response by strict ATS criteria. Spirograms are of poor quality and do not plateau secondary to poor exhalation time. The respiratory flow volume loop shows a normal pattern. Lung volumes by body plethysmography show a normal total lung capacity at 5.83 L, 88% predicted. All other lung volumes are within normal limits. Diffusion capacity by carbon monoxide is normal at 76% predicted. The airway resistance is normal. No previous pulmonary function tests were available for review. Impression: Grossly normal pulmonary function test, but patient did have difficulty with testing, so caution should be used with application.
== END ==
PROVIDERS: Family Provider Family Medicine; PCP Family Medicine; Referring Provider Nurse Practitioner Acute Care; Visit Provider Nurse Practitioner Acute Care
DX: R06.02 Shortness of breath (principal)
CPT/HCPCS: 94060; 94726; 94729

== ENCOUNTER → 2019-09-08 08:40 | Outpatient (CLI) | payer MEDICARE, OTHER, SELFPAY ==
[2019-08-16 10:29] VITALS: BMI 20.6
[2019-09-07 13:11] VITALS: BMI 20.2
[2019-09-08 09:17] VITALS: PULSE 72; PULSE 73; PULSE 80; PULSE 92; PULSE 93; PULSE 94; PULSE 96; PULSE 98; O2SAT 100; O2SAT 92; O2SAT 93; O2SAT 94; O2SAT 95; O2SAT 96; O2SAT 98
--- NOTE | 2019-09-08 16:43 | WT_ITS ---
PSN 6 Minute Walk Test - 6 Minute Walk Test 6 Minute Walk Test: 6 Minute Walk Test PSN:6-Minute Walk Test Start: 09/08/19 09:17 Freq: Status: Active Protocol: [id number].6MINW Document 09/08/19 09:17 [facility] (Rec: 09/08/19 09:26 [facility] [id number]) 6 Minute Walk Test Date Performed 09/08/19 Time Performed 09:00 Height 6 ft Weight: 67.585 kg Weight in Pounds 149.[address]: Lili Chaudhary Assistive device used: None Pre-test Oxygen Delivery Method Room Air Pulse Ox (%) 100 Pulse Rate (60-100 beats/min) 72 Dyspnea Michael Scale (0-10) 0 1st minute Oxygen Delivery Method Room Air Pulse Ox (%) 95 Pulse Rate (60-100 beats/min) 80 Dyspnea Michael Scale (0-10) 0 Number of Rests Taken 0 2nd minute Oxygen Delivery Method Room Air Pulse Ox (%) 96 Pulse Rate (60-100 beats/min) 93 Dyspnea Michael Scale (0-10) 0 Number of Rests Taken 0 3rd minute Oxygen Delivery Method Room Air Pulse Ox (%) 94 Pulse Rate (60-100 beats/min) 98 Dyspnea Michael Scale (0-10) 1 Number of Rests Taken 0 4th minute Oxygen Delivery Method Room Air Pulse Ox (%) 92 Pulse Rate (60-100 beats/min) 92 Dyspnea Michael Scale (0-10) 1 Number of Rests Taken 0 5th minute Oxygen Delivery Method Room Air Pulse Ox (%) 93 Pulse Rate (60-100 beats/min) 94 Dyspnea Michael Scale (0-10) 1 Number of Rests Taken 0 6th minute Oxygen Delivery Method Room Air Pulse Ox (%) 92 Pulse Rate (60-100 beats/min) 96 Dyspnea Michael Scale (0-10) 2 Number of Rests Taken 0 Post-test Oxygen Delivery Method Room Air Pulse Ox (%) 98 Pulse Rate (60-100 beats/min) 73 Dyspnea Michael Scale (0-10) 0 Full Laps Walked 11 Partial Lap, Number of Tiles Walked 49 Total Distance Walked (ft) 698 - Interpretation Interpretation: The patient was able to ambulate only 698 feet over the course of 6 minutes on room air with no assistive devices or breaks. The patient did experience significant desaturation from a baseline of 100% to as low as 92% during testing. No significant tachycardia was noted. These findings are consistent with a respiratory limitation exercise tolerance. - Recommendations Recommendations: No supplemental oxygen is indicated at this time. However, patient will need to be followed closely given level of desaturation.
== END ==
PROVIDERS: Family Provider Family Medicine; PCP Family Medicine; Referring Provider Nurse Practitioner Acute Care; Visit Provider Nurse Practitioner Acute Care
DX: J96.11 Chronic respiratory failure with hypoxia (principal)
CPT/HCPCS: 94618

== ENCOUNTER 2019-10-02 10:10 | Outpatient (RCR) | payer MEDICARE, OTHER, SELFPAY ==
[2019-09-27 08:06] VITALS: BMI 21.6
[2019-10-02 11:12] LABS: Absolute Lymphocyte Count 1.06 X10^3/uL (0.83-4.51); Basophil# 0.03 X10^3/uL; Basophil% 0.9 % (0-1); Eosinophil# 0.07 X10^3/uL; Hematocrit 41.2 % (40-54); Hemoglobin 13.2 g/dL (13.0-16.5); Lymphocyte # 1.06 X10^3/ul (4.0); Lymphocyte % 30.7 % (19-41); Mean Corpuscular Hgb 27.7 pg (27.0-32.0); Mean Corpuscular Volume 86.6 fL (80-94); Mean Platelet Vol. 9.6 fl (6.2-12.0); Monocyte# 0.33 X10^3/uL; Monocyte% 9.6 % (0-10); NRBC Flagged by Analyzer 0 % (0-5); Neutrophil # 1.95 X10^3/uL (2.7-7.7); Neutrophil % 56.5 % (47-70); Platelet Count 116 K/mm3 (150-450); RBC Distribution Width CV 14.9 % (11.6-14.6); RBC Distribution Width SD 47.6 fl (35.1-43.9); Red Blood Count 4.76 M/mm3 (4.6-6.2); White Blood Count 3.5 K/mm3 (4.4-11.0)
[2019-10-02 11:19] LABS: Prothrombin Time (Protime)PT. 22.9 SECONDS (11.7-14.9)
[2019-10-02 11:44] LABS: ALB/GLOB Ratio 0.7 RATIO (0.9-2.4); AST(SGOT) 13 U/L (15-37); Alanine Aminotransfer ALT/SGPT 12 U/L (16-61); Alkaline Phosphatase 120 U/L (45-117); Anion Gap 6 (5-15); BUN 33 mg/dL (7-18); BUN/Creat Ratio 20.2 RATIO (10-20); Calcium,Total 8.9 mg/dL (8.5-10.1); Chloride 106 mmol/L (98-107); Creatinine, Serum 1.63 mg/dL (0.70-1.30); EST Glomerular Filtration Rate 44 mL/min (>60); Est Glom Filt Rate - Afr Amer 53 mL/min (>60); Globulin 4.3 g/dL (2.2-4.2); Glucose 195 mg/dL (74-106); Potassium 3.9 mmol/L (3.5-5.1); Protein, Total 7.3 g/dL (6.4-8.2); Sodium Level 137 mmol/L (136-145)
== END 2019-10-02 18:00 | disposition home or self-care (01) ==
LOC: LAB 10:10
PROVIDERS: Family Provider Family Medicine; PCP Family Medicine; Referring Provider Internal Medicine Cardiovascular Disease; Visit Provider Internal Medicine Cardiovascular Disease
DX: M06.00 Rheumatoid arthritis without rheumatoid factor, unspecified site (principal); M17.0 Bilateral primary osteoarthritis of knee; E11.9 Type 2 diabetes mellitus without complications; N20.0 Calculus of kidney; I11.0 Hypertensive heart disease with heart failure; I50.9 Heart failure, unspecified; I48.91 Unspecified atrial fibrillation; Z79.899 Other long term (current) drug therapy; Z79.01 Long term (current) use of anticoagulants
CPT/HCPCS: 36415; 80053; 84100; 85025; 85610

== ENCOUNTER → 2019-10-04 10:59 | Outpatient (CLI) | payer MEDICARE, OTHER, SELFPAY ==
[2019-09-27 08:06] VITALS: BMI 21.6
== END ==
LOC: SL 10:59
PROVIDERS: PCP Family Medicine; Referring Provider Nurse Practitioner Acute Care; Visit Provider Nurse Practitioner Acute Care
DX: R09.02 Hypoxemia (principal)
CPT/HCPCS: 94762

== ENCOUNTER 2019-11-16 01:41 | Observation (INO) | payer MEDICARE, OTHER, SELFPAY ==
[2019-09-27 08:06] VITALS: BMI 21.6
[2019-11-16] VITALS (9 sets, daily range): BP systolic 96–124; BP diastolic 48–73; PULSE 65–78; RESP 11–18; TEMP 36.4–36.8; O2SAT 94–100; BMI 22.3; BMI 21.2
--- NOTE | 2019-11-16 01:48 | RAD_ITS ---
STUDY: X-RAY CHEST REASON FOR EXAM: Male, 79 years old. midsternal chest pain x 2 hrs. TECHNIQUE: Single AP portable view of the chest. Patient is an kyphotic posture and slightly rotated to the left. COMPARISON: 04/10/2019. FINDINGS: The lungs are mildly underexpanded. There is diffuse chronic interstitial lung disease. There is no visualized acute pulmonary infiltrate. There is no demonstrated pleural abnormality. Heart size is indeterminate due to shallow depth of inspiration and leftward patient rotation.. There is an atrial-bilateral ventricular pacemaker. Normal mediastinum and angel. Normal visualized pulmonary arteries. Normal visualized aortic arch and descending thoracic aorta. There are no visualized acute osseous abnormalities. There is no demonstrated abnormality of the visualized soft tissue structures of the upper abdomen. RAD/Chest 1 View (Portable) IMPRESSION: Chronic interstitial lung disease. Pacemaker. No evidence for acute cardiopulmonary pathology. Electronically Signed: Trent Sesay MD at 2:24 EDT , Service support ,
--- NOTE | 2019-11-16 01:48 | EKG12_ITS ---
Test Reason : CP FOLLOW UP Blood Pressure : / mmHG Vent. Rate : 069 BPM Atrial Rate : 069 BPM P-R Int : 154 ms QRS Dur : 172 ms QT Int : 556 ms P-R-T Axes : 061 -71 108 degrees QTc Int : 595 ms Atrial-sensed ventricular-paced rhythm with frequent Premature ventricular complexes Biventricular pacemaker detected Abnormal ECG Confirmed by RAUL ESCOBEDO, IVAN ([id number]), primer expeditor and drier ROWDY NOLASCO ([id number]) on 11/20/2019 11:27:03 AM Referred By: BERTO Confirmed By:DORIS CARTER MD
--- NOTE | 2019-11-16 01:56 | ED.VIS.GEN ---
History of Present Illness Chief Complaint: Chest Pain Informant: Patient Onset: Hours Current Severity: - - Resolved Maximum Severity: Moderate Narrative: Patient presents via EMS secondary to chest pressure. He states he woke 2 hours ago to go the bathroom. He had some mild chest pressure. After using the restroom and lying back down in bed pain seemed to worsen. It was slightly better when he was sitting up on the side of the bed. He did report some mild shortness of breath. In route with EMS chest pain subsided and breathing is improved. He was not given aspirin or nitro. Patient does have a history of an ICD. He denies history of prior FL or cardiac stents. 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 (9) Nonischemic cardiomyopathy Status: Chronic (10) JESSICA (obstructive sleep apnea) Status: Chronic (11) Paroxysmal atrial flutter Status: Chronic (12) Stage 4 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 Alvarez Prior records reviewed: Yes Surgical History: TURP, - - Colectomy w/ fistula s/p diverticulitis, L arm surgery. Smoking Status: Former smoker - Family History Maternal Family History: Family History (Last Reviewed 09/27/19 @ 08:16 by ALINE SmithC) Father Sudden cardiac Brother Myocardial infarction CHF (congestive heart failure) Other Family history of coronary artery disease Family History: Reports: Heart Disease Paternal Family History: Family History (Last Reviewed 09/27/19 @ 08:16 by PATRICK Smith) Father Sudden cardiac Brother Myocardial infarction CHF (congestive heart failure) Other Family history of coronary artery disease Family History: Reports: Heart Disease Review of Systems General: Denies: Chills, Fever Eyes: Denies: Visual changes - bilaterally ENT: Denies: Bilateral ear pain Cardiovascular: Reports: Chest pain. Denies: Palpitations, Heart racing Respiratory: Reports: Dyspnea. Denies: Cough Gastrointestinal: Denies: Abdominal pain, Nausea, Vomiting, Diarrhea Genitourinary: Denies: Dysuria Musculoskeletal: Denies: Extremity Pain Skin: Denies: Rash Neurological: Denies: Headache Allergy: Denies: Uticaria Physical Exam Vital Signs/Narrative: Vital Signs Temp Pulse Resp BP Pulse Ox 11/16/19 01:45 124/73 H 11/16/19 01:42 98 F 78 11 L 100 Inital Vital Signs reviewed: Yes General: Well nourished, Well developed Head: Normocephalic ENT: Moist mucous membranes Neck: Supple Cardiovascular: Regular rate, Regular rhythm Respiratory: No distress, CTA bilaterally Abdomen: Soft, Nontender, Nondistended Back: Nontender Extremities: Nontender Skin: Normal color, No rash Neurological: Alert, Oriented x3 Psychological: Normal affect Diagnostic/Tx/Re-eval Impressions Chest X-Ray 11/16/19 01:48 IMPRESSION: Chronic interstitial lung disease. Pacemaker. No evidence for acute cardiopulmonary pathology. Electronically Signed: Trent Sesay MD at 2:24 EDT , Service support , 11/16/19 01:48 Chest 1 View (Portable) [RAD] Stat Laboratory Results 11/16/19 11/16/19 11/16/19 01:50 01:50 01:50 WBC 4.3 L RBC 4.65 Hgb 13.1 Hct 40.5 MCV 87.1 MCH 28.2 MCHC 32.3 RDW Std Deviation 43.9 RDW Coeff of Cecilia 14.0 Plt Count 104 L MPV 10.1 Immature Gran % (Auto) 0.500 Neut % (Auto) 63.0 Lymph % (Auto) 26.3 [place] % (Auto) 7.7 Eos % (Auto) 1.6 Baso % (Auto) 0.9 Absolute Neuts (auto) 2.7 Absolute Lymphs (auto) 1.13 Nucleated RBC % 0 PT INR Sodium 136 Potassium 4.9 Chloride 105 Carbon Dioxide 22.0 Anion Gap 9 BUN 43 H Creatinine 1.75 H Estim Creat Clear Calc 37.35 Est GFR (MDRD) Af Amer 49 L Est GFR (MDRD) Non-Af 40 L BUN/Creatinine Ratio 24.6 H Glucose 315 H Calcium 8.5 Total Bilirubin 0.90 Direct Bilirubin 0.11 AST 30 ALT 17 Alkaline Phosphatase 162 H Troponin I < 0.015 Total Protein 7.4 Albumin 3.3 Globulin 4.1 Lipase 82 11/16/19 01:50 WBC RBC Hgb Hct MCV MCH MCHC RDW Std Deviation RDW Coeff of Cecilia Plt Count MPV Immature Gran % (Auto) Neut % (Auto) Lymph % (Auto) [place] % (Auto) Eos % (Auto) Baso % (Auto) Absolute Neuts (auto) Absolute Lymphs (auto) Nucleated RBC % PT 21.0 H INR 1.8 Sodium Potassium Chloride Carbon Dioxide Anion Gap BUN Creatinine Estim Creat Clear Calc Est GFR (MDRD) Af Amer Est GFR (MDRD) Non-Af BUN/Creatinine Ratio Glucose Calcium Total Bilirubin Direct Bilirubin AST ALT Alkaline Phosphatase Troponin I Total Protein Albumin Globulin Lipase - EKG Initial EKG Interpretation: - - Paced at 75. No acute ischemia. Follow-up EKG Interpretation: - - Paced at 69 with frequent PVCs. No acute ST change. - Medical Decision Making Patient was given aspirin on arrival. On repeat evaluation he is resting comfortably. He states his pain is back up to a 4 out of 10 and is moved over to the left lateral lower ribs. Repeat EKG is performed at this time. He is given 2 mg of morphine for pain. On review of his cardiology records it appears his last stress test was from 2014. He did have an echocardiogram done in June 2019 that showed his EF is 10%. Patient be admitted for cycling of cardiac enzymes and further evaluation. ED Disposition - Plan for ED Patient: Disposition: Acute Care Hospital [facility] Diagnosis: Chest pain Referrals: Dwayne Valente DO [Primary Care Provider] -
[2019-11-16 02:08] LABS: Absolute Lymphocyte Count 1.13 X10^3/uL (0.83-4.51); Absolute Neutrophil Count 2.7 X10^3/uL (2.0-7.7); Basophil# 0.04 X10^3/uL; Basophil% 0.9 % (0-1); Eosinophil# 0.07 X10^3/uL; Eosinophils% 1.6 % (0-5); Hematocrit 40.5 % (40-54); Hemoglobin 13.1 g/dL (13.0-16.5); Lymphocyte # 1.13 X10^3/ul (4.0); Lymphocyte % 26.3 % (19-41); Mean Corp Hgb Conc 32.3 g/dL (32-36); Mean Corpuscular Hgb 28.2 pg (27.0-32.0); Mean Corpuscular Volume 87.1 fL (80-94); Mean Platelet Vol. 10.1 fl (6.2-12.0); Monocyte# 0.33 X10^3/uL; Monocyte% 7.7 % (0-10); NRBC Flagged by Analyzer 0 % (0-5); Platelet Count 104 K/mm3 (150-450); RBC Distribution Width SD 43.9 fl (35.1-43.9); Red Blood Count 4.65 M/mm3 (4.6-6.2); White Blood Count 4.3 K/mm3 (4.4-11.0)
[2019-11-16 02:14] LABS: International Normalized Ratio 1.8
[2019-11-16 02:28] LABS: AST(SGOT) 30 U/L (15-37); Alanine Aminotransfer ALT/SGPT 17 U/L (16-61); Albumin, Serum 3.3 g/dL (3.2-5.0); Alkaline Phosphatase 162 U/L (45-117); Bilirubin, Direct 0.11 mg/dL (0.00-0.30); Globulin 4.1 g/dL (2.2-4.2); Protein, Total 7.4 g/dL (6.4-8.2)
[2019-11-16 02:32] LABS: Anion Gap 9 (5-15); BUN 43 mg/dL (7-18); BUN/Creat Ratio 24.6 RATIO (10-20); Calcium,Total 8.5 mg/dL (8.5-10.1); Chloride 105 mmol/L (98-107); Creatinine, Serum 1.75 mg/dL (0.70-1.30); EST Glomerular Filtration Rate 40 mL/min (>60); Est Glom Filt Rate - Afr Amer 49 mL/min (>60); Estimated Creatinine Clearance 37.35 ml/min; Glucose 315 mg/dL (74-106); Lipase 82 U/L (73-393); Potassium 4.9 mmol/L (3.5-5.1); Sodium Level 136 mmol/L (136-145)
--- NOTE | 2019-11-16 02:33 | ED.RN ---
ASA given at 0215, [employer] down, unable to sign off meds in OCT.
--- NOTE | 2019-11-16 02:42 | HP.PCM_ITS ---
Problem List (1) Biventricular ICD (implantable cardioverter-defibrillator) in place Status: Chronic Comment: ICD implant 12/26/09 (2) Chest pain Status: Acute (3) Chronic atrial fibrillation Status: Chronic (4) Chronic respiratory failure with hypoxia Status: Chronic (5) Chronic systolic (congestive) heart failure Status: Chronic (6) CKD (chronic kidney disease), stage III Status: Chronic (7) Diabetes type 2, controlled Status: Chronic Qualifiers: Diabetes mellitus intermediate accountant insulin use: without [place] use Diabetes mellitus complication status: with kidney complications (8) Essential (primary) hypertension Status: Chronic (9) Hyperlipidemia Status: Chronic Qualifiers: Hyperlipidemia type: pure hypercholesterolemia Qualified Code(s): E78.00 - Pure hypercholesterolemia, unspecified; E78.0 - Pure hypercholesterolemia (10) USP (current) use of anticoagulants Status: Chronic (11) Nonischemic cardiomyopathy Status: Chronic (12) JESSICA (obstructive sleep apnea) Status: Chronic (13) Paroxysmal atrial flutter Status: Chronic (14) SOB (shortness of breath) Status: Acute (15) Stage 4 very severe COPD by GOLD classification Status: Chronic History of Present Illness Date of Admission: 11/16/19 Chief Complaint: chest pain The patient is a 79 year old M with a significant history of systolic heart failure (Echo on 07/11/2019 showed EF of 10%); PAF; HTN and DM who presented to the ED with chest pain that started 2 hours prior to presentation. His chest pain started when he woke up at night to use the bathroom. The chest pain is sharp and it is episodic. Intensity of the pain is 7. A chest pain radiated to under his left breast. He denied any aggravating factors. Reportedly he received 4 baby aspirin that took his pain to 4-5 on a scale of 1-10. He denied any nausea vomiting or diaphoresis. He had some shortness of breath with his chest pain. Past Medical History Past Medical History (Chronic Problems): Chronic Problems (Last Reviewed 11/16/19 @ 05:[address] 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 Jluis Tamez MD) Nonischemic cardiomyopathy (Chronic) I42.8 Chronic systolic (congestive) heart failure (Chronic) I50.22 Chronic atrial fibrillation (Chronic) I48.2 Paroxysmal atrial flutter (Chronic) I48.92 Essential (primary) hypertension (Chronic) I10 Hyperlipidemia (Chronic) E78.5 CKD (chronic kidney disease), stage III (Chronic) N18.3 Diabetes type 2, controlled (Chronic) E11.9 Arthritis M19.90 BPH (benign prostatic hyperplasia) COPD (chronic obstructive pulmonary disease) J44.9 DM2 (diabetes mellitus, type 2) E11.9 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 Hearing loss H91.90 Rheumatoid arthritis M06.9 History of pneumonia Z87.01 Dizziness and giddiness (Inactive) R42 Dyspnea (Inactive) R06.00 Allergies amoxicillin [Amoxicillin] Allergy (Verified 09/27/19 08:06) Rash ciprofloxacin [From Cipro] Allergy (Verified 09/27/19 08:06) Rash ciprofloxacin HCl [From Cipro] Allergy (Verified 09/27/19 08:06) Rash Sulfa (Sulfonamide Antibiotics) Allergy (Verified 11/16/19 01:48) PT UNSURE OF REACTION Home Medications: Ambulatory Orders Medication Instructions Recorded dutasteride 0.5 mg capsule 0.5 mg PO DAILY cap 06/27/19 Hydroxychloroquine [Plaquenil] 200 mg PO DAILY 07/10/19 Prednisone 5 mg PO DAILY 07/10/19 Ensure Enlive 120 ml PO 4X/DAY #120 liquid 07/12/19 sacubitril 24 mg-valsartan 26 mg 1 tab PO BID #180 tab 07/31/19 tablet carvedilol 6.25 mg tablet 6.25 mg PO BID #180 tab 08/08/19 furosemide 40 mg tablet 40 mg PO BID #180 tab 08/08/19 warfarin 4 mg tablet 4 mg PO DAILY #90 tab 08/31/19 warfarin 1 mg tablet 1 mg PO SUMOSA #30 tab 09/06/19 dapagliflozin 10 mg tablet 5 mg PO DAILY #30 tab 09/07/19 mirtazapine 7.5 mg tablet 7.5 mg PO QHS #30 tab 09/07/19 warfarin 2 mg tablet 2 mg PO DAILY #90 tab 10/25/19 amiodarone 200 mg tablet 200 mg PO DAILY #30 tab 11/01/19 Surgical History: Surgical History (Last Reviewed 11/16/19 @ 07:[address] Jluis Tamez MD) 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) Z95.810 ICD implant 12/26/09 History of left heart catheterization Onset Date: 11/25/09 Z98.890 Hx of lithotripsy Z98.890 Normal colonoscopy Surgical History: TURP, - - Colectomy w/ fistula s/p diverticulitis, L arm surgery. Psychiatric History: Anxiety Smoking Status: Former smoker Alcohol: None - *Family History Maternal Family History: Family History (Last Reviewed 11/16/19 @ 05:[address] Jluis Tamez MD) Father Sudden cardiac Brother Myocardial infarction CHF (congestive heart failure) Other Family history of coronary artery disease History Items: Heart Disease Paternal Family History: Family History (Last Reviewed 11/16/19 @ 05:[address] Jluis Tamez MD) Father Sudden cardiac Brother Myocardial infarction CHF (congestive heart failure) Other Family history of coronary artery disease History Items: Heart Disease Review of Systems Constitutional: Denies: Chills, Fever, Weight Change HEENT: Denies: Head Aches, Sinus Congestion, Sinus Drainage Cardiovascular: Reports: Chest Pain. Denies: Palpitations Respiratory: Reports: Shortness of Breath. Denies: Cough, Shortness of breath at rest, Sputum production Gastrointestinal: Denies: Abdominal Pain, Nausea, Vomiting Genitourinary: Denies: Dysuria Musculoskeletal: Denies: Joint Pain, Joint Tenderness Skin: Denies: Rash, Wounds Neurological: Denies: Numbness, Tingling, Focal weakness Psychiatric: Denies: Anxiety, Depression, Homicidal Ideations, Suicidal Ideations Hematologic/ Lymphatic: Denies: Easy Bruising, Easy Bleeding VTE Information - Inpt Only VTE Present on Admission: No VTE Mechan Device Prophylaxis: None VTE Pharm Prophylaxis ordered?: No Reason prophylaxis not ordered:: Treatment Not Indicated - On home Coumadin; continued Patient Problems: Active and Suspected Problems (Last Reviewed 11/16/19 @ 05:[address] Jluis Tamez MD) Chest pain (Acute) - Physical Exam Vitals/I&O's: Vital Signs Temp Pulse Resp BP Pulse Ox 98 F 78 11 L 124/73 H 99 11/16/19 01:42 11/16/19 01:42 11/16/19 01:42 11/16/19 01:45 11/16/19 02:08 Oxygen Delivery Method Room Air Weight: 74.7 kg Body Mass Index (BMI) 22.3 General: Alert, Oriented x3, Cooperative HEENT: Atraumatic, PERRLA, EOMI, Normocephalic Neck: Supple, Trachea Midline Lungs: Clear to auscultation, Normal air movement Cardiovascular: Regular rate, Normal S1, Normal S2, No murmurs Abdomen: Bowel Sounds Present, Soft, Non Tender Extremities: No edema, Capillary Refill Less than 3 Seconds Skin: No rashes, No breakdown Musculoskeletal: No Tenderness to Palpation of Joints or Extremities Neurological: Cranial nerves II-XII grossly intact Psych/Mental Status: Normal Affect, Appropriate Laboratory Results 11/16/19 01:50: Total Bilirubin 0.90, Direct Bilirubin 0.11, AST 30, ALT 17, Alkaline Phosphatase 162 H, Total Protein 7.4, Albumin 3.3, Globulin 4.1 11/16/19 01:50: WBC 4.3 L, RBC 4.65, Hgb 13.1, Hct 40.5, MCV 87.1, MCH 28.2, MCHC 32.3, RDW Std Deviation 43.9, RDW Coeff of Cecilia 14.0, Plt Count 104 L, MPV 10.1, Immature Gran % (Auto) 0.500, Neut % (Auto) 63.0, Lymph % (Auto) 26.3, [place] % (Auto) 7.7, Eos % (Auto) 1.6, Baso % (Auto) 0.9, Absolute Neuts (auto) 2.7, Absolute Lymphs (auto) 1.13, Nucleated RBC % 0 11/16/19 01:50: Sodium 136, Potassium 4.9, Chloride 105, Carbon Dioxide 22.0, Anion Gap 9, BUN 43 H, Creatinine 1.75 H, Estim Creat Clear Calc 37.35, Est GFR (MDRD) Af Amer 49 L, Est GFR (MDRD) Non-Af 40 L, BUN/Creatinine Ratio 24.6 H, Glucose 315 H, Calcium 8.5, Troponin I < 0.015, Lipase 82 11/16/19 01:50: PT 21.0 H, INR 1.8 Current Medications Sodium Chloride () 1,000 mls @ 15 mls/hr IV .Q48H [facility] Assessment/Plan All Active Problems (Last Reviewed 11/16/19 @ 05:[address] Jluis Tamez MD) Chest pain (Acute) SOB (shortness of breath) (Acute) The patient is a 79 year old M with a significant history of systolic heart failure (Echo on 07/11/2019 showed EF of 10%); PAF; HTN and DM who presented to the ED with chest pain . Chest pain Echocardiogram on 07/11/2019 showed left ejection fraction of 10%. Mild eccentric mitral valve insufficiency; mild to moderate tricuspid valve insufficiency. Pulmonary artery systolic pressure was 42. Stress test on 01/23/2016 showed ventricular ejection fraction of 25%; and changes compatible with previous myocardial injury/infarction. Place on a monitored bed at the PCU Duration of chest x-ray: Chronic interstitial lung disease. Evidence of acute cardiopulmonary pathology. Chest x-ray was independently reviewed. I agree radiologist interpretation. EKG independently reviewed confirms a paced rhythm Received aspirin 324 mg in emergency department ASA 81 mg p.o. daily SL NTG 0.4 mg prn as needed for chest pain We will check lipid panel. Statin: Start on Lipitor 20 mg nightly; adjusted for age. Troponin was negative. Serial cardiac enzymes Stat EKG as needed for chest pain In view of his very low ejection fraction will consult cardiology. Systolic heart failure with ICD in place Continue guideline directed medications. Diabetes mellitus With hyperglycemia on presentation A1c on presentation was 9.0 Lispro 4 units x 1. Basal insulin ordered. Accu-Chek QA [facility] with correction scale insulin. Hypertension Blood pressure is stable in regard to his age. CKD stage III Stable. Creatinine is within baseline CKD likely multifactorial from hypertensive nephrosclerosis; diabetic nephropathy and advanced age. Chronic A. fib INR is sub-therapeutic. Escalate dose of Coumadin x1. Daily INR. Dose Coumadin accordingly. DVT prophylaxis On Coumadin for A. fib. Will continue patient on Coumadin. OBSV E&M: [id number] Initial observation care L3
--- NOTE | 2019-11-16 03:51 | ED.RN ---
SEE DOWNTIME DOCUMENTATION FROM 0215 UNTIL NOW
--- NOTE | 2019-11-16 04:21 | EKG12_ITS ---
Test Reason : CHEST PAIN Blood Pressure : / mmHG Vent. Rate : 075 BPM Atrial Rate : 075 BPM P-R Int : 156 ms QRS Dur : 168 ms QT Int : 528 ms P-R-T Axes : 031 -69 100 degrees QTc Int : 589 ms Atrial-sensed ventricular-paced rhythm Biventricular pacemaker detected Abnormal ECG Confirmed by RAUL ESCOBEDO, IVAN ([id number]), video news editor ROWDY NOLASCO ([id number]) on 11/20/2019 11:27:25 AM Referred By: BERTO Confirmed By:DORIS CARTER MD
[2019-11-16] MEDS: Atorvastatin Calcium 20 MG Tablet PO (05:03)
[2019-11-16] MEDS: Insulin Lispro 100 UNIT/ML INSULN.PEN SC ×2 (05:04→06:58)
[2019-11-16 05:21] LABS: Bedside Glucose 255 mg/dL (70-110)
[2019-11-16 06:14] LABS: Cholesterol 149 mg/dL (200); High Density Lipoprotein 35 mg/dL; Triglycerides 174 mg/dL; Very Low Density Lipoprotein 35 mg/dL (5-40)
[2019-11-16 07:06] LABS: Bedside Glucose 173 mg/dL (70-110)
[2019-11-16] MEDS: Aspirin E.C. 81 MG Tablet PO (09:10)
--- NOTE | 2019-11-16 11:22 | DCINST_ITS ---
- Discharge Diagnoses Current Active Problems: Current Active and Chronic Problems (Last Reviewed 11/16/19 @ 07:[address] Jluis Tamez MD) Chest pain (Acute) You will use the following diet at home:: Calorie/Carbohydrate Controlled (specify 1200, 1400, etc) - 1800 smitha / day, Cardiac Your food should be the consistency of: Regular Your liquids should be the consistency of: Regular/Thin Discharge Activity: Return to Normal Activity Allergies/Adverse Reactions: Allergies amoxicillin [Amoxicillin] Allergy (Verified 09/27/19 08:06) Rash ciprofloxacin [From Cipro] Allergy (Verified 09/27/19 08:06) Rash ciprofloxacin HCl [From Cipro] Allergy (Verified 09/27/19 08:06) Rash Sulfa (Sulfonamide Antibiotics) Allergy (Verified 11/16/19 01:48) PT UNSURE OF REACTION Medications to take at Discharge dutasteride 0.5 mg capsule 0.5 mg PO DAILY cap 06/27/19 Hydroxychloroquine [Plaquenil] 200 mg PO DAILY 07/10/19 Prednisone 5 mg PO DAILY 07/10/19 Ensure Enlive 120 ml PO 4X/DAY #120 liquid 07/12/19 sacubitril 24 mg-valsartan 26 mg tablet 1 tab PO BID #180 tab 07/31/19 carvedilol 6.25 mg tablet 6.25 mg PO BID #180 tab 08/08/19 furosemide 40 mg tablet 40 mg PO BID #180 tab 08/08/19 warfarin 4 mg tablet 4 mg PO DAILY #90 tab 08/31/19 warfarin 1 mg tablet 1 mg PO SUMOSA #30 tab 09/06/19 dapagliflozin 10 mg tablet 5 mg PO DAILY #30 tab 09/07/19 mirtazapine 7.5 mg tablet 7.5 mg PO QHS #30 tab 09/07/19 warfarin 2 mg tablet 2 mg PO DAILY #90 tab 10/25/19 amiodarone 200 mg tablet 200 mg PO DAILY #30 tab 11/01/19 Primary Care Physician: Dwayne Valente DO [Primary Care Provider] - Please follow up with your Primary Care Physician in: 1-2 weeks Test Results: Test results from this visit will be discussed in further detail at your follow- up appointment, if applicable. Please Follow Up With: Chris Alvarez MD When: as directed
--- NOTE | 2019-11-16 11:49 | PCM.CONS.C ---
Problem List (1) Chest pain Status: Acute Reason for Consult Date of Consultation: 11/16/19 History of Present Illness: The patient is a 79 year old M with a significant history of systolic heart failure (Echo on 07/11/2019 showed EF of 10%); PAF; HTN and DM who presented to the ED with chest pain that started 2 hours prior to presentation. His chest pain started when he woke up at night to use the bathroom. The chest pain is sharp and it is episodic. Intensity of the pain is 7. A chest pain radiated to under his left breast. He denied any aggravating factors. Reportedly he received 4 baby aspirin that took his pain to 4-5 on a scale of 1-10. He denied any nausea vomiting or diaphoresis. He had some shortness of breath with his chest pain. Troponin has been negative. Pt. says he had a heart cath at [facility] and did not have significant stenoses. CP is non exertional and appears non cardiac by history. [] Past Medical History Allergies/Adverse Reactions: Allergies amoxicillin [Amoxicillin] Allergy (Verified 09/27/19 08:06) Rash ciprofloxacin [From Cipro] Allergy (Verified 09/27/19 08:06) Rash ciprofloxacin HCl [From Cipro] Allergy (Verified 09/27/19 08:06) Rash Sulfa (Sulfonamide Antibiotics) Allergy (Verified 11/16/19 01:48) PT UNSURE OF REACTION Home Medications: Ambulatory Orders Medication Instructions Recorded dutasteride 0.5 mg capsule 0.5 mg PO DAILY cap 06/27/19 Hydroxychloroquine [Plaquenil] 200 mg PO DAILY 07/10/19 Prednisone 5 mg PO DAILY 07/10/19 Ensure Enlive 120 ml PO 4X/DAY #120 liquid 07/12/19 sacubitril 24 mg-valsartan 26 mg 1 tab PO BID #180 tab 07/31/19 tablet furosemide 40 mg tablet 40 mg PO BID #180 tab 08/08/19 warfarin 4 mg tablet 4 mg PO DAILY #90 tab 08/31/19 warfarin 1 mg tablet 1 mg PO SUMOSA #30 tab 09/06/19 dapagliflozin 10 mg tablet 5 mg PO DAILY #30 tab 09/07/19 mirtazapine 7.5 mg tablet 7.5 mg PO QHS #30 tab 09/07/19 warfarin 2 mg tablet 2 mg PO DAILY #90 tab 10/25/19 Amiodarone HCl 200 mg PO DAILY 11/16/19 Carvedilol 6.25 mg PO BID 11/16/19 Past Medical History (Chronic Problems): Chronic Problems (Last Reviewed 11/16/19 @ 07:[address] 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 classification (Chronic) 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) ICD implant 12/26/09 Nonischemic cardiomyopathy (Chronic) Chronic systolic (congestive) heart failure (Chronic) Chronic atrial fibrillation (Chronic) Paroxysmal atrial flutter (Chronic) Essential (primary) hypertension (Chronic) Hyperlipidemia (Chronic) residential (current) use of anticoagulants (Chronic) CKD (chronic kidney disease), stage III (Chronic) Diabetes type 2, controlled (Chronic) Surgical History: TURP, - - Colectomy w/ fistula s/p diverticulitis, L arm surgery. Psychiatric History: Anxiety - *Family History Maternal Family History: Family History (Last Reviewed 11/16/19 @ 05:[address] Jluis Tamez MD) Father Sudden cardiac Brother Myocardial infarction CHF (congestive heart failure) Other Family history of coronary artery disease History Items: Heart Disease Paternal Family History: Family History (Last Reviewed 11/16/19 @ 05:[address] Jluis Tamez MD) Father Sudden cardiac Brother Myocardial infarction CHF (congestive heart failure) Other Family history of coronary artery disease History Items: Heart Disease Smoking Status: Former smoker Alcohol: None Objective: Vital Signs Temp Pulse Resp BP Pulse Ox 98.2 F 68 18 96/48 L 94 11/16/19 10:15 11/16/19 10:15 11/16/19 10:15 11/16/19 10:15 11/16/19 10:15 Oxygen Delivery Method Room Air Weight: 156 lb 4.924 oz Body Mass Index (BMI) 21.2 Intake and Output for Last 24 Hours 11/14/19 11/15/19 11/16/19 23:59 23:59 23:59 Intake Total 0 / 0 Output Total 0 / 0 Balance 0 / 0 General: Awake, Alert, Oriented x 3 HEENT: Atraumatic Oral: Moist Mucosa Neck: Supple Skin: No Rashes Psych/Mental Status: Appropriate 11/16/19 01:50: Total Bilirubin 0.90, Direct Bilirubin 0.11 11/16/19 01:50: WBC 4.3 L, RBC 4.65, Hgb 13.1, Hct 40.5, MCV 87.1, MCH 28.2, MCHC 32.3, Plt Count 104 L, MPV 10.1, Immature Gran % (Auto) 0.500, Neut % (Auto) 63.0, Lymph % (Auto) 26.3, [place] % (Auto) 7.7, Eos % (Auto) 1.6, Baso % (Auto) 0.9, Absolute Neuts (auto) 2.7, Nucleated RBC % 0 11/16/19 01:50: Sodium 136, Potassium 4.9, Chloride 105, Carbon Dioxide 22.0, Anion Gap 9, BUN 43 H, Creatinine 1.75 H, Est GFR (MDRD) Af Amer 49 L, Est GFR (MDRD) Non-Af 40 L, BUN/Creatinine Ratio 24.6 H, Glucose 315 H, Calcium 8.5, Troponin I < 0.015 11/16/19 01:50: PT 21.0 H, INR 1.8 11/16/19 02:50: Hemoglobin A1c 9.0 H 11/16/19 04:56: Troponin I < 0.015 11/16/19 04:56: Troponin I < 0.015, Triglycerides 174, Cholesterol 149, LDL Cholesterol 79, VLDL Cholesterol 35, HDL Cholesterol 35 L 11/16/19 10:48: Troponin I 0.020 Rhythm: EKG: ECHO: Stress Test: Cardiac Cath: PCI: CT Surgery: Holter monitor: EPS: PPM: CXR: Chest CT Scan: Assessment/Plan 1. Chest pain: Appears noncardiac. From a cardiac standpoint patient can be discharged home he can follow-up with his primary credit collections specialist Dr. Alvarez as an outpatient. 2. LV dysfunction: Patient has known LV systolic dysfunction. He is compensated from a cardiac failure standpoint. Continue present medications at this time.
[2019-11-16 11:56] LABS: Bedside Glucose 171 mg/dL (70-110)
--- NOTE | 2019-11-16 13:09 | DS.PCM_ITS ---
<Domingo Connell - Last Filed: 11/16/19 13:09> Discharge Date and Diagnosis - Problem List Patient Problems: Active and Suspected Problems (Last Reviewed 11/16/19 @ 07:[address] Jluis Tamez MD) Chest pain (Acute) Date of Admission: 11/16/19 Date of Discharge: 11/16/19 - Primary Discharge Diagnosis Active and Suspected Problems (Last Reviewed 11/16/19 @ 07:[address] Jluis Tamez MD) Chest pain (Acute)-musculoskeletal History of nonischemic cardiomyopathy, systolic congestive heart failure Type 2 diabetes Paroxysmal atrial fibrillation Pacemaker in place RA - Secondary Discharge Diagnosis Chronic Problems (Last Reviewed 11/16/19 @ 07:[address] 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 Pacemaker. No evidence for acute cardiopulmonary pathology. Consultation: Cardiology-[place]add Operations: None Procedures: None Summary of Care Provided: Hospital course: The patient is a 79 year old M with past medical history as above who presented to the emergency room with complaints of chest pain. This was described as 7 out of 10 aching pain under the left breast that was nonradiating. It woke him up in the middle of the night. He had mild shortness of breath, no nausea, no diaphoresis. The pain resolved on its own spontaneously. In the ER he had a negative EKG, negative troponin, chest x-ray showing chronic interstitial disease, pacemaker, no acute process. Patient was admitted to the PCU on telemetry with cardiology consult as he has a known ejection fraction of 10%. Troponin was negative x3, he had no events on telemetry, cardiology felt that his chest pain was noncardiac. He had no further chest pain after admission. Patient was discharged home in stable condition and will need to follow-up with his PCP in 1 to 2 weeks, he will need to follow-up with cardiology as directed. Patient had no changes to his medications at this time. This patient was seen by Domingo Connell PA-C under the supervision of Doctor Jose. [] Patient Problems: Active and Suspected Problems (Last Reviewed 11/16/19 @ 07:[address] Jluis Tamez MD) Chest pain (Acute) - Physical Exam Vitals/I&O's: Vital Signs Temp Pulse Resp BP Pulse Ox 98.2 F 68 18 96/48 L 94 11/16/19 10:15 11/16/19 10:15 11/16/19 10:15 11/16/19 10:15 11/16/19 10:15 Oxygen Delivery Method Room Air Weight: 156 lb 4.924 oz Body Mass Index (BMI) 21.2 Intake and Output for Last 24 Hours 11/14/19 11/15/19 11/16/19 23:59 23:59 23:59 Intake Total 0 / 0 Output Total 0 / 0 Balance 0 / 0 General: Alert, Oriented x3, Cooperative HEENT: Atraumatic, PERRLA, EOMI, Normocephalic Neck: Supple, No JVD, Negative Carotid Bruits Lungs: Clear to auscultation, Normal air movement Cardiovascular: Regular rate, No murmurs Abdomen: Bowel Sounds Present, Soft, Non Tender Extremities: No edema, Capillary Refill Less than 3 Seconds Skin: No rashes, No breakdown Musculoskeletal: No Tenderness to Palpation of Joints or Extremities Neurological: Cranial nerves II-XII grossly intact Psych/Mental Status: Normal Affect, Appropriate, Alert and oriented to time, place, person, mood and affect Laboratory Results 11/16/19 01:50: Total Bilirubin 0.90, Direct Bilirubin 0.11, AST 30, ALT 17, Alkaline Phosphatase 162 H, Total Protein 7.4, Albumin 3.3, Globulin 4.1 11/16/19 01:50: WBC 4.3 L, RBC 4.65, Hgb 13.1, Hct 40.5, MCV 87.1, MCH 28.2, MCHC 32.3, RDW Std Deviation 43.9, RDW Coeff of Cecilia 14.0, Plt Count 104 L, MPV 10.1, Immature Gran % (Auto) 0.500, Neut % (Auto) 63.0, Lymph % (Auto) 26.3, [place] % (Auto) 7.7, Eos % (Auto) 1.6, Baso % (Auto) 0.9, Absolute Neuts (auto) 2.7, Absolute Lymphs (auto) 1.13, Nucleated RBC % 0 11/16/19 01:50: Sodium 136, Potassium 4.9, Chloride 105, Carbon Dioxide 22.0, Anion Gap 9, BUN 43 H, Creatinine 1.75 H, Estim Creat Clear Calc 37.35, Est GFR (MDRD) Af Amer 49 L, Est GFR (MDRD) Non-Af 40 L, BUN/Creatinine Ratio 24.6 H, Gl ucose 315 H, Calcium 8.5, Troponin I < 0.015, Lipase 82 11/16/19 01:50: PT 21.0 H, INR 1.8 11/16/19 02:50: Hemoglobin A1c 9.0 H 11/16/19 04:56: Troponin I < 0.015 11/16/19 04:56: Troponin I < 0.015, Triglycerides 174, Cholesterol 149, LDL Cholesterol 79, VLDL Cholesterol 35, HDL Cholesterol 35 L 11/16/19 05:02: POC Glucose 255 H 11/16/19 06:54: POC Glucose 173 H 11/16/19 10:48: Troponin I 0.020 11/16/19 11:51: POC Glucose 171 H Current Medications Aspirin (Ecotrin) 81 mg PO DAILY@0800 [facility] Last Admin: 11/16/19 09:10 Dose: 81 mg Documented by: Atorvastatin Calcium (Lipitor) 20 mg PO QHS [facility] Last Admin: 11/16/19 05:03 Dose: 20 mg Documented by: Glucagon () 1 mg IM .X1 PRN PRN Reason: Hypoglycemia Sodium Chloride () 250 mls @ 15 mls/hr IV .[id number] PRN PRN Reason: Additional IVPB Infusion Dextrose (Dextrose 10%-Water) 250 mls @ 999 mls/hr IV .Q16M PRN; Protocol PRN Reason: HYPOGLYCEMIA Insulin Glargine (Lantus (Bkc)) 8 units SC DAILY [facility] Last Admin: 11/16/19 11:52 Dose: Not Given Documented by: Insulin Human Lispro (Humalog Kwikpen (Bkc)) 0 unit [place] [facility]; Protocol Last Admin: 11/16/19 11:53 Dose: Not Given Documented by: Nitroglycerin (Nitrostat) 0.4 mg SUBLINGUAL Q5M PRN PRN Reason: CARDIAC/CHEST PAIN Ondansetron HCl (Zofran) 4 mg IV Q8H PRN PRN PRN Reason: NAUSEA/VOMITING Sodium Chloride () 10 - 40 ml IV UD PRN PRN Reason: SALINE FLUSH Warfarin Sodium (Coumadin (Pbkc)) 7.5 mg PO X1 ONE Stop: 11/16/19 17:01 Discharge Diet: Low fat/ Low Cholesterol, 1800 Calorie Control Diet, 2000 mg Sodium Diet Discharge Activity: Return to Normal Activity Home Medications: Medications to take at Discharge dutasteride 0.5 mg capsule 0.5 mg PO DAILY cap 06/27/19 Hydroxychloroquine [Plaquenil] 200 mg PO DAILY 07/10/19 Prednisone 5 mg PO DAILY 07/10/19 Ensure Enlive 120 ml PO 4X/DAY #120 liquid 07/12/19 sacubitril 24 mg-valsartan 26 mg tablet 1 tab PO BID #180 tab 07/31/19 furosemide 40 mg tablet 40 mg PO BID #180 tab 08/08/19 warfarin 4 mg tablet 4 mg PO DAILY #90 tab 08/31/19 warfarin 1 mg tablet 1 mg PO SUMOSA #30 tab 09/06/19 dapagliflozin 10 mg tablet 5 mg PO DAILY #30 tab 09/07/19 mirtazapine 7.5 mg tablet 7.5 mg PO QHS #30 tab 09/07/19 warfarin 2 mg tablet 2 mg PO DAILY #90 tab 10/25/19 Amiodarone HCl 200 mg PO DAILY 11/16/19 Carvedilol 6.25 mg PO BID 11/16/19 Primary Care Physician: Dwayne Valente DO [Primary Care Provider] - Please follow up with your Primary Care Physician in: 1-2 weeks Please Follow Up With: Chris Alvarez MD When: as directed Disposition: Home Minutes spent on discharge:: 35 Patient Condition:: Stable Medical Necessity - Tobacco Use Smoking Status: Former smoker Meaningful Use Info Meaningful Use Diagnoses (Choose all that apply): None applicable <Ashelfah,Ghasem E - Last Filed: 11/16/19 13:35> Discharge Date and Diagnosis - Primary Discharge Diagnosis Active and Suspected Problems (Last Reviewed 11/16/19 @ 07:[address] Jluis Tamez MD) Chest pain (Acute) - Secondary Discharge Diagnosis Chronic Problems (Last Reviewed 11/16/19 @ 07:[address] 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 Patient was admitted for chest pain for evaluation. His EKG revealed no acute ischemic changes. Troponin was negative x3. Chest x-ray showed chronic findings, no acute findings. Cardiology consulted and recommended that this chest pain is noncardiac. Patient is known to have nonischemic cardiomyopathy with ejection fraction of 10% status post ICD. There was no evidence of acute CHF. After admission, chest pain resolved. Vital signs remained stable. Routine blood work was remarkable for creatinine of 1.75 which is chronic. Cardiology mentioned that there is no need for further cardiac testing. Patient discharged home in a stable medical condition, discharged on his previous home medication without any changes, recommended follow-up with PCP in 1 to 2 weeks and follow-up with cardiology according to the recommendation. - Physical Exam General: Alert, Oriented x3, Cooperative, No apparent distress. HEENT: Atraumatic, PERRLA, EOMI. Neck: Supple, No JVD, Negative Carotid Bruits, Trachea Midline, Thyroid Normal. Lungs: Clear to auscultation, Normal air movement, No rhonchi, No wheeze, No rales. Cardiovascular: Regular rate, Regular Rhythm, Normal S1, Normal S2, PMI Normal. Abdomen: Bowel Sounds Present, Soft, Non Tender, Non-Distended, No Hepato- splenomegaly. Extremities: No clubbing, No cyanosis, No edema Skin: No rashes, No breakdown Neurological: Neuro grossly intact Vital Signs are stable. This note was generated with [employer] dictation software. It may contain incorrect words, spelling, and punctuation that were not noted in checking the note before signing. - Physical Exam Vitals/I&O's: Vital Signs Temp Pulse Resp BP Pulse Ox 98.2 F 68 18 96/48 L 94 11/16/19 10:15 11/16/19 10:15 11/16/19 10:15 11/16/19 10:15 11/16/19 10:15 Oxygen Delivery Method Room Air Weight: 156 lb 4.924 oz Body Mass Index (BMI) 21.2 Intake and Output for Last 24 Hours 11/14/19 11/15/19 11/16/19 23:59 23:59 23:59 Intake Total 0 / 0 Output Total 0 / 0 Balance 0 / 0 Laboratory Results 11/16/19 01:50: Total Bilirubin 0.90, Direct Bilirubin 0.11, AST 30, ALT 17, Alkaline Phosphatase 162 H, Total Protein 7.4, Albumin 3.3, Globulin 4.1 11/16/19 01:50: WBC 4.3 L, RBC 4.65, Hgb 13.1, Hct 40.5, MCV 87.1, MCH 28.2, MCHC 32.3, RDW Std Deviation 43.9, RDW Coeff of Cecilia 14.0, Plt Count 104 L, MPV 10.1, Immature Gran % (Auto) 0.500, Neut % (Auto) 63.0, Lymph % (Auto) 26.3, [place] % (Auto) 7.7, Eos % (Auto) 1.6, Baso % (Auto) 0.9, Absolute Neuts (auto) 2.7, Absolute Lymphs (auto) 1.13, Nucleated RBC % 0 11/16/19 01:50: Sodium 136, Potassium 4.9, Chloride 105, Carbon Dioxide 22.0, Anion Gap 9, BUN 43 H, Creatinine 1.75 H, Estim Creat Clear Calc 37.35, Est GFR (MDRD) Af Amer 49 L, Est GFR (MDRD) Non-Af 40 L, BUN/Creatinine Ratio 24.6 H, Glucose 315 H, Calcium 8.5, Troponin I < 0.015, Lipase 82 11/16/19 01:50: PT 21.0 H, INR 1.8 11/16/19 02:50: Hemoglobin A1c 9.0 H 11/16/19 04:56: Troponin I < 0.015 11/16/19 04:56: Troponin I < 0.015, Triglycerides 174, Cholesterol 149, LDL Cholesterol 79, VLDL Cholesterol 35, HDL Cholesterol 35 L 11/16/19 05:02: POC Glucose 255 H 11/16/19 06:54: POC Glucose 173 H 11/16/19 10:48: Troponin I 0.020 11/16/19 11:51: POC Glucose 171 H Current Medications Aspirin (Ecotrin) 81 mg PO DAILY@0800 [facility] Last Admin: 11/16/19 09:10 Dose: 81 mg Documented by: Atorvastatin Calcium (Lipitor) 20 mg PO QHS [facility] Last Admin: 11/16/19 05:03 Dose: 20 mg Documented by: Glucagon () 1 mg IM .X1 PRN PRN Reason: Hypoglycemia Sodium Chloride () 250 mls @ 15 mls/hr IV .[id number] PRN PRN Reason: Additional IVPB Infusion Dextrose (Dextrose 10%-Water) 250 mls @ 999 mls/hr IV .Q16M PRN; Protocol PRN Reason: HYPOGLYCEMIA Insulin Glargine (Lantus (Bk)) 8 units SC DAILY [facility] Last Admin: 11/16/19 11:52 Dose: Not Given Documented by: Insulin Human Lispro (Humalog Kwikpen ([facility])) 0 unit SC ACHS [facility]; Protocol Last Admin: 11/16/19 11:53 Dose: Not Given Documented by: Nitroglycerin (Nitrostat) 0.4 mg SUBLINGUAL Q5M PRN PRN Reason: CARDIAC/CHEST PAIN Ondansetron HCl (Zofran) 4 mg IV Q8H PRN PRN PRN Reason: NAUSEA/VOMITING Sodium Chloride () 10 - 40 ml IV UD PRN PRN Reason: SALINE FLUSH Warfarin Sodium (Coumadin (Pbkc)) 7.5 mg PO X1 ONE Stop: 11/16/19 17:01 Disposition: Home Minutes spent on discharge:: 25 Meaningful Use Info Meaningful Use Diagnoses (Choose all that apply): None applicable OBSV E&M: 61373 Observation care discharge
--- NOTE | 2019-11-16 13:50 | PHA.DC.MR ---
Pharmacy Service has performed discharge medication reconciliation for this patient. No new medications issues at time of discharge review. Medications reviewed are from previously reported home medications. The patient's discharge medication list was reviewed for discrepancies and discrepancies were resolved. Home Medications dutasteride 0.5 mg capsule 0.5 mg PO DAILY cap 06/27/19 Hydroxychloroquine [Plaquenil] 200 mg PO DAILY 07/10/19 Prednisone 5 mg PO DAILY 07/10/19 Ensure Enlive 120 ml PO 4X/DAY #120 liquid 07/12/19 sacubitril 24 mg-valsartan 26 mg tablet 1 tab PO BID #180 tab 07/31/19 furosemide 40 mg tablet 40 mg PO BID #180 tab 08/08/19 dapagliflozin 10 mg tablet 5 mg PO DAILY #30 tab 09/07/19 mirtazapine 7.5 mg tablet 7.5 mg PO QHS #30 tab 09/07/19 Amiodarone HCl 200 mg PO DAILY 11/16/19 Carvedilol 6.25 mg PO BID 11/16/19 Warfarin [Coumadin (PBKC)] 4 mg PO DAILY 11/16/19 Warfarin [Coumadin] 2 mg PO MOWETHFR 11/16/19
== END 2019-11-16 11:23 | disposition home or self-care (01) ==
LOC: ED 02:43 → PCU 04:02
PROVIDERS: Admitting Provider Hospitalist; Emergency Provider Emergency Medicine; PCP Family Medicine; Visit Provider Hospitalist
DX: R07.89 Other chest pain (principal); E11.22 Type 2 diabetes mellitus with diabetic chronic kidney disease; I48.20 Chronic atrial fibrillation, unspecified; I13.0 Hypertensive heart and chronic kidney disease with heart failure and stage 1 through stage 4 chronic kidney disease, or unspecified chronic kidney disease; I50.22 Chronic systolic (congestive) heart failure; N18.3 Chronic kidney disease, stage 3 (moderate); E11.65 Type 2 diabetes mellitus with hyperglycemia; E78.5 Hyperlipidemia, unspecified; G47.33 Obstructive sleep apnea (adult) (pediatric); J96.11 Chronic respiratory failure with hypoxia; J44.9 Chronic obstructive pulmonary disease, unspecified; I48.0 Paroxysmal atrial fibrillation; I42.8 Other cardiomyopathies; I48.92 Unspecified atrial flutter; M06.9 Rheumatoid arthritis, unspecified; N40.0 Benign prostatic hyperplasia without lower urinary tract symptoms; Z87.891 Personal history of nicotine dependence; Z79.899 Other long term (current) drug therapy; Z79.01 Long term (current) use of anticoagulants; Z79.52 Long term (current) use of systemic steroids; Z95.810 Presence of automatic (implantable) cardiac defibrillator
CPT/HCPCS: 36415; 71045; 80048; 80061; 80076; 82962; 83036; 83690; 84484; 85025; 85610; 93005; 99218; 99285; A4216; G0378

== ENCOUNTER 2020-01-11 11:28 | Emergency (ER) | payer MEDICARE, OTHER, SELFPAY ==
[2019-12-13 10:58] VITALS: BMI 21.2
[2020-01-11 11:28] VITALS: BP 98/58; PULSE 71; RESP 18; TEMP 36.6; O2SAT 96; BMI 20.5
--- NOTE | 2020-01-11 11:51 | ED.VISSUMM ---
- ER Visit Summary Date of Service: 01/11/20 Chief Complaint: Esophageal food bolus History of Present Illness: The patient is a 79 M who presents with esophageal food bolus that occurred approximately 40 minutes prior to arrival. Patient states he was eating lunch when he felt something get stuck in his throat. Patient states he has been vomiting since this happened and has not been able to vomit any of the food. Patient states he is unable to swallow water. Patient admits to a sore throat that is worse with swallowing and with vomiting. Patient states it feels raw. Patient denies any chest pain. Patient denies any shortness of breath. Patient denies any recent fevers or chills. Physical Examination: Vital signs are stable. Patient is afebrile. Patient is in no acute distress. Oral mucosa is pink and moist. Neck is supple. Trachea is midline. There is no JVD noted. Heart was regular rate and rhythm. Lungs are clear and equal bilaterally. Abdomen is soft. Bowel sounds are normal. There is no tenderness. There is no rebound or guarding noted. Skin is warm dry. Cranial nerves II through XII are intact. There are no focal motor or sensory deficits noted. Extremities are intact. There is no calf tenderness or edema. Test Results: CBC was within normal limits. Basic metabolic profile shows slightly elevated creatinine of 2.61 and elevated BUN of 43. Portable chest x-ray was obtained. There are chronic changes but no acute cardiopulmonary process. This was interpreted by the radiologist and reviewed by myself. Emergency Department Course and Treatment: Patient was given IV glucagon here. Patient was given IV fluids. Patient was able to swallow water after the glucagon. Patient was given crackers and soda. Patient was able to drink a soda and eat the crackers without difficulty. Patient feels better and wants to go home. Patient was instructed to chew his food properly. Patient was instructed to follow-up with his primary care physician in 5 to 7 days. Patient understood and was agreeable with the plan. All questions were answered. Disposition: Discharge home Impression: Esophageal food bolus This note was generated with [employer] dictation software. It may contain incorrect words, spelling, and punctuation that were not noted in review of the chart prior to signing ED Disposition - Plan for ED Patient: Disposition: Home or Assisted Living Diagnosis: Food impaction of esophagus Instructions: ED Foreign Body Esophageal Rslv Referrals: Dwayne Valente DO [Primary Care Provider] - 5-7 Days
--- NOTE | 2020-01-11 11:55 | RAD_ITS ---
STUDY: X-RAY CHEST REASON FOR EXAM: Male, 79 years old. FEELS LIKE HE HAS PIECE OF BEEF STUCK IN THROAT TECHNIQUE: Single AP portable view of the chest. COMPARISON: Comparison is made with prior study dated November 16, 2019. FINDINGS: Stable mild increased interstitial markings in the right midlung and right lower lobe as well as in the left midlung suggestive of scarring. Since prior study, the previously seen left basilar atelectasis/infiltrate has cleared. There is no demonstrated pleural abnormality. The left-sided dual-chamber pacemaker is seen. Normal mediastinum and angel. Normal visualized pulmonary arteries. Normal visualized aortic arch and descending thoracic aorta. Normal visualized thoracic spine. Normal visualized ribs, clavicles, and shoulders. There is no demonstrated abnormality of the visualized soft tissue structures of the upper abdomen. RAD/Chest 1 View (Portable) IMPRESSION: The previously seen left basilar atelectasis/infiltrate has cleared. Residual mild linear scarring. Electronically Signed: Alexsander Gr, at 12:14 EDT , Service support ,
[2020-01-11] MEDS: Glucagon 1 MG/ML Syringe IV (12:18)
[2020-01-11 12:20] VITALS: BP 94/64; PULSE 71; RESP 18; O2SAT 99
[2020-01-11 12:31] LABS: Absolute Lymphocyte Count 1.01 X10^3/uL (0.83-4.51); Absolute Neutrophil Count 3.6 X10^3/uL (2.0-7.7); Basophil# 0.05 X10^3/uL; Eosinophil# 0.08 X10^3/uL; Eosinophils% 1.6 % (0-5); Hematocrit 40.2 % (40-54); Hemoglobin 12.6 g/dL (13.0-16.5); Lymphocyte # 1.01 X10^3/ul (4.0); Lymphocyte % 19.8 % (19-41); Mean Corp Hgb Conc 31.3 g/dL (32-36); Mean Corpuscular Hgb 27.2 pg (27.0-32.0); Mean Corpuscular Volume 86.8 fL (80-94); Mean Platelet Vol. 9.3 fl (6.2-12.0); Monocyte% 5.9 % (0-10); NRBC Flagged by Analyzer 0 % (0-5); Neutrophil # 3.63 X10^3/uL (2.7-7.7); Neutrophil % 70.9 % (47-70); Platelet Count 145 K/mm3 (150-450); RBC Distribution Width SD 44.2 fl (35.1-43.9); Red Blood Count 4.63 M/mm3 (4.6-6.2); White Blood Count 5.1 K/mm3 (4.4-11.0)
[2020-01-11 12:48] LABS: ALB/GLOB Ratio 0.8 RATIO (0.9-2.4); AST(SGOT) 14 U/L (15-37); Alanine Aminotransfer ALT/SGPT 17 U/L (16-61); Albumin, Serum 3.2 g/dL (3.2-5.0); Alkaline Phosphatase 87 U/L (45-117); Anion Gap 9 (5-15); BUN 43 mg/dL (7-18); BUN/Creat Ratio 16.5 RATIO (10-20); Calcium,Total 8.6 mg/dL (8.5-10.1); Chloride 106 mmol/L (98-107); Creatinine, Serum 2.61 mg/dL (0.70-1.30); EST Glomerular Filtration Rate 25 mL/min (>60); Est Glom Filt Rate - Afr Amer 31 mL/min (>60); Estimated Creatinine Clearance 22.96 ml/min; Globulin 3.8 g/dL (2.2-4.2); Glucose 174 mg/dL (74-106); Potassium 3.7 mmol/L (3.5-5.1); Sodium Level 141 mmol/L (136-145)
[2020-01-11 14:07] VITALS: BP 109/63; PULSE 69; RESP 18; O2SAT 100
--- NOTE | 2020-01-11 14:10 | ED.RN ---
called pt's daughter, Beverly at [phone], updated her on pt's progress.
[2020-01-11 14:17] VITALS: BP 133/90; PULSE 61; RESP 16; O2SAT 100
== END 2020-01-11 14:41 | disposition home or self-care (01) ==
PROVIDERS: Emergency Provider Emergency Medicine; PCP Family Medicine
DX: T18.128A Food in esophagus causing other injury, initial encounter (principal); X58.XXXA Exposure to other specified factors, initial encounter; Y93.89 Activity, other specified; Y92.9 Unspecified place or not applicable; I25.10 Atherosclerotic heart disease of native coronary artery without angina pectoris; I50.9 Heart failure, unspecified; E11.9 Type 2 diabetes mellitus without complications; M06.9 Rheumatoid arthritis, unspecified; Z79.01 Long term (current) use of anticoagulants
CPT/HCPCS: 71045; 80053; 85025; 96374; 99285; A4216; J1610

== ENCOUNTER → 2020-02-13 | Outpatient (CLI) | payer MEDICARE, OTHER, SELFPAY ==
[2020-02-09 10:43] VITALS: BMI 20.9
[2020-02-13 11:03] LABS: Protein, Urine (Random) 39.1 mg/dL (<11.9); Protein:Creat Ratio 620 mg/g CRE (0-200)
== END | disposition home or self-care (01) ==
LOC: LABSPEC 09:41
PROVIDERS: PCP Family Medicine; Referring Provider Internal Medicine Nephrology; Visit Provider Internal Medicine Nephrology
DX: E11.22 Type 2 diabetes mellitus with diabetic chronic kidney disease (principal); N18.3 Chronic kidney disease, stage 3 (moderate)
CPT/HCPCS: 82570; 84156

== ENCOUNTER 2020-02-16 09:21 | Outpatient (RCR) | payer MEDICARE, OTHER, SELFPAY ==
[2019-09-27 08:06] VITALS: BMI 21.6
[2020-02-01 10:20] LABS: Absolute Lymphocyte Count 1.14 X10^3/uL (0.83-4.51); Absolute Neutrophil Count 2.1 X10^3/uL (2.0-7.7); Basophil# 0.05 X10^3/uL; Basophil% 1.4 % (0-1); Eosinophil# 0.09 X10^3/uL; Eosinophils% 2.4 % (0-5); Hematocrit 39.6 % (40-54); Hemoglobin 12.2 g/dL (13.0-16.5); Lymphocyte # 1.14 X10^3/ul (4.0); Mean Corp Hgb Conc 30.8 g/dL (32-36); Mean Corpuscular Hgb 27.4 pg (27.0-32.0); Mean Corpuscular Volume 88.8 fL (80-94); Mean Platelet Vol. 10.4 fl (6.2-12.0); Monocyte% 8.2 % (0-10); NRBC Flagged by Analyzer 0 % (0-5); Neutrophil # 2.08 X10^3/uL (2.7-7.7); Neutrophil % 56.5 % (47-70); Platelet Count 113 K/mm3 (150-450); RBC Distribution Width CV 15.2 % (11.6-14.6); RBC Distribution Width SD 49.1 fl (35.1-43.9); Red Blood Count 4.46 M/mm3 (4.6-6.2); White Blood Count 3.7 K/mm3 (4.4-11.0)
[2020-02-01 10:40] LABS: Prothrombin Time (Protime)PT. 57.1 SECONDS (11.7-14.9)
[2020-02-01 10:44] LABS: International Normalized Ratio 6.5
[2020-02-01 10:47] LABS: ALB/GLOB Ratio 0.8 RATIO (0.9-2.4); AST(SGOT) 16 U/L (15-37); Alanine Aminotransfer ALT/SGPT 18 U/L (16-61); Albumin, Serum 3.3 g/dL (3.2-5.0); Alkaline Phosphatase 100 U/L (45-117); Anion Gap 7 (5-15); BUN 49 mg/dL (7-18); BUN/Creat Ratio 18.6 RATIO (10-20); Calcium,Total 8.6 mg/dL (8.5-10.1); Chloride 107 mmol/L (98-107); Creatinine, Serum 2.63 mg/dL (0.70-1.30); EST Glomerular Filtration Rate 25 mL/min (>60); Est Glom Filt Rate - Afr Amer 31 mL/min (>60); Glucose 133 mg/dL (74-106); Potassium 3.7 mmol/L (3.5-5.1); Protein, Total 7.3 g/dL (6.4-8.2); Sodium Level 141 mmol/L (136-145)
[2020-02-05 10:37] LABS: International Normalized Ratio 3.4; Prothrombin Time (Protime)PT. 33.6 SECONDS (11.7-14.9)
[2020-02-12 11:01] LABS: Hemoglobin 11.9 g/dL (13.0-16.5); Mean Corp Hgb Conc 30.5 g/dL (32-36); Mean Corpuscular Hgb 27.3 pg (27.0-32.0); Mean Corpuscular Volume 89.4 fL (80-94); Mean Platelet Vol. 9.8 fl (6.2-12.0); Platelet Count 107 K/mm3 (150-450); RBC Distribution Width CV 15.6 % (11.6-14.6); RBC Distribution Width SD 51.3 fl (35.1-43.9); Red Blood Count 4.36 M/mm3 (4.6-6.2); White Blood Count 4.7 K/mm3 (4.4-11.0)
[2020-02-12 11:09] LABS: Prothrombin Time (Protime)PT. 47.2 SECONDS (11.7-14.9)
[2020-02-12 11:14] LABS: International Normalized Ratio 5.1
[2020-02-12 11:27] LABS: Albumin, Serum 3.4 g/dL (3.2-5.0); BUN 50 mg/dL (7-18); BUN/Creat Ratio 18.5 RATIO (10-20); Calcium,Total 8.6 mg/dL (8.5-10.1); Chloride 105 mmol/L (98-107); EST Glomerular Filtration Rate 25 mL/min (>60); Est Glom Filt Rate - Afr Amer 30 mL/min (>60); Glucose 169 mg/dL (74-106); Phosphorus 3.6 mg/dL (2.5-4.9); Potassium 3.6 mmol/L (3.5-5.1); Sodium Level 138 mmol/L (136-145)
[2020-02-12 11:28] LABS: PTHIN 265.1 pg/mL (18.4-80.1)
[2020-02-16 10:47] LABS: International Normalized Ratio 3.4; Prothrombin Time (Protime)PT. 33.9 SECONDS (11.7-14.9)
== END 2020-02-16 18:00 | disposition home or self-care (01) ==
LOC: LAB 09:21
PROVIDERS: Internal Medicine Nephrology; Family Provider Family Medicine; PCP Family Medicine; Referring Provider Internal Medicine Cardiovascular Disease; Visit Provider Internal Medicine Cardiovascular Disease
DX: E11.22 Type 2 diabetes mellitus with diabetic chronic kidney disease (principal); N18.3 Chronic kidney disease, stage 3 (moderate); E55.9 Vitamin D deficiency, unspecified; Z79.01 Long term (current) use of anticoagulants
CPT/HCPCS: 36415; 80053; 80069; 82570; 83970; 84156; 85025; 85027; 85610

== ENCOUNTER → 2020-02-28 07:39 | Outpatient (CLI) | payer MEDICARE, OTHER, SELFPAY ==
[2020-02-27 10:08] VITALS: BMI 20.9
--- NOTE | 2020-02-28 07:41 | RAD_ITS ---
STUDY: X-RAY - THORACIC SPINE REASON FOR EXAM: Male, 79 years old. MID BACK PAIN AROUND ANTERIOR TECHNIQUE: 3 view(s) of the thoracic spine were obtained. COMPARISON: None. FINDINGS: Normal kyphosis of the thoracic spine. There is no substantial scoliosis. Diffuse spondylosis. The soft tissue structures are unremarkable. Defibrillator on the left. RAD/Thoracic Spine 3 Views IMPRESSION: Diffuse spondylosis with normal alignment. No compression deformities are seen. Electronically Signed: Cyril Romero MD at 16:50 EDT Tel , Service support ,
== END ==
PROVIDERS: PCP Family Medicine; Referring Provider Family Medicine; Visit Provider Family Medicine
DX: M47.814 Spondylosis without myelopathy or radiculopathy, thoracic region (principal)
CPT/HCPCS: 72072

== ENCOUNTER 2020-03-04 15:18 | Outpatient (RCR) | payer MEDICARE, OTHER, SELFPAY ==
[2020-02-27 10:08] VITALS: BMI 20.9
[2020-03-04 15:58] LABS: Prothrombin Time (Protime)PT. 37.3 SECONDS (11.7-14.9)
[2020-03-04 16:06] LABS: International Normalized Ratio 3.8
[2020-03-04 16:07] LABS: Albumin, Serum 3.4 g/dL (3.2-5.0); BUN 36 mg/dL (7-18); Calcium,Total 8.4 mg/dL (8.5-10.1); Chloride 108 mmol/L (98-107); Creatinine, Serum 3.28 mg/dL (0.70-1.30); EST Glomerular Filtration Rate 20 mL/min (>60); Est Glom Filt Rate - Afr Amer 24 mL/min (>60); Glucose 180 mg/dL (74-106); Phosphorus 3.3 mg/dL (2.5-4.9); Sodium Level 141 mmol/L (136-145)
== END 2020-03-04 18:00 | disposition home or self-care (01) ==
LOC: LAB 15:18
PROVIDERS: Family Provider Family Medicine; PCP Family Medicine; Referring Provider Internal Medicine Cardiovascular Disease; Visit Provider Internal Medicine Cardiovascular Disease
DX: Z79.01 Long term (current) use of anticoagulants (principal)
CPT/HCPCS: 36415; 80069; 85610

== ENCOUNTER → 2020-03-04 15:29 | Outpatient (CLI) | payer MEDICARE, OTHER, SELFPAY ==
[2020-02-27 10:08] VITALS: BMI 20.9
--- NOTE | 2020-03-04 15:32 | US_ITS ---
STUDY: RENAL ULTRASOUND - COMPLETE REASON FOR EXAM: Male, 79 years old. Acute kidney failure. TECHNIQUE: Ultrasound evaluation of the kidneys was performed with real-time and static bergman-scale imaging. COMPARISON: CT of the abdomen and pelvis, March 23, 2019 FINDINGS: RIGHT KIDNEY: Normal location of the right kidney, which is normal in size. The right kidney measures 9.3 cm. There is increased renal cortical echogenicity with cortical thinning. The renal cortex measures 0.7 cm. There is no right renal mass or cyst. There are no right renal calculi. There is no right hydronephrosis. DISTAL RIGHT URETER: There is non-visualization of the distal right ureter. There is no demonstrated right ureterovesical junction calculus. There is a visualized right ureteral jet. LEFT KIDNEY: Normal location of the left kidney, which is normal in size. The left kidney measures 9.0 cm. There is increased renal cortical echogenicity with cortical thinning. The renal cortex measures 0.8 cm. There is a 1.8 x 2.0 x 2.3 cm lower pole cyst. There are no left renal calculi. There is no left hydronephrosis. DISTAL LEFT URETER: There is non-visualization of the distal left ureter. There is no demonstrated left ureterovesical junction calculus. There is a visualized left ureteral jet.. BLADDER: The distended urinary bladder has a volume of 255 ml. The empty urinary bladder has a volume of 169 ml. There is a normal wall thickness of the distended urinary bladder. There is no demonstrated mass within the urinary bladder. There are no demonstrated bladder calculi. Processes enlarged measuring 4.8 x 5.2 x 5.1 cm and is heterogenous. An incidental finding is a large renal cyst adjacent to the hepatorenal fossa. US/Kidney and Bladder IMPRESSION: 1. Cortical thinning and increased renal cortical echogenicity of the bilateral kidneys consistent with medical renal disease. 2. Left lower pole renal cyst. 3. Large hepatic cyst adjacent to the hepatorenal fossa. 4. Enlarged prostate. 5. Large post void urinary bladder residual. Electronically Signed: Yusef Stanley DO at 23:57 EDT Tel [phone], Service support ,
== END ==
PROVIDERS: PCP Family Medicine; Referring Provider Internal Medicine Nephrology; Visit Provider Internal Medicine Nephrology
DX: M17.9 Osteoarthritis of knee, unspecified (principal); Z79.01 Long term (current) use of anticoagulants
CPT/HCPCS: 36415; 76770; 80069; 85610

== ENCOUNTER 2020-03-14 13:35 | Inpatient (IN) | payer MEDICARE, OTHER, SELFPAY ==
[2020-02-27 10:08] VITALS: BMI 20.9
[2020-03-14] VITALS (10 sets, daily range): BP systolic 120–137; BP diastolic 63–90; PULSE 59–78; RESP 14–18; TEMP 36.6–37; O2SAT 97–100; BMI 20.2; BMI 20.3
--- NOTE | 2020-03-14 14:03 | CT_ITS ---
STUDY: CT ABDOMEN AND PELVIS WITHOUT CONTRAST REASON FOR EXAM: Male, 79 years old. 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 Sagittal and coronal images were reconstructed. Individualized dose optimization techniques were used for this CT. COMPARISON: Comparison is made with prior study dated March 23, 2019. FINDINGS: Increased interstitial markings at the lung bases included with interstitial fibrosis. Calcified right infrahilar lymph node. Coronary calcifications. Dual chamber pacemaker is seen. There is a 6.1 cm x 7.2 cm cyst in the inferior edge of the right lobe of the liver. Normal gallbladder and extrahepatic biliary system. There is a benign calcified granuloma of the spleen. Mild splenomegaly. Normal pancreas. Normal bilateral adrenal glands. Normal right kidney. There is a 5.3 mm nonobstructive calculus in the lower pole of the left kidney. Normal visualized stomach. Normal small intestine. Normal colon. The appendix is visualized and appears normal. There is diffuse atherosclerotic calcification of the abdominal aorta and the major visceral branches, without a demonstrated aneurysm. Normal inferior vena cava. Normal retroperitoneum. Diffuse bladder wall thickening although the bladder is not completely distended. There is enlargement of the prostate gland. It measures 5.27 x 5.2 sinus. This causes indentation of the bladder base. There is evidence of a 5 cm x 2.8 cm x 4.5 cm left rectus sheath hematoma. There are mild degenerative changes of the visualized lumbar spine. CT/Abdomen/Pelvis without Cont IMPRESSION: Left rectus sheath hematoma. 5.3 mm nonobstructive calculus in the lower pole of the left kidney. 6.1 cm x 7.2 cm cyst in the inferior edge of the right lobe of the liver. Mild splenomegaly. Electronically Signed: Alexsander Gr, at 14:54 EDT , Service support ,
--- NOTE | 2020-03-14 14:20 | ED.VIS.GI ---
History of Present Illness Chief Complaint: Diarrhea Narrative: Patient presenting for evaluation secondary to diarrhea. Patient reports that since the weekend he has been having frequent diarrhea. His daughter states that it has been increasing in frequency, and is loose and watery. It is nonbloody or mucousy. It has not been associated with any sort of fevers nausea or vomiting. Patient reports a prior to arrival he developed some left upper quadrant abdominal pain. This is worse with palpation. Patient denies any recent hospital admissions, antibiotic exposure, recent travel or surgery. Patient did have some recent titrations of medications due to chronic kidney disease and heart disease with congestive heart failure. Review of systems otherwise negative. Past Medical History - Allergies and Home Meds Allergies/Adverse Reactions: Allergies amoxicillin [Amoxicillin] Allergy (Verified 03/14/20 13:39) Rash ciprofloxacin [From Cipro] Allergy (Verified 03/14/20 13:39) Rash ciprofloxacin HCl [From Cipro] Allergy (Verified 03/14/20 13:39) Rash Sulfa (Sulfonamide Antibiotics) Allergy (Verified 03/14/20 13:39) PT UNSURE OF REACTION Primary Care Physician: Dwayne Valente DO [Primary Care Provider] - Prior records reviewed: Yes Past Medical History: - - Chronic kidney disease, cardiomyopathy, atrial fibrillation, COPD Surgical History: TURP, - - Colectomy w/ fistula s/p diverticulitis, L arm surgery. Lives: With Family Smoking Status: Former smoker Alcohol: None Drugs: None - Family History Maternal Family History: Family History (Last Reviewed 02/27/20 @ 10:[address] Dwayne Valente DO) Father Sudden cardiac Brother Myocardial infarction CHF (congestive heart failure) Other Family history of coronary artery disease Family History: Reports: Heart Disease Paternal Family History: Family History (Last Reviewed 02/27/20 @ 10:[address] Dwayne Valente DO) Father Sudden cardiac Brother Myocardial infarction CHF (congestive heart failure) Other Family history of coronary artery disease Family History: Reports: Heart Disease Review of Systems All systems negative except as indicated General: Denies: Chills, Fever, Sweats Eyes: Denies: Visual changes - bilaterally, Diplopia ENT: Denies: Rhinorrhea, Sore throat Cardiovascular: Denies: Chest pain, Palpitations Respiratory: Denies: Dyspnea, Cough, Dyspnea on exertion Gastrointestinal: Reports: Abdominal pain, Diarrhea Genitourinary: Denies: Dysuria, Hematuria, Frequency Musculoskeletal: Denies: Back pain, Extremity Pain Skin: Denies: Rash, Wounds Neurological: Denies: Headache, Weakness, Numbness Physical Exam Vital Signs/Narrative: Vital Signs Temp Pulse Resp BP Pulse Ox 03/14/20 13:36 98 F 64 18 120/65 98 Inital Vital Signs reviewed: Yes General: Well developed, - - Thin male who appears older than stated age Head: Normocephalic, Atraumatic Eyes: Perrl, EOMI ENT: Moist mucous membranes, No rhinorrhea Neck: Supple, Nontender Cardiovascular: Regular rate, Regular rhythm, No murmurs Respiratory: No distress, CTA bilaterally, Chest nontender Abdomen: Tender - Left upper and left lower quadrant with some guarding on deep palpation, no evidence of diffuse rigidity Back: Nontender, Normal Inspection Extremities: Nontender, No edema Skin: Normal color, No rash Neurological: Alert, Oriented x3, Cranial nerves II-XII grossly intact, Normal Strength, Normal Sensation Psychological: Normal affect, Normal Mood Diagnostic/Tx/Re-eval Clinical Impression(s) from Imaging Studies Abdomen/Pelvis CT 03/14/20 14:03 IMPRESSION: Left rectus sheath hematoma. 5.3 mm nonobstructive calculus in the lower pole of the left kidney. 6.1 cm x 7.2 cm cyst in the inferior edge of the right lobe of the liver. Mild splenomegaly. Electronically Signed: Alexsander Maile, at 14:54 EDT , Service support , Laboratory Data 03/14/20 03/14/20 03/14/20 14:10 14:20 14:20 WBC 4.2 L RBC 4.08 L Hgb 11.5 L Hct 36.4 L MCV 89.2 MCH 28.2 MCHC 31.6 L RDW Std Deviation 47.8 H RDW Coeff of Cecilia 14.7 H Plt Count 99 L MPV 10.1 Immature Gran % (Auto) 0.500 Neut % (Auto) 70.5 H Lymph % (Auto) 16.1 L [place] % (Auto) 11.0 H Eos % (Auto) 1.7 Baso % (Auto) 0.2 Absolute Neuts (auto) 2.9 Absolute Lymphs (auto) 0.67 L Nucleated RBC % 0 Platelet Estimate MOD DEC PT 49.5 H INR 5.4 H* Sodium 142 Potassium 3.9 Chloride 112 H Carbon Dioxide 22.0 Anion Gap 8 BUN 28 H Creatinine 2.93 H Estim Creat Clear Calc 20.18 Est GFR (MDRD) Af Amer 27 L Est GFR (MDRD) Non-Af 22 L BUN/Creatinine Ratio 9.6 L Glucose 135 H Lactic Acid Calcium 8.7 Total Bilirubin 1.00 AST 22 ALT 14 L Alkaline Phosphatase 75 Total Protein 6.9 Albumin 3.1 L Globulin 3.8 Albumin/Globulin Ratio 0.8 L Lipase 14 L 03/14/20 14:20 WBC RBC Hgb Hct MCV MCH MCHC RDW Std Deviation RDW Coeff of Cecilia Plt Count MPV Immature Gran % (Auto) Neut % (Auto) Lymph % (Auto) [place] % (Auto) Eos % (Auto) Baso % (Auto) Absolute Neuts (auto) Absolute Lymphs (auto) Nucleated RBC % Platelet Estimate PT INR Sodium Potassium Chloride Carbon Dioxide Anion Gap BUN Creatinine Estim Creat Clear Calc Est GFR (MDRD) Af Amer Est GFR (MDRD) Non-Af BUN/Creatinine Ratio Glucose Lactic Acid 1.7 Calcium Total Bilirubin AST ALT Alkaline Phosphatase Total Protein Albumin Globulin Albumin/Globulin Ratio Lipase - Medical Decision Making Patient presented secondary to abdominal pain and diarrhea. Patient had some left lower quadrant abdominal pain and left upper quadrant abdominal pain, work-up was obtained. IV was established laboratory studies were obtained as well. CT abdomen and pelvis that the patient shows that he has a rectus sheath hematoma. Patient's INR was found to be supratherapeutic at 5.4. This is concerning for the possibility of spread, patient was given vitamin K for reversal. Hemoglobin was stable at 11.5. Chemistry shows the patient's chronic kidney disease with a creatinine of 2.9 which is actually down from his prior creatinine which was in the threes. Patient at this time is not unstable, but due to his supratherapeutic INR and rectus sheath hematoma I do believe that he requires admission. Patient will be admitted under the hospitalist. ED Disposition - Plan for ED Patient: Disposition: Acute Care Hospital [facility] Diagnosis: Supratherapeutic INR, Rectus sheath hematoma
[2020-03-14] MEDS: 0.9% Normal Saline 1,000 ML 1000 ML IV (14:26)
[2020-03-14 14:45] LABS: Absolute Lymphocyte Count 0.67 X10^3/uL (0.83-4.51); Absolute Neutrophil Count 2.9 X10^3/uL (2.0-7.7); Basophil# 0.01 X10^3/uL; Basophil% 0.2 % (0-1); Eosinophil# 0.07 X10^3/uL; Eosinophils% 1.7 % (0-5); Hematocrit 36.4 % (40-54); Hemoglobin 11.5 g/dL (13.0-16.5); Lymphocyte # 0.67 X10^3/ul (4.0); Lymphocyte % 16.1 % (19-41); Mean Corp Hgb Conc 31.6 g/dL (32-36); Mean Corpuscular Hgb 28.2 pg (27.0-32.0); Mean Corpuscular Volume 89.2 fL (80-94); Mean Platelet Vol. 10.1 fl (6.2-12.0); Monocyte# 0.46 X10^3/uL; NRBC Flagged by Analyzer 0 % (0-5); Neutrophil # 2.94 X10^3/uL (2.7-7.7); Neutrophil % 70.5 % (47-70); POSITIVE COUNT YES; Platelet Count 99 K/mm3 (150-450); RBC Distribution Width CV 14.7 % (11.6-14.6); RBC Distribution Width SD 47.8 fl (35.1-43.9); Red Blood Count 4.08 M/mm3 (4.6-6.2); White Blood Count 4.2 K/mm3 (4.4-11.0)
[2020-03-14 14:46] LABS: Differential Indicated SCAN CRITERIA MET
[2020-03-14 14:53] LABS: ALB/GLOB Ratio 0.8 RATIO (0.9-2.4); AST(SGOT) 22 U/L (15-37); Alanine Aminotransfer ALT/SGPT 14 U/L (16-61); Albumin, Serum 3.1 g/dL (3.2-5.0); Alkaline Phosphatase 75 U/L (45-117); Anion Gap 8 (5-15); BUN 28 mg/dL (7-18); BUN/Creat Ratio 9.6 RATIO (10-20); Calcium,Total 8.7 mg/dL (8.5-10.1); Chloride 112 mmol/L (98-107); Creatinine, Serum 2.93 mg/dL (0.70-1.30); EST Glomerular Filtration Rate 22 mL/min (>60); Est Glom Filt Rate - Afr Amer 27 mL/min (>60); Estimated Creatinine Clearance 20.18 ml/min; Globulin 3.8 g/dL (2.2-4.2); Glucose 135 mg/dL (74-106); Lipase 14 U/L (73-393); Potassium 3.9 mmol/L (3.5-5.1); Protein, Total 6.9 g/dL (6.4-8.2); Sodium Level 142 mmol/L (136-145)
[2020-03-14 15:14] LABS: Platelet Estimate MOD DEC (ADEQ)
[2020-03-14 15:17] LABS: Lactic Acid 1.7 mmol/L (0.4-1.9)
[2020-03-14 16:19] LABS: Prothrombin Time (Protime)PT. 49.5 SECONDS (11.7-14.9)
[2020-03-14 16:38] LABS: International Normalized Ratio 5.4
--- NOTE | 2020-03-14 17:25 | HP.PCM_ITS ---
<Wendy Duran - Last Filed: 03/14/20 17:47> Problem List (1) Supratherapeutic INR Status: Acute (2) Rectus sheath hematoma Status: Acute (3) CKD (chronic kidney disease), stage IV Status: Chronic (4) JESSICA (obstructive sleep apnea) Status: Chronic (5) Chronic respiratory failure with hypoxia Status: Chronic (6) Stage 4 very severe COPD by GOLD classification Status: Chronic (7) SOB (shortness of breath) Status: Acute (8) Biventricular ICD (implantable cardioverter-defibrillator) in place Status: Chronic Comment: ICD implant 12/26/09 (9) Nonischemic cardiomyopathy Status: Chronic (10) Chronic systolic (congestive) heart failure Status: Chronic (11) Chronic atrial fibrillation Status: Chronic (12) Paroxysmal atrial flutter Status: Chronic (13) Essential (primary) hypertension Status: Chronic (14) Hyperlipidemia Status: Chronic Qualifiers: Hyperlipidemia type: pure hypercholesterolemia Qualified Code(s): E78.00 - Pure hypercholesterolemia, unspecified; E78.0 - Pure hypercholesterolemia (15) senior care (current) use of anticoagulants Status: Chronic (16) Diabetes type 2, controlled Status: Chronic Qualifiers: Diabetes mellitus intermediate designer insulin use: without intermediate designer use Diabetes mellitus complication status: with kidney complications History of Present Illness Date of Admission: 03/14/20 Chief Complaint: Diarrhea, abdominal pain. The patient is a 79 year old M who presents to the emergency room due to diarrhea which began Wednesday. Patient denies blood in stool or black stools. Denies nausea, vomiting. He reports 5-6 watery stools per day. He denies fever, chills. Denies recent antibiotic use. Patient states today he developed left-sided abdominal pain more so on the left upper abdominal area. Patient states he had his INR checked a week ago and it was normal. He has a past medical history of chronic kidney disease stage IV, chronic atrial fibrillation on anticoagulation with Coumadin, hypertension, hyperlipidemia, type 2 diabetes mellitus, chronic systolic CHF/nonischemic cardiomyopathy status post ICD placement, chronic hypoxic respiratory failure secondary to stage IV severe COPD, JESSICA. Past Medical History Past Medical History (Chronic Problems): Chronic Problems (Last Reviewed 02/27/20 @ 10:[address] Dwayne Valente, DO) CKD (chronic kidney disease), stage IV (Chronic) JESSICA (obstructive sleep apnea) (Chronic) Chronic respiratory failure with hypoxia (Chronic) Stage 4 very severe COPD by GOLD classification (Chronic) 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) ICD implant 12/26/09 Nonischemic cardiomyopathy (Chronic) Chronic systolic (congestive) heart failure (Chronic) Chronic atrial fibrillation (Chronic) Paroxysmal atrial flutter (Chronic) Essential (primary) hypertension (Chronic) Hyperlipidemia (Chronic) intermediate designer (current) use of anticoagulants (Chronic) Diabetes type 2, controlled (Chronic) Medical History: Medical History (Last Reviewed 02/27/20 @ 10:[address] Dwayne Valente, DO) Nonischemic cardiomyopathy (Chronic) I42.8 Chronic systolic (congestive) heart failure (Chronic) I50.22 Chronic atrial fibrillation (Chronic) I48.2 Paroxysmal atrial flutter (Chronic) I48.92 Essential (primary) hypertension (Chronic) I10 Hyperlipidemia (Chronic) E78.5 CKD (chronic kidney disease), stage III (Chronic) N18.3 Diabetes type 2, controlled (Chronic) E11.9 Arthritis M19.90 BPH (benign prostatic hyperplasia) COPD (chronic obstructive pulmonary disease) J44.9 DM2 (diabetes mellitus, type 2) E11.9 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 Hearing loss H91.90 Rheumatoid arthritis M06.9 History of pneumonia Z87.01 Dizziness and giddiness (Inactive) R42 Dyspnea (Inactive) R06.00 Allergies amoxicillin [Amoxicillin] Allergy (Verified 03/14/20 13:39) Rash ciprofloxacin [From Cipro] Allergy (Verified 03/14/20 13:39) Rash ciprofloxacin HCl [From Cipro] Allergy (Verified 03/14/20 13:39) Rash Sulfa (Sulfonamide Antibiotics) Allergy (Verified 03/14/20 13:39) PT UNSURE OF REACTION Home Medications: Ambulatory Orders Medication Instructions Recorded Hydroxychloroquine [Plaquenil] 200 mg PO DAILY 07/10/19 Amiodarone HCl 200 mg PO DAILY 11/16/19 Carvedilol 6.25 mg PO BID 11/16/19 Warfarin [Coumadin] 2 mg PO MOFRSA 11/16/19 mirtazapine 7.5 mg tablet 7.5 mg PO QHS #30 tab 01/09/20 dapagliflozin 10 mg tablet 5 mg PO DAILY #30 tab 02/27/20 Calcitriol 0.25 mcg PO DAILY 03/14/20 Dutasteride [Avodart] 0.5 mg PO DAILY 03/14/20 Furosemide 40 mg PO DAILY 03/14/20 Tamsulosin HCl 0.4 mg PO DAILY 03/14/20 Warfarin Sodium 4 mg PO SUTUWETH 03/14/20 Surgical History: Surgical History (Last Reviewed 02/27/20 @ 10:[address] Dwayne Valente DO) 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) Z95.810 ICD implant 12/26/09 History of left heart catheterization Onset Date: 11/25/09 Z98.890 Hx of lithotripsy Z98.890 Normal colonoscopy Surgical History: TURP, - - Colectomy w/ fistula s/p diverticulitis, L arm surgery, ICD placement. Psychiatric History: Anxiety Lives: With Family Smoking Status: Former smoker Alcohol: None Drugs: None - *Family History Maternal Family History: Family History (Last Reviewed 02/27/20 @ 10:[address] Dwayne Valente DO) Father Sudden cardiac Brother Myocardial infarction CHF (congestive heart failure) Other Family history of coronary artery disease History Items: Heart Disease Paternal Family History: Family History (Last Reviewed 02/27/20 @ 10:[address] Dwayne Valente DO) Father Sudden cardiac Brother Myocardial infarction CHF (congestive heart failure) Other Family history of coronary artery disease History Items: Heart Disease Review of Systems Constitutional: Denies: Chills, Fever, Weight Change HEENT: Denies: Head Aches, Sinus Congestion, Sinus Drainage Cardiovascular: Denies: Chest Pain, Palpitations Respiratory: Denies: Cough, Shortness of breath at rest, Sputum production Gastrointestinal: Reports: Abdominal Pain, Diarrhea. Denies: Hematemesis, Hematochezia, Nausea, Melena, Vomiting Genitourinary: Denies: Dysuria Musculoskeletal: Denies: Joint Pain, Joint Tenderness Skin: Denies: Rash, Wounds Neurological: Denies: Numbness, Tingling, Focal weakness Psychiatric: Denies: Anxiety, Depression, Homicidal Ideations, Suicidal Ideations Hematologic/ Lymphatic: Denies: Easy Bruising, Easy Bleeding VTE Information - Inpt Only VTE Present on Admission: No VTE Mechan Device Prophylaxis: SCD's VTE Pharm Prophylaxis ordered?: No Reason prophylaxis not ordered:: Medical Contraindication Patient Problems: Active and Suspected Problems (Last Reviewed 02/27/20 @ 10:[address] Dwayne Valente, DO) Supratherapeutic INR (Acute) Rectus sheath hematoma (Acute) - Physical Exam Vitals/I&O's: Vital Signs Temp Pulse Resp BP Pulse Ox 98.0 F 60 18 136/90 H 99 03/14/20 17:05 03/14/20 17:05 03/14/20 17:05 03/14/20 17:05 03/14/20 17:05 Oxygen Delivery Method Room Air Weight: 149 lb Body Mass Index (BMI) 20.2 General: Alert, Oriented x3, Cooperative, - - Appears uncomfortable HEENT: Atraumatic, PERRLA, EOMI, Normocephalic Neck: Supple, No JVD, Negative Carotid Bruits Lungs: Clear to auscultation, Diminished Cardiovascular: Regular rate, No murmurs Abdomen: Bowel Sounds Present, Soft, Non-Distended, - - Tender left upper quadrant Extremities: No clubbing, No cyanosis, No edema, Capillary Refill Less than 3 Seconds Skin: No rashes, No breakdown Musculoskeletal: No Tenderness to Palpation of Joints or Extremities Neurological: Cranial nerves II-XII grossly intact, Neuro grossly intact Psych/Mental Status: Normal Affect, Appropriate Laboratory Results 03/14/20 14:10: PT 49.5 H, INR 5.4 H* 03/14/20 14:20: WBC 4.2 L, RBC 4.08 L, Hgb 11.5 L, Hct 36.4 L, MCV 89.2, MCH 28.2, MCHC 31.6 L, RDW Std Deviation 47.8 H, RDW Coeff of Cecilia 14.7 H, Plt Count 99 L, MPV 10.1, Immature Gran % (Auto) 0.500, Neut % (Auto) 70.5 H, Lymph % (Auto) 16.1 L, [place] % (Auto) 11.0 H, Eos % (Auto) 1.7, Baso % (Auto) 0.2, Absolute Neuts (auto) 2.9, Absolute Lymphs (auto) 0.67 L, Nucleated RBC % 0, Platelet Estimate MOD 03/14/20 14:20: Sodium 142, Potassium 3.9, Chloride 112 H, Carbon Dioxide 22.0, Anion Gap 8, BUN 28 H, Creatinine 2.93 H, Estim Creat Clear Calc 20.18, Est GFR (MDRD) Af Amer 27 L, Est GFR (MDRD) Non-Af 22 L, BUN/Creatinine Ratio 9.6 L, Glucose 135 H, Calcium 8.7, Total Bilirubin 1.00, AST 22, ALT 14 L, Alkaline Phosphatase 75, Total Protein 6.9, Albumin 3.1 L, Globulin 3.8, Albumin/Globulin Ratio 0.8 L, Lipase 14 L 03/14/20 14:20: Lactic Acid 1.7 Assessment/Plan All Active Problems (Last Reviewed 02/27/20 @ 10:[address] Dwayne Valente, DO) Supratherapeutic INR (Acute) Rectus sheath hematoma (Acute) SOB (shortness of breath) (Acute) 1. Left rectus sheath hematoma with supratherapeutic INR-currently hemodynamically stable. Aggressive reversal of INR. Patient received IV vitamin K in ER. FFP ordered. PRN pain regimen. Trend H&H. Repeat INR in a.m. Hold Coumadin. Will monitor closely. If increased pain, will repeat CT. Consider transfer to tertiary facility for interventional radiology/embolization if hematoma shows worsening. 2. Diarrhea-unclear etiology. Send stool for C. difficile, enteric pathogen panel. 3. Chronic kidney disease stage IV-stable. Improved compared to recent labs. Trend BMP. Following with nephrology as outpatient. 4. Chronic atrial fibrillation on anticoagulation with Coumadin-continue a miodarone. Coumadin on hold. 5. Hypertension-stable, continue carvedilol regimen. 6. Hyperlipidemia-not on statin. 7. Type 2 diabetes mellitus-hold oral regimen. Accu-Cheks with sliding scale insulin. 8. Chronic systolic CHF/nonischemic cardiomyopathy status post ICD placement- Follows with Dr. Alvarez. Continue carvedilol. 9. Chronic hypoxic respiratory failure secondary to stage IV severe COPD-oxygen currently stable on room air. Supplement oxygen as needed to maintain O2 sat above 90%. As needed albuterol aerosol. 10. JESSICA-continue pap therapy. 11. RA-on Plaquenil. DVT prophylaxis-SCDs, Coumadin on hold CODE STATUS: Full code This patient was seen by PATRICK Mathew under the supervision of Dr. Street. <YeniferGraciela - Last Filed: 03/14/20 19:19> History of Present Illness The patient is a 79 year old M [] Past Medical History Medical History: Medical History (Last Reviewed 02/27/20 @ 10:[address] Dwayne Valente DO) Nonischemic cardiomyopathy (Chronic) I42.8 Chronic systolic (congestive) heart failure (Chronic) I50.22 Chronic atrial fibrillation (Chronic) I48.2 Paroxysmal atrial flutter (Chronic) I48.92 Essential (primary) hypertension (Chronic) I10 Hyperlipidemia (Chronic) E78.5 CKD (chronic kidney disease), stage III (Chronic) N18.3 Diabetes type 2, controlled (Chronic) E11.9 Arthritis M19.90 BPH (benign prostatic hyperplasia) COPD (chronic obstructive pulmonary disease) J44.9 DM2 (diabetes mellitus, type 2) E11.9 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 Hearing loss H91.90 Rheumatoid arthritis M06.9 History of pneumonia Z87.01 Dizziness and giddiness (Inactive) R42 Dyspnea (Inactive) R06.00 Allergies amoxicillin [Amoxicillin] Allergy (Verified 03/14/20 13:39) Rash ciprofloxacin [From Cipro] Allergy (Verified 03/14/20 13:39) Rash ciprofloxacin HCl [From Cipro] Allergy (Verified 03/14/20 13:39) Rash Sulfa (Sulfonamide Antibiotics) Allergy (Verified 03/14/20 13:39) PT UNSURE OF REACTION Surgical History: Surgical History (Last Reviewed 02/27/20 @ 10:[address] Dwayne Valente DO) 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) Z95.810 ICD implant 12/26/09 History of left heart catheterization Onset Date: 11/25/09 Z98.890 Hx of lithotripsy Z98.890 Normal colonoscopy - *Family History Maternal Family History: Family History (Last Reviewed 02/27/20 @ 10:[address] Dwayne Valente DO) Father Sudden cardiac Brother Myocardial infarction CHF (congestive heart failure) Other Family history of coronary artery disease Paternal Family History: Family History (Last Reviewed 02/27/20 @ 10:[address] Dwayne R Brown, DO) Father Sudden cardiac Brother Myocardial infarction CHF (congestive heart failure) Other Family history of coronary artery disease - Physical Exam Vitals/I&O's: Vital Signs Temp Pulse Resp BP Pulse Ox 97.9 F 59 L 15 134/63 H 100 03/14/20 18:17 03/14/20 18:17 03/14/20 18:17 03/14/20 18:17 03/14/20 18:17 Oxygen Delivery Method Room Air Weight: 149 lb 7.574 oz Body Mass Index (BMI) 20.2 Intake and Output for Last 24 Hours 03/12/20 03/13/20 03/14/20 23:59 23:59 23:59 Intake Total 1120 / 1120 Balance 1120 / 1120 Laboratory Results 03/14/20 14:10: PT 49.5 H, INR 5.4 H* 03/14/20 14:20: WBC 4.2 L, RBC 4.08 L, Hgb 11.5 L, Hct 36.4 L, MCV 89.2, MCH 28.2, MCHC 31.6 L, RDW Std Deviation 47.8 H, RDW Coeff of Cecilia 14.7 H, Plt Count 99 L, MPV 10.1, Immature Gran % (Auto) 0.500, Neut % (Auto) 70.5 H, Lymph % (Auto) 16.1 L, [place] % (Auto) 11.0 H, Eos % (Auto) 1.7, Baso % (Auto) 0.2, Absolute Neuts (auto) 2.9, Absolute Lymphs (auto) 0.67 L, Nucleated RBC % 0, Platelet Estimate MOD 03/14/20 14:20: Sodium 142, Potassium 3.9, Chloride 112 H, Carbon Dioxide 22.0, Anion Gap 8, BUN 28 H, Creatinine 2.93 H, Estim Creat Clear Calc 20.18, Est GFR (MDRD) Af Amer 27 L, Est GFR (MDRD) Non-Af 22 L, BUN/Creatinine Ratio 9.6 L, Glucose 135 H, Calcium 8.7, Total Bilirubin 1.00, AST 22, ALT 14 L, Alkaline Phosphatase 75, Total Protein 6.9, Albumin 3.1 L, Globulin 3.8, Albumin/Globulin Ratio 0.8 L, Lipase 14 L 03/14/20 14:20: Lactic Acid 1.7 03/14/20 17:45: Blood Type Pending, Antibody Screen Pending 03/14/20 17:45: Hgb 10.9 L, Hct 35.0 L Current Medications Acetaminophen (Tylenol) 650 mg PO Q6H PRN PRN PRN Reason: Pain Score 1-10/Temp > 100.7 F Albuterol Sulfate (Ventolin Aerosols) 2.5 mg INHALATION Q2H PRN PRN PRN Reason: SOB/Wheezing Amiodarone HCl (Cordarone) 200 mg PO DAILY [facility] Calcitriol (Rocaltrol) 0.25 mcg PO DAILY [facility] Carvedilol (Coreg) 6.25 mg PO BID TOR Dextrose (D50w Syringe) 0 gm IV X1 PRN; Protocol PRN Reason: Hypoglycemia Finasteride (Proscar) 5 mg PO DAILY TOR Furosemide (Lasix) 40 mg PO DAILY TOR Glucagon () 1 mg IM .X1 PRN PRN Reason: Hypoglycemia Hydroxychloroquine Sulfate (Plaquenil) 200 mg PO DAILY [facility] Insulin Human Lispro (Humalog Kwikpen (Bkc)) 0 unit SC ACHS TOR; Protocol Mirtazapine (Remeron) 7.5 mg PO QHS TOR Morphine Sulfate () 2 mg IV Q3H PRN PRN PRN Reason: Pain Score 6-10/10 Ondansetron HCl (Zofran) 4 mg IV Q8H PRN PRN PRN Reason: NAUSEA/VOMITING Oxycodone HCl (Oxyir) 5 mg PO Q4H PRN PRN PRN Reason: Pain Score 4-5/10 Sodium Chloride () 10 - 40 ml IV UD PRN PRN Reason: SALINE FLUSH Tamsulosin HCl (Flomax) 0.4 mg PO DAILY [facility] Assessment/Plan Patient seen by PATRICK Mathew under my supervision. Patient is a 79-year-old male with an extensive past medical history as outlined was admitted through the ED on 03/14/2020 with a complaint of diarrhea and abdominal pain. He said diarrhea started about 3 days ago he goes about 5-6 times daily. It is nonbloody he denies seeing any blood in his stool. He subsequently started having left lower abdominal pain today so he decided to come in. Patient is on Coumadin on account of A. fib and states his INR was checked about a week ago and was 3.8. He was told to cut down on his dose of INR. He denied any fever, chills, nausea or vomiting. Review of systems otherwise negative. On admission the ED, INR was therapeutic at 5.4. O/E: Vital Signs Temp Pulse Resp BP Pulse Ox 97.9 F 59 L 15 134/63 H 100 03/14/20 18:17 03/14/20 18:17 03/14/20 18:17 03/14/20 18:17 03/14/20 18:17 General: Alert, Oriented x3, Cooperative, HEENT: Atraumatic, PERRLA, EOMI, Normocephalic Neck: Supple, No JVD, Negative Carotid Bruits Lungs: Clear to auscultation, Diminished Cardiovascular: Regular rate, No murmurs Abdomen: Bowel Sounds Present, Soft, Non-Distended, - - mild tenderness in the left lower quadrant, no guarding or rebound tenderness Extremities: No clubbing, No cyanosis, No edema, Capillary Refill Less than 3 Seconds Skin: No rashes, No breakdown Musculoskeletal: No Tenderness to Palpation of Joints or Extremities Neurological: Cranial nerves II-XII grossly intact, Neuro grossly intact Psych/Mental Status: Normal Affect, Appropriate Imaging showed a left rectus sheath hematoma. Patient has been managed for supratherapeutic INR and left rectus sheath hematoma as well as diarrhea. Patient given IV vitamin K 5 mg in the ED. Will transfuse with 3 units of FFP's and check INR afterwards. Hydrate gently with IV fluid normal saline. Coumadin. To repeat CAT scan as needed if abdominal pain worsens on suspicion of hematoma expanding. Patient counseled that if hematoma worsens he might need transfer to a tertiary facility and he is agreeable to this. Stool sent for C. difficile and enteric panel as well. Hydrate gently with IVF NS. Rest as per PATRICK Mathew's notes which I reviewed and endorsed. CODE STATUS: Full code * Patient counseled extensively about different types of CODE STATUS including full code, DNR CCA and DNR CCA. Patient elects to be full code. * Total sxoe-ax-zitm time 16 minutes. Inpatient E&M: 69750 Init Hosp L3 Procedures: 78680 Advncd Care Plan 30 Min
[2020-03-14 18:15] LABS: Hemoglobin 10.9 g/dL (13.0-16.5)
[2020-03-14 18:16] LABS: POSITIVE COUNT NO; POSITIVE MORPHOLOGY NO
[2020-03-14] MEDS: Mirtazapine 15 MG Tablet 7.5 MG PO (23:28)
[2020-03-14] MEDS: Carvedilol 6.25 MG Tablet PO (23:28)
[2020-03-15] VITALS (15 sets, daily range): BP systolic 123–156; BP diastolic 62–72; PULSE 59–63; RESP 12–17; TEMP 36.7–37.1; O2SAT 94–100
[2020-03-15] MEDS: 0.9% Saline Lock 10 ML Syringe IV ×3 (01:10→06:40)
--- NOTE | 2020-03-15 06:25 | NURSING ---
Notified Leroy in lab at this time that pt FFP finished around 06:00.
[2020-03-15 07:26] LABS: Hematocrit 31.2 % (40-54)
[2020-03-15 07:45] LABS: Bedside Glucose 71 mg/dL (70-110)
[2020-03-15 07:57] LABS: Anion Gap 7 (5-15); BUN 25 mg/dL (7-18); BUN/Creat Ratio 10.3 RATIO (10-20); Calcium,Total 8.1 mg/dL (8.5-10.1); Chloride 110 mmol/L (98-107); Creatinine, Serum 2.42 mg/dL (0.70-1.30); EST Glomerular Filtration Rate 28 mL/min (>60); Est Glom Filt Rate - Afr Amer 34 mL/min (>60); Estimated Creatinine Clearance 24.51 ml/min; Glucose 72 mg/dL (74-106); Potassium 3.1 mmol/L (3.5-5.1); Sodium Level 141 mmol/L (136-145)
[2020-03-15 08:08] LABS: International Normalized Ratio 1.5; Prothrombin Time (Protime)PT. 17.6 SECONDS (11.7-14.9)
[2020-03-15] MEDS: Amiodarone 200 MG Tablet PO (08:45)
[2020-03-15] MEDS: Calcitriol 0.25 MCG Capsule PO ×2 (08:45)
[2020-03-15] MEDS: Tamsulosin HCl 0.4 MG Capsule PO (08:45)
[2020-03-15] MEDS: Carvedilol 6.25 MG Tablet PO ×2 (08:45→22:50)
[2020-03-15] MEDS: Hydroxychloroquine 200 MG Tablet PO (08:46)
[2020-03-15] MEDS: Furosemide 40 MG Tablet PO (08:46)
[2020-03-15] MEDS: Finasteride 5 MG Tablet PO (08:46)
[2020-03-15 11:25] LABS: Bedside Glucose 100 mg/dL (70-110)
--- NOTE | 2020-03-15 13:35 | CASEMGMT ---
ELIZABETH SINGH RN RADIATION ONCOLOGY CM to room to meet with patient for initial transition planning/care coordination assessment. ELIZABETH SINGH introduced self and role at [facility]. Pt voices understanding and consents to assessment at this time. Pt sitting up in chair in room in no distress at this time. Pt is A/O at this time and answers all questions appropriately. Care providers, pharmacy, and demographics verified/updated at this time. PCP: Dr Dwayne Valente Specialists: Dr Alvarez--cardiology, Dr Sims-urology, Dr Hardwick-nephrology Preferred [facility]acy: [facility] Insurance: [employer] Prescription Benefit: Yes Living Will/HPOA: does not have a LW, but has a Healthcare POA, who is his , Rita. LNOK: , Daughter, Beverly. Also has 2 sons. Living Arrangements: Lives with his and daughter, Beverly. lives in a one-story home w/4 steps to enter. Pt independent w/ADL's. /dtr do IADL's/home mgmt tasks. Transportation: , daughter DME: has the following DME: shower chair, has cane but does not use. States ambulates independently. Pt states no need for further DME at this time. HHC/SNF: No history of SNF. Has had HHC in the past but does not remember name of agency. Pt wishes to return home and states has no concerns with going home at time of discharge. Pt declines HHC or OP therapy. CM to follow for any discharge planning/needs. Pt voices no concerns/needs at this time. Advised pt to ask for CM if any questions/concerns/needs arise. Voices understanding. PLAN: Home Deanna PATEL RN, CM
--- NOTE | 2020-03-15 13:48 | PN_ITS ---
Patient Problems: Active and Suspected Problems (Last Reviewed 02/27/20 @ 10:[address] Dwayne Valente, DO) Supratherapeutic INR (Acute) Rectus sheath hematoma (Acute) Subjective: Patient seen and examined. Denies further left-sided abdominal pain. Large episode of diarrhea this morning. - Physical Exam Vitals/I&O's: Vital Signs Temp Pulse Resp BP Pulse Ox 98.3 F 60 14 154/69 H 95 03/15/20 07:12 03/15/20 07:13 03/15/20 07:12 03/15/20 07:12 03/15/20 07:12 Oxygen Delivery Method Room Air Weight: 149 lb 7.574 oz Body Mass Index (BMI) 20.2 Intake and Output for Last 24 Hours 03/13/20 03/14/20 03/15/20 23:59 23:59 23:59 Intake Total 1495.5 / 1495.5 1200 / 1200 Balance 1495.5 / 1495.5 1200 / 1200 General: Alert, Oriented x3, Cooperative HEENT: Atraumatic, PERRLA, EOMI, Normocephalic Neck: Supple, No JVD, Negative Carotid Bruits Lungs: Clear to auscultation, Normal air movement Cardiovascular: Regular rate, No murmurs Abdomen: Bowel Sounds Present, Soft, Non Tender Extremities: No clubbing, No cyanosis, No edema, Capillary Refill Less than 3 Seconds Skin: No rashes, No breakdown Musculoskeletal: No Tenderness to Palpation of Joints or Extremities Neurological: Cranial nerves II-XII grossly intact, Neuro grossly intact Psych/Mental Status: Normal Affect, Appropriate Laboratory Results 03/14/20 14:10: PT 49.5 H, INR 5.4 H* 03/14/20 14:20: WBC 4.2 L, RBC 4.08 L, Hgb 11.5 L, Hct 36.4 L, MCV 89.2, MCH 28.2, MCHC 31.6 L, RDW Std Deviation 47.8 H, RDW Coeff of Cecilia 14.7 H, Plt Count 99 L, MPV 10.1, Immature Gran % (Auto) 0.500, Neut % (Auto) 70.5 H, Lymph % (Auto) 16.1 L, Stevens % (Auto) 11.0 H, Eos % (Auto) 1.7, Baso % (Auto) 0.2, Absolute Neuts (auto) 2.9, Absolute Lymphs (auto) 0.67 L, Nucleated RBC % 0, Platelet Estimate MOD 03/14/20 14:20: Sodium 142, Potassium 3.9, Chloride 112 H, Carbon Dioxide 22.0, Anion Gap 8, BUN 28 H, Creatinine 2.93 H, Estim Creat Clear Calc 20.18, Est GFR (MDRD) Af Amer 27 L, Est GFR (MDRD) Non-Af 22 L, BUN/Creatinine Ratio 9.6 L, Glucose 135 H, Calcium 8.7, Total Bilirubin 1.00, AST 22, ALT 14 L, Alkaline Phosphatase 75, Total Protein 6.9, Albumin 3.1 L, Globulin 3.8, Albumin/Globulin Ratio 0.8 L, Lipase 14 L 03/14/20 14:20: Lactic Acid 1.7 03/14/20 17:45: Blood Type O NEGATIVE, Antibody Screen NEGATIVE 03/14/20 17:45: Hgb 10.9 L, Hct 35.0 L 03/15/20 06:41: POC Glucose 71 03/15/20 07:15: PT 17.6 H, INR 1.5 03/15/20 07:15: Sodium 141, Potassium 3.1 L, Chloride 110 H, Carbon Dioxide 24.0, Anion Gap 7, BUN 25 H, Creatinine 2.42 H, Estim Creat Clear Calc 24.51, Est GFR (MDRD) Af Amer 34 L, Est GFR (MDRD) Non-Af 28 L, BUN/Creatinine Ratio 10.3, Glucose 72 L, Calcium 8.1 L 03/15/20 07:15: Hgb 10.0 L, Hct 31.2 L 03/15/20 11:18: POC Glucose 100 Current Medications Acetaminophen (Tylenol) 650 mg PO Q6H PRN PRN PRN Reason: Pain Score 1-10/Temp > 100.7 F Albuterol Sulfate (Ventolin Aerosols) 2.5 mg INHALATION Q2H PRN PRN PRN Reason: SOB/Wheezing Amiodarone HCl (Cordarone) 200 mg PO DAILY [facility] Last Admin: 03/15/20 08:45 Dose: 200 mg Documented by: Calcitriol (Rocaltrol) 0.25 mcg PO DAILY [facility] Last Admin: 03/15/20 08:45 Dose: 0.25 mcg Documented by: Carvedilol (Coreg) 6.25 mg PO BID [facility] Last Admin: 03/15/20 08:45 Dose: 6.25 mg Documented by: Dextrose (D50w Syringe) 0 gm IV X1 PRN; Protocol PRN Reason: Hypoglycemia Finasteride (Proscar) 5 mg PO DAILY [facility] Last Admin: 03/15/20 08:46 Dose: 5 mg Documented by: Furosemide (Lasix) 40 mg PO DAILY [facility] Last Admin: 03/15/20 08:46 Dose: 40 mg Documented by: Glucagon () 1 mg IM .X1 PRN PRN Reason: Hypoglycemia Hydroxychloroquine Sulfate (Plaquenil) 200 mg PO DAILY [facility] Last Admin: 03/15/20 08:46 Dose: 200 mg Documented by: Insulin Human Lispro (Humalog Kwikpen (Bkc)) 0 unit SC ACHS [facility]; Protocol Last Admin: 03/15/20 11:19 Dose: Not Given Documented by: Mirtazapine (Remeron) 7.5 mg PO QHS [facility] Last Admin: 03/14/20 23:28 Dose: 7.5 mg Documented by: Morphine Sulfate () 2 mg IV Q3H PRN PRN PRN Reason: Pain Score 6-10/10 Ondansetron HCl (Zofran) 4 mg IV Q8H PRN PRN PRN Reason: NAUSEA/VOMITING Oxycodone HCl (Oxyir) 5 mg PO Q4H PRN PRN PRN Reason: Pain Score 4-5/10 Sodium Chloride () 10 - 40 ml IV UD PRN PRN Reason: SALINE FLUSH Last Admin: 03/15/20 06:40 Dose: 10 ml Documented by: Tamsulosin HCl (Flomax) 0.4 mg PO DAILY [facility] Last Admin: 03/15/20 08:45 Dose: 0.4 mg Documented by: Medical Necessity - Tobacco Use Smoking Status: Former smoker Assessment/Plan All Active Problems (Last Reviewed 02/27/20 @ 10:[address] Dwayne Valente, DO) Supratherapeutic INR (Acute) Rectus sheath hematoma (Acute) SOB (shortness of breath) (Acute) 1. Left rectus sheath hematoma with supratherapeutic INR- hemodynamically stable. Patient received 3 units FFP and IV vitamin K x1. INR now 1.5. H&H has remained stable. Continue to hold Coumadin. Patient denies further pain this morning. Appears stable at this time. If patient has increased pain, will repeat CT. Patient will need follow-up with cardiology at discharge to determine restarting Coumadin. 2. Diarrhea-unclear etiology. Stool for C. difficile, enteric pathogen panel pending. If negative will initiate Imodium. 3. Chronic kidney disease stage IV-stable. Improved compared to recent labs. Trend BMP. Following with nephrology as outpatient. 4. Chronic atrial fibrillation on anticoagulation with Coumadin-continue amiodarone. Coumadin on hold. 5. Hypertension-stable, continue carvedilol regimen. 6. Hyperlipidemia-not on statin. 7. Type 2 diabetes mellitus-hold oral regimen. Accu-Cheks with sliding scale insulin. 8. Chronic systolic CHF/nonischemic cardiomyopathy status post ICD placement- Follows with Dr. Alvarez. Continue carvedilol. 9. Chronic hypoxic respiratory failure secondary to stage IV severe COPD-oxygen currently stable on room air. Supplement oxygen as needed to maintain O2 sat above 90%. As needed albuterol aerosol. 10. JESSICA-continue pap therapy. 11. RA-on Plaquenil. DVT prophylaxis-SCDs, Coumadin on hold CODE STATUS: Full code This patient was seen by PATRICK Mathew under the supervision of Dr. Hoang.
[2020-03-15] MEDS: Acetaminophen 325 MG Tablet 650 MG PO (14:48)
[2020-03-15 16:20] LABS: Bedside Glucose 87 mg/dL (70-110)
--- NOTE | 2020-03-15 18:35 | NURSING ---
was called and updated
[2020-03-15] MEDS: Mirtazapine 15 MG Tablet 7.5 MG PO (22:50)
[2020-03-16 03:04] VITALS: PULSE 60
[2020-03-16 05:04] VITALS: BP 142/72; PULSE 60; RESP 18; TEMP 36.9; O2SAT 99
[2020-03-16 06:41] LABS: Hematocrit 36.3 % (40-54); Hemoglobin 11.4 g/dL (13.0-16.5); Mean Corp Hgb Conc 31.4 g/dL (32-36); Mean Corpuscular Hgb 28.1 pg (27.0-32.0); Mean Corpuscular Volume 89.4 fL (80-94); Mean Platelet Vol. 9.8 fl (6.2-12.0); Platelet Count 103 K/mm3 (150-450); RBC Distribution Width CV 14.5 % (11.6-14.6); RBC Distribution Width SD 47.3 fl (35.1-43.9); Red Blood Count 4.06 M/mm3 (4.6-6.2); White Blood Count 3.3 K/mm3 (4.4-11.0)
[2020-03-16 07:01] LABS: Anion Gap 6 (5-15); BUN 24 mg/dL (7-18); BUN/Creat Ratio 9.3 RATIO (10-20); Calcium,Total 8.1 mg/dL (8.5-10.1); Chloride 108 mmol/L (98-107); Creatinine, Serum 2.59 mg/dL (0.70-1.30); EST Glomerular Filtration Rate 26 mL/min (>60); Est Glom Filt Rate - Afr Amer 31 mL/min (>60); Estimated Creatinine Clearance 22.91 ml/min; Glucose 146 mg/dL (74-106); Potassium 3.5 mmol/L (3.5-5.1); Sodium Level 142 mmol/L (136-145)
[2020-03-16 08:22] VITALS: PULSE 64
[2020-03-16 10:00] VITALS: BP 137/67; PULSE 71; RESP 18; TEMP 36.8; O2SAT 99
[2020-03-16] MEDS: Hydroxychloroquine 200 MG Tablet PO (10:04)
[2020-03-16] MEDS: Carvedilol 6.25 MG Tablet PO (10:04)
[2020-03-16] MEDS: Tamsulosin HCl 0.4 MG Capsule PO (10:04)
[2020-03-16] MEDS: Amiodarone 200 MG Tablet PO (10:04)
[2020-03-16] MEDS: Furosemide 40 MG Tablet PO (10:04)
[2020-03-16] MEDS: Finasteride 5 MG Tablet PO (10:04)
[2020-03-16 11:00] VITALS: PULSE 63
--- NOTE | 2020-03-16 12:46 | DCINST_ITS ---
- Discharge Diagnoses Current Active Problems: Current Active and Chronic Problems (Last Reviewed 02/27/20 @ 10:[address] Dwayne Valente DO) Supratherapeutic INR (Acute) Rectus sheath hematoma (Acute) C.Diff You will use the following diet at home:: No restrictions Discharge Activity: Return to Normal Activity Call your doctor if you observe: Shortness of breath, Dizziness, Fainting spells, Chest pain Additional Instructions: Hold home Coumadin regimen at discharge pending further follow-up with cardiology. Allergies/Adverse Reactions: Allergies amoxicillin [Amoxicillin] Allergy (Verified 03/14/20 13:39) Rash ciprofloxacin [From Cipro] Allergy (Verified 03/14/20 13:39) Rash ciprofloxacin HCl [From Cipro] Allergy (Verified 03/14/20 13:39) Rash Sulfa (Sulfonamide Antibiotics) Allergy (Verified 03/14/20 13:39) PT UNSURE OF REACTION Medications to take at Discharge Hydroxychloroquine [Plaquenil] 200 mg PO DAILY 07/10/19 Amiodarone HCl 200 mg PO DAILY 11/16/19 Carvedilol 6.25 mg PO BID 11/16/19 mirtazapine 7.5 mg tablet 7.5 mg PO QHS #30 tab 01/09/20 dapagliflozin 10 mg tablet 5 mg PO DAILY #30 tab 02/27/20 Calcitriol 0.25 mcg PO DAILY 03/14/20 Dutasteride [Avodart] 0.5 mg PO DAILY 03/14/20 Furosemide 40 mg PO DAILY 03/14/20 Tamsulosin HCl 0.4 mg PO DAILY 03/14/20 Vancomcyin 125mg/5mL PO Liquid 125 mg PO Q6 9 Days #36 po.syringe 03/16/20 The following prescriptions were given: Vancomcyin 125mg/5mL PO Liquid 125 mg PO Q6 9 Days #36 po.syringe Transmission Status: Pending to [facility] Primary Care Physician: Dwayne Valente DO [Primary Care Provider] - Please follow up with your Primary Care Physician in: 1 Week Test Results: Test results from this visit will be discussed in further detail at your follow- up appointment, if applicable. Please Follow Up With: Simon Valente DO When: As scheduled 03/19/2020 Please Follow Up With: Chris Alvarez MD When: 2 Weeks, may see SEWING MACHINE TESTER/PA Proposed Discharge Date: 03/16/20
--- NOTE | 2020-03-16 12:52 | PCM.DC.SUM ---
Discharge Date and Diagnosis Date of Admission: 03/14/20 Date of Discharge: 03/16/20 - Primary Discharge Diagnosis Acute Problems: Active Problems (Last Reviewed 02/27/20 @ 10:[address] Dwayne Valente, ) 1. Left rectus sheath hematoma with supratherapeutic INR 2. Acute C. difficile colitis 3. Chronic kidney disease stage IV 4. Chronic atrial fibrillation on anticoagulation with Coumadin 5. Hypertension 6. Hyperlipidemia 7. Type 2 diabetes mellitus 8. Chronic systolic CHF/nonischemic cardiomyopathy status post ICD placement 9. Chronic hypoxic respiratory failure secondary to stage IV severe COPD 10. JESSICA 11. RA - Secondary Discharge Diagnosis Chronic Problems: Chronic Problems (Last Reviewed 02/27/20 @ 10:[address] Dwayne Valente DO) CKD (chronic kidney disease), stage IV (Chronic) JESSICA (obstructive sleep apnea) (Chronic) Chronic respiratory failure with hypoxia (Chronic) Stage 4 very severe COPD by GOLD classification (Chronic) 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) ICD implant 12/26/09 Nonischemic cardiomyopathy (Chronic) Chronic systolic (congestive) heart failure (Chronic) Chronic atrial fibrillation (Chronic) Paroxysmal atrial flutter (Chronic) Essential (primary) hypertension (Chronic) Hyperlipidemia (Chronic) senior care (current) use of anticoagulants (Chronic) Diabetes type 2, controlled (Chronic) Hospital Course and Treatment Imaging Results: Diagnostic Data Abdomen/Pelvis CT 03/14/20 14:03 IMPRESSION: Left rectus sheath hematoma. 5.3 mm nonobstructive calculus in the lower pole of the left kidney. 6.1 cm x 7.2 cm cyst in the inferior edge of the right lobe of the liver. Mild splenomegaly. Electronically Signed: Alexsander Gr, at 14:54 EDT , Service support , Operations: None Procedures: None Summary of Care Provided: The patient is a 79 year old M admitted 03/14/2020 due to diarrhea and abdominal pain. 1. Left rectus sheath hematoma with supratherapeutic INR- hemodynamically stable. Patient received 3 units FFP and IV vitamin K x1. Repeat INR 1.5. H&H has remained stable. Continue to hold Coumadin. Patient denies further pain. Patient will need follow-up with cardiology at discharge to determine restarting Coumadin. Instructed to continue to hold Coumadin until further follow-up. 2. Acute C. difficile colitis-stool positive for C. difficile antigen and DNA. Initiated on oral vancomycin for 10-day course. Diarrhea significantly improved. 3. Chronic kidney disease stage IV-stable. Improved compared to recent labs. Following with nephrology as outpatient. 4. Chronic atrial fibrillation on anticoagulation with Coumadin-continue amiodarone. Coumadin on hold. 5. Hypertension-stable, continue carvedilol regimen. 6. Hyperlipidemia-not on statin. 7. Type 2 diabetes mellitus-continue home regimen. 8. Chronic systolic CHF/nonischemic cardiomyopathy status post ICD placement- Follows with Dr. Alvarez. Continue carvedilol. 9. Chronic hypoxic respiratory failure secondary to stage IV severe COPD-oxygen currently stable on room air. Supplement oxygen as needed to maintain O2 sat above 90%. As needed albuterol aerosol. 10. JESSICA-continue pap therapy. 11. RA-on Plaquenil. General: Alert, Oriented x3, Cooperative HEENT: Atraumatic, PERRLA, EOMI, Normocephalic Neck: Supple, No JVD, Negative Carotid Bruits Lungs: Clear to auscultation, Normal air movement Cardiovascular: Regular rate, No murmurs Abdomen: Bowel Sounds Present, Soft, Non Tender Extremities: No clubbing, No cyanosis, No edema, Capillary Refill Less than 3 Seconds Skin: No rashes, No breakdown Musculoskeletal: No Tenderness to Palpation of Joints or Extremities Neurological: Cranial nerves II-XII grossly intact, Neuro grossly intact Psych/Mental Status: Normal Affect, Appropriate Patient seen and examined prior to discharge. Physical assessment as noted above. Patient is stable for discharge with follow up recommendations as noted above. This patient was seen by PATRICK Mathew under the supervision of Dr. Hoang. - Physical Exam Vitals/I&O's: Vital Signs Temp Pulse Resp BP Pulse Ox 98.2 F 71 18 137/67 H 99 03/16/20 10:00 03/16/20 10:00 03/16/20 10:00 03/16/20 10:00 03/16/20 10:00 Oxygen Delivery Method Room Air Weight: 149 lb 7.574 oz Body Mass Index (BMI) 20.2 Intake and Output for Last 24 Hours 03/14/20 03/15/20 03/16/20 23:59 23:59 23:59 Intake Total 1495.5 / 1495.5 1909 30 / 30 Output Total 100 / 100 Balance 1495.5 / 1495.5 1909 -70 / -70 Microbiology Past 72 Hours 03/15/20 10:26 Stool C. difficile GDH Antigen & Toxins - Final Toxigenic C. difficile 03/15/20 10:26 Stool C. difficile DNA Amplification - Final 03/15/20 Unknown Stool Enteric Bacteriology - Final Laboratory Results 03/14/20 23:26: POC Glucose 87 03/16/20 06:05: WBC 3.3 L, RBC 4.06 L, Hgb 11.4 L, Hct 36.3 L, MCV 89.4, MCH 28.1, MCHC 31.4 L, RDW Std Deviation 47.3 H, RDW Coeff of Cecilia 14.5, Plt Count 103 L, MPV 9.8 03/16/20 06:05: Sodium 142, Potassium 3.5, Chloride 108 H, Carbon Dioxide 28.0, Anion Gap 6, BUN 24 H, Creatinine 2.59 H, Estim Creat Clear Calc 22.91, Est GFR (MDRD) Af Amer 31 L, Est GFR (MDRD) Non-Af 26 L, BUN/Creatinine Ratio 9.3 L, Glucose 146 H, Calcium 8.1 L Current Medications Acetaminophen (Tylenol) 650 mg PO Q6H PRN PRN PRN Reason: Pain Score 1-10/Temp > 100.7 F Last Admin: 03/15/20 14:48 Dose: 650 mg Documented by: Albuterol Sulfate (Ventolin Aerosols) 2.5 mg INHALATION Q2H PRN PRN PRN Reason: SOB/Wheezing Amiodarone HCl (Cordarone) 200 mg PO DAILY [facility] Last Admin: 03/16/20 10:04 Dose: 200 mg Documented by: Calcitriol (Rocaltrol) 0.25 mcg PO DAILY [facility] Last Admin: 03/15/20 08:45 Dose: 0.25 mcg Documented by: Carvedilol (Coreg) 6.25 mg PO BID [facility] Last Admin: 03/16/20 10:04 Dose: 6.25 mg Documented by: Dextrose (D50w Syringe) 0 gm IV X1 PRN; Protocol PRN Reason: Hypoglycemia Finasteride (Proscar) 5 mg PO DAILY [facility] Last Admin: 03/16/20 10:04 Dose: 5 mg Documented by: Furosemide (Lasix) 40 mg PO DAILY [facility] Last Admin: 03/16/20 10:04 Dose: 40 mg Documented by: Glucagon () 1 mg IM .X1 PRN PRN Reason: Hypoglycemia Hydroxychloroquine Sulfate (Plaquenil) 200 mg PO DAILY [facility] Last Admin: 03/16/20 10:04 Dose: 200 mg Documented by: Mirtazapine (Remeron) 7.5 mg PO QHS [facility] Last Admin: 03/15/20 22:50 Dose: 7.5 mg Documented by: Morphine Sulfate () 2 mg IV Q3H PRN PRN PRN Reason: Pain Score 6-10/10 Ondansetron HCl (Zofran) 4 mg IV Q8H PRN PRN PRN Reason: NAUSEA/VOMITING Oxycodone HCl (Oxyir) 5 mg PO Q4H PRN PRN PRN Reason: Pain Score 4-5/10 Sodium Chloride () 10 - 40 ml IV UD PRN PRN Reason: SALINE FLUSH Last Admin: 03/15/20 06:40 Dose: 10 ml Documented by: Tamsulosin HCl (Flomax) 0.4 mg PO DAILY [facility] Last Admin: 03/16/20 10:04 Dose: 0.4 mg Documented by: Vancomycin HCl () 125 mg PO Q6 [facility] Last Admin: 03/16/20 05:09 Dose: 125 mg Documented by: Discharge Diet: Low fat/ Low Cholesterol Discharge Activity: Return to Normal Activity Call your doctor if you observe: Shortness of breath, Dizziness, Fainting spells, Chest pain Home Medications: Medications to take at Discharge Hydroxychloroquine [Plaquenil] 200 mg PO DAILY 07/10/19 Amiodarone HCl 200 mg PO DAILY 11/16/19 Carvedilol 6.25 mg PO BID 11/16/19 mirtazapine 7.5 mg tablet 7.5 mg PO QHS #30 tab 01/09/20 dapagliflozin 10 mg tablet 5 mg PO DAILY #30 tab 02/27/20 Calcitriol 0.25 mcg PO DAILY 03/14/20 Dutasteride [Avodart] 0.5 mg PO DAILY 03/14/20 Furosemide 40 mg PO DAILY 03/14/20 Tamsulosin HCl 0.4 mg PO DAILY 03/14/20 Vancomcyin 125mg/5mL PO Liquid 125 mg PO Q6 9 Days #36 po.syringe 03/16/20 Following Prescrptions Were Given to Patient: Vancomcyin 125mg/5mL PO Liquid 125 mg PO Q6 9 Days #36 po.syringe Transmission Status: Received by [facility] Primary Care Physician: Dwayne Valente DO [Primary Care Provider] - Please follow up with your Primary Care Physician in: 1 Week Please Follow Up With: Simon Valente DO When: As scheduled 03/19/2020 Please Follow Up With: Chris Alvarez MD When: 2 Weeks, may see [employer] OR WORK DISPATCHER/PA Disposition: Home Minutes spent on discharge:: 35 Patient Condition:: Stable Medical Necessity - Tobacco Use Smoking Status: Former smoker Meaningful Use Info Meaningful Use Diagnoses (Choose all that apply): None applicable
--- NOTE | 2020-03-16 12:55 | CASEMGMT ---
RN CM NOTE: Pt being discharged home on PO Vanco, which has been e-scribed to [facility]. Call placed to Aug, pharmacist @ [facility], who states Vanco pills are $18.52 for 36 capsules. Deanna PATEL RN CM
[2020-03-16 13:10] VITALS: BP 137/67; PULSE 71; RESP 18; TEMP 36.8; O2SAT 99
--- NOTE | 2020-03-18 14:24 | CASEMGMT ---
ELIZABETH SINGH DC PHONE CALL DC DATE: 03.16.2020 DC DISPOSITION: Home DC DIAGNOSIS: L rectus sheath heamatoma with supratheraputic LACE/STRATA: 07/02 F/U APPTS MADE PRIOR TO DC: no weekend dc PRESCRIPTIONS ACQUIRED BY PT: yes Intro role of CM to patient's . She states patient is improving slowly, and she appreciated the care. No questions re: prescriptions or f/u. will make appts. No other concerns noted. Paul PATEL RN ACM
== END 2020-03-16 14:17 | disposition home or self-care (01) | DRG 813 ==
LOC: ED 16:44 → PCU 17:22
PROVIDERS: Nurse Practitioner Family; Admitting Provider Student in an Organized Health Care Education/Training Program; Emergency Provider Emergency Medicine; PCP Family Medicine; Visit Provider Internal Medicine
DX: D68.32 Hemorrhagic disorder due to extrinsic circulating anticoagulants (principal); A04.72 Enterocolitis due to Clostridium difficile, not specified as recurrent; I13.0 Hypertensive heart and chronic kidney disease with heart failure and stage 1 through stage 4 chronic kidney disease, or unspecified chronic kidney disease; N18.4 Chronic kidney disease, stage 4 (severe); I50.22 Chronic systolic (congestive) heart failure; I48.20 Chronic atrial fibrillation, unspecified; I42.8 Other cardiomyopathies; J96.11 Chronic respiratory failure with hypoxia; I48.92 Unspecified atrial flutter; T45.515A Adverse effect of anticoagulants, initial encounter; M79.81 Nontraumatic hematoma of soft tissue; E11.22 Type 2 diabetes mellitus with diabetic chronic kidney disease; E78.00 Pure hypercholesterolemia, unspecified; G47.33 Obstructive sleep apnea (adult) (pediatric); M06.9 Rheumatoid arthritis, unspecified; J44.9 Chronic obstructive pulmonary disease, unspecified; Z95.810 Presence of automatic (implantable) cardiac defibrillator; Z79.01 Long term (current) use of anticoagulants; Z79.84 Long term (current) use of oral hypoglycemic drugs; Z79.899 Other long term (current) drug therapy; Z87.891 Personal history of nicotine dependence
CPT/HCPCS: 36415; 74176; 80048; 80053; 82962; 83605; 83690; 85014; 85018; 85025; 85027; 85610; 86850; 86900; 86901; 87493; 87506; 97110; 97116; 97162; 97166; 99284; J7030; J7040; P9017; A4216; J3490

== ENCOUNTER → 2020-03-22 09:15 | Outpatient (CLI) | payer MEDICARE, OTHER, SELFPAY ==
[2020-03-22 08:25] VITALS: BMI 20.5
[2020-03-22 12:29] LABS: Absolute Lymphocyte Count 0.95 X10^3/uL (0.83-4.51); Absolute Neutrophil Count 2.7 X10^3/uL (2.0-7.7); Basophil# 0.05 X10^3/uL; Basophil% 1.2 % (0-1); Eosinophil# 0.05 X10^3/uL; Eosinophils% 1.2 % (0-5); Hematocrit 34.9 % (40-54); Hemoglobin 10.7 g/dL (13.0-16.5); Lymphocyte # 0.95 X10^3/ul (4.0); Lymphocyte % 23.3 % (19-41); Mean Corp Hgb Conc 30.7 g/dL (32-36); Mean Corpuscular Hgb 28.4 pg (27.0-32.0); Mean Corpuscular Volume 92.6 fL (80-94); Monocyte% 7.4 % (0-10); NRBC Flagged by Analyzer 0 % (0-5); Neutrophil % 66.2 % (47-70); Platelet Count 119 K/mm3 (150-450); RBC Distribution Width CV 14.6 % (11.6-14.6); Red Blood Count 3.77 M/mm3 (4.6-6.2); White Blood Count 4.1 K/mm3 (4.4-11.0)
[2020-03-22 12:44] LABS: ALB/GLOB Ratio 0.9 RATIO (0.9-2.4); AST(SGOT) 13 U/L (15-37); Alanine Aminotransfer ALT/SGPT 14 U/L (16-61); Albumin, Serum 3.2 g/dL (3.2-5.0); Alkaline Phosphatase 89 U/L (45-117); Anion Gap 4 (5-15); BUN 32 mg/dL (7-18); BUN/Creat Ratio 10.9 RATIO (10-20); Calcium,Total 8.6 mg/dL (8.5-10.1); Chloride 107 mmol/L (98-107); Creatinine, Serum 2.93 mg/dL (0.70-1.30); EST Glomerular Filtration Rate 22 mL/min (>60); Est Glom Filt Rate - Afr Amer 27 mL/min (>60); Globulin 3.6 g/dL (2.2-4.2); Glucose 119 mg/dL (74-106); Potassium 4.2 mmol/L (3.5-5.1); Protein, Total 6.8 g/dL (6.4-8.2); Sodium Level 140 mmol/L (136-145)
== END ==
PROVIDERS: PCP Family Medicine; Referring Provider Nurse Practitioner Family; Visit Provider Nurse Practitioner Family
DX: S30.1XXA Contusion of abdominal wall, initial encounter (principal); A04.72 Enterocolitis due to Clostridium difficile, not specified as recurrent; R79.1 Abnormal coagulation profile
CPT/HCPCS: 36415; 80053; 85025

== ENCOUNTER → 2020-04-10 09:12 | Outpatient (CLI) | payer MEDICARE, OTHER, SELFPAY ==
[2020-04-03 09:38] VITALS: BMI 20.6
[2020-04-10 09:53] LABS: Protein, Urine (Random) 32.4 mg/dL (<11.9); Protein:Creat Ratio 634 mg/g CRE (0-200)
== END ==
PROVIDERS: PCP Family Medicine; Referring Provider Internal Medicine Nephrology; Visit Provider Internal Medicine Nephrology
DX: N18.3 Chronic kidney disease, stage 3 (moderate) (principal); E11.22 Type 2 diabetes mellitus with diabetic chronic kidney disease
CPT/HCPCS: 82570; 84156

== ENCOUNTER 2020-04-17 10:17 | Outpatient (RCR) | payer MEDICARE, OTHER, SELFPAY ==
[2020-03-22 08:25] VITALS: BMI 20.5
[2020-04-03 09:38] VITALS: BMI 20.6
[2020-04-09 10:43] LABS: Hematocrit 37.5 % (40-54); Hemoglobin 11.8 g/dL (13.0-16.5); Mean Corp Hgb Conc 31.5 g/dL (32-36); Mean Corpuscular Volume 89.1 fL (80-94); Mean Platelet Vol. 10.1 fl (6.2-12.0); Platelet Count 126 K/mm3 (150-450); RBC Distribution Width CV 13.8 % (11.6-14.6); RBC Distribution Width SD 44.8 fl (35.1-43.9); Red Blood Count 4.21 M/mm3 (4.6-6.2); White Blood Count 3.6 K/mm3 (4.4-11.0)
[2020-04-09 10:51] LABS: International Normalized Ratio 1.2; Prothrombin Time (Protime)PT. 15.1 SECONDS (11.7-14.9)
[2020-04-09 11:29] LABS: Albumin, Serum 3.3 g/dL (3.2-5.0); BUN 29 mg/dL (7-18); BUN/Creat Ratio 11.1 RATIO (10-20); Calcium,Total 8.4 mg/dL (8.5-10.1); Chloride 107 mmol/L (98-107); Creatinine, Serum 2.62 mg/dL (0.70-1.30); EST Glomerular Filtration Rate 25 mL/min (>60); Est Glom Filt Rate - Afr Amer 31 mL/min (>60); Glucose 114 mg/dL (74-106); Potassium 3.4 mmol/L (3.5-5.1); Sodium Level 141 mmol/L (136-145)
[2020-04-09 11:31] LABS: PTHIN 169.1 pg/mL (18.4-80.1)
[2020-04-17 10:45] LABS: International Normalized Ratio 1.4; Prothrombin Time (Protime)PT. 16.7 SECONDS (11.7-14.9)
== END 2020-04-29 18:00 | disposition home or self-care (01) ==
LOC: LAB 10:17
PROVIDERS: Internal Medicine Nephrology; Nurse Practitioner Family; Family Provider Family Medicine; PCP Family Medicine; Referring Provider Internal Medicine Cardiovascular Disease; Visit Provider Internal Medicine Cardiovascular Disease
DX: E11.22 Type 2 diabetes mellitus with diabetic chronic kidney disease (principal); N18.3 Chronic kidney disease, stage 3 (moderate); Z79.01 Long term (current) use of anticoagulants; I48.20 Chronic atrial fibrillation, unspecified; E55.9 Vitamin D deficiency, unspecified
CPT/HCPCS: 36415; 80069; 82570; 83970; 84156; 84443; 85027; 85610

== ENCOUNTER 2020-05-16 11:00 | Outpatient (RCR) | payer MEDICARE, OTHER, SELFPAY ==
[2020-04-03 09:38] VITALS: BMI 20.6
[2020-05-16 12:10] LABS: Prothrombin Time (Protime)PT. 22.3 SECONDS (11.7-14.9)
== END 2020-05-16 18:00 | disposition home or self-care (01) ==
LOC: LAB 11:00
PROVIDERS: Family Provider Family Medicine; PCP Family Medicine; Referring Provider Internal Medicine Cardiovascular Disease; Visit Provider Internal Medicine Cardiovascular Disease
DX: I48.20 Chronic atrial fibrillation, unspecified (principal); E11.22 Type 2 diabetes mellitus with diabetic chronic kidney disease; N18.3 Chronic kidney disease, stage 3 (moderate); E55.9 Vitamin D deficiency, unspecified; Z79.01 Long term (current) use of anticoagulants
CPT/HCPCS: 36415; 85610

== ENCOUNTER → 2020-05-30 10:13 | Outpatient (CLI) | payer MEDICARE, OTHER, SELFPAY ==
[2020-05-28 10:13] VITALS: BMI 20.5
--- NOTE | 2020-05-30 10:15 | RAD_ITS ---
STUDY: X-RAY - UNILATERAL RIBS ( LEFT ) REASON FOR EXAM: Male, 79 years old. MID ANTERIOR/ AXILLARY RIB PAIN x1-2 YRS, NKI TECHNIQUE: 4 view(s) of the ribs. COMPARISON: None. FINDINGS: Normal visualized ribs without a demonstrated fracture. The visualized lung is clear and expanded. RAD/Ribs Unil 2V No CXR IMPRESSION: Normal x-ray examination of the ribs. Electronically Signed: Alexsander Gr, at 12:24 EDT , Service support ,
== END ==
PROVIDERS: PCP Family Medicine; Visit Provider Family Medicine
DX: R07.81 Pleurodynia (principal)
CPT/HCPCS: 71100

== ENCOUNTER 2020-05-30 10:24 | Outpatient (RCR) | payer MEDICARE, OTHER, SELFPAY ==
[2020-05-28 10:13] VITALS: BMI 20.5
[2020-05-30 11:40] LABS: Absolute Lymphocyte Count 0.69 X10^3/uL (0.83-4.51); Basophil# 0.03 X10^3/uL; Basophil% 0.7 % (0-1); Eosinophil# 0.04 X10^3/uL; Hematocrit 41.4 % (40-54); Hemoglobin 12.8 g/dL (13.0-16.5); Lymphocyte # 0.69 X10^3/ul (4.0); Mean Corp Hgb Conc 30.9 g/dL (32-36); Mean Corpuscular Hgb 27.9 pg (27.0-32.0); Mean Corpuscular Volume 90.2 fL (80-94); Mean Platelet Vol. 10.1 fl (6.2-12.0); Monocyte# 0.23 X10^3/uL; Monocyte% 5.7 % (0-10); NRBC Flagged by Analyzer 0 % (0-5); Neutrophil # 3.04 X10^3/uL (2.7-7.7); Neutrophil % 74.9 % (47-70); Platelet Count 113 K/mm3 (150-450); RBC Distribution Width CV 13.9 % (11.6-14.6); RBC Distribution Width SD 45.2 fl (35.1-43.9); Red Blood Count 4.59 M/mm3 (4.6-6.2); White Blood Count 4.1 K/mm3 (4.4-11.0)
[2020-05-30 12:11] LABS: AST(SGOT) 14 U/L (15-37); Alanine Aminotransfer ALT/SGPT 15 U/L (16-61); Albumin, Serum 3.6 g/dL (3.2-5.0); Alkaline Phosphatase 85 U/L (45-117); Anion Gap 5 (5-15); BUN 37 mg/dL (7-18); BUN/Creat Ratio 12.8 RATIO (10-20); Calcium,Total 8.7 mg/dL (8.5-10.1); Chloride 105 mmol/L (98-107); EST Glomerular Filtration Rate 23 mL/min (>60); Est Glom Filt Rate - Afr Amer 27 mL/min (>60); Globulin 3.7 g/dL (2.2-4.2); Glucose 134 mg/dL (74-106); Protein, Total 7.3 g/dL (6.4-8.2); Sodium Level 140 mmol/L (136-145)
== END 2020-05-30 18:00 | disposition home or self-care (01) ==
LOC: LAB 10:24
PROVIDERS: Family Provider Family Medicine; PCP Family Medicine; Referring Provider Internal Medicine Cardiovascular Disease; Visit Provider Internal Medicine Cardiovascular Disease
DX: I48.20 Chronic atrial fibrillation, unspecified (principal); Z79.01 Long term (current) use of anticoagulants; E11.22 Type 2 diabetes mellitus with diabetic chronic kidney disease; N18.30 Chronic kidney disease, stage 3 unspecified; E55.9 Vitamin D deficiency, unspecified
CPT/HCPCS: 36415; 71100; 80053; 85025; 85610

== ENCOUNTER → 2020-08-26 09:32 | Outpatient (CLI) | payer MEDICARE, OTHER, SELFPAY ==
[2020-05-28 10:13] VITALS: BMI 20.5
--- NOTE | 2020-08-26 09:37 | ECHOD_ITS ---
Reason For Study: CHF Procedure This was a 2D Doppler, Color Flow transthoracic echocardiogram. Exam performed in department. Left Ventricle Severely dilated left ventricle. The estimated ejection fraction is 15 %. Stage 3 diastolic dysfunction. No regional wall motion abnormalities noted. There is severe global hypokinesis of the left ventricle. Right Ventricle Normal RV size. ICD or pacer leads identified within the right ventricle. Normal systolic function. Atria The left atrium is moderately enlarged. Normal right atrium. Mitral Valve Normal mitral valve. Mild (1+) eccentric mitral valve insufficiency. Tricuspid Valve Normal tricuspid valve. Mild to moderate (1-2+) tricuspid valve insufficiency. Pulmonary artery systolic pressure is 44 mmHg. Aortic Valve Trisinus/trileaflet aortic valve. Mild focal aortic valve calcification. Pulmonic Valve Normal pulmonic valve. Great Vessels Normal aortic root. The pulmonary artery is normal size. Normal inferior vena cava. Pericardium/Pleural No pericardial effusion. MMode/2D Measurements & Calculations LVIDd: 6.0 cm IVSd: 1.5 cm Ao root diam: 3.6 cm LVIDs: 5.4 cm LVPWd: 1.0 cm LA dimension: 5.0 cm RVDd: 3.9 cm FS: 9.8 % LAV(MOD-bp): 103.0 ml LA A4 area: 26.2 cm2 RA A4 area: 15.0 cm2 LAV(MOD-bp) Indexed: 54.8 ml/m2 LAV(MOD-sp2): 112.5 ml LAV(MOD-sp4): 82.4 ml Time Measurements MV dec time: 0.21 sec Doppler Measurements & Calculations MV E max yvon: 83.8 cm/sec Lat Peak E' Yvon: 3.7 cm/sec Med Peak E' Yvon: 3.3 cm/sec MV A max yvon: 45.3 cm/sec E/E' lat: 22.4 E/E' med: 25.7 MV E/A: 1.9 MV V2 max: 89.5 cm/sec MV P1/2t max yvon: 90.1 cm/sec Ao V2 max: 121.5 cm/sec MV max P.2 mmHg MV P1/2t: 94.7 msec Ao max P.9 mmHg MV V2 mean: 52.6 cm/sec MV dec slope: 278.5 cm/sec2 MV mean P.3 mmHg MVA(P1/2t): 2.3 cm2 MV V2 VTI: 27.9 cm LV V1 max: 65.7 cm/sec PA V2 max: 56.3 cm/sec TR max yvon: 322.9 cm/sec LV V1 max P.7 mmHg TR max P.7 mmHg Interpretation Summary Severely dilated left ventricle. There is severe global hypokinesis of the left ventricle. The estimated ejection fraction is 15 %. Pulmonary artery systolic pressure is 44 mmHg. Stage 3 diastolic dysfunction. Compared to prior study, there is no significant change. Ordering Physician: Pk Holliday Referring Physician: Dwayne Valente Performed By: Diego Echols RCS
== END ==
PROVIDERS: PCP Family Medicine; Referring Provider Nurse Practitioner Family; Visit Provider Nurse Practitioner Family
DX: R06.02 Shortness of breath (principal); I50.22 Chronic systolic (congestive) heart failure; Z95.810 Presence of automatic (implantable) cardiac defibrillator
CPT/HCPCS: 93306

== ENCOUNTER 2020-08-26 14:31 | Outpatient (RCR) | payer MEDICARE, OTHER, SELFPAY ==
[2020-05-28 10:13] VITALS: BMI 20.5
[2020-08-26 09:46] LABS: Absolute Lymphocyte Count 1.12 X10^3/uL (0.83-4.51); Absolute Neutrophil Count 2.6 X10^3/uL (2.0-7.7); Basophil# 0.05 X10^3/uL; Basophil% 1.2 % (0-1); Eosinophil# 0.05 X10^3/uL; Eosinophils% 1.2 % (0-5); Hematocrit 43.5 % (40-54); Hemoglobin 13.4 g/dL (13.0-16.5); Lymphocyte # 1.12 X10^3/ul (4.0); Mean Corp Hgb Conc 30.8 g/dL (32-36); Mean Corpuscular Hgb 27.9 pg (27.0-32.0); Mean Corpuscular Volume 90.4 fL (80-94); Monocyte# 0.27 X10^3/uL; Monocyte% 6.5 % (0-10); NRBC Flagged by Analyzer 0 % (0-5); Neutrophil # 2.63 X10^3/uL (2.7-7.7); Neutrophil % 63.4 % (47-70); Platelet Count 110 K/mm3 (150-450); RBC Distribution Width CV 14.3 % (11.6-14.6); Red Blood Count 4.81 M/mm3 (4.6-6.2); White Blood Count 4.2 K/mm3 (4.4-11.0)
[2020-08-26 10:24] LABS: ALB/GLOB Ratio 0.9 RATIO (0.9-2.4); AST(SGOT) 15 U/L (15-37); Alanine Aminotransfer ALT/SGPT 13 U/L (16-61); Albumin, Serum 3.5 g/dL (3.2-5.0); Alkaline Phosphatase 108 U/L (45-117); Anion Gap 6 (5-15); BUN 30 mg/dL (7-18); BUN/Creat Ratio 11.2 RATIO (10-20); Calcium,Total 8.7 mg/dL (8.5-10.1); Chloride 106 mmol/L (98-107); Creatinine, Serum 2.67 mg/dL (0.70-1.30); EST Glomerular Filtration Rate 25 mL/min (>60); Est Glom Filt Rate - Afr Amer 30 mL/min (>60); Globulin 3.7 g/dL (2.2-4.2); Glucose 158 mg/dL (74-106); International Normalized Ratio 2.4; Phosphorus 3.1 mg/dL (2.5-4.9); Potassium 3.8 mmol/L (3.5-5.1); Protein, Total 7.2 g/dL (6.4-8.2); Prothrombin Time (Protime)PT. 25.4 SECONDS (11.7-14.9); Sodium Level 140 mmol/L (136-145)
[2020-08-26 10:34] LABS: PTHIN 190.6 pg/mL (18.4-80.1)
== END 2020-08-26 18:00 | disposition home or self-care (01) ==
LOC: LAB 14:31
PROVIDERS: Family Provider Family Medicine; PCP Family Medicine; Referring Provider Internal Medicine Cardiovascular Disease; Visit Provider Internal Medicine Cardiovascular Disease
DX: I48.20 Chronic atrial fibrillation, unspecified (principal); Z79.01 Long term (current) use of anticoagulants
CPT/HCPCS: 36415; 80053; 83970; 84100; 85025; 85610; 93306

== ENCOUNTER 2020-09-10 12:28 | Emergency (ER) | payer MEDICARE, OTHER, SELFPAY ==
[2020-09-05 09:53] VITALS: BMI 20.6
[2020-09-10 12:29] VITALS: BP 109/73; PULSE 61; RESP 16; TEMP 36.6; O2SAT 98; BMI 18.6
--- NOTE | 2020-09-10 13:12 | ED.RN ---
pt reported feeling better to Dr. Morgan, Dr. Morgan gave pt coke to sip on.
--- NOTE | 2020-09-10 13:17 | ED.DCSUM_ITS ---
History of Present Illness Chief Complaint: Foreign Body Informant: Patient Narrative: 79-year-old male states that he has mashed potato stuck in his throat. This happened prior to arrival. He states this happened to him in February of last year and resolved after glucagon. He tells me that since being in the emergency room he is actually feeling better and thinks that the food may have passed. He denies ever having an EGD before. Also informs me he has a dime size area on his left lower anterior ribs that is tender to palpation. Tells me it is hurt for 2 years. He seen his doctors and has had x-rays. He would like to know exactly why he is hurting there today. - Past Medical History (1) Biventricular ICD (implantable cardioverter-defibrillator) in place Status: Chronic Comment: ICD implant 12/26/09 (2) CKD (chronic kidney disease), stage IV Status: Chronic (3) Chronic systolic (congestive) heart failure Status: Chronic (4) Diabetes type 2, controlled Status: Chronic (5) Essential (primary) hypertension Status: Chronic (6) Hyperlipidemia Status: Chronic (7) residential (current) use of anticoagulants Status: Chronic (8) Longstanding persistent atrial fibrillation Status: Chronic (9) Nonischemic cardiomyopathy Status: Chronic (10) JESSICA (obstructive sleep apnea) Status: Chronic (11) Stage 4 very severe COPD by GOLD classification Status: Chronic Past Medical History - Allergies and Home Meds Allergies/Adverse Reactions: Allergies amoxicillin [Amoxicillin] Allergy (Verified 09/10/20 12:31) Rash ciprofloxacin [From Cipro] Allergy (Verified 09/10/20 12:31) Rash ciprofloxacin HCl [From Cipro] Allergy (Verified 09/10/20 12:31) Rash Sulfa (Sulfonamide Antibiotics) Allergy (Verified 09/10/20 12:31) PT UNSURE OF REACTION Primary Care Physician: Herve Irene MD [STAFF PHYSICIAN] - (for surgical evaluation/EGD consultations or see your PCP for referral) Dwayne Valente DO [Primary Care Provider] - (to discuss referal for EGD) Surgical History: TURP, - - Colectomy w/ fistula s/p diverticulitis, L arm surgery, ICD placement. Smoking Status: Former smoker Drugs: None - Family History Maternal Family History: Family History (Last Reviewed 09/05/20 @ 10:[address] Dwayne Valente DO) Father Sudden cardiac Brother Myocardial infarction CHF (congestive heart failure) Other Family history of coronary artery disease Family History: Reports: Heart Disease Paternal Family History: Family History (Last Reviewed 09/05/20 @ 10:[address] Dwayne Valente DO) Father Sudden cardiac Brother Myocardial infarction CHF (congestive heart failure) Other Family history of coronary artery disease Family History: Reports: Heart Disease Review of Systems General: Denies: Chills, Fever, Sweats Eyes: Denies: Visual changes - bilaterally, Diplopia ENT: Reports: Sore throat. Denies: Rhinorrhea Cardiovascular: Denies: Chest pain, Palpitations Respiratory: Denies: Dyspnea, Cough, Dyspnea on exertion Gastrointestinal: Denies: Abdominal pain, Nausea, Vomiting, Diarrhea, Melena, Hematochezia Genitourinary: Denies: Dysuria, Hematuria, Frequency Musculoskeletal: Denies: Back pain, Extremity Pain Skin: Denies: Rash, Wounds Neurological: Denies: Headache, Weakness, Numbness Physical Exam Vital Signs/Narrative: Vital Signs Temp Pulse Resp BP Pulse Ox 09/10/20 12:29 97.8 F 61 16 109/73 98 Inital Vital Signs reviewed: Yes General: Well nourished, Well developed, No Acute Distress Head: Normocephalic, Atraumatic Eyes: Perrl, EOMI ENT: Moist mucous membranes, No rhinorrhea Neck: Supple, Nontender Cardiovascular: Regular rate, Regular rhythm, No murmurs Respiratory: No distress, CTA bilaterally, Chest nontender Abdomen: Soft, Nontender, Nondistended, Normal bowel sounds Back: Nontender, Normal Inspection Extremities: Nontender, No edema, - - Chronic changes of rheumatoid arthritis Skin: Normal color, No rash Neurological: Alert, Oriented x3, Cranial nerves II-XII grossly intact, Normal Strength, Normal Sensation Psychological: Normal affect, Normal Mood Diagnostic/Tx/Re-eval - Medical Decision Making Patient was given a Coke to drink. He is appears to be handling secretions. Patient will be discharged home with instructions to follow-up with general surgery for EGD. As far as the focal area of chest tenderness is easily reproducible. Its been 2 years. I cannot think of any emergent reason for it. It is right near the costochondral border and he has got pretty severe RA. ED Disposition - Plan for ED Patient: Disposition: Home or Assisted Living Diagnosis: Food impaction of esophagus Instructions: ED Esophageal Foreign Body, Resolved Referrals: Dwayne Valente DO [Primary Care Provider] - (to discuss referal for EGD) Herve Irene MD [STAFF PHYSICIAN] - (for surgical evaluation/EGD consultations or see your PCP for referral)
[2020-09-10 13:52] VITALS: BP 139/68; BP 139/69; PULSE 60; RESP 16
== END 2020-09-10 14:01 | disposition home or self-care (01) ==
LOC: ED 13:47
PROVIDERS: Emergency Provider Emergency Medicine; PCP Family Medicine
DX: T18.128A Food in esophagus causing other injury, initial encounter (principal); X58.XXXA Exposure to other specified factors, initial encounter; Y93.89 Activity, other specified; Y92.9 Unspecified place or not applicable; Y99.9 Unspecified external cause status; I13.0 Hypertensive heart and chronic kidney disease with heart failure and stage 1 through stage 4 chronic kidney disease, or unspecified chronic kidney disease; I50.22 Chronic systolic (congestive) heart failure; E11.22 Type 2 diabetes mellitus with diabetic chronic kidney disease; N18.4 Chronic kidney disease, stage 4 (severe); I48.11 Longstanding persistent atrial fibrillation; I42.8 Other cardiomyopathies; J44.9 Chronic obstructive pulmonary disease, unspecified; E78.5 Hyperlipidemia, unspecified; M06.9 Rheumatoid arthritis, unspecified; G47.33 Obstructive sleep apnea (adult) (pediatric); Z95.810 Presence of automatic (implantable) cardiac defibrillator; Z79.01 Long term (current) use of anticoagulants; Z79.899 Other long term (current) drug therapy; Z87.891 Personal history of nicotine dependence
CPT/HCPCS: 99283; A4216

== ENCOUNTER 2020-09-24 12:42 | Observation (INO) | payer MEDICARE, OTHER, SELFPAY ==
[2020-09-19 08:47] VITALS: BMI 20.7
[2020-09-24] VITALS (9 sets, daily range): BP systolic 116–154; BP diastolic 68–74; PULSE 57–64; RESP 12–19; TEMP 36.5–36.7; O2SAT 96–99; BMI 20.9; BMI 21.0; BMI 20.7
--- NOTE | 2020-09-24 12:54 | EKG12_ITS ---
Test Reason : CP Blood Pressure : / mmHG Vent. Rate : 064 BPM Atrial Rate : 060 BPM P-R Int : 000 ms QRS Dur : 190 ms QT Int : 584 ms P-R-T Axes : 000 -78 116 degrees QTc Int : 602 ms Ventricular-paced rhythm Biventricular pacemaker detected Abnormal ECG Confirmed by GREER ESCOBEDO, MILI ([id number]), marketing and public relations manager ROWDY NOLASCO ([id number]) on 09/25/2020 11:17:33 AM Referred By: PIETRO/SARAH Confirmed By:MILI BUTTERFIELD MD
[2020-09-24 13:01] LABS: Absolute Lymphocyte Count 0.75 X10^3/uL (0.83-4.51); Basophil# 0.05 X10^3/uL; Basophil% 1.2 % (0-1); Eosinophil# 0.04 X10^3/uL; Hematocrit 42.8 % (40-54); Hemoglobin 13.2 g/dL (13.0-16.5); Lymphocyte # 0.75 X10^3/ul (4.0); Lymphocyte % 18.5 % (19-41); Mean Corp Hgb Conc 30.8 g/dL (32-36); Mean Corpuscular Hgb 28.7 pg (27.0-32.0); Mean Platelet Vol. 10.4 fl (6.2-12.0); Monocyte# 0.25 X10^3/uL; Monocyte% 6.2 % (0-10); NRBC Flagged by Analyzer 0 % (0-5); Neutrophil # 2.95 X10^3/uL (2.7-7.7); Neutrophil % 72.6 % (47-70); POSITIVE COUNT YES; Platelet Count 93 K/mm3 (150-450); RBC Distribution Width CV 13.8 % (11.6-14.6); RBC Distribution Width SD 46.7 fl (35.1-43.9); White Blood Count 4.1 K/mm3 (4.4-11.0)
[2020-09-24] MEDS: Aspirin 81 MG TAB.CHEW 324 MG PO (13:04)
[2020-09-24] MEDS: Ondansetron 4 MG/2 ML Vial IV (13:07)
[2020-09-24] MEDS: Morphine 4 MG/ML Syringe IV (13:07)
--- NOTE | 2020-09-24 13:08 | RAD_ITS ---
STUDY: X-RAY CHEST REASON FOR EXAM: Male, 79 years old. CHEST PAIN TECHNIQUE: Single AP portable view of the chest. COMPARISON: Comparison is made with prior study dated 01/11/2020. FINDINGS: EKG electrodes are seen. There is evidence of vascular congestion and a mild degree of CHF. Blunting of both costophrenic angles. There is borderline cardiomegaly. Left-sided dual-chamber pacemaker is seen. Normal mediastinum and angel. Normal visualized pulmonary arteries. There is atherosclerotic tortuosity of the aortic arch and descending thoracic aorta. There are diffuse degenerative changes of the visualized thoracic spine. Normal visualized ribs, clavicles, and shoulders. There is no demonstrated abnormality of the visualized soft tissue structures of the upper abdomen. RAD/Chest 1 View (Portable) IMPRESSION: Mild degree of CHF. Electronically Signed: Alexsander Gr MD at 13:26 EST , Service support ,
--- NOTE | 2020-09-24 13:08 | ED.VISSUMM ---
- ER Visit Summary Date of Service: 09/24/20 Chief Complaint: Chest pain History of Present Illness: The patient is a 79 M presenting with chest pain. Patient states that he has chest pain intermittently over the past 3 days which is different than usual. He denies shortness of breath. Denies nausea, vomiting, diaphoresis. Family called Dr. Alvarez's office and he was advised to come to the ED for evaluation. Physical Examination: Vitals are stable. Patient is afebrile. Alert no acute distress. HEENT exam is unremarkable. Neck is supple. Lungs are diminished bilaterally. Heart is regular rate and rhythm. Abdomen is soft nontender nondistended. Extremities are unremarkable. Skin is warm and dry. No focal neurologic deficit. Remainder of exam is unremarkable. Emergency Department Course and Treatment: Patient was given aspirin, morphine, Zofran on arrival. CBC shows white count 4.1, platelet 93. Chemistries show glucose 277, BUN 31, creatinine 2.8. Troponin 0.028. Chest x-ray read by myself and radiology shows mild degree of CHF. On reevaluation patient has improved. Discussed with hospitalist for observation. Disposition: Observation Impression: Chest pain This note was generated with [employer] dictation software. It may contain incorrect words, spelling, and punctuation that were not noted in review of the chart prior to signing ED Disposition - Plan for ED Patient: Referrals: Dwayne Valente DO [Primary Care Provider] -
[2020-09-24 13:09] LABS: International Normalized Ratio 1.3; Prothrombin Time (Protime)PT. 15.8 SECONDS (11.7-14.9)
[2020-09-24 13:17] LABS: Anion Gap 6 (5-15); BUN 31 mg/dL (7-18); BUN/Creat Ratio 11.1 RATIO (10-20); Calcium,Total 8.6 mg/dL (8.5-10.1); Chloride 107 mmol/L (98-107); EST Glomerular Filtration Rate 23 mL/min (>60); Est Glom Filt Rate - Afr Amer 28 mL/min (>60); Estimated Creatinine Clearance 21.91 ml/min; Glucose 277 mg/dL (74-106); Potassium 3.8 mmol/L (3.5-5.1); Sodium Level 142 mmol/L (136-145)
--- NOTE | 2020-09-24 14:07 | NURSING ---
DR BAIRD IN ER
--- NOTE | 2020-09-24 14:11 | NURSING ---
PATRICK CP OBS WINSTON
--- NOTE | 2020-09-24 14:33 | PCS.PANDOC ---
PANDEMIC DOCUMENTATION INITIATED: Date: 09/24/2020 Time: 1432
--- NOTE | 2020-09-24 14:47 | HP.PCM_ITS ---
Problem List (1) Chest pain Status: Acute Qualifiers: Chest pain type: precordial pain Qualified Code(s): R07.2 - Precordial pain History of Present Illness Date of Admission: 09/24/20 Chief Complaint: Chest pain The patient is a 79 year old M who was seen in the emergency room at [facility] with chief complaint of left-sided chest pain which she described as sharp in nature radiating into his left upper arm. The chest pain usually occurs at rest, it is not brought on by exertion, he has had intermittent episodes over the last several months of this chest discomfort. Patient denies any nausea or shortness of breath. Patient stated he had an episode today while at rest, and lasted just a couple of minutes. He states that usually when he has the chest discomfort does not last any more than a few minutes at most. Patient has a history of a nonischemic cardiomyopathy and had an ICD placed many years ago. His last stress test according to records here in his chart is several years ago, I do not see documentation of a cardiac catheterization in his chart. Work-up in the emergency room included an EKG which showed a paced rhythm, patient's troponin was unremarkable, patient's creatinine was elevated in keeping with the patient's stage IV chronic kidney disease, his white blood cell count was 4.1, and the patient's INR was 1.3. Patient's chest x-ray was read out as showing congestive heart failure, patient has no signs or symptoms of congestive heart failure at this time. Patient had an echocardiogram performed on August 26, 2020, his EF at that shanice e was 15% and he had a pulmonary artery systolic pressure of 44 mm. Patient will be placed in observation status on PCU, cardiac enzymes will be cycled, and he will undergo a pharmacological resting nuclear stress test tomorrow if his enzymes remain normal. I talked with Dr. Alvarez briefly today about his case. 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5 Diabetes type 2, controlled (Chronic) E11.9 CKD (chronic kidney disease), stage IV (Chronic) N18.4 JESSICA (obstructive sleep apnea) (Chronic) G47.33 Stage 4 very severe COPD by GOLD classification (Chronic) J44.9 Arthritis M19.90 BPH (benign prostatic hyperplasia) COPD (chronic obstructive pulmonary disease) J44.9 DM2 (diabetes mellitus, type 2) E11.9 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 Hearing loss H91.90 Rheumatoid arthritis M06.9 Chronic respiratory failure with hypoxia J96.11 History of pneumonia Z87.01 Rectus sheath hematoma S30.1XXA Dizziness and giddiness (Inactive) R42 Dyspnea (Inactive) R06.00 Allergies amoxicillin [Amoxicillin] Allergy (Verified 09/19/20 08:47) Rash ciprofloxacin [From Cipro] Allergy (Verified 09/19/20 08:47) Rash ciprofloxacin HCl [From Cipro] Allergy (Verified 09/19/20 08:47) Rash Sulfa (Sulfonamide Antibiotics) Allergy (Verified 09/19/20 08:47) PT UNSURE OF REACTION Home Medications: Ambulatory Orders Medication Instructions Recorded Hydroxychloroquine [Plaquenil] 200 mg PO DAILY 07/10/19 Calcitriol 0.25 mcg PO DAILY 03/14/20 Dutasteride [Avodart] 0.5 mg PO DAILY 03/14/20 Tamsulosin HCl 0.4 mg PO DAILY 03/14/20 prednisone 5 mg tablet 5 mg PO DAILY 04/03/20 finasteride 5 mg tablet 5 mg PO DAILY tab 05/16/20 mirtazapine 7.5 mg tablet 7.5 mg PO QHS #90 tab 09/17/20 omeprazole 20 mg tablet,delayed 20 mg PO DAILY #60 tab 09/19/20 release Amiodarone HCl 200 mg PO DAILY 09/24/20 Carvedilol [Coreg] 6.25 mg PO BID 09/24/20 Warfarin Sodium 2 mg PO DAILY 09/24/20 Surgical History: Surgical History (Last Reviewed 09/19/20 @ 08:50 by Rachel Bolaños) 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) Z95.810 ICD implant 12/26/09 History of left heart catheterization Onset Date: 11/25/09 Z98.890 Hx of lithotripsy Z98.890 Normal colonoscopy Surgical History: cataract, TURP, - - Colectomy w/ fistula s/p diverticulitis, ICD placement. Psychiatric History: Anxiety Lives: Spouse/ Significant Other Smoking Status: Former smoker Tobacco Use: Pipe Alcohol: None Drugs: None - *Family History Maternal Family History: Family History (Last Reviewed 09/19/20 @ 08:50 by Rachel Bolaños) Father Sudden cardiac Brother Myocardial infarction CHF (congestive heart failure) Other Family history of coronary artery disease History Items: Heart Disease Paternal Family History: Family History (Last Reviewed 09/19/20 @ 08:50 by Rachel Bolaños) Father Sudden cardiac Brother Myocardial infarction CHF (congestive heart failure) Other Family history of coronary artery disease History Items: Heart Disease Review of Systems Constitutional: Denies: Anorexia, Chills, Fever, Night Sweats, Malaise, Weakness, Weight Change, Fatigue Eyes: Denies: Cataracts, Conjunctivae Inflammation, Double vision, Drainage HEENT: Denies: Dysphasia, Ear Pain, Eye Pain, Hearing Changes, Nasal bleeding, Nasal Congestion, Post Nasal Drip Cardiovascular: Reports: Chest Pain. Denies: Claudication, Chest Pressure, Chest Tightness, Edema, Palpitations Respiratory: Denies: Cough, Hemoptysis, Pleuritic Pain, Shortness of breath at rest, Shortness of breath upon exertion, Sputum production Gastrointestinal: Denies: Abdominal Pain, Constipation, Diarrhea, Hematemesis, H ematochezia, Nausea, Melena, Vomiting Genitourinary: Denies: Dysuria, Frequency, Hematuria, Hesitancy, Nocturia, Retention, Urgency Musculoskeletal: Denies: Foot Pain, Hand Pain, Joint Pain, Joint stiffness, Joint swelling Skin: Denies: Dryness, Pruritis, Rash Neurological: Denies: Blurred vision, Double vision, Change in Speech, Slurred speech, Difficulty swallowing, Focal weakness, Headaches, Numbness, Tingling Psychiatric: Denies: Anxiety, Depression, Homicidal Ideations, Suicidal Ideations Endocrine: Denies: Change in Body Habitus, Heat/ Cold Intolerance, Polydipsia, Polyuria Hematologic/ Lymphatic: Denies: Adenopathy, Anemia, Easy Bruising, Easy Bleeding, Petechiae, Purpura VTE Information - Inpt Only VTE Present on Admission: No VTE Mechan Device Prophylaxis: None VTE Pharm Prophylaxis ordered?: No Reason prophylaxis not ordered:: Treatment Not Indicated - Patient on Coumadin - Physical Exam Vitals/I&O's: Vital Signs Temp Pulse Resp BP Pulse Ox 98 F 60 16 122/71 H 96 09/24/20 14:36 09/24/20 14:36 09/24/20 14:36 09/24/20 14:36 09/24/20 14:36 Oxygen Delivery Method Room Air Weight: 69.5 kg Body Mass Index (BMI) 20.7 General: Alert, Oriented x3, Cooperative, No apparent distress, Well developed, Well nourished HEENT: Atraumatic, PERRLA, EOMI, Normocephalic Oral: Moist Mucosa Neck: Supple, No JVD, Negative Carotid Bruits, Trachea Midline, Thyroid Normal Size and Texture Lungs: Clear to auscultation, Normal air movement, No rhonchi, No wheeze, No rales Cardiovascular: Regular rate, Regular Rhythm - Paced rhythm, Normal S1, Normal S2, No murmurs, PMI Normal, No rub noted, No Gallop Abdomen: Bowel Sounds Present, Soft, Non Tender, Non-Distended Extremities: No clubbing, No cyanosis, No edema, Capillary Refill Less than 3 Seconds Skin: No rashes, No breakdown Musculoskeletal: No Tenderness to Palpation of Joints or Extremities Neurological: Cranial nerves II-XII grossly intact, Neuro grossly intact, Sensory exam intact to light touch and pain, Coordination normal Psych/Mental Status: Normal Affect, Appropriate, Alert and oriented to time, place, person, mood and affect Laboratory Results 09/24/20 12:42: WBC 4.1 L, RBC 4.60, Hgb 13.2, Hct 42.8, MCV 93.0, MCH 28.7, MCHC 30.8 L, RDW Std Deviation 46.7 H, RDW Coeff of Cecilia 13.8, Plt Count 93 L, MPV 10.4, Immature Gran % (Auto) 0.500, Neut % (Auto) 72.6 H, Lymph % (Auto) 18.5 L, Shannon % (Auto) 6.2, Eos % (Auto) 1.0, Baso % (Auto) 1.2 H, Absolute Neuts (auto) 3.0, Absolute Lymphs (auto) 0.75 L, Nucleated RBC % 0 09/24/20 12:42: PT 15.8 H, INR 1.3 09/24/20 12:43: Sodium 142, Potassium 3.8, Chloride 107, Carbon Dioxide 29.0, Anion Gap 6, BUN 31 H, Creatinine 2.80 H, Estim Creat Clear Calc 21.91, Est GFR (MDRD) Af Amer 28 L, Est GFR (MDRD) Non-Af 23 L, BUN/Creatinine Ratio 11.1, Glucose 277 H, Calcium 8.6, Troponin I 0.028 Current Medications Acetaminophen (Acetaminophen 325 Mg Tablet) 650 mg PO Q6H PRN PRN PRN Reason: Pain Score 1-10/Temp > 100.7 F Amiodarone HCl (Amiodarone 200 Mg Tablet) 200 mg PO DAILY TOR Carvedilol (Carvedilol 6.25 Mg Tablet) 6.25 mg PO BID TOR Non-Formulary Medication (Mirtazapine) 7.5 mg PO QHS TOR Non-Formulary Medication (Omeprazole) 20 mg PO DAILY TOR Prednisone (Prednisone 5 Mg Tablet) 5 mg PO DAILY TOR Sodium Chloride (0.9% Saline Lock 10 Ml Syringe) 10 - 40 ml IV UD PRN PRN Reason: SALINE FLUSH Tamsulosin HCl (Tamsulosin Hcl 0.4 Mg Capsule) 0.4 mg PO DAILY TOR Warfarin Sodium (Jantoven 2 Mg Tablet) 2 mg PO DAILY TOR Warfarin Sodium (Warfarin 4 Mg Tablet) 4 mg PO X1 ONE Stop: 09/24/20 14:44 Assessment/Plan All Active Problems (Last Reviewed 09/19/20 @ 08:50 by Rachel Bolaños) Chest pain (Acute) SOB (shortness of breath) (Acute) Supratherapeutic INR (Resolved) #1 atypical chest pain-patient will be placed into observation status on PCU, cardiac enzymes will be cycled, he will undergo a resting pharmacological nuclear stress test tomorrow if his enzymes remain normal. Patient's complaints of chest pain are very atypical for angina, it is not provoked with exertion and he describes the pain as a sharp pain. #2 nonischemic cardiomyopathy-patient has a long history of a nonischemic card iomyopathy, his last ejection fraction was 15% on an echocardiogram done in July 2020. 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 extra today, INR will be rechecked tomorrow #10 BPH-patient is evidently getting Avodart and Proscar filled at the same time and taking both of them at the same time, I talked with his urologist and he is only supposed to be on one of the drugs not both of them. #11 dysphagia-etiology unclear, patient is supposed to undergo an EGD due to the fact he has episodes of swallowing difficulty, Dr. Irene will be performing the EGD. 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 OBSV E&M: [id number] Initial observation care L3
--- NOTE | 2020-09-24 14:52 | EKG12_ITS ---
Test Reason : CP ADMISSION Blood Pressure : / mmHG Vent. Rate : 060 BPM Atrial Rate : 060 BPM P-R Int : 176 ms QRS Dur : 202 ms QT Int : 586 ms P-R-T Axes : 000 -79 124 degrees QTc Int : 586 ms AV dual-paced rhythm Biventricular pacemaker detected Abnormal ECG When compared with ECG of 24-SEP-2020 12:43, MANUAL COMPARISON REQUIRED, DATA IS UNCONFIRMED Confirmed by RAUL ESCOBEDO, IVAN ([id number]), editor newspaper BRAD SAUNDERS ([id number]) on 09/30/2020 12:52:40 PM Referred By: WINSTON Confirmed By:DORIS CARTER MD
[2020-09-24] MEDS: Tamsulosin HCl 0.4 MG Capsule PO (16:24)
[2020-09-24] MEDS: Jantoven 2 MG Tablet PO (16:30)
[2020-09-24] MEDS: Carvedilol 6.25 MG Tablet PO (21:02)
[2020-09-24] MEDS: Mirtazapine 15 MG Tablet 7.5 MG PO (21:02)
[2020-09-25] VITALS (7 sets, daily range): BP systolic 113–129; BP diastolic 65–70; PULSE 60–70; RESP 14–17; TEMP 36.6–36.7; O2SAT 95–99
[2020-09-25 05:41] LABS: International Normalized Ratio 1.4; Prothrombin Time (Protime)PT. 16.8 SECONDS (11.7-14.9)
--- NOTE | 2020-09-25 06:00 | EKG12_ITS ---
Test Reason : AM Blood Pressure : / mmHG Vent. Rate : 060 BPM Atrial Rate : 060 BPM P-R Int : 180 ms QRS Dur : 192 ms QT Int : 578 ms P-R-T Axes : 000 268 098 degrees QTc Int : 578 ms AV dual-paced rhythm Biventricular pacemaker detected Abnormal ECG When compared with ECG of 24-SEP-2020 14:57, MANUAL COMPARISON REQUIRED, DATA IS UNCONFIRMED Confirmed by RAUL ESCOBEDO, IVAN ([id number]), videotape editor BRAD SAUNDERS ([id number]) on 09/30/2020 12:23:36 PM Referred By: SHORTY Confirmed By:DORIS CARTER MD
[2020-09-25] MEDS: Carvedilol 6.25 MG Tablet PO (12:22)
[2020-09-25] MEDS: Amiodarone 200 MG Tablet PO (12:22)
[2020-09-25] MEDS: predniSONE 5 MG Tablet PO (12:22)
[2020-09-25] MEDS: Pantoprazole Sodium 20 MG Tablet PO (12:22)
--- NOTE | 2020-09-25 13:11 | STRESSREP ---
Stress Test Report Pharmacologic myocardial perfusion stress test. 79-year-old man with a history of nonischemic cardiomyopathy and chest pain. Stress protocol: Resting EKG demonstrates normal sinus rhythm with ventricular pacing. Rate of 60 bpm is noted resting blood pressure is 120/74 mmHg. 0.4 mg of regadenoson was infused per usual protocol followed by Intravenous saline flush injection continuous EKG monitoring was performed. Patient maintained sinus rhythm throughout the recording with ventricular pacing. The maximum heart rate was 98 bpm. The final blood pressure was 122/62. EKG pacing abnormalities were noted which were did not meet the criteria for ischemia. Myocardial perfusion protocol. 11.8 mCi of technetium 99m sestamibi was injected at rest. 0.4 mg of regadenoson was infused per usual protocol. At peak infusion 33.0 mCi of technetium 99m sestamibi was injected stress images were obtained stress and rest images were reconstructed and compared in the short axis vertical long horizontal long axis. Gated images were also obtained Perfusion SPECT analysis: Review of the images demonstrate normal uptake of tracer noted in the anterior wall lateral wall and septum. The inferior wall has significant GI attenuation artifact but on the attenuation corrected images there is no evidence of perfusion abnormalities suggesting ischemia. No previous infarct is noted. Gated SPECT analysis: The gated ejection fraction is 26%. Conclusion: Dilated cardiomyopathy. No obvious ischemia noted.
--- NOTE | 2020-09-25 13:21 | DCINST_ITS ---
- Discharge Diagnoses Current Active Problems: Current Active and Chronic Problems (Last Reviewed 09/19/20 @ 08:50 by Rachel Bolaños) Chest pain (Acute) You will use the following diet at home:: Cardiac Your food should be the consistency of: Regular Your liquids should be the consistency of: Regular/Thin Discharge Activity: Return to Normal Activity Allergies/Adverse Reactions: Allergies amoxicillin [Amoxicillin] Allergy (Verified 09/19/20 08:47) Rash ciprofloxacin [From Cipro] Allergy (Verified 09/19/20 08:47) Rash ciprofloxacin HCl [From Cipro] Allergy (Verified 09/19/20 08:47) Rash Sulfa (Sulfonamide Antibiotics) Allergy (Verified 09/19/20 08:47) PT UNSURE OF REACTION Medications to take at Discharge Hydroxychloroquine [Plaquenil] 200 mg PO DAILY 07/10/19 Calcitriol 0.25 mcg PO DAILY 03/14/20 Dutasteride [Avodart] 0.5 mg PO DAILY 03/14/20 Tamsulosin HCl 0.4 mg PO DAILY 03/14/20 prednisone 5 mg tablet 5 mg PO DAILY 04/03/20 finasteride 5 mg tablet 5 mg PO DAILY tab 05/16/20 mirtazapine 7.5 mg tablet 7.5 mg PO QHS #90 tab 09/17/20 omeprazole 20 mg tablet,delayed release 20 mg PO DAILY #60 tab 09/19/20 Amiodarone HCl 200 mg PO DAILY 09/24/20 Carvedilol [Coreg (Beta Shelley)] 6.25 mg PO BID 09/24/20 Warfarin Sodium 2 mg PO DAILY 09/24/20 Acetaminophen [Tylenol Tablet] 650 mg PO Q6H PRN PRN tab 09/25/20 Primary Care Physician: Dwayne Valente DO [Primary Care Provider] - Please follow up with your Primary Care Physician in: 1-2 weeks Test Results: Test results from this visit will be discussed in further detail at your follow- up appointment, if applicable. Please Follow Up With: Chris Alvarez MD - Keep current appointment When: 10/17/20 Proposed Discharge Date: 09/25/20
--- NOTE | 2020-09-25 13:23 | DS.PCM_ITS ---
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) ICD implant 12/26/09 Nonischemic cardiomyopathy (Chronic) Chronic systolic (congestive) heart failure (Chronic) Longstanding persistent atrial fibrillation (Chronic) Paroxysmal atrial flutter (Chronic) Essential (primary) hypertension (Chronic) Hyperlipidemia (Chronic) senior care (current) use of anticoagulants (Chronic) Diabetes type 2, controlled (Chronic) CKD (chronic kidney disease), stage IV (Chronic) JESSICA (obstructive sleep apnea) (Chronic) Stage 4 very severe COPD by GOLD classification (Chronic) Hospital Course and Treatment Imaging Results: 09/25/20 05:55 Nuclear Stress Test - Chemical [NM] AM (NON MEDS) Gated SPECT analysis: The gated ejection fraction is 26%. Conclusion: Dilated cardiomyopathy. No obvious ischemia noted. RAD/Chest 1 View (Portable) IMPRESSION: Mild degree of CHF. Operations: None Procedures: Stress test Summary of Care Provided: Hospital Course: The patient is a 79 year old M with pmhx notable for multiple cardiac issues including nonischemic CM, AICD in place, systolic CHF, pAflutter, also Severe COPD, CKD IV, DMt2, who presented to the ER with chest pain. The patient noted these had been recurring for several months. He described a left chest sharp pain that would happen at rest and last for only minutes. EKG showed paced rhythm, CXR was negative, troponin was negative. He had an echo Jul 2020 showing EF 15% and PASP 44 mmHg. He was admitted to the PCU on tele for chest pain workup. He had negative troponin x 3. He went for a stress test which showed dilated cardiomyopathy but no ischemic changes. The pain was felt to be musculoskeletal. Tylenol was recommended. He was discharged home in stable condition. He has a follow up with cardiology 10/17/20 which he should keep. He should see his PCP in 1-2 weeks. This patient was seen by Domingo Connell PA-C under the supervision of Dr. Cam. [] Patient Problems: Active and Suspected Problems (Last Reviewed 09/19/20 @ 08:50 by Rachel Bolaños) Chest pain (Acute) - Physical Exam Vitals/I&O's: Vital Signs Temp Pulse Resp BP Pulse Ox 97.9 F 62 14 113/65 95 09/25/20 12:16 09/25/20 12:16 09/25/20 12:16 09/25/20 12:16 09/25/20 12:16 Oxygen Flow Rate (L/min) 3 Oxygen Delivery Method Room Air Weight: 153 lb 3.54 oz Body Mass Index (BMI) 20.7 Intake and Output for Last 24 Hours 09/23/20 09/24/20 09/25/20 23:59 23:59 23:59 Intake Total 540 / 540 120 / 120 Balance 540 / 540 120 / 120 General: Alert, Oriented x3, Cooperative HEENT: Atraumatic, PERRLA, EOMI, Normocephalic Neck: Supple, No JVD, Negative Carotid Bruits Lungs: Clear to auscultation, Normal air movement Cardiovascular: Regular rate, No murmurs Abdomen: Bowel Sounds Present, Soft, Non Tender Extremities: No edema, Capillary Refill Less than 3 Seconds Skin: No rashes, No breakdown Musculoskeletal: No Tenderness to Palpation of Joints or Extremities Neurological: Cranial nerves II-XII grossly intact Psych/Mental Status: Normal Affect, Appropriate, Alert and oriented to time, place, person, mood and affect Laboratory Results 09/24/20 12:42: WBC 4.1 L, RBC 4.60, Hgb 13.2, Hct 42.8, MCV 93.0, MCH 28.7, MCHC 30.8 L, RDW Std Deviation 46.7 H, RDW Coeff of Cecilia 13.8, Plt Count 93 L, MPV 10.4, Immature Gran % (Auto) 0.500, Neut % (Auto) 72.6 H, Lymph % (Auto) 1 8.5 L, [place] % (Auto) 6.2, Eos % (Auto) 1.0, Baso % (Auto) 1.2 H, Absolute Neuts (auto) 3.0, Absolute Lymphs (auto) 0.75 L, Nucleated RBC % 0 09/24/20 12:42: PT 15.8 H, INR 1.3 09/24/20 15:26: Troponin I < 0.015 09/24/20 19:08: Troponin I < 0.015 09/25/20 05:04: PT 16.8 H, INR 1.4 Current Medications Acetaminophen (Acetaminophen 325 Mg Tablet) 650 mg PO Q6H PRN PRN PRN Reason: Pain Score 1-10/Temp > 100.7 F Amiodarone HCl (Amiodarone 200 Mg Tablet) 200 mg PO DAILY@0800 [facility] Last Admin: 09/25/20 12:22 Dose: 200 mg Documented by: Carvedilol (Carvedilol 6.25 Mg Tablet) 6.25 mg PO BID [facility] Last Admin: 09/25/20 12:22 Dose: 6.25 mg Documented by: Mirtazapine (Mirtazapine 15 Mg Tablet) 7.5 mg PO QHS [facility] Last Admin: 09/24/20 21:02 Dose: 7.5 mg Documented by: Pantoprazole Sodium (Pantoprazole Sodium 20 Mg Tablet) 20 mg PO DAILY [facility] Last Admin: 09/25/20 12:22 Dose: 20 mg Documented by: Prednisone (Prednisone 5 Mg Tablet) 5 mg PO DAILY@0800 [facility] Last Admin: 09/25/20 12:22 Dose: 5 mg Documented by: Sodium Chloride (0.9% Saline Lock 10 Ml Syringe) 10 - 40 ml IV UD PRN PRN Reason: SALINE FLUSH Tamsulosin HCl (Tamsulosin Hcl 0.4 Mg Capsule) 0.4 mg PO DAILY@1730 [facility] Last Admin: 09/24/20 16:24 Dose: 0.4 mg Documented by: Warfarin Sodium (Jantoven 2 Mg Tablet) 2 mg PO DAILY@1700 [facility] Last Admin: 09/24/20 16:30 Dose: 2 mg Documented by: Discharge Diet: Low fat/ Low Cholesterol, 1800 Calorie Control Diet, 2000 mg Sodium Diet Discharge Activity: Return to Normal Activity Home Medications: Medications to take at Discharge Hydroxychloroquine [Plaquenil] 200 mg PO DAILY 07/10/19 Calcitriol 0.25 mcg PO DAILY 03/14/20 Dutasteride [Avodart] 0.5 mg PO DAILY 03/14/20 Tamsulosin HCl 0.4 mg PO DAILY 03/14/20 prednisone 5 mg tablet 5 mg PO DAILY 04/03/20 finasteride 5 mg tablet 5 mg PO DAILY tab 05/16/20 mirtazapine 7.5 mg tablet 7.5 mg PO QHS #90 tab 09/17/20 omeprazole 20 mg tablet,delayed release 20 mg PO DAILY #60 tab 09/19/20 Amiodarone HCl 200 mg PO DAILY 09/24/20 Carvedilol [Coreg (Beta Shelley)] 6.25 mg PO BID 09/24/20 Warfarin Sodium 2 mg PO DAILY 09/24/20 Acetaminophen [Tylenol Tablet] 650 mg PO Q6H PRN PRN tab 09/25/20 Primary Care Physician: Dwayne Valente DO [Primary Care Provider] - Please follow up with your Primary Care Physician in: 1-2 weeks Please Follow Up With: Chris Alvarez MD - Keep current appointment When: 10/17/20 Disposition: Home Minutes spent on discharge:: 35 Patient Condition:: Stable Medical Necessity - Tobacco Use Smoking Status: Former smoker Tobacco Use: Pipe Meaningful Use Info Meaningful Use Diagnoses (Choose all that apply): None applicable <Mirza Cam - Last Filed: 09/25/20 14:37> Discharge Date and Diagnosis - Primary Discharge Diagnosis Acute Problems: Active Problems (Last Reviewed 09/19/20 @ 08:50 by Rachel Bolaños) Chest pain (Acute) - Secondary Discharge Diagnosis Chronic Problems: Chronic Problems (Last Reviewed 09/19/20 @ 08:50 by Rachel Bolaños) 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) ICD implant 12/26/09 Nonischemic cardiomyopathy (Chronic) Chronic systolic (congestive) heart failure (Chronic) Longstanding persistent atrial fibrillation (Chronic) Paroxysmal atrial flutter (Chronic) Essential (primary) hypertension (Chronic) Hyperlipidemia (Chronic) senior care (current) use of anticoagulants (Chronic) Diabetes type 2, controlled (Chronic) CKD (chronic kidney disease), stage IV (Chronic) JESSICA (obstructive sleep apnea) (Chronic) Stage 4 very severe COPD by GOLD classification (Chronic) Hospital Course and Treatment Imaging Results: 09/25/20 05:55 Nuclear Stress Test - Chemical [NM] AM (NON MEDS) Summary of Care Provided: This patient was seen in conjunction with Domingo Connell PA-C . I have independently interviewed and examined the patient and reviewed pertinent historical, laboratory, and other data. Please refer to Domingo Connell PA-C note for details of this patient's presentation, findings, and recommendations. I have reviewed Domingo Connell PA-C note and concur with documented findings. In brief, patient is a 79-year-old gentleman with multiple comorbidities admitted with chest pain. Placed on a monitored bed where patient underwent subsequent evaluation Assessment: 1. Chest pain 2. Nonischemic cardiomyopathy with ejection fraction of 15% status post AICD placement 3. Chronic systolic congestive heart failure 4. Paroxysmal atrial flutter 5. Severe COPD 6. Chronic kidney disease stage IV 7. Diabetes mellitus type 2 Hospital course: As documented above - Physical Exam Vitals/I&O's: Vital Signs Temp Pulse Resp BP Pulse Ox 97.9 F 70 14 113/65 95 09/25/20 12:16 09/25/20 13:00 09/25/20 12:16 09/25/20 12:16 09/25/20 12:16 Oxygen Flow Rate (L/min) 3 Oxygen Delivery Method Room Air Weight: 69.5 kg Body Mass Index (BMI) 20.7 Intake and Output for Last 24 Hours 09/23/20 09/24/20 09/25/20 23:59 23:59 23:59 Intake Total 540 / 540 120 / 120 Balance 540 / 540 120 / 120 Laboratory Results 09/24/20 15:26: Troponin I < 0.015 09/24/20 19:08: Troponin I < 0.015 09/25/20 05:04: PT 16.8 H, INR 1.4 Current Medications Acetaminophen (Acetaminophen 325 Mg Tablet) 650 mg PO Q6H PRN PRN PRN Reason: Pain Score 1-10/Temp > 100.7 F Amiodarone HCl (Amiodarone 200 Mg Tablet) 200 mg PO DAILY@0800 [facility] Last Admin: 09/25/20 12:22 Dose: 200 mg Documented by: Carvedilol (Carvedilol 6.25 Mg Tablet) 6.25 mg PO BID [facility] Last Admin: 09/25/20 12:22 Dose: 6.25 mg Documented by: Mirtazapine (Mirtazapine 15 Mg Tablet) 7.5 mg PO QHS [facility] Last Admin: 09/24/20 21:02 Dose: 7.5 mg Documented by: Pantoprazole Sodium (Pantoprazole Sodium 20 Mg Tablet) 20 mg PO DAILY [facility] Last Admin: 09/25/20 12:22 Dose: 20 mg Documented by: Prednisone (Prednisone 5 Mg Tablet) 5 mg PO DAILY@0800 [facility] Last Admin: 09/25/20 12:22 Dose: 5 mg Documented by: Sodium Chloride (0.9% Saline Lock 10 Ml Syringe) 10 - 40 ml IV UD PRN PRN Reason: SALINE FLUSH Tamsulosin HCl (Tamsulosin Hcl 0.4 Mg Capsule) 0.4 mg PO DAILY@1730 [facility] Last Admin: 09/24/20 16:24 Dose: 0.4 mg Documented by: Warfarin Sodium (Jantoven 2 Mg Tablet) 2 mg PO DAILY@1700 [facility] Last Admin: 09/24/20 16:30 Dose: 2 mg Documented by: OBSV E&M: [id number] Observation care discharge
== END 2020-09-25 13:23 | disposition home or self-care (01) ==
LOC: ED 13:11 → PCU 14:19
PROVIDERS: Admitting Provider Internal Medicine; Emergency Provider Emergency Medicine; PCP Family Medicine; Visit Provider Internal Medicine
DX: R07.89 Other chest pain (principal); Z95.810 Presence of automatic (implantable) cardiac defibrillator; J44.9 Chronic obstructive pulmonary disease, unspecified; G47.33 Obstructive sleep apnea (adult) (pediatric); E11.22 Type 2 diabetes mellitus with diabetic chronic kidney disease; E78.5 Hyperlipidemia, unspecified; N18.4 Chronic kidney disease, stage 4 (severe); I13.0 Hypertensive heart and chronic kidney disease with heart failure and stage 1 through stage 4 chronic kidney disease, or unspecified chronic kidney disease; I50.22 Chronic systolic (congestive) heart failure; I48.92 Unspecified atrial flutter; I48.11 Longstanding persistent atrial fibrillation; M19.90 Unspecified osteoarthritis, unspecified site; N40.0 Benign prostatic hyperplasia without lower urinary tract symptoms; M06.9 Rheumatoid arthritis, unspecified; J96.11 Chronic respiratory failure with hypoxia; Z79.899 Other long term (current) drug therapy; Z79.01 Long term (current) use of anticoagulants; Z79.52 Long term (current) use of systemic steroids; Z87.891 Personal history of nicotine dependence; K21.9 Gastro-esophageal reflux disease without esophagitis; I27.20 Pulmonary hypertension, unspecified
CPT/HCPCS: 36415; 71045; 78452; 80048; 84484; 85025; 85610; 93005; 93017; 96374; 96375; 99218; 99284; A9500; A4216; G0378; J2405; J2785

== ENCOUNTER 2020-10-04 07:32 | Day surgery (SDC) | payer MEDICARE, OTHER, SELFPAY ==
[2020-09-19 08:47] VITALS: BMI 20.7
[2020-09-24 14:32] VITALS: BMI 20.7
[2020-10-04] VITALS (7 sets, daily range): BP systolic 133–141; BP diastolic 75–87; PULSE 58–63; RESP 16–18; TEMP 36.3–36.6; O2SAT 95–100; BMI 21.2
--- NOTE | 2020-10-04 06:51 | HP_ITS ---
Intake Vital Signs 09/19/20 Height 6 ft 09/19/20 Weight: 153 lb 09/19/20 BMI 20.7 09/19/20 BP 130/77 H 09/19/20 Blood Pressure Location Rt brachial 09/19/20 Position Sitting 09/19/20 Respiration 16 09/19/20 Pulse 66 09/19/20 Pulse Source Monitor 09/19/20 Temp 97.3 F L 09/19/20 Temp Source Temporal 09/19/20 Pulse Oximetry (%) 99 09/19/20 Oxygen Delivery Method room air Intake Visit Reasons: EGD, ESOPHAGEAL OBSTRUCTION Chief Complaint: Follow-up ER visit Is patient in pain?: No Allergies amoxicillin [Amoxicillin] Allergy (Verified 09/19/20 08:47) Rash ciprofloxacin [From Cipro] Allergy (Verified 09/19/20 08:47) Rash ciprofloxacin HCl [From Cipro] Allergy (Verified 09/19/20 08:47) Rash Sulfa (Sulfonamide Antibiotics) Allergy (Verified 09/19/20 08:47) PT UNSURE OF REACTION Medications Hydroxychloroquine [Plaquenil] 200 mg PO DAILY 07/10/19 [History Confirmed 09/19/20] Amiodarone HCl 200 mg PO DAILY 11/16/19 [History Confirmed 09/19/20] Calcitriol 0.25 mcg PO DAILY 03/14/20 [History Confirmed 09/19/20] Dutasteride [Avodart] 0.5 mg PO DAILY 03/14/20 [History Confirmed 09/19/20] Tamsulosin HCl 0.4 mg PO DAILY 03/14/20 [History Confirmed 09/19/20] prednisone 5 mg tablet 5 mg PO DAILY 04/03/20 [History Confirmed 09/19/20] dapagliflozin 5 mg tablet 5 mg PO DAILY 05/16/20 [History Confirmed 09/19/20] finasteride 5 mg tablet 5 mg PO DAILY tab 05/16/20 [History Confirmed 09/19/20] warfarin 2 mg tablet 2 mg PO 5XW tab 05/16/20 [History Confirmed 09/19/20] warfarin 4 mg tablet 4 mg PO Q OTHER DAY 05/16/20 [History Confirmed 09/19/20] elavated toilet seat See Rx Instructions .ROUTE .MEDSUPPLY #1 ea 06/19/20 [Rx Confirmed 09/19/20] miscellaneous medical supply See Rx Instructions .ROUTE .MEDSUPPLY #1 ea 06/19/20 [History Confirmed 09/19/20] carvedilol 12.5 mg tablet 12.5 mg PO BID #180 tab 08/28/20 [Rx Confirmed 09/19/20] furosemide 40 mg tablet 40 mg PO DAILY tab 08/28/20 [History Confirmed 09/19/20] warfarin 1 mg tablet 1 mg PO .3 days a week #30 tab 08/28/20 [Rx Confirmed 09/19/20] mirtazapine 7.5 mg tablet 7.5 mg PO QHS #90 tab 09/17/20 [Rx Confirmed 09/19/20] omeprazole 20 mg tablet,delayed release 20 mg PO DAILY #60 tab 09/19/20 [Rx Confirmed 09/19/20] [facility] Medical History SOB (shortness of breath) (Acute) Nonischemic cardiomyopathy (Chronic) Chronic systolic (congestive) heart failure (Chronic) Longstanding persistent atrial fibrillation (Chronic) Paroxysmal atrial flutter (Chronic) Essential (primary) hypertension (Chronic) Hyperlipidemia (Chronic) Diabetes type 2, controlled (Chronic) CKD (chronic kidney disease), stage IV (Chronic) JESSICA (obstructive sleep apnea) (Chronic) Stage 4 very severe COPD by GOLD classification (Chronic) Arthritis (Chronic) BPH (benign prostatic hyperplasia) (Chronic) COPD (chronic obstructive pulmonary disease) (Chronic) DM2 (diabetes mellitus, type 2) (Chronic) Fistula (Chronic) Frequent PVCs (Chronic) Hearing loss (Chronic) Rheumatoid arthritis (Chronic) Chronic respiratory failure with hypoxia (Resolved) History of pneumonia (Resolved) Rectus sheath hematoma (Resolved) Dizziness and giddiness (Inactive) Dyspnea (Inactive) Surgical History 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) History of left heart catheterization (Resolved 11/25/09) Hx of lithotripsy (Resolved) Normal colonoscopy (Resolved) Family History Father Sudden cardiac Brother Myocardial infarction CHF (congestive heart failure) Other Family history of coronary artery disease Social History (Updated 01/21/21 @ 09:[address] Herve Irene MD) Smoking Status: Former smoker how long ago did patient quit smokin alcohol intake: never substance use type: does not use caffeine: No what type of physical activity do you participate in: none seatbelt use: always do you feel safe at home: Yes HPI HPI HPI: CHACORTA BANUELOS, is a 79 M who presents to the office today for HPI HPI Surgical H&P: Yes HPI: CHACORTA BANUELOS, is a 79 M who presents to the office today for Dysphagia. The patient has had food impaction of the esophagus twice now. Once was made and only one was potatoes. These have both resolved spontaneously. Patient does not know where exactly in his esophagus he felt that it was getting stuck but he did have vomiting with these episodes. ROS General General: No weight change, appetite, fatigue, colon cancer, breast cancer or weakness HEENT HEENT: Yes difficulty swallowing; no eye injury, eye surgery, swollen glands or hoarseness Endo Endocrine: No thyroid disease, diabetes mellitus, thyroid cancer, Hair loss, heat intolerance or cold intolerance Skin Skin: No rash or changing moles Musc Musculoskeletal: Yes rheumatoid arthritis; no back problems, arthritis, gout or joint pain Cardio Cardiovascular: Yes pacemaker, atrial fibrillation and high blood pressure; no murmur, heart disease, heart attack, heart stent, palpitations, shortness of breat with exertion or chest pain Psych Psychiatric: Yes depression and anxiety; no hearing voices Resp Respiratory: Yes shortness of breath, Yes sleep apnea, No cough, Yes COPD, No asthma, No emphysema, No wheezing Gastro Gastrointestinal: No abdominal pain, No nausea or vomiting, No diarrhea, No constipation, No blood in stool, No acid reflux, No hemorrhoids, No ulcers, No gallbladder problem, No black,tarry stools Terrence Hematologic: Yes blood thinners, No blood disorders, No bleeding, No anemia, No blood clots Neuro Neurologic: No system reviewed and no additional complaints, except as docu, No as per HPI, No abnormal walking, No abnormal hearing, No abnormal movements, No abnormal speech, No behavioral changes, No burning sensations, No confusion, No seizure-like activity, No unsteadiness, No dizziness, No localized weakness, No frequent falls, No headache(s), No lack of coordination, No loss of vision, No memory loss, No numbness, No other visual disturbances, No radiating pain, No restless legs, No sensory deficit, No fainting, No tingling, No tremor(s), No weakness, No other Exam Const General: cooperative Orientation: alert, oriented x3 Resp Effort & Inspection: normal respiratory effort Auscultation: clear to auscultation bilaterally Cardio Rate: regular rate Rhythm: regular rhythm Heart Sounds: no murmurs GI Inspection: non-distended Palpation: soft, nontender Assessment & Plan Problems 1. Esophageal dysphagia R13.10 Plan The patient has dysphagia with several episodes of food impaction. I did start the patient on a PPI and I would recommend an EGD with possible dilation. I discussed this with the patient in detail. I explained endoscopy in detail to the patient. I explained the risks including but not limited to stroke or heart attack with anesthesia, perforation of the GI tract, bleeding, infection. I explained that any of these could necessitate further emergency surgery. The patient understands and all questions were answered sufficiently. The patient wishes to proceed with procedure. I discussed the increased risk of perforation with dilation. The patient will need clearance from his forester aide as well as permission to come off of his Coumadin as I believe dilation will be necessary. Herve Irene MD Pager: [facility] [address] [place] [address], [address] [place] [address] Office: Orders Orders: EGD Today R13.10 Medications New: omeprazole 20 mg PO DAILY 60 tabs 2RF Coding Level of Care Code Off vis,new,level 3 Diagnoses Esophageal dysphagia R13.10 ??Dysphagia type: esophageal phase I have re-examined the patient. There are no clinical changes since date of exam.
[2020-10-04 07:51] LABS: Prothrombin Time Fingerstick 15.3 SEC (11.9-14.4)
[2020-10-04] MEDS: Lactated Ringers 1,000 ML 100 ML IV (08:18)
--- NOTE | 2020-10-04 08:51 | OP.CCLET_ITS ---
10/04/2020 Dwayne Valente Re : Upper GI endoscopy procedure for Richard Bose Dear Dr. Valente This procedure was performed on Sunday, October 04, 2020. My impressions and recommendations are as follows: Impressions : - Grade II esophageal varices. - Benign-appearing esophageal stenosis. - Gastritis. Biopsied. - Normal examined duodenum. Recommendations : - Discharge patient to home. - Resume previous diet. - Continue present medications. - Await pathology results. My findings are described in the full procedure note, which is enclosed. If I can be of further assistance, please feel free to contact me at Doctor phone number(s): , Work: . Sincerely, Herve Irene MD 10/04/2020 8:50:56 AM This report has been signed electronically.
--- NOTE | 2020-10-04 08:51 | OP.EGD_ITS ---
Patient Name: Richard Bose Procedure Date: 10/04/2020 8:23 AM Date of : 1940 Age: 79 Procedure: Upper GI endoscopy Indications: Dysphagia Providers: Herve Irene MD Referring MD: Dwayne Valente Medicines: Monitored Anesthesia Care Patient Profile: This is a 79 year old male. Refer to note in patient chart for documentation of history and physical. Complications: No immediate complications. Procedure: Pre-Anesthesia Assessment: - Prior to the procedure, a History and Physical was performed, and patient medications and allergies were reviewed. The patient's tolerance of previous anesthesia was also reviewed. The risks and benefits of the procedure and the sedation options and risks were discussed with the patient. All questions were answered, and informed consent was obtained. Prior Anticoagulants: The patient has taken Coumadin (warfarin), last dose was 5 days prior to procedure. After reviewing the risks and benefits, the patient was deemed in satisfactory condition to undergo the procedure. After obtaining informed consent, the endoscope was passed under direct vision. Throughout the procedure, the patient's blood pressure, pulse, and oxygen saturations were monitored continuously. The gastroscope was introduced through the mouth, and advanced to the second part of duodenum. The upper GI endoscopy was accomplished without difficulty. The patient tolerated the procedure well. Scope In: 8:42:05 AM Scope Out: 8:44:56 AM Total Procedure Duration Time 0 hours 2 minutes 51 seconds Findings: Grade II varices were found in the lower third of the esophagus. One benign-appearing, intrinsic stenosis was found in the lower third of the esophagus. This stenosis was mildly severe (non-circumferential scarring) and measured less than one cm (in length). The stenosis was traversed. It was very large and unlikely to cause obstruction. Localized moderate inflammation characterized by shallow ulcerations was found in the stomach. Biopsies were taken with a cold forceps for Helicobacter pylori testing. The examined duodenum was normal. Impression: - Grade II esophageal varices. - Benign-appearing esophageal stenosis. - Gastritis. Biopsied. - Normal examined duodenum. Recommendation: - Discharge patient to home. - Resume previous diet. - Continue present medications. - Await pathology results. Procedure Code(s): --- Professional --- 64597, Esophagogastroduodenoscopy, flexible, transoral; with biopsy, single or multiple Diagnosis Code(s): --- Professional --- I85.00, Esophageal varices without bleeding K22.2, Esophageal obstruction K29.70, Gastritis, unspecified, without bleeding R13.10, Dysphagia, unspecified CPT copyright 2017 [employer]. All rights reserved. The codes documented in this report are preliminary and upon corporate secretary review may be revised to meet current compliance requirements. Herve Irene MD 10/04/2020 8:50:56 AM This report has been signed electronically. Number of Addenda: 0 Note Initiated On: 10/04/2020 8:23 AM
--- NOTE | 2020-10-04 09:00 | IMM_PTH ---
PATIENT: CHACORTA BANUELOS GENE LOC: EN U#:[id number] AGE/SX: 79/M ROOM: RE10/04/[address]: Dr. Herve Irene MD : 1940 BED: DIS: 10/04/2020 SPEC #: [id number] RECD: 10/04/20 11:37 STATUS: GABO REAldo #: [id number] BIN: 10/04/20 09:[address]: Herve Irene DEPT: IMMUNOHISTOCHEMISTRY RECD BY: Sanjuanita Brown ENTERED: 10/04/20 11:37 SP TYPE: IMMUNO OTHR DR: Dr. Dwayne Valente DO Tissues: Stomach, NOS Procedures: H Pylori (initial) PHYSICIAN & INSTITUTION [place] [id number] SPECIMEN INFORMATION: Tissue Source: Antrum biopsy Clinical Info: Esophageal dysphagia Specimen Number: [id number] CPT code: 74301 METHODOLOGY: Deparaffinized sections of prefer/formalin-fixed tissue or PAP/DQ stained slides are incubated with monoclonal/polyclonal antibodies/oligonucleotide probes. Localization is made via biotin free immunoperoxidase method. Appropriate controls are performed and reacted as expected. Results on target cell population are indicated in the following table: RESULTS: ANTIBODY / CLONE RESULT H Pylori (polyclonal) negative These tests were developed and their performance characteristics determined by [facility]. They may not have been cleared or approved by the U.S. Food and Drug Administration. The FDA has determined that such clearance or approval is not necessary. INTERPRETATION: Antrum biopsy: Negative for Helicobacter pylori organisms. RUKHSANA:jayne 10/07/20
--- NOTE | 2020-10-04 09:00 | EGD_PTH ---
PATIENT: CHACORTA BANUELOS GENE LOC: EN U#:[id number] AGE/SX: 79/M ROOM: RE10/04/[address]: Dr. Herve Irene MD : 1940 BED: DIS: 10/04/2020 SPEC #: [id number] RECD: 10/04/20 11:07 STATUS: GABO HERLINDA #: [id number] BIN: 10/04/20 09:[address]: Herve Irene DEPT: SURGICAL PATHOLOGY RECD BY: Angela Nowak ENTERED: 10/04/20 12:01 SP TYPE: EGD BIOPSY OTHR DR: Dr. Dwayne Valente, DO Tissues: Gastric mucous membrane Procedures: Special Stain Group II Surgery Specimen Level IV Alcian Blue/PAS (control) HEADER OPERATION: EGD ([facility] [place] PRE-OP DIAGNOSIS: Esophageal dysphagia TISSUE SUBMITTED: Antrum biopsy for H. pylori and path MICROSCOPIC DIAGNOSIS Antrum biopsy: Moderate chronic active gastritis. Focal intestinal metaplasia. See comment. SJ:jayne 10/07/2020 COMMENT The results of immunohistochemistry for Helicobacter pylori will be reported separately ([id number]). Alcian blue/PAS stain with matched control is used in the evaluation of the specimen. MICROSCOPIC DESCRIPTION Slides are reviewed. GROSS DESCRIPTION Received in fixative is one container labeled with the patient's name and designated antrum biopsy. The specimen consists of multiple irregular fragments of light mahan soft tissue that in aggregate measure 1 x 0.2 x 0.1 cm. The specimen is totally submitted in one cassette. / AM:jayne 10/04/20 TC:2 CPT: 85231, 36272
== END 2020-10-04 09:29 | disposition home health service (06) ==
LOC: EN 07:34 → AC 07:34
PROVIDERS: PCP Family Medicine; Referring Provider Family Medicine; Visit Provider Surgery
PROC: 0DJ08ZZ Inspection of Upper Intestinal Tract, Via Natural or Artificial Opening Endoscopic (ICD-10-PCS; CPT 43235; principal; 2020-10-04 08:55)
DX: K22.2 Esophageal obstruction (principal); I85.00 Esophageal varices without bleeding; K29.50 Unspecified chronic gastritis without bleeding; R13.10 Dysphagia, unspecified; I13.0 Hypertensive heart and chronic kidney disease with heart failure and stage 1 through stage 4 chronic kidney disease, or unspecified chronic kidney disease; E11.22 Type 2 diabetes mellitus with diabetic chronic kidney disease; N18.4 Chronic kidney disease, stage 4 (severe); I50.22 Chronic systolic (congestive) heart failure; I48.11 Longstanding persistent atrial fibrillation; I42.0 Dilated cardiomyopathy; I49.3 Ventricular premature depolarization; J44.9 Chronic obstructive pulmonary disease, unspecified; E78.5 Hyperlipidemia, unspecified; G47.33 Obstructive sleep apnea (adult) (pediatric); M06.9 Rheumatoid arthritis, unspecified; Z95.810 Presence of automatic (implantable) cardiac defibrillator; Z79.01 Long term (current) use of anticoagulants; Z79.52 Long term (current) use of systemic steroids; Z79.84 Long term (current) use of oral hypoglycemic drugs; Z99.81 Dependence on supplemental oxygen; Z79.899 Other long term (current) drug therapy; Z87.891 Personal history of nicotine dependence; Z20.822 Contact with and (suspected) exposure to COVID-19
CPT/HCPCS: 43239; 36416; 85610; 87426; 88305; 88313; 88342; C9803; J7120

== ENCOUNTER 2020-11-01 10:08 | Outpatient (RCR) | payer MEDICARE, OTHER, SELFPAY ==
[2020-08-28 10:49] VITALS: BMI 20.6
[2020-10-04 07:59] VITALS: BMI 21.2
[2020-11-01 11:26] LABS: International Normalized Ratio 2.1
== END 2020-11-01 18:00 | disposition home or self-care (01) ==
LOC: LAB 10:08
PROVIDERS: Family Provider Family Medicine; PCP Family Medicine; Referring Provider Internal Medicine Cardiovascular Disease; Visit Provider Internal Medicine Cardiovascular Disease
DX: I48.20 Chronic atrial fibrillation, unspecified (principal); Z79.01 Long term (current) use of anticoagulants
CPT/HCPCS: 36415; 85610

== ENCOUNTER 2020-12-24 09:25 | Outpatient (RCR) | payer MEDICARE, OTHER, SELFPAY ==
[2020-11-01 09:37] VITALS: BMI 20.5
[2020-12-04 10:48] VITALS: BMI 20.6
[2020-12-24 09:59] LABS: Hematocrit 41.5 % (40-54); Hemoglobin 12.8 g/dL (13.0-16.5); Mean Corp Hgb Conc 30.8 g/dL (32-36); Mean Corpuscular Hgb 28.3 pg (27.0-32.0); Mean Corpuscular Volume 91.8 fL (80-94); Mean Platelet Vol. 10.5 fl (6.2-12.0); POSITIVE COUNT YES; Platelet Count 89 K/mm3 (150-450); RBC Distribution Width CV 13.9 % (11.6-14.6); RBC Distribution Width SD 46.7 fl (35.1-43.9); Red Blood Count 4.52 M/mm3 (4.6-6.2); White Blood Count 4.1 K/mm3 (4.4-11.0)
[2020-12-24 10:00] LABS: Scan Indicated on CBC? Y/N YES- FLAGS NOTED
[2020-12-24 10:06] LABS: International Normalized Ratio 3.4; Prothrombin Time (Protime)PT. 33.5 SECONDS (11.7-14.9)
[2020-12-24 10:26] LABS: PTHIN 189.1 pg/mL (18.4-80.1)
[2020-12-24 10:29] LABS: Albumin, Serum 3.4 g/dL (3.2-5.0); BUN 35 mg/dL (7-18); BUN/Creat Ratio 12.3 RATIO (10-20); Calcium,Total 8.6 mg/dL (8.5-10.1); Chloride 103 mmol/L (98-107); Creatinine, Serum 2.84 mg/dL (0.70-1.30); EST Glomerular Filtration Rate 23 mL/min (>60); Est Glom Filt Rate - Afr Amer 28 mL/min (>60); Glucose 139 mg/dL (74-106); Potassium 3.7 mmol/L (3.5-5.1); Sodium Level 139 mmol/L (136-145)
== END 2020-12-24 18:00 | disposition home or self-care (01) ==
LOC: LAB 09:25
PROVIDERS: Family Provider Family Medicine; PCP Family Medicine; Referring Provider Internal Medicine Cardiovascular Disease; Visit Provider Internal Medicine Cardiovascular Disease
DX: I48.20 Chronic atrial fibrillation, unspecified (principal); Z79.01 Long term (current) use of anticoagulants
CPT/HCPCS: 36415; 80069; 83970; 85027; 85610

== ENCOUNTER → 2020-12-25 | Outpatient (CLI) | payer MEDICARE, OTHER, SELFPAY ==
[2020-12-04 10:48] VITALS: BMI 20.6
[2020-12-25 10:46] LABS: Protein, Urine (Random) 34.9 mg/dL (<11.9); Protein:Creat Ratio 539 mg/g CRE (0-200)
== END | disposition home or self-care (01) ==
LOC: LABSPEC 09:53
PROVIDERS: PCP Family Medicine; Referring Provider Internal Medicine Nephrology; Visit Provider Internal Medicine Nephrology
DX: E11.22 Type 2 diabetes mellitus with diabetic chronic kidney disease (principal); N18.4 Chronic kidney disease, stage 4 (severe); N25.81 Secondary hyperparathyroidism of renal origin
CPT/HCPCS: 82570; 84156

== ENCOUNTER 2021-02-24 08:30 | Outpatient (RCR) | payer MEDICARE, OTHER, SELFPAY ==
[2020-12-04 10:48] VITALS: BMI 20.6
[2021-02-24 09:05] LABS: Absolute Lymphocyte Count 0.92 X10^3/uL (0.83-4.51); Absolute Neutrophil Count 2.4 X10^3/uL (2.0-7.7); Basophil# 0.05 X10^3/uL; Basophil% 1.4 % (0-1); Eosinophil# 0.04 X10^3/uL; Eosinophils% 1.1 % (0-5); Hematocrit 40.6 % (40-54); Hemoglobin 12.6 g/dL (13.0-16.5); Lymphocyte # 0.92 X10^3/ul (0.83-4.51); Lymphocyte % 25.6 % (19-41); Mean Corpuscular Hgb 28.2 pg (27.0-32.0); Mean Corpuscular Volume 90.8 fL (80-94); Mean Platelet Vol. 9.9 fl (6.2-12.0); Monocyte# 0.21 X10^3/uL; Monocyte% 5.8 % (0-10); NRBC Flagged by Analyzer 0 % (0-5); Neutrophil # 2.36 X10^3/uL (2.7-7.7); Neutrophil % 65.8 % (47-70); Platelet Count 102 K/mm3 (150-450); RBC Distribution Width CV 14.1 % (11.6-14.6); RBC Distribution Width SD 47.1 fl (35.1-43.9); Red Blood Count 4.47 M/mm3 (4.6-6.2); White Blood Count 3.6 K/mm3 (4.4-11.0)
[2021-02-24 09:36] LABS: ALB/GLOB Ratio 1.1 RATIO (0.9-2.4); AST(SGOT) 17 U/L (15-37); Alanine Aminotransfer ALT/SGPT 14 U/L (16-61); Albumin, Serum 3.5 g/dL (3.2-5.0); Alkaline Phosphatase 104 U/L (45-117); Anion Gap 9 (5-15); BUN 31 mg/dL (7-18); BUN/Creat Ratio 10.4 RATIO (10-20); Calcium,Total 8.6 mg/dL (8.5-10.1); Chloride 101 mmol/L (98-107); Creatinine, Serum 2.97 mg/dL (0.70-1.30); EST Glomerular Filtration Rate 22 mL/min (>60); Est Glom Filt Rate - Afr Amer 26 mL/min (>60); Globulin 3.3 g/dL (2.2-4.2); Glucose 154 mg/dL (74-106); Potassium 3.8 mmol/L (3.5-5.1); Protein, Total 6.8 g/dL (6.4-8.2); Sodium Level 142 mmol/L (136-145)
[2021-02-24 10:16] LABS: International Normalized Ratio 1.7; Prothrombin Time (Protime)PT. 18.9 SECONDS (11.7-14.9)
== END 2021-02-24 18:00 | disposition home or self-care (01) ==
LOC: LAB 08:30
PROVIDERS: Family Provider Family Medicine; PCP Family Medicine; Referring Provider Internal Medicine Cardiovascular Disease; Visit Provider Internal Medicine Cardiovascular Disease
DX: E11.22 Type 2 diabetes mellitus with diabetic chronic kidney disease (principal); I48.20 Chronic atrial fibrillation, unspecified; Z79.01 Long term (current) use of anticoagulants; N18.30 Chronic kidney disease, stage 3 unspecified; E55.9 Vitamin D deficiency, unspecified
CPT/HCPCS: 36415; 80053; 85025; 85610

== ENCOUNTER 2021-04-13 13:02 | Emergency (ER) | payer MEDICARE, OTHER, SELFPAY ==
[2021-04-13 13:07] VITALS: BP 100/70; PULSE 60; RESP 16; TEMP 36.8; O2SAT 100; BMI 19.8
--- NOTE | 2021-04-13 13:53 | EKG12_ITS ---
Test Reason : CP Blood Pressure : / mmHG Vent. Rate : 060 BPM Atrial Rate : 060 BPM P-R Int : 176 ms QRS Dur : 194 ms QT Int : 592 ms P-R-T Axes : 000 258 104 degrees QTc Int : 592 ms AV dual-paced rhythm Biventricular pacemaker detected Abnormal ECG Confirmed by SANTOS ARAYA MD ([id number]), staff editor BRAD SAUNDERS ([id number]) on 04/15/2021 9:30:31 AM Referred By: BROOKE
--- NOTE | 2021-04-13 13:53 | RAD_ITS ---
STUDY: X-RAY CHEST REASON FOR EXAM: Male, 80 years old. chest pain TECHNIQUE: Single AP portable view of the chest. COMPARISON: 09/24/2020 FINDINGS: Left subclavian dual-lead AICD which is unchanged. Poor inspiration with some bibasilar atelectasis. There is no demonstrated pleural abnormality. There is moderate cardiac enlargement. Normal mediastinum and angel. Normal visualized pulmonary arteries. Normal visualized aortic arch and descending thoracic aorta. Normal visualized thoracic spine. Normal visualized ribs, clavicles, and shoulders. There is no demonstrated abnormality of the visualized soft tissue structures of the upper abdomen. RAD/Chest 1 View (Portable) IMPRESSION: For inspiration with some bibasilar atelectasis. Electronically Signed: Mic Jacob MD at 14:43 EDT Tel , Service support ,
[2021-04-13] MEDS: Aspirin 81 MG TAB.CHEW 324 MG PO (14:12)
[2021-04-13 14:13] LABS: Absolute Lymphocyte Count 0.66 X10^3/uL (0.83-4.51); Absolute Neutrophil Count 2.5 X10^3/uL (2.0-7.7); Basophil# 0.03 X10^3/uL; Basophil% 0.9 % (0-1); Eosinophil# 0.04 X10^3/uL; Eosinophils% 1.2 % (0-5); Hematocrit 38.6 % (40-54); Hemoglobin 12.4 g/dL (13.0-16.5); Lymphocyte # 0.66 X10^3/ul (0.83-4.51); Lymphocyte % 19.2 % (19-41); Mean Corp Hgb Conc 32.1 g/dL (32-36); Mean Corpuscular Hgb 29.6 pg (27.0-32.0); Mean Corpuscular Volume 92.1 fL (80-94); Mean Platelet Vol. 10.6 fl (6.2-12.0); Monocyte# 0.23 X10^3/uL; Monocyte% 6.7 % (0-10); NRBC Flagged by Analyzer 0 % (0-5); Neutrophil # 2.47 X10^3/uL (2.7-7.7); Neutrophil % 71.7 % (47-70); POSITIVE COUNT YES; Platelet Count 85 K/mm3 (150-450); RBC Distribution Width CV 14.4 % (11.6-14.6); RBC Distribution Width SD 48.6 fl (35.1-43.9); Red Blood Count 4.19 M/mm3 (4.6-6.2); White Blood Count 3.4 K/mm3 (4.4-11.0)
[2021-04-13 14:14] LABS: Differential Indicated SCAN CRITERIA MET
[2021-04-13 14:26] LABS: Anion Gap 4 (5-15); BUN 43 mg/dL (7-18); BUN/Creat Ratio 17.4 RATIO (10-20); Calcium,Total 8.8 mg/dL (8.5-10.1); Chloride 107 mmol/L (98-107); Creatinine, Serum 2.47 mg/dL (0.70-1.30); EST Glomerular Filtration Rate 27 mL/min (>60); Est Glom Filt Rate - Afr Amer 33 mL/min (>60); Estimated Creatinine Clearance 23.09 ml/min; Glucose 199 mg/dL (74-106); Lipase 36 U/L (73-393); Magnesium 2.5 mg/dL (1.6-2.6); Potassium 3.6 mmol/L (3.5-5.1); Sodium Level 141 mmol/L (136-145); Troponin-I HS 37.1 pg/mL (3.0-78.5)
[2021-04-13 14:39] LABS: Platelet Estimate MOD DEC (ADEQ)
[2021-04-13 15:51] VITALS: BP 107/63; PULSE 76; RESP 13; O2SAT 99
[2021-04-13 16:01] LABS: Mucous, Urine 0 SEEN /hpf (<or=2+); Red Blood Cells-Urine 0 SEEN /hpf (0-5); Squamous Epithelial Cells - UA 0 SEEN /hpf (0-5)
[2021-04-13 16:02] LABS: Color, Urine Yellow (Yellow); Glucose, Dipstick Normal (Normal); Ketone-Dipstick Negative (Negative); Leukocyte Esterase-Dipstick 100 /ul (Negative); Nitrite-Dipstick Positive (Negative); Occult Blood-Urine Negative /ul (Negative); Protein-Dipstick Negative (Negative); Urine Bilirubin Dipstick Negative (Negative); Urine Clarity Clear (Clear); Urine Urobilinogen Normal (Normal)
[2021-04-13 16:07] LABS: White Blood Cells 10-25 SEEN /hpf (0-5)
[2021-04-13 16:08] LABS: Bacteria 3+ /hpf (None Seen)
[2021-04-13] MEDS: Ceftriaxone 1 GM/50 ML BAG IV (16:21)
--- NOTE | 2021-04-13 16:30 | EDS_ITS ---
HPI History of Present Illness Chief Complaint: Chest Pain Narrative Narrative: Patient is a 80-year-old male with past medical history of chronic kidney disease as well as coronary artery disease and has pacemaker placement. He has been seen multiple times in the ER and as an outpatient secondary to a left-sided chest pain that cannot be determined. Patient states that his pain began last night and persisted today. Secondary to this he presents to the ER for evaluation. He denies any trauma try to the pain beginning he denies any nausea vomiting diaphoresis or shortness of breath associated with this. He does state that he has had mild dysuria but denies any fevers or chills. He reports that the pain has spontaneously resolved prior to his arrival in the ER. [facility] Medical History (Updated 04/13/21 @ 16:[address] Leander Oh DO) Arthritis BPH (benign prostatic hyperplasia) Chronic respiratory failure with hypoxia Chronic systolic (congestive) heart failure CKD (chronic kidney disease), stage IV COPD (chronic obstructive pulmonary disease) Diabetes type 2, controlled Dizziness and giddiness DM2 (diabetes mellitus, type 2) Dyspnea Essential (primary) hypertension Fistula Frequent PVCs Hearing loss History of pneumonia Hyperlipidemia Longstanding persistent atrial fibrillation Nonischemic cardiomyopathy JESSICA (obstructive sleep apnea) Paroxysmal atrial flutter Rectus sheath hematoma Rheumatoid arthritis SOB (shortness of breath) Stage 4 very severe COPD by GOLD classification Home Medications hydroxychloroquine 200 mg PO DAILY 07/10/19 [History Last Taken 03/14/20] calcitriol 0.25 mcg PO DAILY 03/14/20 [History Last Taken 03/14/20] dutasteride 0.5 mg PO DAILY 03/14/20 [History Last Taken 03/14/20] tamsulosin 0.4 mg PO DAILY 03/14/20 [History Last Taken 03/13/20] mirtazapine 7.5 mg tablet 7.5 mg PO QHS #90 tab 09/17/20 [Rx Last Taken Unknown] omeprazole 20 mg tablet,delayed release 20 mg PO DAILY #60 tab 09/19/20 [Rx Last Taken Unknown] acetaminophen 650 mg PO Q6H PRN PRN tab 09/25/20 [Rx Last Taken Unknown] amiodarone 200 mg tablet 200 mg PO DAILY #90 tab 11/01/20 [Rx Last Taken Unknown] carvedilol 12.5 mg tablet 12.5 mg PO BID #180 tab 11/01/20 [Rx Last Taken Unknown] furosemide 40 mg tablet See Rx Instructions .ROUTE .COMPLEX #180 tab 11/04/20 [Rx Last Taken Unknown] warfarin 1 mg tablet 1 mg PO .COMPLEX #45 tablet 11/26/20 [Rx Last Taken Unknown] warfarin 2 mg tablet See Rx Instructions PO DAILY #90 tablet 11/27/20 [Rx Last Taken Unknown] prednisone 5 mg tablet 5 mg PO DAILY #90 tab 03/18/21 [Rx Last Taken Unknown] cephalexin 500 mg PO TID 7 Days #21 cap 04/13/21 [Rx Last Taken Unknown] Allergy/AdvReac Type Severity Reaction Status Date / Time amoxicillin [Amoxicillin] Allergy Rash Verified 04/13/21 13:11 ciprofloxacin [From Cipro] Allergy Rash Verified 04/13/21 13:11 ciprofloxacin HCl Allergy Rash Verified 04/13/21 13:11 [From Cipro] Sulfa (Sulfonamide Allergy PT UNSURE Verified 04/13/21 13:11 Antibiotics) OF REACTION Family History (Reviewed 03/20/21 @ 09:57 by Lili Chaudhary FIELD ASSEMBLY SUPERVISOR, FIELD ASSEMBLY SUPERVISOR-C) Father Sudden cardiac Brother Myocardial infarction CHF (congestive heart failure) Other Family history of coronary artery disease Surgical History Biventricular ICD (implantable cardioverter-defibrillator) in place History of left heart catheterization (11/25/09) Hx of lithotripsy Normal colonoscopy Social History (Reviewed 03/20/21 @ 09:57 by Lili Chaudhary FIELD ASSEMBLY SUPERVISOR, FIELD ASSEMBLY SUPERVISOR-C) Smoking Status: Former smoker how long ago did patient quit smokin alcohol intake: never substance use type: does not use caffeine: No what type of physical activity do you participate in: none seatbelt use: always do you feel safe at home: Yes ROS ROS ED Constitutional Constitutional ED: Denies chills or fever(s) Eyes Eyes: Denies change in vision ENT ENT ED: Denies sore throat Cardiovascular Cardiovascular: Reports chest pain; Denies palpitations or racing heartbeat Respiratory/Chest Respiratory/Chest: Denies cough or dyspnea Gastrointestinal Gastrointestinal: Denies abdominal pain, nausea or vomiting Genitourinary Genitourinary ED: Reports dysuria Musculoskeletal Musculoskeletal: Denies myalgias Integumentary Denies rash Neurologic Neurologic: Denies headache(s) Hematologic/Lymphatic Hematologic/Lymphatic: Reports easy bleeding and easy bruising EXAM Physical Exam Const Vital Signs: 04/13/21 13:07 04/13/21 14:06 04/13/21 15:51 Temperature 98.2 F Temperature Source Temporal Pulse Rate 60 76 Respiratory Rate 16 13 Blood Pressure 100/70 107/63 Blood Pressure Mean 80 77 Pulse Ox 100 99 Oxygen Delivery Method Room Air Room Air Room Air Positive unkempt General Appearance ED: unkempt and NAD Eyes PERRL and EOMs intact bilaterally Neck supple Chest Wall Chest Narrative: Pacemaker is in place in the left anterior lateral chest wall without secondary changes to suggest trauma or infection. There is no bony deformity or crepitance of the chest wall and no reproducible pain with palpation Resp normal respiratory effort and clear to auscultation bilaterally Cardio regular rate, regular rhythm and no murmurs GI GI Narrative: Abdomen is soft nontender nondistended with normal active bowel sounds no voluntary guarding or rigidity no pulsatile mass Back/Spine no CVA tenderness Extremity normal to inspection Extremity Narrative: No asymmetric edema no pitting edema negative Homans' sign bilaterally Neuro oriented x3 and CN's II-XII intact bilaterally Sensorium / Orientation: alert Psych mental status grossly normal Appearance: unkempt Skin no rashes or lesions noted MDM MDM MDM Narrative Medical decision making narrative: Patient presented to the ER afebrile with stable vitals. He reported this pain has been recurrent over a year and has had multiple work-ups with no obvious cause. He states that the pain is spontaneous resolved but as he has known CAD and chronic medical conditions I did elect perform basic laboratory and imaging studies. The patient's white count is low at 3.4 per chart review reveals this is near his baseline. Patient also has chronic kidney disease but creatinine is at his baseline at this time. The troponin is normal his EKG is paced rhythm and chest x-ray reveals no lung pathology. His urine does show changes consistent with infection but he is not showing changes consistent with urosepsis. Therefore patient be placed on antibiotics and is safe for discharge home Lab Data Labs: Laboratory Results - last 24 hr 04/13/21 04/13/21 04/13/21 13:08 13:08 15:50 WBC 3.4 L RBC 4.19 L Hgb 12.4 L Hct 38.6 L MCV 92.1 MCH 29.6 MCHC 32.1 RDW Std Deviation 48.6 H RDW Coeff of Cecilia 14.4 Plt Count 85 L MPV 10.6 Immature Gran % (Auto) 0.300 Neut % (Auto) 71.7 H Lymph % (Auto) 19.2 Scurry % (Auto) 6.7 Eos % (Auto) 1.2 Baso % (Auto) 0.9 Absolute Neuts (auto) 2.5 Absolute Lymphs (auto) 0.66 L Nucleated RBC % 0 Platelet Estimate MOD DEC Sodium 141 Potassium 3.6 Chloride 107 Carbon Dioxide 30.0 Anion Gap 4 L BUN 43 H Creatinine 2.47 H Estim Creat Clear Calc 23.09 Est GFR (MDRD) Af Amer 33 L Est GFR (MDRD) Non-Af 27 L BUN/Creatinine Ratio 17.4 Glucose 199 H Calcium 8.8 Magnesium 2.5 Troponin I High Sens 37.1 Lipase 36 L Urine Color Yellow Urine Clarity Clear Urine pH 6.0 Ur Specific [place] 1.010 Urine Protein Negative Urine Glucose (UA) Normal Urine Ketones Negative Urine Occult Blood Negative Urine Nitrite Positive H Urine Bilirubin Negative Urine Urobilinogen Normal Ur Leukocyte Esterase 100 H Urine RBC 0 SEEN Urine WBC 10-25 SEEN Ur Squamous Epith Cells 0 SEEN Urine Bacteria 3+ Urine Mucus 0 SEEN Radiography Diagnostic Testing: Radiology Impression Chest X-Ray 04/13/21 13:53 IMPRESSION: For inspiration with some bibasilar atelectasis. Electronically Signed: Mic Jacob MD at 14:43 EDT Tel , Service support , Discharge Plan Triage Chief Complaint: Chest Pain ED Provider: Leander Oh Dx/Rx/DC Orders Clinical Impression: Urinary tract infection, Chest wall pain Instructions: Urinary Tract Infections in Men, ED Chest Pain [facility] Prescriptions: New cephalexin 500 mg capsule 500 mg PO TID 7 Days Qty: 21 RF: 0 No Action amiodarone 200 mg tablet 200 mg PO DAILY Qty: 90 RF: 3 carvedilol 12.5 mg tablet 12.5 mg PO BID Qty: 180 RF: 3 mirtazapine 7.5 mg tablet 7.5 mg PO QHS Qty: 90 RF: 3 omeprazole 20 mg tablet,delayed release (DR/EC) 20 mg PO DAILY Qty: 60 RF: 2 prednisone 5 mg tablet 5 mg PO DAILY Qty: 90 RF: 0 hydroxychloroquine 200 MG tablet 200 mg PO DAILY RF: 0 tamsulosin 0.4 mg capsule 0.4 mg PO DAILY RF: 0 calcitriol 0.25 MCG capsule 0.25 mcg PO DAILY RF: 0 dutasteride 0.5 MG capsule 0.5 mg PO DAILY RF: 0 acetaminophen 325 MG tablet 650 mg PO Q6H PRN PRN (Reason: Pain Score 1-10/Temp > 100.7 F) RF: 0 furosemide 40 mg tablet See Rx Instructions .ROUTE .COMPLEX Qty: 180 RF: 3 warfarin 1 mg tablet 1 mg PO .COMPLEX Qty: 45 RF: 3 warfarin 2 mg tablet See Rx Instructions mg PO DAILY Qty: 90 RF: 3 Primary Care Provider: Dwayne Valente Referrals: Dwayne Valente, [Primary Care Provider] - 3-5 Days Disposition Disposition: Home, Self Care
[2021-04-13 16:44] VITALS: BP 112/71; PULSE 60; RESP 12; O2SAT 100
== END 2021-04-13 16:48 | disposition home or self-care (01) ==
PROVIDERS: Emergency Provider Emergency Medicine; PCP Family Medicine
DX: R07.89 Other chest pain (principal); N39.0 Urinary tract infection, site not specified; I25.10 Atherosclerotic heart disease of native coronary artery without angina pectoris; I13.0 Hypertensive heart and chronic kidney disease with heart failure and stage 1 through stage 4 chronic kidney disease, or unspecified chronic kidney disease; E11.22 Type 2 diabetes mellitus with diabetic chronic kidney disease; N18.4 Chronic kidney disease, stage 4 (severe); I50.22 Chronic systolic (congestive) heart failure; I49.3 Ventricular premature depolarization; I48.11 Longstanding persistent atrial fibrillation; J44.9 Chronic obstructive pulmonary disease, unspecified; J96.11 Chronic respiratory failure with hypoxia; E78.5 Hyperlipidemia, unspecified; M06.9 Rheumatoid arthritis, unspecified; N40.0 Benign prostatic hyperplasia without lower urinary tract symptoms; Z95.810 Presence of automatic (implantable) cardiac defibrillator; Z79.01 Long term (current) use of anticoagulants; Z79.899 Other long term (current) drug therapy; Z87.891 Personal history of nicotine dependence
CPT/HCPCS: 71045; 80048; 81001; 83690; 83735; 84484; 85025; 93005; 96365; 99285

== ENCOUNTER → 2021-04-24 | Outpatient (CLI) | payer MEDICARE, OTHER, SELFPAY ==
[2021-04-24 10:32] LABS: Bacteria 0 SEEN /hpf (None Seen); Mucous, Urine 0 SEEN /hpf (<or=2+); Red Blood Cells-Urine 0 SEEN /hpf (0-5)
[2021-04-24 12:38] LABS: Color, Urine Yellow (Yellow); Glucose, Dipstick Normal (Normal); Ketone-Dipstick Negative (Negative); Leukocyte Esterase-Dipstick Negative /ul (Negative); Nitrite-Dipstick Negative (Negative); Occult Blood-Urine Negative /ul (Negative); Protein-Dipstick 15 mg/dl (Negative); Specific Gravity, Urine 1.015 (1.002-1.030); Urine Bilirubin Dipstick Negative (Negative); Urine Clarity Clear (Clear); Urine Urobilinogen Normal (Normal)
[2021-04-24 12:52] LABS: Squamous Epithelial Cells - UA 5-10 SEEN /hpf (0-5); White Blood Cells 0-5 SEEN /hpf (0-5)
== END | disposition home or self-care (01) ==
LOC: LABSPEC 10:32
PROVIDERS: PCP Family Medicine; Referring Provider Family Medicine; Visit Provider Family Medicine
DX: N39.0 Urinary tract infection, site not specified (principal)
CPT/HCPCS: 81001

== ENCOUNTER 2021-05-19 08:31 | Outpatient (RCR) | payer MEDICARE, OTHER, SELFPAY ==
[2020-12-04 10:48] VITALS: BMI 20.6
[2021-05-06 12:29] LABS: International Normalized Ratio 1.6; Prothrombin Time (Protime)PT. 17.9 SECONDS (11.7-14.9)
[2021-05-19 09:39] LABS: International Normalized Ratio 1.8; Prothrombin Time (Protime)PT. 20.3 SECONDS (11.7-14.9)
== END 2021-05-19 18:00 | disposition home or self-care (01) ==
LOC: LAB 08:31
PROVIDERS: Family Provider Family Medicine; PCP Family Medicine; Referring Provider Internal Medicine Cardiovascular Disease; Visit Provider Internal Medicine Cardiovascular Disease
DX: I48.11 Longstanding persistent atrial fibrillation (principal); Z79.01 Long term (current) use of anticoagulants; I48.92 Unspecified atrial flutter
CPT/HCPCS: 36415; 85610

== ENCOUNTER 2021-06-10 08:34 | Outpatient (RCR) | payer MEDICARE, OTHER, SELFPAY ==
[2021-05-29 21:47] VITALS: BMI 20.6
[2021-06-10 09:25] LABS: International Normalized Ratio 2.4; Prothrombin Time (Protime)PT. 25.5 SECONDS (11.7-14.9)
== END 2021-06-29 18:00 | disposition home or self-care (01) ==
LOC: LAB 08:34
PROVIDERS: Family Provider Family Medicine; PCP Family Medicine; Referring Provider Internal Medicine Cardiovascular Disease; Visit Provider Internal Medicine Cardiovascular Disease
DX: I48.11 Longstanding persistent atrial fibrillation (principal); Z79.01 Long term (current) use of anticoagulants; I48.92 Unspecified atrial flutter
CPT/HCPCS: 36415; 85610

== ENCOUNTER 2021-06-30 09:40 | Outpatient (RCR) | payer MEDICARE, OTHER, SELFPAY ==
[2021-06-29 20:12] VITALS: BMI 20.6
[2021-06-30 10:47] LABS: International Normalized Ratio 2.7; Prothrombin Time (Protime)PT. 28.2 SECONDS (11.7-14.9)
[2021-06-30 10:58] LABS: Protein, Urine (Random) 36.4 mg/dL (<11.9); Protein:Creat Ratio 557 mg/g CRE (0-200)
[2021-06-30 11:14] LABS: PTHIN 134.4 pg/mL (18.4-80.1)
[2021-06-30 11:18] LABS: BUN 40 mg/dL (7-18); BUN/Creat Ratio 15.2 RATIO (10-20); Calcium,Total 8.6 mg/dL (8.5-10.1); Chloride 105 mmol/L (98-107); Creatinine, Serum 2.64 mg/dL (0.70-1.30); EST Glomerular Filtration Rate 25 mL/min (>60); Est Glom Filt Rate - Afr Amer 30 mL/min (>60); Glucose 150 mg/dL (74-106); Phosphorus 3.1 mg/dL (2.5-4.9); Potassium 3.6 mmol/L (3.5-5.1); Sodium Level 141 mmol/L (136-145)
== END 2021-07-29 18:00 | disposition home or self-care (01) ==
LOC: LAB 09:40
PROVIDERS: Family Provider Family Medicine; PCP Family Medicine; Referring Provider Internal Medicine Cardiovascular Disease; Visit Provider Internal Medicine Cardiovascular Disease
DX: I48.11 Longstanding persistent atrial fibrillation (principal); Z79.01 Long term (current) use of anticoagulants; I48.92 Unspecified atrial flutter
CPT/HCPCS: 36415; 80069; 82570; 83970; 84156; 85610

== ENCOUNTER 2021-08-25 09:37 | Outpatient (RCR) | payer MEDICARE, OTHER, SELFPAY ==
[2021-07-30 03:30] VITALS: BMI 20.6
[2021-08-25 10:16] LABS: Absolute Lymphocyte Count 1.08 X10^3/uL (0.83-4.51); Absolute Neutrophil Count 2.3 X10^3/uL (2.0-7.7); Basophil# 0.06 X10^3/uL; Basophil% 1.6 % (0-1); Eosinophil# 0.01 X10^3/uL; Eosinophils% 0.3 % (0-5); Hemoglobin 11.5 g/dL (13.0-16.5); Lymphocyte # 1.08 X10^3/ul (0.83-4.51); Mean Corp Hgb Conc 31.9 g/dL (32-36); Mean Corpuscular Hgb 29.1 pg (27.0-32.0); Mean Corpuscular Volume 91.1 fL (80-94); Mean Platelet Vol. 10.5 fl (6.2-12.0); Monocyte# 0.26 X10^3/uL; NRBC Flagged by Analyzer 0 % (0-5); Neutrophil % 61.6 % (47-70); Platelet Count 100 K/mm3 (150-450); RBC Distribution Width CV 13.6 % (11.6-14.6); RBC Distribution Width SD 45.2 fl (35.1-43.9); Red Blood Count 3.95 M/mm3 (4.6-6.2); White Blood Count 3.7 K/mm3 (4.4-11.0)
[2021-08-25 10:18] LABS: International Normalized Ratio 2.9; Prothrombin Time (Protime)PT. 29.9 SECONDS (11.7-14.9)
[2021-08-25 10:48] LABS: ALB/GLOB Ratio 0.8 RATIO (0.9-2.4); AST(SGOT) 17 U/L (15-37); Alanine Aminotransfer ALT/SGPT 18 U/L (16-61); Albumin, Serum 3.1 g/dL (3.2-5.0); Alkaline Phosphatase 129 U/L (45-117); Anion Gap 7 (5-15); BUN 29 mg/dL (7-18); BUN/Creat Ratio 10.9 RATIO (10-20); Calcium,Total 8.6 mg/dL (8.5-10.1); Chloride 106 mmol/L (98-107); Creatinine, Serum 2.67 mg/dL (0.70-1.30); EST Glomerular Filtration Rate 25 mL/min (>60); Est Glom Filt Rate - Afr Amer 30 mL/min (>60); Globulin 3.9 g/dL (2.2-4.2); Glucose 139 mg/dL (74-106); Potassium 3.2 mmol/L (3.5-5.1); Sodium Level 143 mmol/L (136-145)
== END 2021-08-30 18:00 | disposition home or self-care (01) ==
LOC: LAB 09:37
PROVIDERS: Family Provider Family Medicine; PCP Family Medicine; Referring Provider Internal Medicine Cardiovascular Disease; Visit Provider Internal Medicine Cardiovascular Disease
DX: I48.11 Longstanding persistent atrial fibrillation (principal); Z79.01 Long term (current) use of anticoagulants; I48.92 Unspecified atrial flutter
CPT/HCPCS: 36415; 80053; 85025; 85610

== ENCOUNTER 2021-09-24 09:13 | Outpatient (RCR) | payer MEDICARE, OTHER, SELFPAY ==
[2021-08-31 04:32] VITALS: BMI 20.6
[2021-09-24 12:04] LABS: International Normalized Ratio 2.4
== END 2021-09-29 23:59 ==
LOC: BIMLAB 09:13
PROVIDERS: Family Provider Family Medicine; PCP Family Medicine; Referring Provider Internal Medicine Cardiovascular Disease; Visit Provider Internal Medicine Cardiovascular Disease
DX: I48.11 Longstanding persistent atrial fibrillation (principal); I48.92 Unspecified atrial flutter; Z79.01 Long term (current) use of anticoagulants
CPT/HCPCS: 36415; 85610

== ENCOUNTER 2021-11-13 09:26 | Day surgery (SDC) | payer MEDICARE, OTHER, SELFPAY ==
--- NOTE | 2021-11-04 14:00 | RAD_ITS ---
STUDY: X-RAY CHEST REASON FOR EXAM: Male, 81 years old. For ICD generator change TECHNIQUE: Single AP portable view of the chest. COMPARISON: Comparison is made with prior study 04/13/2021. FINDINGS: Mild residual increased linear markings at the lung bases suggestive of mild scarring. There is no demonstrated pleural abnormality. There is mild cardiac enlargement. A left-sided dual-chamber pacemaker is seen. Normal mediastinum and angel. Normal visualized pulmonary arteries. There is atherosclerotic tortuosity of the aortic arch and descending thoracic aorta. There are diffuse degenerative changes of the visualized thoracic spine. Increased kyphosis. Normal visualized ribs, clavicles, and shoulders. There is no demonstrated abnormality of the visualized soft tissue structures of the upper abdomen. RAD/Chest PA and Lateral IMPRESSION: No acute abnormality is seen. Electronically Signed: Alexsander Gr MD at 12:47 EST ,
[2021-11-04 14:12] LABS: Mucous, Urine 0 SEEN /hpf (<or=2+)
[2021-11-04 14:38] LABS: Hematocrit 38.6 % (40-54); Hemoglobin 12.2 g/dL (13.0-16.5); Mean Corp Hgb Conc 31.6 g/dL (32-36); Mean Corpuscular Hgb 29.7 pg (27.0-32.0); Mean Corpuscular Volume 93.9 fL (80-94); Mean Platelet Vol. 10.1 fl (6.2-12.0); POSITIVE COUNT YES; Platelet Count 86 K/mm3 (150-450); RBC Distribution Width CV 14.1 % (11.6-14.6); RBC Distribution Width SD 47.4 fl (35.1-43.9); Red Blood Count 4.11 M/mm3 (4.6-6.2); White Blood Count 3.7 K/mm3 (4.4-11.0)
[2021-11-04 14:39] LABS: Color, Urine Yellow (Yellow); Glucose, Dipstick Normal (Normal); Ketone-Dipstick Negative (Negative); Leukocyte Esterase-Dipstick 500 /ul (Negative); Nitrite-Dipstick Negative (Negative); Occult Blood-Urine 10 /ul (Negative); Protein-Dipstick Negative (Negative); Urine Bilirubin Dipstick Negative (Negative); Urine Clarity Sl. Cloudy (Clear); Urine Urobilinogen Normal (Normal)
[2021-11-04 14:40] LABS: Scan Indicated on CBC? Y/N YES- FLAGS NOTED
[2021-11-04 14:46] LABS: Bacteria 2+ /hpf (None Seen); Red Blood Cells-Urine 0-5 SEEN /hpf (0-5); Squamous Epithelial Cells - UA 0-5 SEEN /hpf (0-5); White Blood Cells 25-50 SEEN /hpf (0-5)
[2021-11-04 14:54] LABS: International Normalized Ratio 2.9; Prothrombin Time (Protime)PT. 29.9 SECONDS (11.7-14.9)
[2021-11-04 15:05] LABS: Anion Gap 5 (5-15); BUN 39 mg/dL (7-18); BUN/Creat Ratio 13.5 RATIO (10-20); Calcium,Total 8.9 mg/dL (8.5-10.1); Chloride 105 mmol/L (98-107); Creatinine, Serum 2.89 mg/dL (0.70-1.30); EST Glomerular Filtration Rate 23 mL/min (>60); Est Glom Filt Rate - Afr Amer 27 mL/min (>60); Glucose 181 mg/dL (74-106); Potassium 4.2 mmol/L (3.5-5.1); Sodium Level 140 mmol/L (136-145)
[2021-11-12 08:22] VITALS: BMI 21.4
[2021-11-13 09:36] LABS: INR Fingerstick 1.7
--- NOTE | 2021-11-13 11:43 | PCM.OPRPT ---
Report of Operation Date of Procedure: 11/13/21 Description of Procedure: Diagnosis: Nonischemic Cardiomyopathy with NYHA Class iii. ICD for primary prevention. Complete heart block Device generator replacement for normal battery depletion Preoperative diagnosis is device at end of life for normal battery depletion. Postoperative diagnosis same as above. After informed consent and IV antibiotics the patient was brought to the [place] catheterization laboratory and the skin over the device was prepped and draped in the usual sterile manner. Intermittent boluses of Versed, and fentanyl were used for sedation and analgesia as well as 1% subcutaneous lidocaine. An incision was made over the pre-existing device. Using blunt and Bovie dissection the pocket was opened and the device was removed. Careful attention was paid not to injure the pre-existing leads. The leads were removed from the device header and they were interrogated. There is normal leads function. Hemostasis was obtained. The pocket was flushed with antibiotic solution. The sponge and needle count were correct. The new device was brought to the field. The leads were placed in the appropriate position in the header and secured by the set screw. The leads and the device were then placed in the pocket. The pocket was closed with a deep layer of running 2-0 Vicryl, a superficial layer of running 4-0 Vicryl, skin with Steri-Strips which were covered with a rolled 4 x 4 and Tegaderm. Patient left the room with the device programmed to proper parameters and there were no complications. The device is a BiV chamber Fontenot ICD generator. All lead parameters were tested and found to be functionally normal. Lead and device serial and model numbers are available in the chart documents provided by the device company textiles sales representative procedure summary.
== END 2021-11-13 23:59 | disposition home or self-care (01) ==
LOC: CLSP 09:27
PROVIDERS: PCP Family Medicine; Referring Provider Internal Medicine Cardiovascular Disease; Visit Provider Internal Medicine Cardiovascular Disease
DX: Z45.010 Encounter for checking and testing of cardiac pacemaker pulse generator [battery] (principal); M06.9 Rheumatoid arthritis, unspecified; J44.9 Chronic obstructive pulmonary disease, unspecified; I50.22 Chronic systolic (congestive) heart failure; I13.0 Hypertensive heart and chronic kidney disease with heart failure and stage 1 through stage 4 chronic kidney disease, or unspecified chronic kidney disease; I42.8 Other cardiomyopathies; E11.22 Type 2 diabetes mellitus with diabetic chronic kidney disease; N18.4 Chronic kidney disease, stage 4 (severe); I48.11 Longstanding persistent atrial fibrillation; E78.00 Pure hypercholesterolemia, unspecified; N40.0 Benign prostatic hyperplasia without lower urinary tract symptoms; M19.90 Unspecified osteoarthritis, unspecified site; Z79.01 Long term (current) use of anticoagulants; Z79.899 Other long term (current) drug therapy; Z87.891 Personal history of nicotine dependence
CPT/HCPCS: 33264; 36415; 36416; 71046; 80048; 81001; 85027; 85610; 87811; 93641; 99152; 99153; C9803; J7040; J7050

== ENCOUNTER 2021-11-30 10:04 | Inpatient (IN) | payer MEDICARE, OTHER, SELFPAY ==
[2021-11-30] VITALS (8 sets, daily range): BP systolic 99–133; BP diastolic 50–86; PULSE 66–88; RESP 16–24; TEMP 36.7–39.2; O2SAT 93–100; BMI 25.4; BMI 20.2
--- NOTE | 2021-11-30 10:22 | EKG12_ITS ---
Test Reason : WEAKNESS Blood Pressure : / mmHG Vent. Rate : 083 BPM Atrial Rate : 083 BPM P-R Int : 000 ms QRS Dur : 196 ms QT Int : 490 ms P-R-T Axes : 093 267 111 degrees QTc Int : 575 ms Ventricular-paced rhythm Biventricular pacemaker detected Abnormal ECG Confirmed by GREER ESCOBEDO, MILI ([id number]), scientific publications editor TRICIA BROWNING ([id number]) on 12/03/2021 10:44:33 AM Referred By: ELANA Confirmed By:MILI BUTTERFIELD MD
--- NOTE | 2021-11-30 10:24 | EX.ED.DYSGE1 ---
HPI <PATRICK Woody - Last Filed: 11/30/21 12:06> History of Present Illness Chief Complaint: Weakness Narrative Narrative: 81-year-old male with history of chronic kidney disease, COPD, pacer defibrillator presents the emergency department for weakness, lethargic, altered mental status that started this morning. Per the daughter, the patient was walking all over the place, patient did have a fall, patient denies any injury. Patient does have a fever on initial assessment, patient recently was treated for a urinary tract infection earlier in the month of October 2021. Patient recently received a new pacemaker on November 13, 2021. Patient appears lethargic, per the family, he does not talk about his medical issues and does not state when he is sick. PFSH <PATRICK Woody - Last Filed: 11/30/21 12:06> [facility] Medical History (Updated 11/30/21 @ 11:[address] Terry Diaz, DO) Arthritis BPH (benign prostatic hyperplasia) Chronic respiratory failure with hypoxia Chronic systolic (congestive) heart failure CKD (chronic kidney disease), stage IV COPD (chronic obstructive pulmonary disease) Diabetes type 2, controlled Dizziness and giddiness DM2 (diabetes mellitus, type 2) Dyspnea Essential (primary) hypertension Fistula Frequent PVCs Hearing loss History of pneumonia Hyperlipidemia ICD (implantable cardioverter-defibrillator) in place Longstanding persistent atrial fibrillation Nonischemic cardiomyopathy JESSICA (obstructive sleep apnea) Pacemaker Paroxysmal atrial flutter Rectus sheath hematoma Reflux gastritis Rheumatoid arthritis SOB (shortness of breath) Stage 4 very severe COPD by GOLD classification Home Medications hydroxychloroquine 200 mg PO DAILY 07/10/19 [History Last Taken 03/14/20] calcitriol 0.25 mcg PO DAILY 03/14/20 [History Last Taken 03/14/20] dutasteride 0.5 mg PO DAILY 03/14/20 [History Last Taken 03/14/20] tamsulosin 0.4 mg PO DAILY 03/14/20 [History Last Taken 11/13/21] acetaminophen 650 mg PO Q6H PRN PRN tab 09/25/20 [Rx Last Taken Unknown] amiodarone 200 mg tablet 200 mg PO DAILY #90 tab 11/01/20 [Rx Last Taken 11/13/21] carvedilol 12.5 mg tablet 12.5 mg PO BID #180 tab 11/01/20 [Rx Last Taken 11/13/21] warfarin 2 mg tablet See Rx Instructions PO DAILY #90 tablet 11/27/20 [Rx Last Taken Unknown] prednisone 5 mg tablet 5 mg PO DAILY #90 tab 03/18/21 [Rx Last Taken Unknown] warfarin 1 mg tablet 1 mg PO .COMPLEX #45 tablet 06/05/21 [Rx Last Taken 11/12/21] psyllium husk 0.4 gram capsule 0.4 g PO DAILY 09/30/21 [History Last Taken Unknown] mirtazapine 7.5 mg tablet 7.5 mg PO QHS #90 tab 10/08/21 [Rx Last Taken Unknown] furosemide 40 mg tablet 40 mg PO DAILY #90 tab 11/07/21 [Rx Last Taken Unknown] Allergy/AdvReac Type Severity Reaction Status Date / Time amoxicillin [Amoxicillin] Allergy Rash Verified 11/04/21 13:41 ciprofloxacin [From Cipro] Allergy Rash Verified 11/04/21 13:41 ciprofloxacin HCl Allergy Rash Verified 11/04/21 13:41 [From Cipro] Sulfa (Sulfonamide Allergy PT UNSURE Verified 11/04/21 13:41 Antibiotics) OF REACTION Family History Father Sudden cardiac Brother Myocardial infarction CHF (congestive heart failure) Other Family history of coronary artery disease Surgical History Biventricular ICD (implantable cardioverter-defibrillator) in place History of left heart catheterization (11/25/09) Hx of lithotripsy Normal colonoscopy Social History Smoking Status: Former smoker how long ago did patient quit smokin alcohol intake: never substance use type: does not use caffeine: No what type of physical activity do you participate in: none seatbelt use: always do you feel safe at home: Yes ROS <PATRICK Woody - Last Filed: 11/30/21 12:06> ROS ED ROS Narrative Constitutional: Negative for weight loss or gain. Positive fever chills, weakness Eyes: Negative for vision loss, vision change, double vision ENT: Negative for any hearing changes, ringing in the ears, discharge, pain Nose: Negative for any congestion, runny nose, sinus pain, allergies Throat: Negative for any sore throat, swelling, voice changes, Cardiovascular: Negative for any chest pain, tightness, palpitations, racing heartbeat Respiratory: Negative for any cough, sputum production, hemoptysis, shortness of breath, shortness of breath on exertion, Gastrointestinal: Negative for any abdominal pain, diarrhea, constipation, blood in stool, blood in vomit. Positive for nausea and vomiting : Negative for any urinary frequency, incontinence, dysuria, retention, blood in urine. Positive for past history of urinary tract infection Muscle skeletal: Negative for any muscle joint pain, stiffness, myalgias, arthralgias, neck pain, back pain Neurological: Negative for any headache, dizziness, syncope, numbness or tingling Skin: Negative for any rashes, lumps, itching, abrasions, lacerations Psychiatric: Negative for any depression, anxiety, stress, suicidal ideation, homicidal ideation Hematologic: Negative for any easy bruising, excessive bruising, easy bleeding Allergies: Negative for any eczema, hives, rash EXAM <PATRICK Woody - Last Filed: 11/30/21 12:06> Physical Exam Narrative Exam Narrative: Patient does appear unwell, patient does appear toxic, patient's vital signs show the patient is febrile, however patient's vital signs remained stable. Patient is alert and oriented however is lethargic, most of the information was given by the family. Const Vital Signs: 11/30/21 10:05 11/30/21 10:19 11/30/21 11:30 Temperature 102.6 F H 102.6 F H 100.9 F H Temperature Source Oral Oral Temporal Pulse Rate 88 88 71 Respiratory Rate 24 H 24 H 21 H Respiratory Effort Normal Non-Labored Blood Pressure 133/86 H 133/86 H 110/62 Blood Pressure Mean 101 101 78 Pulse Ox 100 100 99 Oxygen Delivery Method Nasal Cannula Nasal Cannula Nasal Cannula Oxygen Flow Rate (L/min) 2 2 2 Positive cachectic and unkempt General Appearance ED: unkempt and cachectic Nutritional Appearance: cachectic HEENT Reports TM's clear and moist mucous membranes Tympanic Membrane ED: Yes TM's clear Eyes PERRL Neck no lymphadenopathy and supple Chest Wall inspection of chest normal Resp Resp Narrative: Diminished lung sounds in the bases. Patient is not hypoxic on initial examination. Auscultation: diminished lung sounds Cardio regular rate GI normal to inspection, nondistended, normoactive bowel sounds, non-tender and non-distended Palpation: soft Back/Spine no CVA tenderness Extremity normal to inspection Neuro CN's II-XII intact bilaterally Sensorium / Orientation: alert and lethargic Psych mental status grossly normal Appearance: unkempt Skin no rashes or lesions noted <Dr. Terry Diaz DO - Last Filed: 11/30/21 12:02> Physical Exam Const Vital Signs: 11/30/21 10:05 11/30/21 10:19 11/30/21 11:30 Temperature 102.6 F H 102.6 F H 100.9 F H Temperature Source Oral Oral Temporal Pulse Rate 88 88 71 Respiratory Rate 24 H 24 H 21 H Respiratory Effort Normal Non-Labored Blood Pressure 133/86 H 133/86 H 110/62 Blood Pressure Mean 101 101 78 Pulse Ox 100 100 99 Oxygen Delivery Method Nasal Cannula Nasal Cannula Nasal Cannula Oxygen Flow Rate (L/min) 2 2 2 MDM <PATRICK Woody - Last Filed: 11/30/21 12:06> MDM MDM Narrative Medical decision making narrative: Patient arrives lethargic, febrile, septic appearing. Patient did receive a full septic work-up with 2 sets of blood cultures, patient's CBC was unremarkable, patient's chemistries did show worsening renal disease with a creatinine 3.4, patient is usually around the mid twos. Patient's urinalysis does show infection, patient's lactic acid was elevated at 4.4. Patient did receive 2 L of normal saline, IV Rocephin was given for the urinary tract infection, urine culture was sent. Patient did receive a chest x-ray was unremarkable, patient's COVID-19, influenza was negative. Due to the patient being on Coumadin, having a fall, the patient did receive a CT scan of brain which showed chronic changes. At this time, patient vital signs remained stable, Tylenol was given rectally and the patient remains in a position of comfort. Patient will be admitted to the hospital. Hospitalist accept. Lab Data Attestation: I reviewed the patient's lab results. Labs: Laboratory Results - last 24 hr 11/30/21 11/30/21 11/30/21 10:27 10:34 10:34 WBC 3.5 L RBC 3.81 L Hgb 11.4 L Hct 35.3 L MCV 92.7 MCH 29.9 MCHC 32.3 RDW Std Deviation 45.7 H RDW Coeff of Cecilia 13.5 Plt Count 100 L MPV 10.0 Immature Gran % (Auto) 0.600 Neut % (Auto) 73.3 H Lymph % (Auto) 18.5 L Millard % (Auto) 5.1 Eos % (Auto) 1.4 Baso % (Auto) 1.1 H Absolute Neuts (auto) 2.6 Absolute Lymphs (auto) 0.65 L Nucleated RBC % 0 PT INR Sodium 143 Potassium 4.3 Chloride 108 H Carbon Dioxide 26.0 Anion Gap 9 BUN 39 H Creatinine 3.41 H Estim Creat Clear Calc 16.99 Est GFR (MDRD) Af Amer 23 L Est GFR (MDRD) Non-Af 19 L BUN/Creatinine Ratio 11.4 Glucose 155 H Lactic Acid Calcium 8.8 Troponin I High Sens 53 Urine Color Yellow Urine Clarity Cloudy Urine pH 6.0 Ur Specific [place] 1.020 Urine Protein 30 H Urine Glucose (UA) Normal Urine Ketones Negative Urine Occult Blood 25 H Urine Nitrite Negative Urine Bilirubin Negative Urine Urobilinogen Normal Ur Leukocyte Esterase 500 H Urine RBC 0 SEEN Urine WBC >100 SEEN Ur Squamous Epith Cells 0 SEEN Urine Bacteria 3+ Urine Mucus 0 SEEN 11/30/21 11/30/21 10:34 10:50 WBC RBC Hgb Hct MCV MCH MCHC RDW Std Deviation RDW Coeff of Cecilia Plt Count MPV Immature Gran % (Auto) Neut % (Auto) Lymph % (Auto) Millard % (Auto) Eos % (Auto) Baso % (Auto) Absolute Neuts (auto) Absolute Lymphs (auto) Nucleated RBC % PT 22.2 H INR 2.0 Sodium Potassium Chloride Carbon Dioxide Anion Gap BUN Creatinine Estim Creat Clear Calc Est GFR (MDRD) Af Amer Est GFR (MDRD) Non-Af BUN/Creatinine Ratio Glucose Lactic Acid 4.4 H* Calcium Troponin I High Sens Urine Color Urine Clarity Urine pH Ur Specific [place] Urine Protein Urine Glucose (UA) Urine Ketones Urine Occult Blood Urine Nitrite Urine Bilirubin Urine Urobilinogen Ur Leukocyte Esterase Urine RBC Urine WBC Ur Squamous Epith Cells Urine Bacteria Urine Mucus Radiography Diagnostic Testing: Clinical Impression(s) from Imaging Studies Brain CT 11/30/21 10:50 IMPRESSION: Chronic ischemic and involutional changes of the brain. Electronically Signed: Bernardo Roberts MD at 11:49 EDT , Chest X-Ray 11/30/21 10:55 IMPRESSION: 1. Reidentification of mild to moderate interstitial fibrotic changes of the lungs. No visualized new focal area of consolidation. Electronically Signed: Bernardo Roberts MD at 11:11 EDT , EKG Ventricular paced rhythm: Interpretation: Paced (Ventricular paced rhythm, rate of 83 bpm, QRS duration 96 ms, there is no acute ST elevation, no acute infarct noted) <Dr. Terry Diaz, DO - Last Filed: 11/30/21 12:02> [facility] MDM Narrative Medical decision making narrative: I have personally performed a face to face assessment of the patient and have reviewed the WAYNE Note. I performed a substantive portion of the visit including all aspects of the following. My shore findings include: History is [patient presents to the emergency department via EMS from home with weakness and fever. Patient seemed well yesterday. Patient recently had his pacer defibrillator replaced. Recently had urinary tract infection treated. This morning family noted him coming out of his room and I do stumbling into the wall. On the way back from the bathroom he did fall and it appeared that he fell on his buttocks and it is unclear if he hit his head but did have some blood on his elbow. Patient did vomit x1 and family thinks he may have vomited during the night because he had a bucket by his bed. No diarrhea. Patient denies headache or chest pain or abdominal pain. Patient has had his COVID vaccine but not the booster. Minimal cough that started today. Patient has history of COPD and is normally supposed to be on 3 to 4 L at night.] Exam is [HEENT-PERRLA, EOMI. Cranial nerves II through XII grossly intact. TMs clear. Mucous membranes moist. No adenopathy. Cardiovascular-regular rate and rhythm without murmur or ectopy Lungs-clear to auscultation, chest wall stable without crepitus or subcu emphysema Abdomen-normoactive bowel sounds, soft, nontender, no rebound or rigidity, no peritoneal signs. Extremities-intact ?4, normal range of motion, normal pulses, atraumatic] Medical Decison Making [IV line established on arrival. Patient placed on a surveillance system monitor. CT scan of the brain without contrast was interpreted by myself as no acute abnormalities and official report from radiology pending. Blood work showed a leukopenia which is chronic. Patient does have worsening renal insufficiency with a creatinine 3.4. His lactate was elevated 4.4. Urinalysis was positive for UTI. Patient was started on Rocephin IV. Patient was given normal saline IV fluids. Patient case will be discussed with hospitalist evaluate patient for admission. He did receive rectal Tylenol as well.] Other additions or changes: [None] Lab Data Attestation: I reviewed the patient's lab results. Labs: Laboratory Results - last 24 hr 11/30/21 11/30/21 11/30/21 10:27 10:34 10:34 WBC 3.5 L RBC 3.81 L Hgb 11.4 L Hct 35.3 L MCV 92.7 MCH 29.9 MCHC 32.3 RDW Std Deviation 45.7 H RDW Coeff of Cecilia 13.5 Plt Count 100 L MPV 10.0 Immature Gran % (Auto) 0.600 Neut % (Auto) 73.3 H Lymph % (Auto) 18.5 L Millard % (Auto) 5.1 Eos % (Auto) 1.4 Baso % (Auto) 1.1 H Absolute Neuts (auto) 2.6 Absolute Lymphs (auto) 0.65 L Nucleated RBC % 0 PT INR Sodium 143 Potassium 4.3 Chloride 108 H Carbon Dioxide 26.0 Anion Gap 9 BUN 39 H Creatinine 3.41 H Estim Creat Clear Calc 16.99 Est GFR (MDRD) Af Amer 23 L Est GFR (MDRD) Non-Af 19 L BUN/Creatinine Ratio 11.4 Glucose 155 H Lactic Acid Calcium 8.8 Troponin I High Sens 53 Urine Color Yellow Urine Clarity Cloudy Urine pH 6.0 Ur Specific [place] 1.020 Urine Protein 30 H Urine Glucose (UA) Normal Urine Ketones Negative Urine Occult Blood 25 H Urine Nitrite Negative Urine Bilirubin Negative Urine Urobilinogen Normal Ur Leukocyte Esterase 500 H Urine RBC 0 SEEN Urine WBC >100 SEEN Ur Squamous Epith Cells 0 SEEN Urine Bacteria 3+ Urine Mucus 0 SEEN 11/30/21 11/30/21 10:34 10:50 WBC RBC Hgb Hct MCV MCH MCHC RDW Std Deviation RDW Coeff of Cecilia Plt Count MPV Immature Gran % (Auto) Neut % (Auto) Lymph % (Auto) Millard % (Auto) Eos % (Auto) Baso % (Auto) Absolute Neuts (auto) Absolute Lymphs (auto) Nucleated RBC % PT 22.2 H INR 2.0 Sodium Potassium Chloride Carbon Dioxide Anion Gap BUN Creatinine Estim Creat Clear Calc Est GFR (MDRD) Af Amer Est GFR (MDRD) Non-Af BUN/Creatinine Ratio Glucose Lactic Acid 4.4 H* Calcium Troponin I High Sens Urine Color Urine Clarity Urine pH Ur Specific [place] Urine Protein Urine Glucose (UA) Urine Ketones Urine Occult Blood Urine Nitrite Urine Bilirubin Urine Urobilinogen Ur Leukocyte Esterase Urine RBC Urine WBC Ur Squamous Epith Cells Urine Bacteria Urine Mucus Radiography Diagnostic Testing: Clinical Impression(s) from Imaging Studies Brain CT 11/30/21 10:50 IMPRESSION: Chronic ischemic and involutional changes of the brain. Electronically Signed: Bernardo Roberts MD at 11:49 EDT Reading Location ID and State: [address] [place] [address] , Service support , Chest X-Ray 11/30/21 10:55 IMPRESSION: 1. Reidentification of mild to moderate interstitial fibrotic changes of the lungs. No visualized new focal area of consolidation. Electronically Signed: Bernardo Roberts MD at 11:11 EDT , 1 view chest x-ray obtained interpreted by myself as no acute disease process with only chronic changes. Radiology in agreement. EKG Initial EKG: Attestation: I personally reviewed and interpreted this EKG as follows: Comments: Paced rhythm with a rate of 83 bpm <Dr. Terry Diaz, DO - Last Filed: 11/30/21 12:02> Critical Care Time Critical care time (excluding procedures): 30-74 minutes, Including time spent:, Discussing w/Patient &/or Family/Inspecting Supervisor, Discussing w/Consultants, Arranging Admission or Transfer, Performing Direct Patient Care at Bedside and - (30 minutes) Discharge Plan Dx/Rx/DC Orders Clinical Impression: Weakness, Acute UTI, Sepsis, Renal insufficiency Disposition Disposition: Acute Care [facility]
[2021-11-30 10:42] LABS: Mucous, Urine 0 SEEN /hpf (<or=2+); Red Blood Cells-Urine 0 SEEN /hpf (0-5); Squamous Epithelial Cells - UA 0 SEEN /hpf (0-5)
[2021-11-30] MEDS: 0.9% Normal Saline 1,000 ML 999 ML IV ×2 (10:42→12:04)
[2021-11-30] MEDS: Acetaminophen 650 MG Suppository RC (10:42)
[2021-11-30] MEDS: Ondansetron 4 MG/2 ML Vial IV (10:42)
[2021-11-30 10:45] LABS: Color, Urine Yellow (Yellow); Glucose, Dipstick Normal (Normal); Ketone-Dipstick Negative (Negative); Leukocyte Esterase-Dipstick 500 /ul (Negative); Nitrite-Dipstick Negative (Negative); Occult Blood-Urine 25 /ul (Negative); Protein-Dipstick 30 mg/dl (Negative); Urine Bilirubin Dipstick Negative (Negative); Urine Clarity Cloudy (Clear); Urine Urobilinogen Normal (Normal)
[2021-11-30 10:46] LABS: Absolute Lymphocyte Count 0.65 X10^3/uL (0.83-4.51); Absolute Neutrophil Count 2.6 X10^3/uL (2.0-7.7); Basophil# 0.04 X10^3/uL; Basophil% 1.1 % (0-1); Eosinophil# 0.05 X10^3/uL; Eosinophils% 1.4 % (0-5); Hematocrit 35.3 % (40-54); Hemoglobin 11.4 g/dL (13.0-16.5); Lymphocyte # 0.65 X10^3/ul (0.83-4.51); Lymphocyte % 18.5 % (19-41); Mean Corp Hgb Conc 32.3 g/dL (32-36); Mean Corpuscular Hgb 29.9 pg (27.0-32.0); Mean Corpuscular Volume 92.7 fL (80-94); Monocyte# 0.18 X10^3/uL; Monocyte% 5.1 % (0-10); NRBC Flagged by Analyzer 0 % (0-5); Neutrophil # 2.57 X10^3/uL (2.7-7.7); Neutrophil % 73.3 % (47-70); Platelet Count 100 K/mm3 (150-450); RBC Distribution Width CV 13.5 % (11.6-14.6); RBC Distribution Width SD 45.7 fl (35.1-43.9); Red Blood Count 3.81 M/mm3 (4.6-6.2); White Blood Count 3.5 K/mm3 (4.4-11.0)
[2021-11-30 10:50] LABS: White Blood Cells >100 SEEN /hpf (0-5)
--- NOTE | 2021-11-30 10:50 | CT_ITS ---
STUDY: CT BRAIN WITHOUT CONTRAST REASON FOR EXAM: Male, 81 years old. increased weakness, fell this morning, hx hypertension, diabetes. RADIATION DOSAGE (If Supplied By Facility): CTDIvol = ( 44.99 ) mGy, DLP = ( 846.73 ) mGycm TECHNIQUE: Transaxial CT imaging of the brain was performed without administration of intravenous contrast material. Individualized dose optimization techniques were used for this CT. COMPARISON: None. FINDINGS: Normal soft tissue structures. Normal calvarium. There is moderate cerebral atrophy with widening of the extra-axial spaces and ventricular dilatation. There are areas of decreased attenuation within the white matter tracts of the supratentorial brain, consistent with microvascular disease changes. 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 Normal brainstem. Normal cerebellum. There is no intracranial hemorrhage. There are no findings of an acute ischemic infarction. Normal visualized paranasal sinuses. CT/Brain/Head without Contrast IMPRESSION: Chronic ischemic and involutional changes of the brain. Electronically Signed: Bernardo Roberts MD at 11:49 EDT ,
[2021-11-30 10:51] LABS: Bacteria 3+ /hpf (None Seen)
--- NOTE | 2021-11-30 10:55 | RAD_ITS ---
STUDY: X-RAY CHEST REASON FOR EXAM: Male, 81 years old. cough TECHNIQUE: Single AP portable view of the chest. COMPARISON: November 04, 2021. FINDINGS: Reidentification of mild to moderate interstitial fibrotic changes of the lungs. No visualized new focal area of consolidation. There is no demonstrated pleural abnormality. Normal size heart. Stable left chest cardiac device and leads. Normal mediastinum and angel. Normal visualized pulmonary arteries. There is atherosclerotic calcification of the aortic arch with tortuosity. Stable visualized osseous structures. There is no demonstrated abnormality of the visualized soft tissue structures of the upper abdomen. RAD/Chest 1 View (Portable) IMPRESSION: 1. Reidentification of mild to moderate interstitial fibrotic changes of the lungs. No visualized new focal area of consolidation. Electronically Signed: Bernardo Roberts MD at 11:11 EDT ,
[2021-11-30 11:04] LABS: Anion Gap 9 (5-15); BUN 39 mg/dL (7-18); BUN/Creat Ratio 11.4 RATIO (10-20); Calcium,Total 8.8 mg/dL (8.5-10.1); Chloride 108 mmol/L (98-107); Creatinine, Serum 3.41 mg/dL (0.70-1.30); EST Glomerular Filtration Rate 19 mL/min (>60); Est Glom Filt Rate - Afr Amer 23 mL/min (>60); Estimated Creatinine Clearance 16.99 ml/min; Glucose 155 mg/dL (74-106); Potassium 4.3 mmol/L (3.5-5.1); Sodium Level 143 mmol/L (136-145); Troponin-I HS 53 pg/mL (3.0-78.0)
[2021-11-30] MEDS: Ceftriaxone 1 GM/50 ML BAG IV (11:07)
[2021-11-30 11:19] LABS: Prothrombin Time (Protime)PT. 22.2 SECONDS (11.7-14.9)
[2021-11-30 11:29] LABS: Lactic Acid 4.4 mmol/L (0.4-1.9)
[2021-11-30] MEDS: 0.9% Normal Saline 1,000 ML 100 ML IV ×2 (13:09→22:51)
[2021-11-30 14:40] LABS: Reflex Lactate? Y
[2021-11-30 15:25] LABS: Lactic Acid 1.2 mmol/L (0.4-1.9)
--- NOTE | 2021-11-30 15:38 | PCM.HP.STD ---
Documented by User: Pk RINALDI 11/30/21 15:54 HPI - General General Date of Admission: 11/30/21 Date of Service: 11/30/21 Chief Complaint: Weakness HPI Narrative CHACORTA BANUELOS is a 81-year-old male who presents to the ED at [facility] with a chief complaint of weakness. Patient reports that he has ongoing spells of weakness where he just has a hard time taking care of himself. She reports this is been going on for the past year. Patient has had recent falls, but denies any injury. Denies any difficulty urinating or suprapubic pain. Denies chest pain, shortness of breath, palpitations, hemoptysis, sputum production, fever, chills, N/V/D. Vital signs are stable and patient is afebrile, although BP is low at 100/50. CBC is unremarkable. BMP does show an elevated creatinine at 3.4. Patient did have an elevated lactate at 4.4 on initial presentation, repeat lactate was within normal limits at 1.2. Brain CT was unremarkable for any acute findings. Chest x-ray did not demonstrate any acute cardiopulmonary process. UA demonstrates yellow cloudy urine with negative nitrites, 500 leukocyte esterase, greater than 100 urine WBCs seen, 3+ bacteria. Patient was given fluids and initiated on empiric Rocephin in the ED. FORMERLY [facility], [facility] Medical History Arthritis BPH (benign prostatic hyperplasia) Chronic respiratory failure with hypoxia Chronic systolic (congestive) heart failure CKD (chronic kidney disease), stage IV COPD (chronic obstructive pulmonary disease) Diabetes type 2, controlled Dizziness and giddiness DM2 (diabetes mellitus, type 2) Dyspnea Essential (primary) hypertension Fistula Frequent PVCs Hearing loss History of pneumonia Hyperlipidemia ICD (implantable cardioverter-defibrillator) in place Longstanding persistent atrial fibrillation Nonischemic cardiomyopathy JESSICA (obstructive sleep apnea) Pacemaker Paroxysmal atrial flutter Rectus sheath hematoma Reflux gastritis Rheumatoid arthritis SOB (shortness of breath) Stage 4 very severe COPD by GOLD classification Home Medications hydroxychloroquine 200 mg PO DAILY 07/10/19 [History Last Taken 11/30/21] calcitriol 0.25 mcg PO DAILY 03/14/20 [History Last Taken 03/14/20] dutasteride 0.5 mg PO DAILY 03/14/20 [History Last Taken 11/30/21] tamsulosin 0.4 mg PO DAILY 03/14/20 [History Last Taken 11/30/21] acetaminophen 650 mg PO Q6H PRN PRN tab 09/25/20 [Rx Last Taken Unknown] amiodarone 200 mg tablet 200 mg PO DAILY #90 tab 11/01/20 [Rx Last Taken 11/30/21] warfarin 2 mg tablet See Rx Instructions PO DAILY #90 tablet 11/27/20 [Rx Last Taken Unknown] prednisone 5 mg tablet 5 mg PO DAILY #90 tab 03/18/21 [Rx Last Taken 11/30/21] psyllium husk 0.4 gram capsule 0.4 g PO DAILY 09/30/21 [History Last Taken 11/30/21] carvedilol 12.5 mg PO BID 11/30/21 [History Last Taken 11/30/21] furosemide 40 mg PO DAILY 11/30/21 [History Last Taken 11/30/21] mirtazapine 7.5 mg PO QHS 11/30/21 [History Last Taken Unknown] warfarin 1 mg PO .COMPLEX 11/30/21 [History Last Taken Unknown] Allergy/AdvReac Type Severity Reaction Status Date / Time amoxicillin [Amoxicillin] Allergy Rash Verified 11/04/21 13:41 ciprofloxacin [From Cipro] Allergy Rash Verified 11/04/21 13:41 ciprofloxacin HCl Allergy Rash Verified 11/04/21 13:41 [From Cipro] Sulfa (Sulfonamide Allergy PT UNSURE Verified 11/04/21 13:41 Antibiotics) OF REACTION Family History Father Sudden cardiac Brother Myocardial infarction CHF (congestive heart failure) Other Family history of coronary artery disease Surgical History Biventricular ICD (implantable cardioverter-defibrillator) in place History of left heart catheterization (11/25/09) Hx of lithotripsy Normal colonoscopy Social History Smoking Status: Former smoker how long ago did patient quit smokin alcohol intake: never substance use type: does not use caffeine: No what type of physical activity do you participate in: none seatbelt use: always do you feel safe at home: Yes ROS Review of Systems ROS Unobtainable: Denies due to encephalopathy, due to endotracheal tube, due to mental condition, due to mental status or other Constitutional Constitutional: Reports weakness; Denies anorexia, change in weight, chills, fatigue, fever(s), malaise, night sweats or other Eyes Eyes: Denies blurry vision, change in eye color, change in vision, discharge from eye(s), double vision, erythema, eye pain, loss of vision or other ENT HEENT: Denies abnormal hearing, dysphagia, ear pain, epistaxis, headache(s), hearing loss, nasal congestion, nasal discharge, post nasal drip, sinus pressure, sore throat or other Cardiovascular Cardiovascular: Denies chest pain, claudication, dyspnea on exertion, edema, lightheadedness, orthopnea, palpitations, paroxysmal nocturnal dyspnea, rapid heart rate, syncope or other Respiratory/Chest Respiratory/Chest: Denies cough, dyspnea, excessive phlegm production, hemoptysis, productive cough, shortness of breath at rest, shortness of breath with exertion, wheezing or other Gastrointestinal Gastrointestinal: Denies abdominal pain, coffee ground emesis, constipation, diarrhea, dyspepsia, hematemesis, hematochezia, loose stools, melena, nausea, vomiting or other Genitourinary Genitourinary: Denies burning urination, difficulty urinating, dysuria, hematuria, nocturia, urinary frequency, urinary hesitancy, urinary incontinence, urinary urgency or other Musculoskeletal Musculoskeletal: Denies arthralgias, back pain, joint pain, joint stiffness, joint swelling, myalgias, neck pain or other Psychiatric Psychiatric: Denies anxiety, depression, homicidal ideation, suicidal ideation or other Endocrine Endocrinology: Denies change in body appearance, cold intolerance, excessive sweating, heat intolerance, polydipsia, polyuria or other Hematologic/Lymphatic Hematologic/Lymphatic: Denies anemia, easy bleeding, easy bruising, lymphadenopathy or other Allergic/Immunologic Allergic/Immunologic: Denies rhinitis, hives, eczemia, asthma or other Vital Signs Vital Signs Vital Signs: 11/30/21 10:05 11/30/21 10:19 11/30/21 11:30 Temperature 102.6 F H 102.6 F H 100.9 F H Temperature Source Oral Oral Temporal Pulse Rate 88 88 71 Respiratory Rate 24 H 24 H 21 H Respiratory Effort Normal Non-Labored Respiratory Depth Respiratory Pattern Blood Pressure 133/86 H 133/86 H 110/62 Blood Pressure Mean 101 101 78 Blood Pressure Source Blood Pressure Position Blood Pressure Location Pulse Ox 100 100 99 Oxygen Delivery Method Nasal Cannula Nasal Cannula Nasal Cannula Oxygen Flow Rate (L/min) 2 2 2 11/30/21 12:06 11/30/21 13:05 11/30/21 13:12 Temperature 100.6 F H 100 F H Temperature Source Oral Oral Pulse Rate 67 67 Respiratory Rate 19 H 16 Respiratory Effort Normal Respiratory Depth Normal Respiratory Pattern Normal Blood Pressure 102/51 L 104/51 L Blood Pressure Mean 68 68 Blood Pressure Source Monitor Blood Pressure Position Semi-Fowlers Blood Pressure Location Left Arm Pulse Ox 98 98 Oxygen Delivery Method Nasal Cannula Room Air Room Air Oxygen Flow Rate (L/min) 3 11/30/21 14:51 11/30/21 14:54 Temperature 98.1 F Temperature Source Oral Pulse Rate 66 Respiratory Rate 18 Respiratory Effort Normal Respiratory Depth Normal Respiratory Pattern Normal Blood Pressure 99/50 L Blood Pressure Mean 66 Blood Pressure Source Monitor Blood Pressure Position Semi-Fowlers Blood Pressure Location Left Arm Pulse Ox 96 Oxygen Delivery Method Room Air Room Air Oxygen Flow Rate (L/min) Weight Weight: 149 lb 11.102 oz Body Mass Index (BMI) 20.2 Physical Exam Const alert and oriented x3 General Appearance: cooperative HEENT normocephalic, head/scalp atraumatic and hearing grossly normal bilaterally Eyes PERRL and conjunctivae normal Neck no lymphadenopathy, supple and no JVD Resp normal respiratory effort, no retractions and no use of accessory muscles Cardio regular rate, regular rhythm and no JVD GI normal to inspection, nondistended, normoactive bowel sounds and soft to palpation Extremity normal to inspection Skin no rashes or lesions noted Neuro CN's II-XII intact bilaterally Psych affect normal Results Lab / Micro Data Result Diagrams: 12/01/21 05:20 12/01/21 05:20 Labs: Laboratory Results - last 24 hr 11/30/21 10:27: Urine Color Yellow, Urine Clarity Cloudy, Urine pH 6.0, Ur Specific Elizabeth 1.020, Urine Protein 30 H, Urine Glucose (UA) Normal, Urine Ketones Negative, Urine Occult Blood 25 H, Urine Nitrite Negative, Urine Bilirubin Negative, Urine Urobilinogen Normal, Ur Leukocyte Esterase 500 H, Urine RBC 0 SEEN, Urine WBC >100 SEEN, Ur Squamous Epith Cells 0 SEEN, Urine Bacteria 3+, Urine Mucus 0 SEEN 11/30/21 10:34: WBC 3.5 L, RBC 3.81 L, Hgb 11.4 L, Hct 35.3 L, MCV 92.7, MCH 29.9, MCHC 32.3, RDW Std Deviation 45.7 H, RDW Coeff of Cecilia 13.5, Plt Count 100 L, MPV 10.0, Immature Gran % (Auto) 0.600, Neut % (Auto) 73.3 H, Lymph % (Auto) 18.5 L, Stanley % (Auto) 5.1, Eos % (Auto) 1.4, Baso % (Auto) 1.1 H, Absolute Neuts (auto) 2.6, Absolute Lymphs (auto) 0.65 L, Nucleated RBC % 0 11/30/21 10:34: Sodium 143, Potassium 4.3, Chloride 108 H, Carbon Dioxide 26.0, Anion Gap 9, BUN 39 H, Creatinine 3.41 H, Estim Creat Clear Calc 16.99, Est GFR (MDRD) Af Amer 23 L, Est GFR (MDRD) Non-Af 19 L, BUN/Creatinine Ratio 11.4, Glucose 155 H, Calcium 8.8, Troponin I High Sens 53 11/30/21 10:34: Lactic Acid 4.4 H* 11/30/21 10:50: PT 22.2 H, INR 2.0 11/30/21 14:49: Lactic Acid 1.2 Micro: Microbiology 11/30/21 10:44 Nasal Secretion SARS-CoV-2 & FLU Antigen (Rapid) - Final Radiology Impression Brain CT 11/30/21 10:50 IMPRESSION: Chronic ischemic and involutional changes of the brain. Electronically Signed: Bernardo Roberts MD at 11:49 EDT , Chest X-Ray 11/30/21 10:55 IMPRESSION: 1. Reidentification of mild to moderate interstitial fibrotic changes of the lungs. No visualized new focal area of consolidation. Electronically Signed: Bernardo Roberts MD at 11:11 EDT Reading Location ID and State: [facility] / [place] , Service support , Assessment & Plan Assessment/Plan (1) Weakness: (2) Acute UTI: PLAN: Patient is a 81-year-old male who was presents to the ED at [facility] on 11/30/2021 with a chief complaint of weakness. Patient will be admitted for evaluation and management of generalized debility/weakness as well as acute UTI. 1) generalized weakness/debility Patient presents with a ongoing history of generalized weakness and inability to complete ADLs/IADLs. Will admit to [facility], obtain PT/OT eval, case management consult ordered for discharge planning. 2) acute cystitis UA on admission demonstrates yellow cloudy urine with negative nitrites, 500 leukocyte esterase, urine WBCs greater than 100, 3+ bacteria. Patient without any urinary complaints or difficulties. Initiate empiric Rocephin, blood/urine cultures ordered, CBC and CMP in a.m. 3) lactic acidosis Initial lactate elevated at 4.4, repeat lactate is within normal limits at 1.2. We will continue to monitor. At time of dictation patient's home medication list had not been reconciled, will reconcile home medications for arthritis, BPH, COPD, DM 2, HTN, hyperlipidemia and RA after medications have been reconciled. DVT prophylaxis - low risk, not indicated Patient seen by Pk Kam PA-C, under the supervision of Dr. Andersen. Time spent on patient care: 25 minutes. Documented by User: Dr. Jesus Andersen MD 12/01/21 13:30 HPI - General General Date of Admission: 11/30/21 FORMERLY [facility], [facility] Medical History Arthritis BPH (benign prostatic hyperplasia) Chronic respiratory failure with hypoxia Chronic systolic (congestive) heart failure CKD (chronic kidney disease), stage IV COPD (chronic obstructive pulmonary disease) Diabetes type 2, controlled Dizziness and giddiness DM2 (diabetes mellitus, type 2) Dyspnea Essential (primary) hypertension Fistula Frequent PVCs Hearing loss History of pneumonia Hyperlipidemia ICD (implantable cardioverter-defibrillator) in place Longstanding persistent atrial fibrillation Nonischemic cardiomyopathy JESSICA (obstructive sleep apnea) Pacemaker Paroxysmal atrial flutter Rectus sheath hematoma Reflux gastritis Rheumatoid arthritis SOB (shortness of breath) Stage 4 very severe COPD by GOLD classification Home Medications hydroxychloroquine 200 mg PO DAILY 07/10/19 [History Last Taken 11/30/21] calcitriol 0.25 mcg PO DAILY 03/14/20 [History Last Taken 03/14/20] dutasteride 0.5 mg PO DAILY 03/14/20 [History Last Taken 11/30/21] tamsulosin 0.4 mg PO DAILY 03/14/20 [History Last Taken 11/30/21] acetaminophen 650 mg PO Q6H PRN PRN tab 09/25/20 [Rx Last Taken Unknown] amiodarone 200 mg tablet 200 mg PO DAILY #90 tab 11/01/20 [Rx Last Taken 11/30/21] warfarin 2 mg tablet See Rx Instructions PO DAILY #90 tablet 11/27/20 [Rx Last Taken Unknown] prednisone 5 mg tablet 5 mg PO DAILY #90 tab 03/18/21 [Rx Last Taken 11/30/21] psyllium husk 0.4 gram capsule 0.4 g PO DAILY 09/30/21 [History Last Taken 11/30/21] carvedilol 12.5 mg PO BID 11/30/21 [History Last Taken 11/30/21] furosemide 40 mg PO DAILY 11/30/21 [History Last Taken 11/30/21] mirtazapine 7.5 mg PO QHS 11/30/21 [History Last Taken Unknown] warfarin 1 mg PO .COMPLEX 11/30/21 [History Last Taken Unknown] Allergy/AdvReac Type Severity Reaction Status Date / Time amoxicillin [Amoxicillin] Allergy Rash Verified 11/04/21 13:41 ciprofloxacin [From Cipro] Allergy Rash Verified 11/04/21 13:41 ciprofloxacin HCl Allergy Rash Verified 11/04/21 13:41 [From Cipro] Sulfa (Sulfonamide Allergy PT UNSURE Verified 11/04/21 13:41 Antibiotics) OF REACTION Family History Father Sudden cardiac Brother Myocardial infarction CHF (congestive heart failure) Other Family history of coronary artery disease Surgical History Biventricular ICD (implantable cardioverter-defibrillator) in place History of left heart catheterization (11/25/09) Hx of lithotripsy Normal colonoscopy Social History Smoking Status: Former smoker how long ago did patient quit smokin alcohol intake: never substance use type: does not use caffeine: No what type of physical activity do you participate in: none seatbelt use: always do you feel safe at home: Yes Results Lab / Micro Data Result Diagrams: 12/01/21 05:20 12/01/21 05:20 Charges/Coding Addendum Addendum: Dr. Andersen: I personally reviewed the chart and examined the patient, and agree with the above findings. 81-year-old male presents from home with weakness and had a fall without LOC. No head injury. UA is consistent with a UTI, he does not appear to have any systemic issues with a normal white count. Lactic acid was elevated at 4.4 but this resolved quickly to 1.2 therefore he does not have severe sepsis. With his temperature and his tachypnea, he does meet criteria for sepsis. We will continue with Rocephin. Urine culture is pending. Previous UTI with sensitive E. coli. Given his age and his weakness will evaluate him with PT and OT for possible placement. Clinical time spent in all aspects of patient care: 45 minutes Visit Charges Inpatient E&M: 61086 Init Hosp L3
[2021-12-01] VITALS (8 sets, daily range): BP systolic 111–140; BP diastolic 54–104; PULSE 61–75; RESP 16; TEMP 36.7–38.2; O2SAT 95–100
[2021-12-01 06:28] LABS: Hematocrit 30.2 % (40-54); Hemoglobin 9.9 g/dL (13.0-16.5); Mean Corp Hgb Conc 32.8 g/dL (32-36); Mean Corpuscular Hgb 30.2 pg (27.0-32.0); Mean Corpuscular Volume 92.1 fL (80-94); Mean Platelet Vol. 10.6 fl (6.2-12.0); POSITIVE COUNT YES; POSITIVE MORPHOLOGY YES; Platelet Count 63 K/mm3 (150-450); RBC Distribution Width CV 13.5 % (11.6-14.6); RBC Distribution Width SD 45.5 fl (35.1-43.9); Red Blood Count 3.28 M/mm3 (4.6-6.2); White Blood Count 5.3 K/mm3 (4.4-11.0)
[2021-12-01 06:30] LABS: Differential Indicated MANUAL DIFF
[2021-12-01 06:43] LABS: Platelet Estimate MOD DEC (ADEQ); Red Cell Morphology NORM C+C NORMAL (NORM C&C)
[2021-12-01 06:45] LABS: Absolute Neutrophil Count 3.9 X10^3/uL (2.0-7.7)
[2021-12-01 06:46] LABS: Absolute Lymphocyte Count 0.74 X10^3/uL (0.83-4.51); Atypical Lymphocyte 1+ %; Lymphocyte 14 % (19-41); Monocyte 7 % (0-10); Myelocyte 5 % (0-0); Neutrophil-Band 15 % (0-5); Neutrophil-Segmented 59 % (47-70); Total Cells Counted 100 (MANUAL DIFF)
[2021-12-01 06:55] LABS: Anion Gap 5 (5-15); BUN 40 mg/dL (7-18); BUN/Creat Ratio 11.9 RATIO (10-20); Calcium,Total 7.6 mg/dL (8.5-10.1); Chloride 112 mmol/L (98-107); Creatinine, Serum 3.36 mg/dL (0.70-1.30); EST Glomerular Filtration Rate 19 mL/min (>60); Est Glom Filt Rate - Afr Amer 23 mL/min (>60); Estimated Creatinine Clearance 17.83 ml/min; Glucose 94 mg/dL (74-106); Potassium 3.8 mmol/L (3.5-5.1); Sodium Level 143 mmol/L (136-145)
[2021-12-01] MEDS: 0.9% Normal Saline 1,000 ML 100 ML IV ×2 (09:08→19:26)
[2021-12-01] MEDS: Ceftriaxone 1 GM/50 ML BAG IV (09:11)
--- NOTE | 2021-12-01 10:15 | CASEMGMT ---
RN FRANCISCO Face to Face with patient for initial transition planning/care coordination assessment. RN CM introduced self and role at [facility]. Patient sitting in chair, alert and oriented, at bedside. Patient willing to participate in assessment and is able to answer all questions appropriately. Care providers, pharmacy, and demographics verified. Patient wishes to discharge home, denies need for home health at this time. Patient states he has no further needs or concerns at this time. CM to follow for discharge planning needs that may arise. PCP: Ambrosio Specialists: Bethany, urologist; Antonio, gas torch solderer; Ambrosio, parliamentary archivist; Ronen, test engine evaluator; RA Jason Preferred Pharmacy: [facility] Insurance: [employer] Prescription Benefit: yes Living Will/HPOA: yes, daughter Beverly De Jesus LNOK: , daughter Living Arrangements: Patient lives with and daughter in a mobile home with 4-5 steps to enter the home. Patient states he is independent with self care. Transportation: DME/HHC: Patient states he has shower chair, cane, rollator, pulse ox, cpap, oxygen at night 4lpm through [employer]. Patient is active with [facility]. Will monitor for HHC pending progress with therapy. Disposition Plan: Patient to discharge home with family support and follow-up plans in place. Neeru PATEL, RN, CM
[2021-12-01 12:34] LABS: Pathologist Review Reviewed
--- NOTE | 2021-12-01 13:41 | PCM.PN.HOSP ---
Documented by User: Pk RINALDI 12/01/21 13:53 Subjective Subjective Patient is a 81-year-old male comfortably resting in bed, alert and orient x3. Patient reports feeling less weak from yesterday and overall improved. Denies development of any new symptoms overnight. Objective Data Objective Data Vital Signs: Vital Signs Temp Pulse Resp BP Pulse Ox 98.2 F 61 16 140/104 H 100 12/01/21 09:17 12/01/21 09:17 12/01/21 09:17 12/01/21 09:17 12/01/21 09:17 Oxygen Flow Rate (L/min) 3 Oxygen Delivery Method Room Air Weight: 155 lb 13.869 oz Body Mass Index (BMI) 20.2 Intake & Output: Intake and Output for Last 24 Hours 11/29/21 11/30/21 12/01/21 23:59 23:59 23:59 Intake Total 3020 / 3020 1250 / 1250 Balance 3020 / 3020 1250 / 1250 Lab / Micro Data Result Diagrams: 12/01/21 05:20 12/01/21 05:20 Labs: Laboratory Results - last 24 hr 11/30/21 14:49: Lactic Acid 1.2 12/01/21 05:20: WBC 5.3, RBC 3.28 L, Hgb 9.9 L, Hct 30.2 L, MCV 92.1, MCH 30.2, MCHC 32.8, RDW Std Deviation 45.5 H, RDW Coeff of Cecilia 13.5, Plt Count 63 L, MPV 10.6, Neut % (Auto) Not Reportable, Absolute Neuts (auto) 3.9, Absolute Lymphs (auto) 0.74 L, Total Counted 100, Neutrophils % (Manual) 59, Band Neutrophils % 15 H, Lymphocytes % (Manual) 14 L, Monocytes % (Manual) 7, Myelocytes % 5 H, Diff Path Review Reviewed, Atypical Lymphocytes 1+, Platelet Estimate MOD DEC, RBC Morphology NORM C+C 12/01/21 05:20: Sodium 143, Potassium 3.8, Chloride 112 H, Carbon Dioxide 26.0, Anion Gap 5, BUN 40 H, Creatinine 3.36 H, Estim Creat Clear Calc 17.83, Est GFR (MDRD) Af Amer 23 L, Est GFR (MDRD) Non-Af 19 L, BUN/Creatinine Ratio 11.9, Glucose 94, Calcium 7.6 L Micro: Microbiology 11/30/21 Unknown Urine, Catheterized Urine Culture - Preliminary GNR lactose corporate quality manager 11/30/21 10:44 Nasal Secretion SARS-CoV-2 & FLU Antigen (Rapid) - Final Physical Exam Const alert HEENT head/scalp atraumatic and moist oral mucous membranes Head and Scalp: normocephalic Eyes PERRL and conjunctivae normal Neck no lymphadenopathy, supple and no JVD Resp normal respiratory effort, no retractions and no use of accessory muscles Cardio regular rate, regular rhythm and no JVD GI normal to inspection, nondistended, normoactive bowel sounds and soft to palpation Extremity normal to inspection Skin no rashes or lesions noted Neuro CN's II-XII intact bilaterally Psych affect normal Assessment & Plan Assessment/Plan (1) Sepsis: (2) Acute UTI: (3) Weakness: PLAN: Day 1 Discharge planning: To be determined. 1) generalized weakness/debility PT/OT recommends additional therapy, case management to follow with patient in regards to home versus skilled therapy. 2) acute cystitis Urine culture preliminarily grew gram-negative rods. UA on admission demonstrates yellow cloudy urine with negative nitrites, 500 leukocyte esterase, urine WBCs greater than 100, 3+ bacteria. Patient without any urinary complaints or difficulties. We will continue empiric Rocephin and await sensitivities and speciation. 3) lactic acidosis Initial lactate elevated at 4.4, repeat lactate is within normal limits at 1.2. We will continue to monitor. At time of dictation patient's home medication list had not been reconciled, awaiting paperwork from PCP. DVT prophylaxis - Heparin Patient seen by Pk Kam PA-C, under the supervision of Dr. Andersen. Time spent on patient care: 10 minutes. Documented by User: Dr. Jesus Andersen MD 12/01/21 14:01 Objective Data Lab / Micro Data Result Diagrams: 12/01/21 05:20 12/01/21 05:20 Charges/Coding Addendum Addendum: Dr. Andersen: I personally reviewed the chart and examined the patient, and agree with the above findings. 81-year-old male presents from home with weakness and had a fall without LOC. No head injury. UA is consistent with a UTI, he does not appear to have any systemic issues with a normal white count. Lactic acid was elevated at 4.4 but this resolved quickly to 1.2 therefore he does not have severe sepsis. With his temperature and his tachypnea, he does meet criteria for sepsis. We will continue with Rocephin. Urine culture is pending. Previous UTI with sensitive E. coli. Given his age and his weakness will evaluate him with PT and OT for possible placement. Clinical time spent in all aspects of patient care: 45 minutes 12/01/2021: Doing well today, urine cultures demonstrating gram-negative hesham will continue with Rocephin at this time as he does appear to be improving. We are finally able to get a hold of the primary care physician's office so they will fax over a med list so we can verify his home medications. Once verified can resume most of his home medications. Continue with PT/OT evaluations for discharge planning. Clinical time spent in all aspects of patient care: 15 minutes Visit Charges Inpatient E&M: 04381 Subs Hosp L2
--- NOTE | 2021-12-01 15:07 | CASEMGMT ---
Notified [facility] Sea that pt is admitted to [facility]. [facility] is active with pt.
--- NOTE | 2021-12-01 15:54 | CASEMGMT ---
RN CM in to pt room, pt aware therapy recommending a FWW, pt agreeable. Faxed script to [facility] and emailed Milo. Pt denies need for therapy at home but is agreeable to [facility] resuming at dc.
[2021-12-01] MEDS: Carvedilol 12.5 MG Tablet PO (16:27)
[2021-12-01] MEDS: Mirtazapine 15 MG Tablet 7.5 MG PO (20:40)
[2021-12-01] MEDS: Acetaminophen 325 MG Tablet 650 MG PO (20:42)
[2021-12-02] VITALS (7 sets, daily range): BP systolic 112–130; BP diastolic 65–70; PULSE 65–68; RESP 16–18; TEMP 36.4–37.4; O2SAT 92–97
[2021-12-02 04:30] LABS: Hematocrit 29.8 % (40-54); Hemoglobin 9.7 g/dL (13.0-16.5); Mean Corp Hgb Conc 32.6 g/dL (32-36); Mean Corpuscular Volume 92.3 fL (80-94); Mean Platelet Vol. 10.9 fl (6.2-12.0); POSITIVE COUNT YES; POSITIVE DIFFERENTIAL YES; POSITIVE MORPHOLOGY YES; Platelet Count 69 K/mm3 (150-450); RBC Distribution Width CV 13.5 % (11.6-14.6); RBC Distribution Width SD 46.2 fl (35.1-43.9); Red Blood Count 3.23 M/mm3 (4.6-6.2); White Blood Count 4.8 K/mm3 (4.4-11.0)
[2021-12-02 04:33] LABS: Differential Indicated MANUAL DIFF
[2021-12-02 04:39] LABS: International Normalized Ratio 1.8; Prothrombin Time (Protime)PT. 20.4 SECONDS (11.7-14.9)
[2021-12-02 04:44] LABS: Platelet Estimate MOD DEC (ADEQ); Red Cell Morphology NORM C+C NORMAL (NORM C&C)
[2021-12-02 04:45] LABS: Anion Gap 5 (5-15); BUN 41 mg/dL (7-18); BUN/Creat Ratio 13.2 RATIO (10-20); Chloride 112 mmol/L (98-107); Creatinine, Serum 3.11 mg/dL (0.70-1.30); EST Glomerular Filtration Rate 21 mL/min (>60); Est Glom Filt Rate - Afr Amer 25 mL/min (>60); Estimated Creatinine Clearance 19.26 ml/min; Glucose 142 mg/dL (74-106); Potassium 3.9 mmol/L (3.5-5.1); Sodium Level 140 mmol/L (136-145)
[2021-12-02 04:50] LABS: Absolute Lymphocyte Count 0.57 X10^3/uL (0.83-4.51); Absolute Neutrophil Count 3.8 X10^3/uL (2.0-7.7); Atypical Lymphocyte 2+ %; Eosinophil 1 % (0-5); Lymphocyte 12 % (19-41); Monocyte 7 % (0-10); Myelocyte 1 % (0-0); Neutrophil-Band 15 % (0-5); Neutrophil-Segmented 64 % (47-70); Total Cells Counted 100 (MANUAL DIFF)
[2021-12-02] MEDS: 0.9% Normal Saline 1,000 ML 100 ML IV (05:18)
[2021-12-02] MEDS: Carvedilol 12.5 MG Tablet PO (08:30)
[2021-12-02] MEDS: Ceftriaxone 1 GM/50 ML BAG IV (09:36)
--- NOTE | 2021-12-02 10:24 | CASEMGMT ---
Addendum entered by Brooklyn Swenson 12/02/21 11:17: Notified Sea at [facility] of pt dc this date. Addendum entered by Brooklyn Swenson 12/02/21 10:46: Received tc back from Karrie at [facility], they are able to accept pt and will see tomorrow. Pt and aware. Original Note: RN CM in to pt room as it was communicated in report that pt fell lastnight. Pt at bedside. Pt states he is agreeable to [facility] therapy but would like to keep [facility] nurse. Patient was provided a list of [facility] providers including quality and resource use data and consistent with the patient?s preferred geographic region, medical needs, and insurance network. The patient?s preferred provider is [facility]. TC to Karrie at [facility], referral made. Will await acceptance.
[2021-12-02] MEDS: Hydroxychloroquine 200 MG Tablet PO (10:36)
[2021-12-02] MEDS: Tamsulosin HCl 0.4 MG Capsule PO (10:37)
[2021-12-02] MEDS: Finasteride 5 MG Tablet PO (10:38)
[2021-12-02] MEDS: Amiodarone 200 MG Tablet PO (10:39)
--- NOTE | 2021-12-02 11:02 | PCM.DC ---
Discharge Instructions Diet Discharge Diet: No restrictions Activity Discharge Activity: Return to Normal Activity Weight Bearing Status: Weight bearing as tolerated Dressing / Incision Call your doctor if you observe: Fever of 101 or Higher, Numbness or Tingling, Shortness of breath, Dizziness, Chest pain, Increased palpitations (irregular heartbeat) and Calf discomfort Follow Up Care Please Follow Up With: Primary care provider When: Within the next two weeks. Test Results: Test results from this visit will be discussed in further detail at your follow-up appointment, if applicable. Discharge Plan Admission Admit Date/Time: 11/30/21 12:00 Primary Reason for Your Visit: Confusion Attending Provider: Leon Hoang Primary Care Provider: Dwayne Valente Discharge Orders/Prescriptions Prescriptions: New cefdinir 300 mg capsule 300 mg PO BID Qty: 10 RF: 0 Continued amiodarone 200 mg tablet 200 mg PO DAILY Qty: 90 RF: 3 prednisone 5 mg tablet 5 mg PO DAILY Qty: 90 RF: 0 psyllium husk [Daily Fiber] 0.4 gram capsule 0.4 g PO DAILY RF: 0 hydroxychloroquine 200 MG tablet 200 mg PO DAILY RF: 0 tamsulosin 0.4 mg capsule 0.4 mg PO DAILY RF: 0 calcitriol 0.25 MCG capsule 0.25 mcg PO DAILY RF: 0 dutasteride 0.5 MG capsule 0.5 mg PO DAILY RF: 0 acetaminophen 325 MG tablet 650 mg PO Q6H PRN PRN (Reason: Pain Score 1-10/Temp > 100.7 F) RF: 0 furosemide 40 mg tablet 40 mg PO DAILY RF: 0 carvedilol 12.5 mg tablet 12.5 mg PO BID RF: 0 mirtazapine 7.5 mg tablet 7.5 mg PO QHS RF: 0 warfarin 3 mg Tablet 3 mg PO MOTUWETH RF: 0 warfarin 2 mg Tablet 2 mg PO SUFRSA RF: 0 Referrals / Follow Up: Dwayne Valente DO [Primary Care Provider] - Disposition Disposition (needs filled in before D/C Order can be placed): Home Health Service
[2021-12-02 13:30] LABS: Pathologist Review Reviewed
--- NOTE | 2021-12-02 13:50 | DS.PCM_ITS ---
Documented by User: Pk RINALDI 12/02/21 13:55 Providers Date of Admission: 11/30/21 Date of Discharge: 12/02/21 Primary Care Physician: Dr. Dwayne Valente, Reason For Visit: UTI Diagnosis Discharge Diagnosis (1) Sepsis: Status: Acute Code(s): A41.9 - Sepsis, unspecified organism (2) Acute UTI: Status: Acute Code(s): N39.0 - Urinary tract infection, site not specified (3) Weakness: Status: Acute Code(s): R53.1 - Weakness Medications at Discharge Home Medications hydroxychloroquine 200 mg PO DAILY 07/10/19 calcitriol 0.25 mcg PO DAILY 03/14/20 dutasteride 0.5 mg PO DAILY 03/14/20 tamsulosin 0.4 mg PO DAILY 03/14/20 acetaminophen 650 mg PO Q6H PRN PRN tab 09/25/20 amiodarone 200 mg tablet 200 mg PO DAILY #90 tab 11/01/20 prednisone 5 mg tablet 5 mg PO DAILY #90 tab 03/18/21 psyllium husk 0.4 gram capsule 0.4 g PO DAILY 09/30/21 carvedilol 12.5 mg PO BID 11/30/21 furosemide 40 mg PO DAILY 11/30/21 mirtazapine 7.5 mg PO QHS 11/30/21 warfarin 2 mg PO SUFRSA 12/01/21 warfarin 3 mg PO MOTUWETH 12/01/21 cefdinir 300 mg PO BID #10 cap 12/02/21 Hospital Course Summary of Care Provided Minutes Spent on Discharge: 20 Hospital Course: Patient is a 81-year-old male who was admitted to [facility] on 11/30/2021 for evaluation management of generalized weakness, worsening debility and acute cystitis. Hospital course and management as below. 1) generalized weakness/debility PT/OT recommends additional therapy, case management to establish home therapy for patient. 2) acute cystitis Urine culture grew E. coli that was pansensitive. Will initiate cefdinir 30 mg p.o. twice daily x5 days to complete 7-day course. Patient to follow-up with primary care provider within the next 2 weeks. All other patient's home medications in regards to arthritis, BPH, COPD, DM 2, HTN, PAF, COPD and RA were continued. Patient seen by Pk Kam PA-C, under the supervision of Dr. Hoang. Time spent on patient care: 20 minutes. Physical Exam Narrative Patient is a 81-year-old male comfortably resting in a chair, alert and orient x3. Patient denies development of any new symptoms overnight. Does not appear in acute distress. Const alert, oriented x3 and no apparent distress HEENT normocephalic, head/scalp atraumatic and hearing grossly normal bilaterally Eyes PERRL, EOMs intact bilaterally and conjunctivae normal Neck no lymphadenopathy, supple and no JVD Resp normal respiratory effort, no retractions and no use of accessory muscles Cardio regular rate, regular rhythm and no JVD GI normal to inspection, nondistended, normoactive bowel sounds Extremity normal to inspection Skin no rashes or lesions noted Neuro CN's II-XII intact bilaterally Psych affect normal Weight / BMI Weight Weight: 161 lb 13.109 oz Body Mass Index (BMI) 20.2 ABG / Lab / Microbiology Data Result Diagrams: 12/02/21 03:53 12/02/21 03:53 Laboratory: Laboratory Results - last 24 hr 12/02/21 03:53: WBC 4.8, RBC 3.23 L, Hgb 9.7 L, Hct 29.8 L, MCV 92.3, MCH 30.0, MCHC 32.6, RDW Std Deviation 46.2 H, RDW Coeff of Cecilia 13.5, Plt Count 69 L, MPV 10.9, Neut % (Auto) Not Reportable, Absolute Neuts (auto) 3.8, Absolute Lymphs (auto) 0.57 L, Total Counted 100, Neutrophils % (Manual) 64, Band Neutrophils % 15 H, Lymphocytes % (Manual) 12 L, Monocytes % (Manual) 7, Eosinophils % (Manual) 1, Myelocytes % 1 H, Diff Path Review Reviewed, Atypical Lymphocytes 2+, Platelet Estimate MOD DEC, RBC Morphology NORM C+C 12/02/21 03:53: Sodium 140, Potassium 3.9, Chloride 112 H, Carbon Dioxide 23.0, Anion Gap 5, BUN 41 H, Creatinine 3.11 H, Estim Creat Clear Calc 19.26, Est GFR (MDRD) Af Amer 25 L, Est GFR (MDRD) Non-Af 21 L, BUN/Creatinine Ratio 13.2, Glucose 142 H, Calcium 8.0 L 12/02/21 03:53: PT 20.4 H, INR 1.8 Microbiology: Microbiology 11/30/21 Unknown Urine, Catheterized Urine Culture - Final Escherichia coli 11/30/21 10:50 Blood Culture (Wb) - Anticubital Right Blood Culture - Preliminary No growth in 48 hours. 11/30/21 10:34 Blood Culture (Wb) - Anticubital Right Blood Culture - Preliminary No growth in 48 hours. 11/30/21 10:44 Nasal Secretion SARS-CoV-2 & FLU Antigen (Rapid) - Final D/C Instructions Discharge Diet: No restrictions Weight Bearing Status: Weight bearing as tolerated Call your doctor if you observe: Fever of 101 or Higher, Numbness or Tingling, Shortness of breath, Dizziness, Chest pain, Increased palpitations (irregular heartbeat) and Calf discomfort Please Follow Up With: Primary care provider When: Within the next two weeks. Meaningful Use Info Meaningful Use Diagnoses (Choose all that apply): None applicable Discharge Plan Admission Admit Date/Time: 11/30/21 12:00 Primary Reason for Your Visit: Confusion Attending Provider: Leon Hoang Primary Care Provider: Dwayne Valente Discharge Orders/Prescriptions Prescriptions: New cefdinir 300 mg capsule 300 mg PO BID Qty: 10 RF: 0 Continued amiodarone 200 mg tablet 200 mg PO DAILY Qty: 90 RF: 3 prednisone 5 mg tablet 5 mg PO DAILY Qty: 90 RF: 0 psyllium husk [Daily Fiber] 0.4 gram capsule 0.4 g PO DAILY RF: 0 hydroxychloroquine 200 MG tablet 200 mg PO DAILY RF: 0 tamsulosin 0.4 mg capsule 0.4 mg PO DAILY RF: 0 calcitriol 0.25 MCG capsule 0.25 mcg PO DAILY RF: 0 dutasteride 0.5 MG capsule 0.5 mg PO DAILY RF: 0 acetaminophen 325 MG tablet 650 mg PO Q6H PRN PRN (Reason: Pain Score 1-10/Temp > 100.7 F) RF: 0 furosemide 40 mg tablet 40 mg PO DAILY RF: 0 carvedilol 12.5 mg tablet 12.5 mg PO BID RF: 0 mirtazapine 7.5 mg tablet 7.5 mg PO QHS RF: 0 warfarin 3 mg Tablet 3 mg PO MOTUWETH RF: 0 warfarin 2 mg Tablet 2 mg PO SUFRSA RF: 0 Referrals / Follow Up: Dwayne Valente DO [Primary Care Provider] - 12/25/21 9:00 am Disposition Disposition (needs filled in before D/C Order can be placed): Home Health Service Documented by User: Dr. Leon Hoang DO 12/02/21 18:32 Providers Date of Admission: 11/30/21 Reason For Visit: UTI Medications at Discharge Home Medications hydroxychloroquine 200 mg PO DAILY 07/10/19 calcitriol 0.25 mcg PO DAILY 03/14/20 dutasteride 0.5 mg PO DAILY 03/14/20 tamsulosin 0.4 mg PO DAILY 03/14/20 acetaminophen 650 mg PO Q6H PRN PRN tab 09/25/20 amiodarone 200 mg tablet 200 mg PO DAILY #90 tab 11/01/20 prednisone 5 mg tablet 5 mg PO DAILY #90 tab 03/18/21 psyllium husk 0.4 gram capsule 0.4 g PO DAILY 09/30/21 carvedilol 12.5 mg PO BID 11/30/21 furosemide 40 mg PO DAILY 11/30/21 mirtazapine 7.5 mg PO QHS 11/30/21 warfarin 2 mg PO SUFRSA 12/01/21 warfarin 3 mg PO MOTUWETH 12/01/21 cefdinir 300 mg PO BID #10 cap 12/02/21 ABG / Lab / Microbiology Data Result Diagrams: 12/02/21 03:53 12/02/21 03:53 Discharge Plan Admission Admit Date/Time: 11/30/21 12:00 Primary Reason for Your Visit: Confusion Attending Provider: Leon Hoang Primary Care Provider: Dwayne Valente Discharge Orders/Prescriptions Prescriptions: New cefdinir 300 mg capsule 300 mg PO BID Qty: 10 RF: 0 Continued amiodarone 200 mg tablet 200 mg PO DAILY Qty: 90 RF: 3 prednisone 5 mg tablet 5 mg PO DAILY Qty: 90 RF: 0 psyllium husk [Daily Fiber] 0.4 gram capsule 0.4 g PO DAILY RF: 0 hydroxychloroquine 200 MG tablet 200 mg PO DAILY RF: 0 tamsulosin 0.4 mg capsule 0.4 mg PO DAILY RF: 0 calcitriol 0.25 MCG capsule 0.25 mcg PO DAILY RF: 0 dutasteride 0.5 MG capsule 0.5 mg PO DAILY RF: 0 acetaminophen 325 MG tablet 650 mg PO Q6H PRN PRN (Reason: Pain Score 1-10/Temp > 100.7 F) RF: 0 furosemide 40 mg tablet 40 mg PO DAILY RF: 0 carvedilol 12.5 mg tablet 12.5 mg PO BID RF: 0 mirtazapine 7.5 mg tablet 7.5 mg PO QHS RF: 0 warfarin 3 mg Tablet 3 mg PO MOTUWETH RF: 0 warfarin 2 mg Tablet 2 mg PO SUFRSA RF: 0 Referrals / Follow Up: Dwayne Valente DO [Primary Care Provider] - 12/25/21 9:00 am Disposition Disposition (needs filled in before D/C Order can be placed): Home Health Service Charges/Coding Addendum Addendum: Patient was seen and examined today independently of Pk Kam, patient's vital signs today appeared stable and he appeared stable for discharge home. I talked briefly with the who was in the room at the time of my examination. Patient looks fatigued but otherwise appeared his stated age. On examination he appeared in no distress, he appeared fatigued. Vital signs as documented. Skin warm and dry and without overt rashes. Neck without JVD, neck was supple, trachea midline, thyroid was normal. Lungs clear bilaterally, normal air movement was noted. Heart exam notable for regular rhythm, normal sounds and absence of murmurs, rubs or gallops. Abdomen unremarkable and without evidence of organomegaly, masses, or abdominal aortic enlargement. Bowel sounds are present, abdomen is not distended. Extremities nonedematous, no cyanosis was noted, no clubbing was noted. Neuro: Cranial nerves II through XII are grossly intact, no focal motor deficits were noted, sensation to light touch and pinprick intact, motor exam 5/5 throughout. Psych: Patient is alert and oriented x3, he does not appear anxious or depressed, he does not appear agitated. Impression: #1 acute cystitis secondary to E. coli #2 acute debility secondary to multiple medical problems including acute cystitis #3 nonischemic cardiomyopathy #4 elevated lactic acid-etiology unclear #5 chronic obstructive pulmonary disease #6 type 2 diabetes #7 essential hypertension I have reviewed Pk Kam's discharge summary including his medical assessment and plan of care and with the above additions endorse it. Total clinical time spent by myself addressing the patient's medical issues, reviewing the patient's medical data, and communicating with the patient's care team: 25 minutes Visit Charges Inpatient E&M: [id number] Disch Hosp
== END 2021-12-02 12:15 | disposition home health service (06) | DRG 690 ==
LOC: ED 12:11 → MS3 12:16
PROVIDERS: Nurse Practitioner; Physician Assistant; Admitting Provider Family Medicine; Emergency Provider Emergency Medicine; PCP Family Medicine; Visit Provider Internal Medicine
DX: N30.00 Acute cystitis without hematuria (principal); I42.8 Other cardiomyopathies; E87.2 Acidosis; I13.0 Hypertensive heart and chronic kidney disease with heart failure and stage 1 through stage 4 chronic kidney disease, or unspecified chronic kidney disease; I50.22 Chronic systolic (congestive) heart failure; N18.4 Chronic kidney disease, stage 4 (severe); E11.22 Type 2 diabetes mellitus with diabetic chronic kidney disease; B96.20 Unspecified Escherichia coli [E. coli] as the cause of diseases classified elsewhere; J44.9 Chronic obstructive pulmonary disease, unspecified; I48.0 Paroxysmal atrial fibrillation; M06.9 Rheumatoid arthritis, unspecified; E78.5 Hyperlipidemia, unspecified; M19.90 Unspecified osteoarthritis, unspecified site; N40.0 Benign prostatic hyperplasia without lower urinary tract symptoms; R53.81 Other malaise; R74.02 Elevation of levels of lactic acid dehydrogenase [LDH]; Z95.810 Presence of automatic (implantable) cardiac defibrillator; Z79.01 Long term (current) use of anticoagulants; Z79.899 Other long term (current) drug therapy; Z87.891 Personal history of nicotine dependence
CPT/HCPCS: 36415; 70450; 71045; 80048; 81001; 83605; 84484; 85025; 85610; 87040; 87077; 87086; 87088; 87186; 87428; 93005; 97110; 97162; 97166; 97530; 97535; 99285; J7030; J2405